=== PATIENT | female | born 2005 | race Caucasian/White ===

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

== ENCOUNTER 2023-04-11 14:48 | Emergency (ER) | payer MEDICAID, SELFPAY ==
[2023-04-11 14:49] VITALS: BP 133/94; PULSE 102; RESP 16; TEMP 36; O2SAT 97; BMI 24.4
--- NOTE | 2023-04-11 15:14 | EDS_ITS ---
<Statement entered by Jasmin Camp MD - 04/11/23 19:29> I have personally performed a face to face assessment of the patient and have reviewed the RITIKA Note. Patient presents secondary to right shoulder injury. She states last night around midnight she fell from her bed striking her right shoulder. She continues to have pain mostly over the posterior shoulder today. Patient seen upright in bed no acute distress. Head and neck examination is unremarkable with no sign of trauma. Heart is regular rate and rhythm. Lung sounds are clear. Right upper extremity examination reveals no evidence of dislocation or deformity. Strong distal pulses are noted. Strong hand grasp and good range of motion of the right shoulder. No focal tenderness over the scapula or clavicle. Right shoulder x-rays per my interpretation reveal no evidence of fracture or dislocation. Radiology interpretation reviewed. Test results discussed with the patient. She will continue Tylenol or ibuprofen. HPI History of Present Illness Chief Complaint: Upper Extremity Injury Narrative Narrative: Patient is a 17-year-old female with history of anxiety who presents to the emerged part with right shoulder injury. Patient states last night around midnight, she was trying to catch her child could have fell off the bed, she then fell striking her right shoulder. She was able go back to sleep however this morning, she had difficulty moving her shoulder and she is concerned is out of place. She denies any head or neck injury. She denies any numbness or tingling down the right arm. She does have history of injury to this right shoulder. [facility] Medical History Anxiety Asthma Bipolar disorder Depression Drug use ETOH abuse Gestational HTN Headache LGA (large for gestational age) fetus Marijuana smoker Polyhydramnios PTSD (post-traumatic stress disorder) Second degree perineal laceration during delivery Seizures (spontaneous vaginal delivery) Home Medications [id number]-[id number]-Fy-FA 1 mg tablet 1 tab PO DAILY 04/20/22 [History Last Taken 2 Days Ago ~05/06/22] ferrous sulfate 325 mg (65 mg iron) tablet 325 mg PO DAILY 05/08/22 [History Last Taken 2 Days Ago ~05/06/22] ferrous sulfate 325 mg (65 mg iron) tablet 325 mg PO DAILY #30 tabs 05/10/22 [Rx Last Taken Unknown] ibuprofen 600 mg tablet 600 mg PO Q6H PRN pain #30 tabs 05/10/22 [Rx Last Taken Unknown] fluoxetine 10 mg capsule 10 mg PO DAILY 09/18/22 [History Last Taken Unknown] ibuprofen 600 mg tablet 600 mg PO Q6H PRN PRN pain #20 TABLETS 04/11/23 [Rx Last Taken Unknown] Allergy/AdvReac Type Severity Reaction Status Date / Time No Known Allergies Allergy Verified 09/18/22 01:17 Surgical History H/O right knee surgery History of surgery History of tonsillectomy Social History Smoking Status: Current every day smoker tobacco type: e-cigarettes ROS ROS ED ROS Narrative Constitutional: Negative for fever, chills, weight loss, weakness Eyes: Negative for vision loss, vision change, double vision ENT: Negative for any sore throat, ear pain, congestion Cardiovascular: Negative for any chest pain, tightness, palpitations Respiratory: Negative for any cough, sputum production, hemoptysis, dyspnea, dyspnea on exertion, orthopnea Gastrointestinal: Negative for any abdominal pain, nausea, vomiting, diarrhea, constipation, blood in stool, blood in vomit : Negative for any urinary frequency, dysuria, retention, blood in urine Muscle skeletal: Negative for any myalgias, arthralgias, neck pain, back pain. positive right shoulder pain Neurological: Negative for any headache, syncope, numbness or tingling, dizziness Skin: Negative for any rashes, lumps, itching, abrasions, lacerations Psychiatric: Negative for any depression, anxiety, stress, suicidal ideation, homicidal ideation Hematologic: Negative for any easy bruising, excessive bruising, easy bleeding Allergies: Negative for any eczema, hives, rash EXAM Physical Exam Narrative Exam Narrative: Vital signs reviewed. Extremities: No peripheral edema, no signs of gross trauma or deformity. Patient has pain on the anterior aspect of the right shoulder. Worsening pain with abduction, abduction. Minimal swelling. +2 radial pulse Neuro: Cranial nerves II through XII intact, no focal neurological deficits. Skin: Clean dry and intact with no rash, purpura, petechiae, vesicles or pustules. Backs/flank: No CVA tenderness, no midline spinal tenderness, no deformity. Psych: Normal mood and affect. No SI, HI or acute psychosis. Const Vital Signs: 04/11/23 14:49 Temperature 96.8 F L Temperature Source Temporal Pulse Rate 102 H Respiratory Rate 16 Blood Pressure 133/94 H Blood Pressure Mean 107 Pulse Ox 97 Oxygen Delivery Method Room Air [facility] Treatment and Re-Evaluation Narrative: Patient appears generally well, patient appears nontoxic, vital signs are stable. Patient presents to the emergency department with complaints of right shoulder pain. Differential diagnosis includes right shoulder strain, humeral fracture, shoulder dislocation. 3 view to 4 view x-rays will be ordered, these will be interpreted by the ER physician. All radiologic examinations were read, reviewed by the emergency department attending. From these reads, a plan of care will be put in place. X-rays showed no acute process the right shoulder. At this time, patient be diagnosed with a right shoulder strain, right shoulder contusion. She will be given ibuprofen for home. All questions were answered, she instructed to ice and elevate. Happy with plan of care, stable for discharge Discharge Plan Triage Chief Complaint: Upper Extremity Injury ED Midlevel Provider: Anselmo Givens ED Provider: Jasmin Camp Dx/Rx/DC Orders Clinical Impression: Acute pain of right shoulder Instructions: LUKE PASTRANA Shoulder Pain, Uncertain Cause Prescriptions: New ibuprofen 600 mg tablet 600 mg PO Q6H PRN PRN (Reason: pain) Qty: 20 0RF No Action [id number]-FA 1 mg Tablet 1 tab PO DAILY
--- NOTE | 2023-04-11 15:15 | RAD_ITS ---
EXAM: XR RIGHT SHOULDER COMPLETE, 2 OR MORE VIEWS CLINICAL INDICATION: fall TECHNIQUE: Two or more views of the right shoulder. COMPARISON: No relevant prior studies available. FINDINGS: BONES/JOINTS: Unremarkable. No acute fracture. No subluxation. Normal alignment. Preservation of the joint space. No sclerotic or destructive changes observed. SOFT TISSUES: Unremarkable. No soft tissue swelling or gas. No radiopaque foreign body. RAD/Shoulder min 2 Views IMPRESSION: Negative right shoulder x-rays. Electronically Signed: Cosme Chester MD at 15:38 EST ,
== END 2023-04-11 15:41 | disposition home or self-care (01) ==
LOC: ED 15:34
PROVIDERS: Emergency Provider Emergency Medicine; Visit Provider Emergency Medicine
DX: S46.911A Strain of unspecified muscle, fascia and tendon at shoulder and upper arm level, right arm, initial encounter (principal); W06.XXXA Fall from bed, initial encounter; F32.A Depression, unspecified; Z79.899 Other long term (current) drug therapy; F17.290 Nicotine dependence, other tobacco product, uncomplicated; S40.011A Contusion of right shoulder, initial encounter
CPT/HCPCS: 73030; 99282

== ENCOUNTER 2024-08-31 19:26 | Emergency (ER) | payer MEDICAID, SELFPAY ==
[2024-08-31 19:26] VITALS: BP 107/73; PULSE 53; RESP 13; TEMP 36.6; O2SAT 100; BMI 23.4
--- NOTE | 2024-08-31 19:44 | EDS_ITS ---
HPI History of Present Illness Chief Complaint: Head Injury Narrative Narrative: 19-year-old female who denies significant past medical history presents with headache, nausea that she has had since yesterday evening. She states that her 2-year-old's head collided with hers yesterday evening around 7 PM, almost 24 hours ago. Since then, she has developed headache on the left side of her head as well as nausea but no vomiting. She may have felt very lightheaded but there was no loss of consciousness. She states that her symptoms are progressing and she feels off balance when she walks. She had ringing in her ears and tinnitus after it happened immediately but that has resolved. She does not take blood thinners. [facility] Medical History Second degree perineal laceration during delivery (spontaneous vaginal delivery) PTSD (post-traumatic stress disorder) Bipolar disorder LGA (large for gestational age) fetus Drug use Marijuana smoker ETOH abuse Polyhydramnios Asthma Depression Anxiety Headache Seizures Gestational HTN Home Medications ?Medication ?Instructions ?Recorded ?Last Taken ?Type [id number]-[id number]-[id number] 1 mg 1 tab PO DAILY pregna ncy 04/20/22 2 Days Ago History tablet ~05/06/22 ferrous sulfate 325 mg (65 mg 325 mg PO DAILY pregnanc y 05/08/22 2 Days Ago His tory iron) tablet ~05/06/22 ferrous sulfate 325 mg (65 mg 325 mg PO DAILY #30 tabs 05/10/22 Unknown Rx iron) tablet ibuprofen 600 mg tablet 600 mg PO Q6H PRN pain #30 t abs 05/10/22 Unknown Rx fluoxetine 10 mg capsule 10 mg PO DAILY 09/18/22 Unkn own History ibuprofen 600 mg tablet 600 mg PO Q6H PRN PRN pain # 20 04/11/23 Unknown Rx TABLETS ibuprofen 600 mg tablet 600 mg PO Q8H PRN PRN fever or 08/31/24 Unknown Rx pain #20 TABLETS ondansetron 4 mg disintegrating 4 mg PO Q8H PRN PRN Na usea #15 tabs 08/31/24 Unknown Rx tablet Allergy/AdvReac Type Severity Reaction Status Date / Time No Known Allergies Allergy Verified 08/31/24 19:30 Surgical History History of tonsillectomy H/O right knee surgery History of surgery Social History household members: family housing: house Smoking Status: Current every day smoker tobacco type: e-cigarettes ROS ROS ED ROS Narrative Constitutional: No fever, no chills. HEENT: No sore throat. No neck pain. No loss of vision. No loss of consciousness. Cardiovascular: No chest pain. No palpitations. Respiratory: No cough, no shortness of breath. Abdominal: No abdominal pain. Positive nausea. No vomiting. Genitourinary: No dysuria. No hematuria. Musculoskeletal: No myalgias. No arthralgias. Neurologic: Left-sided headaches. No dizziness. Positive lightheadedness. Feeling off balance. EXAM Physical Exam Narrative Exam Narrative: Afebrile. Vital signs noted. Nontoxic-appearing. GCS 15. ABCs intact. Cardiovascular examination reveals bradycardia. Lungs clear to auscultation bilaterally. Abdomen is soft, nontender, without guarding or rebound. Positive bowel sounds. Neurological examination is nonfocal, nonlateralizing. Moves all extremities. Able to raise arms above head without difficulty. Awake, alert, oriented x 3. Neck examination shows her to be soft and supple without vertebral point tenderness or bony step-off. PERRL, EOMI. Airway patent. No drooling or trismus. Const Vital Signs: 08/31/24 19:26 08/31/24 19:33 Temperature 97.9 F Temperature Source Temporal Pulse Rate 53 L Respiratory Rate 13 Respiratory Effort Normal Non-Labored Respiratory Depth Normal Respiratory Pattern Normal Blood Pressure 107/73 Blood Pressure Mean 84 Pulse Ox 100 Oxygen Delivery Method Room Air Room Air MDM MDM MDM Narrative Medical decision making narrative: Differential diagnosis includes but not limited to intracranial hemorrhage versus closed head injury versus mild concussion/postconcussive syndrome. She has most of the symptoms of a mild concussion. She does not take blood th inners. There is no crepitance of the skull so I do not feel that she needs CT imaging based on a normal neurological examination and she is 24 hours out from her initial injury without loss of consciousness. She was given her first doses of Zofran and ibuprofen 600 mg here in the emergency department which when compared to her previous medication list she has tolerated previously. She was instructed on brain rest. She will follow-up with her primary care provider in 7 to 10 days if not improving. Return instructions to the emergency department were reviewed. She is given prescriptions for ibuprofen 600 mg and 4 Zofran ODT's. Disposition is discharged home in stable condition. History & Record Review Discussion w/independent historian: Patient Discharge Plan Triage Chief Complaint: Head Injury ED Provider: Tim Leonardo Dx/Rx/DC Orders Clinical Impression: Closed head injury, Mild concussion Instructions: ED Concussion, ED Scalp Contusion, ED Head Injury (Adult) Prescriptions: New ibuprofen 600 mg tablet 600 mg PO Q8H PRN PRN (Reason: fever or pain) Qty: 20 0RF ondansetron 4 mg tablet,disintegrating 4 mg PO Q8H PRN PRN (Reason: Nausea) Qty: 15 0RF No Action [id number]-FA 1 mg Tablet 1 tab PO DAILY ferrous sulfate 325 mg (65 mg iron) Tablet 325 mg PO DAILY ibuprofen 600 mg tablet 600 mg PO Q6H PRN (Reason: pain) Qty: 30 0RF ferrous sulfate 325 mg (65 mg iron) tablet 325 mg PO DAILY Qty: 30 0RF fluoxetine 10 mg capsule 10 mg PO DAILY Patient Comments: TAKE 1 CAPSULE BY MOUTH ONCE DAILY ibuprofen 600 mg tablet 600 mg PO Q6H PRN PRN (Reason: pain) Qty: 20 0RF Primary Care Provider: Care Physician,No Primary Referrals: Anselmo French MD [Med Staff - Active Staff] - 1 Week if not improving Care Physician,No Primary [Primary Care Provider] - Activity Restrictions/Additional Instructions: Medication as directed for nausea and pain. Follow-up with a primary care provider in 1 week to 10 days if not improving. Return with new or worsening symptoms. Print Language: Angolan Disposition Disposition: Home, Self Care
[2024-08-31] MEDS: Ibuprofen 600 MG Tablet PO (19:47)
[2024-08-31] MEDS: Ondansetron ODT 4 MG Tablet PO (19:47)
[2024-08-31 19:49] VITALS: BP 107/73; PULSE 56; RESP 13; TEMP 36.6; O2SAT 100
== END 2024-08-31 19:51 | disposition home or self-care (01) ==
LOC: ED 19:46
PROVIDERS: Emergency Provider Emergency Medicine; Referring Provider Emergency Medicine; Visit Provider Emergency Medicine
DX: S06.0XAA Concussion with loss of consciousness status unknown, initial encounter (principal); R11.0 Nausea; W50.0XXA Accidental hit or strike by another person, initial encounter; F32.A Depression, unspecified; Z79.899 Other long term (current) drug therapy; F17.290 Nicotine dependence, other tobacco product, uncomplicated
CPT/HCPCS: 99283

== ENCOUNTER 2024-12-17 11:34 | Emergency (ER) | payer MEDICAID, SELFPAY ==
[2024-12-17 11:34] VITALS: BP 132/114; PULSE 101; RESP 20; TEMP 36.8; O2SAT 100; BMI 24.3
--- NOTE | 2024-12-17 11:56 | ED.RN ---
PT STATES SHE HAS BEEN SICK FOR A FEW WEEKS. IN THE LAST WEEK NEW SX IS N/V AND SHE IS FEELING VERY WEAK AND FATIGUE. PT NOTES SHE HAS BEEN UNDER A LOT OF STRESS AND HAS RELATED MOST OF HER SX TO THIS, BUT SHE IS FEELING WORSE AND STATES SHE JUST FEELS REALLY SICK
--- OUTSIDE RECORDS SUMMARY | 2024-12-17 12:04 | XMS RPT_ITS | CCD ---
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 9.8 mm Right Ovary Rt ovary: Visualized Rt ovary morphology: premenopausal with dominant follicle Rt ovary D1 41 mm Rt ovary D2 22 mm Rt ovary D3 23 mm Rt ovary Vol 10.9 cm Left Ovary Lt ovary: Visualized Lt ovary morphology: premenopausal normal follicular Lt ovary D1 24 mm Lt ovary D2 18 mm Lt ovary D3 14 mm Lt ovary Vol 3.2 cm Cul de Sac Visualized. no free fluid visualized Performed By: Zenaida Escobar RDMS Read By: Dalila Oshea M.D. MATERNAL MEDICINE [facility] 09-15-2024 Radiology Study observation (narrative) [facility] B-HCG SerPl-aCncon HCG.beta subunit Qn m[IU]/mL Normal <5.0 [facility] Comment on above: Order Comment: Speci men Type: BLOOD SPECIMEN Ordering Facility: [facility] Address: [address] [place] [address] Result Comment: Ajith crewsdipika Performed By: #### 5 195-3, 16416-4, 35615-8 #### [facility] CLIA [id number] [address] [place] [address] [place] BACTERIAL VAGINOSIS NAATon 0 09-13-2024 Lactobacillus crispatus+gasseri+starla enii + Gardnerella vaginalis + Atopobium vaginae rRNA LA+probe Ql (Vag fld) Not detected Normal Not detected [facility] Comment on above: Order Comment: Speci men Type: SWAB Ordering Facility: [facility] Address: [address] [place] [address] Performed By: #### 3 6902-5, BOSTON #### [facility] CLIA [id number] [address] [place] [address] [place] C. trachomatis+N. gonorrhoea e DNA LA+probe Ql (Unsp spec)on 09-13-2024 C. trachomatis rRNA LA+probe Ql (Unsp spec) Not detected Normal Not detected [facility] Comment on above: Order Comment: Speci men Type: BLOOD SPECIMEN Ordering Facility: [facility] Address: [address] [place] [address] Performed By: #### 5 195-3, 07243-5, 28750-9 #### [facility] CLIA [id number] [address] [place] [address] [place] N. gonorrhoeae rRNA LA+probe Ql (Unsp spec) Not detected Normal Not detected [facility] Comment on above: Order Comment: Speci men Type: BLOOD SPECIMEN Ordering Facility: [facility] Address: [address] [place] [address] Performed By: #### 5 195-3, 45217-9, 75476-4 #### [facility] CLIA [id number] [address] [place] [address] [place] MARIA T/TRICHOMONAS NAATon 0 09-13-2024 C. glabrata RNA LA+probe Ql (Vag fld) Not detected Normal Not detected [facility] Comment on above: Order Comment: Speci men Type: SWAB Ordering Facility: [facility] Address: [address] [place] [address] Performed By: #### 3 6902-5, TRVAMP #### [facility] CLIA [id number] [address] [place] [address] [place] Maria T sp DNA LA+probe Ql (Vag fld) Not detected Normal Not detected [facility] Comment on above: Order Comment: Speci men Type: SWAB Ordering Facility: [facility] Address: [address] [place] [address] Result Comment: The Maria T species group target includes C. albicans, C. tropicalis, C. parapsilosis, and C. dubliniensis. Performed By: #### 3 6902-5, TRVAMP #### [facility] CLIA [id number] [address] [place] [address] [place] T. vaginalis DNA LA+probe Ql (Unsp spec) Not detected Normal Not detected [facility] Comment on above: Order Comment: Speci men Type: SWAB Ordering Facility: [facility] Address: [address] [place] [address] Performed By: #### 3 6902-5, TRVAMP #### [facility] CLIA [id number] [address] [place] [address] [place] CBC panel Auto (Bld)on 09-13 Erythrocyte distribution width (RBC) [Ratio] 12.4 % 11.5 - 15.0 % [facility] Hematocrit (Bld) [Volume fraction] 41.1 % 36.0 - 46.0 % [facility] Hemoglobin (Bld) [Mass/Vol] 13.9 g/dL 11.5 - 15.5 g/dL [facility] Interpretation and review of laboratory results Normal [facility] MCH (RBC) [Entitic mass] 29.1 pg 26.0 - 34.0 pg [facility] MCHC (RBC) [Mass/Vol] 33.8 g/dL 30.5 - 36.0 g/dL [facility] MCV (RBC) [Entitic vol] 86 fL 80.0 - 100.0 fL [facility] Nucleated RBC (Bld) [#/Vol] NINF [facility] Platelet mean volume (Bld) [Entitic vol] 10.2 fL 9.0 - 12.7 fL [facility] Platelets (Bld) [#/Vol] 255 10*3/uL [facility] RBC (Bld) [#/Vol] 4.78 10*6/uL 3.90 - 5.2 0 m/uL [facility] WBC (Bld) [#/Vol] 7.22 10*3/uL [facility] Erythrocyte distribution width (RBC) [Ratio] 12.4 % Normal 11.5-15.0 [facility] Comment on above: Order Comment: Speci men Type: BLOOD SPECIMEN Ordering Facility: [facility] Address: [address] [place] [address] Performed By: #### 5 195-3, 88932-8, 23985-9 #### [facility] CLIA [id number] [address] [place] [address] [place] Hematocrit (Bld) [Volume fraction] 41.1 % Normal 36.0-46.0 [facility] Comment on above: Order Comment: Speci men Type: BLOOD SPECIMEN Ordering Facility: [facility] Address: [address] [place] [address] Performed By: #### 5 195-3, 55121-1, 51028-2 #### [facility] CLIA [id number] [address] [place] [address] [place] Hemoglobin (Bld) [Mass/Vol] 13.9 g/dL Normal 11.5-15.5 [facility] Comment on above: Order Comment: Speci men Type: BLOOD SPECIMEN Ordering Facility: [facility] Address: [address] [place] [address] Performed By: #### 5 195-3, 33639-3, 07336-8 #### [facility] CLIA [id number] [address] [place] [address] [place] MCH (RBC) [Entitic mass] 29.1 pg Normal 26.0-34.0 [facility] Comment on above: Order Comment: Speci men Type: BLOOD SPECIMEN Ordering Facility: [facility] Address: [address] [place] [address] Performed By: #### 5 195-3, 99189-6, 73307-4 #### [facility] CLIA [id number] [address] [place] [address] [place] MCHC (RBC) [Mass/Vol] 33.8 g/dL Normal 30.5-36.0 [facility] Comment on above: Order Comment: Speci men Type: BLOOD SPECIMEN Ordering Facility: [facility] Address: [address] [place] [address] Performed By: #### 5 195-3, 22757-6, 58652-3 #### [facility] CLIA [id number] [address] [place] [address] [place] MCV (RBC) [Entitic vol] 86.0 fL Normal 80.0-100.0 [facility] Comment on above: Order Comment: Speci men Type: BLOOD SPECIMEN Ordering Facility: [facility] Address: [address] [place] [address] Performed By: #### 5 195-3, 75327-1, 27023-8 #### [facility] CLIA [id number] [address] [place] [address] [place] Nucleated RBC (Bld) [#/Vol] 10*3/uL Normal <0.01 [facility] Comment on above: Order Comment: Speci men Type: BLOOD SPECIMEN Ordering Facility: [facility] Address: [address] [place] [address] Performed By: #### 5 195-3, 25609-5, 08877-7 #### [facility] CLIA [id number] [address] [place] [address] [place] Platelet mean volume (Bld) [Entitic vol] 10.2 fL Normal 9.0-12.7 [facility] Comment on above: Order Comment: Speci men Type: BLOOD SPECIMEN Ordering Facility: [facility] Address: [address] [place] [address] Performed By: #### 5 195-3, 21644-4, 40173-8 #### [facility] CLIA [id number] [address] [place] [address] [place] Platelets (Bld) [#/Vol] 255 10*3/uL Normal 150-400 [facility] Comment on above: Order Comment: Speci men Type: BLOOD SPECIMEN Ordering Facility: [facility] Address: [address] [place] [address] Performed By: #### 5 195-3, 62212-0, 06768-7 #### [facility] CLIA [id number] [address] [place] [address] [place] RBC (Bld) [#/Vol] 4.78 10*6/uL Normal 3.90-5.20 [facility] Comment on above: Order Comment: Speci men Type: BLOOD SPECIMEN Ordering Facility: [facility] Address: [address] [place] [address] Performed By: #### 5 195-3, 86618-8, 95508-2 #### [facility] CLIA [id number] [address] [place] [address] [place] WBC (Bld) [#/Vol] 7.22 10*3/uL Normal 3.70-11.00 [facility] Comment on above: Order Comment: Speci men Type: BLOOD SPECIMEN Ordering Facility: [facility] Address: [address] [place] [address] Performed By: #### 5 195-3, 06322-5, 55451-9 #### [facility] CLIA [id number] [address] [place] [address] [place] CNOVon 09-13-2024 CNOV Office Visit (OBGYWM ) RINA YI ([id number]) 1 F Date Time Provider Department 09/13/24 1:30 PM BLANK CHAVIRA OBGYWM During your visit today, we recorded the following information about you: Blood pressure Weight Last Period 110/62 74.8 kg 08/21/24 Blank Chavira APRN.CLOTHING EXAMINER 09/13/2024 2:18 PM Signed Horticultural Farmer offered: Patient declines. Rina Yi is a 19 year old female who presents for problem visit of abnormal bleeding and pelvic pain. HPI: Rina presents for abnormal uterine bleeding. Experiencing bleeding every 14-30 days. Sometimes regular. Reports she has bled for a month before. Bleeding is heavy. Changing a pad every hour. She is experiencing fatigue, migraines, nausea, pelvic pain, and pain with intercourse. Reports this has all been going on for a few months. Trying to become ~ states 7 months of trying. IUD fell out in May. TSH normal normal June 2024. She is not having any bleeding today. OB History Gravida2 Para1 Term1 Preterm0 AB1 Living1 SAB0 IAB0 Ectopic0 Multiple0 Live Births1 Waste Baler History LMP: 08/21/2024 (Approximate), Having periods Age at Menarche: Age at First : Age at Menopause: Waste Baler History Comments: Sexual Activity: Yes; Male Contraception: I.U.D. PAST MEDICAL HISTORY Diagnosis Date - Anxiety state - Body dysmorphic disorder - Borderline personality disorder (HCC) - Depression - Ovarian cyst - PTSD (post-traumatic stress disorder) - Seizure (HCC) PAST SURGICAL HISTORY Procedure Laterality Date - EXCISION BONE MANDIBLE has plate in right side of jaw at 1 years old - EXTENSIVE JAW SURGERY N/A 2006 - INSERTION OF IUD 04/17/2024 Mirena - KNEE SURGERY HX Right - TONSILLECTOMY AND ADENOIDECTOMY FAMILY HISTORY Problem Relation Age of Onset - other (heart problem) Mother - other (narcotic addiction) Mother - Alcohol/Drug Father - Diabetes Maternal Grandmother - Ovarian cancer Maternal Grandmother - other (heart problem) Maternal Grandfather - No Known Problems Paternal Grandmother - No Known Problems Paternal Grandfather Social History Tobacco Use - Smoking status: Former Current packs/day: 0.00 Types: Cigarettes Quit date: 2018 Years since quittin.3 Passive exposure: Past - Smokeless tobacco: Never - Tobacco comments: Vaping Vaping Use - Vaping status: current everyday user - Substances: Nicotine Substance Use Topics - Alcohol use: Not Currently - Drug use: Not Currently Types: Marijuana Comment: quit 2020 Current Outpatient Medications Medication Sig - VIT 14-IRON FUM-FOLIC ORAL Take by mouth. No current facility-administered medications for this visit. 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 As applicable, any other physician, advance practice provider, medical student, or other health professional student that will be observing or involved in the sensitive examination for educational or training purposes was discussed with the Patient or Authorized Transformation Coach. The Patient or Authorized Transformation Coach has agreed to proceed with the sensitive examination. (Sensitive examination includes inspection and/or palpation of the breasts, pelvis, prostate and anorectal regions). EXAM: BP 110/62 Wt 165 lb (74.8kg) LMP 08/21/2024 GENERAL: pleasant, female in no apparent distress HEENT: Normocephalic, atraumatic, mucus membranes moist, and no lesions CHEST: Normal inspiratory effort PELVIC: external genitalia normal, normal Bartholin's glands, urethra, [place]'s glands, no vulvar lesions, no cervical lesions, good vaginal support, physiologic discharge present, normal appearing perineal body and perianal region BIMANUAL: uterus normal size, shape and consistency, no adnexal masses, and mild tenderness with palpation NEURO: alert and oriented x3,exam grossly non-focal EXTREMITIES: normal ASSESSMENT AND PLAN: 1. Abnormal uterine bleeding - ICD9: 626.9, ICD10: N93.9 (primary diagnosis) 2. Pelvic pain in female - ICD9: 625.9, ICD10: R10.2 - Obtain labs and ultrasound - Consider follow up with chronic pelvic pain clinic or PFPT if all findings normal 3. Screening for cervical cancer - ICD9: V76.2, ICD10: Z12.4 - Pap today 4. Screen for STD (sexually transmitted disease) - ICD9: V74.5, ICD10: Z11.3 - Cultures obtained 5. Malaise and fatigue - ICD9: 780.79, ICD10: R53.81, R53.83 - CBC ordered 7. Desire for - ICD9: V26.9, ICD10: Z31.9 - Continue PNV 8. Hx of migraine headaches - ICD9: V12.49, ICD10: Z86.69 - Established with neuro, to follow up Em (more content not included)... Normal [facility] HIGH RISK HUMAN PAPILLOMA MUNIR (HPV), PCR FOR DETECTION AND GENOTYPINGon 09-13-2024 HPV 16 Ag Ql (Unsp spec) Not detected Normal Not detected [facility] Comment on above: Order Comment: Speci men Type: BLOOD SPECIMEN Ordering Facility: [facility] Address: [address] [place] [address] Performed By: #### 5 195-3, 64133-2, 56501-2 #### [facility] CLIA [id number] [address] [place] [address] [place] HPV 18 Ag Ql (Unsp spec) Not detected Normal Not detected [facility] Comment on above: Order Comment: Speci men Type: BLOOD SPECIMEN Ordering Facility: [facility] Address: [address] [place] [address] Performed By: #### 5 195-3, 07982-5, 11243-5 #### [facility] CLIA [id number] [address] [place] [address] [place] [facility] HPV 31+33+35+39+45+51+52+5 6+58+59+66+68 DNA LA+probe Ql (Cvx) Not detected Normal Not detected [facility] Comment on above: Order Comment: Lolaneftali valdez Type: BLOOD SPECIMEN Ordering Facility: [facility] Address: [address] [place] [address] Result Comment: High Risk HPV Other Type includes HPV types 31, 33, 35, 39, 45, 51, 52, 56, 58, 59, 66 and 68. Performed By: #### 5 195-3, 65166-4, 53800-5 #### [facility] CLIA [id number] [address] [place] [address] [place] HbA1c (Bld)on 09-13-2024 Average glucose Estimated from glycated hemoglobin (Bld) [Mass/Vol] 94 mg/dL Normal [facility] Comment on above: Order Comment: [facility] Type: BLOOD SPECIMEN Ordering Facility: [facility] Address: [address] [place] [address] Result Comment: eAG: (Estimated average glucose) is a calculated value from HgbA1c and is education courses sales representative of the average blood glucose level in the last 2-3 month period. Performed By: #### 5 195-3, 95646-8, 42773-0 #### [facility] CLIA [id number] [address] [place] [address] [place] HbA1c (Bld) [Mass fraction] 4.9 % Normal 4.3-5.6 [facility] Comment on above: Order Comment: [facility] Type: BLOOD SPECIMEN Ordering Facility: [facility] Address: [address] [place] [address] Result Comment: Amer [place] Diabetes Association guidelines indicate that patients with HgbA1c in the range 5.7-6.4% are at increased risk for development of diabetes, and intervention by lifestyle modification may be beneficial. HgbA1c greater or equal to 6.5% is considered diagnostic of diabetes. Performed By: #### 5 195-3, 53397-5, 50115-5 #### [facility] CLIA [id number] [address] [place] [address] [place] PAP TESTon 09-13-2024 ADEQUACY Normal [facility] Comment on above: Order Comment: Speci men Type: BLOOD SPECIMEN Ordering Facility: [facility] Address: [address] [place] [address] Result Comment: Sati sfactory for interpretation. Transformation zone present Performed By: #### 5 195-3, 04478-6, 14037-5 #### [facility] CLIA [id number] [address] [place] [address] [place] CASE REPORT Normal [facility] Comment on above: Order Comment: Speci men Type: BLOOD SPECIMEN Ordering Facility: [facility] Address: [address] [place] [address] Result Comment: Gyne cologic Cytology Report Case: [id number] Authorizing Provider: Blank Chavira APRN.CLOTHING EXAMINER Collected: 09/13/2024 02:18 PM Ordering Location: OB/Gynecology Received: 09/13/2024 04:15 PM First Screen: Nadege Baron CT, ASCP Rescreen: Harish Hassan Tech Pathologist: Sarai Payan MD Specimen: Pap Test, ThinPrep, Cervix Performed By: #### 5 195-3, 44578-0, 18464-0 #### [facility] CLIA [id number] [address] [place] [address] [place] CLINICAL HISTORY, CYTOLOGY, DIE CAST DIE MAKER Routine Exam Normal [facility] Comment on above: Order Comment: Speci men Type: BLOOD SPECIMEN Ordering Facility: [facility] Address: [address] [place] [address] Result Comment: Abno rmal Bleeding (Describe) Performed By: #### 5 195-3, 56784-9, 88499-5 #### [facility] CLIA [id number] [address] [place], [place] [address] [place] FINAL PERFORMING LAB Normal [facility] Comment on above: Order Comment: Speci men Type: BLOOD SPECIMEN Ordering Facility: [facility] Address: [address] [place] [address] Result Comment: Tech nical component, dressed poultry grader screening performed at: [facility], [address] [place] [address] [place] [address] CLIA: [id number] Diagnostic interpretation performed at: [facility], [address] [place] [address] CLIA# [id number] Java Mobile Developer: Kingston Strong MD Performed By: #### 5 195-3, 38934-2, 98549-9 #### [facility] CLIA [id number] [address] [place] [address] [place] INTERPRETATION, CYTOLOGY, DIE CAST DIE MAKER Abnormal [facility] Comment on above: Order Comment: Speci men Type: BLOOD SPECIMEN Ordering Facility: [facility] Address: [address] [place] [address] Result Comment: Atyp ical squamous cells of undetermined significance (ASC-US). at 0854 EDT Performed By: #### 5 195-3, 10345-8, 01057-9 #### [facility] CLIA [id number] [address] [place] [address] [place] LMP 08/21/2024 Normal [facility] Comment on above: Order Comment: Speci men Type: BLOOD SPECIMEN Ordering Facility: [facility] Address: [address] [place] [address] Performed By: #### 5 195-3, 43922-9, 35896-6 #### [facility] CLIA [id number] [address] [place] [address] [place] PAP DISCLAIMER COMMENT The Pap Smear is a screening test for cervical cancer. False negative results occur with all screening tests, emphasizing the need for rescreening at recommended intervals, and clinical correlation. Normal [facility] Comment on above: Order Comment: Speci men Type: BLOOD SPECIMEN Ordering Facility: [facility] Address: [address] [place] [address] Performed By: #### 5 195-3, 27786-7, 08211-1 #### [facility] CLIA [id number] [address] [place] [address] [place] PAP GENERAL CATEGORIZATION Epithelial Cell Abnormality Normal [facility] Comment on above: Order Comment: Speci men Type: BLOOD SPECIMEN Ordering Facility: [facility] Address: [address] [place] [address] Performed By: #### 5 195-3, 27998-6, 18614-2 #### [facility] CLIA [id number] [address] [place] [address] [place] PAP UTILITY PERSON COMMENT This specimen has be en analyzed by the ThinPrep Imaging System, an automated imaging and review system, which assists the laboratory in evaluating cells on ThinPrep Pap tests. Following automated imaging, selected romero from every slide are reviewed by a dressed poultry grader. Normal [facility] Comment on above: Order Comment: Speci men Type: BLOOD SPECIMEN Ordering Facility: [facility] Address: [address] [place] [address] Performed By: #### 5 195-3, 69570-0, 53176-6 #### [facility] CLIA [id number] [address] [place] [address] [place] T4 Free SerPl-mCncon 025 Free T4 [Mass/Vol] 1.1 ng/dL Normal 0.9-1.7 [facility] Comment on above: Order Comment: Speci men Type: BLOOD SPECIMEN Ordering Facility: [facility] Address: [address] [place] [address] Performed By: #### 5 195-3, 44600-8, 65339-2 #### [facility] CLIA [id number] [address] [place] [address] [place] UA DIP,URINE HCG (POC)on Beta HCG ( test) Ql (U) Negative Negative [facility] Comment on above: Location:[facility], [address], [place], [address] Assembly Machine Operator (POCT) Internal QC [facility] Location:[facility], [address], [place], [address] [facility] POINT OF CARE [facility] Emergency Department Summary on 08-31-2024 Emergency Department Summary [facility] Medical Records Department [address] [place] [address] Emergency Department Summary 08/31/24 MR#: [id number] Acct: [id number] Name: RINA IY Rep #: [id number] : 2005 19 From: Tim Leonardo MD PCP: Care Physician,No Primary Status:DEP ER Location: ED HPI History of Present Illness Chief Complaint: Head Injury Narrative Narrative: 19-year-old female who denies significant past medical history presents with headache, nausea that she has had since yesterday evening. She states that her 2-year-old's head collided with hers yesterday evening around 7 PM, almost 24 hours ago. Since then, she has developed headache on the left side of her head as well as nausea but no vomiting. She may have felt very lightheaded but there was no loss of consciousness. She states that her symptoms are progressing and she feels off balance when she walks. She had ringing in her ears and tinnitus after it happened immediately but that has resolved. She does not take blood thinners. [facility] Medical History Second degree perineal laceration during delivery (spontaneous vaginal delivery) PTSD (post-traumatic stress disorder) Bipolar disorder LGA (large for gestational age) fetus Drug use Marijuana smoker ETOH abuse Polyhydramnios Asthma Depression Anxiety Headache Seizures Gestational HTN Home Medications ???Medication ???Instructions ???Recorded ???Last Taken ???Type suknaaly-wam-Lf-FA 1 mg 1 tab PO DAILY 04/20/22 2 Days Ago History tablet 05/06/22 ferrous sulfate 325 mg (65 mg 325 mg PO DAILY 05/08/22 2 Days Ago History iron) tablet 05/06/22 ferrous sulfate 325 mg (65 mg 325 mg PO DAILY #30 tabs 05/10/22 Unknown Rx iron) tablet ibuprofen 600 mg tablet 600 mg PO Q6H PRN pain #30 tabs Unknown Rx fluoxetine 10 mg capsule 10 mg PO DAILY 09/18/22 Unknown Hi story ibuprofen 600 mg tablet 600 mg PO Q6H PRN PRN pain #20 07/30 Unknown Rx TABLETS ibuprofen 600 mg tablet 600 mg PO Q8H PRN PRN fever or Unknown Rx pain #20 TABLETS ondansetron 4 mg disintegrating 4 mg PO Q8H PRN PRN Nausea #15 tab s 08/31/24 Unknown Rx tablet Allergy/AdvReac Type Severity Reaction Status Date / Time No Known Allergies Allergy Verified 08/31/24 19:30 Surgical History History of tonsillectomy H/O right knee surgery History of surgery Social History household members: family housing: house Smoking Status: Current every day smoker tobacco type: e-cigarettes ROS ROS ED ROS Narrative Constitutional: No fever, no chills. HEENT: No sore throat. No neck pain. No loss of vision. No loss of consciousness. Cardiovascular: No chest pain. No palpitations. Respiratory: No cough, no shortness of breath. Abdominal: No abdominal pain. Positive nausea. No vomiting. Genitourinary: No dysuria. No hematuria. Musculoskeletal: No myalgias. No arthralgias. Neurologic: Left-sided headaches. No dizziness. Positive lightheadedness. Feeling off balance. EXAM Physical Exam Narrative Exam Narrative: Afebrile. Vital signs noted. Nontoxic-appearing. GCS 15. ABCs intact. Cardiovascular examination reveals bradycardia. Lungs clear to auscultation bilaterally. Abdomen is soft, nontender, without guarding or rebound. Positive bowel sounds. Neurological examination is nonfocal, nonlateralizing. Moves all extremities. Able to raise arms above head without difficulty. Awake, alert, oriented x 3. Neck examination shows her to be soft and supple without vertebral point tenderness or bony step-off. PERRL, EOMI. Airway patent. No drooling or trismus. Const Vital Signs: 08/31/24 19:26 08/31/24 19:33 Temperature 97.9 F Temperature Source Temporal Pulse Rate 53 L Respiratory Rate 13 Respiratory Effort Normal Non-Labored Respiratory Depth Normal Respiratory Pattern Normal Blood Pressure 107/73 Blood Pressure Mean 84 Pulse Ox 100 Oxygen Delivery Method Room Air Room Air MDM MDM MDM Narrative Medical decision making narrative: Differential diagnosis includes but not limited to intracranial hemorrhage versus closed head injury versus mild concussion/postconcussi ve syndrome. She has most of the symptoms of a mild concussion. She does not take blood thinners. There is no crepitance of the skull so I do not feel that she needs CT imaging based on a normal neurological examination and she is 24 hours out from her initial injury without loss of consciousness. She was given her first doses of Zofran and ibuprofen 600 mg here in the emergency department which when compared to (more content not included)... Normal [facility] BACTERIAL VAGINOSIS NAATon 0 07-27-2024 Lactobacillus crispatus+gasseri+starla enii + Gardnerella vaginalis + Atopobium vaginae rRNA LA+probe Ql (Vag fld) Not detected Normal Not detected [facility] Comment on above: Order Comment: Speci men Type: BLOOD SPECIMEN Ordering Facility: [facility] Address: [address] [place] [address] Performed By: #### 5 195-3, 24192-9, 70914-7 #### [facility] CLIA [id number] [address] [place] [address] [place] C. trachomatis+N. gonorrhoea e DNA LA+probe Ql (Unsp spec)on 07-27-2024 C. trachomatis rRNA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 [facility] CLIA [id number] [address] [place] [address] [place] Neutrophils/100 WBC (Bld) 63.2 % Normal [facility] Comment on above: Order Comment: Speci men Type: SWAB Ordering Facility: [facility] Address: [address] [place] [address] Performed By: #### 3 6902-5, TRVAMP #### [facility] CLIA [id number] [address] [place] [address] [place] Nucleated RBC (Bld) [#/Vol] 10*3/uL Normal <0.01 [facility] Comment on above: Order Comment: Speci men Type: SWAB Ordering Facility: [facility] Address: [address] [place] [address] Performed By: #### 3 6902-5, TRVAMP #### [facility] CLIA [id number] [address] [place] [address] [place] Nucleated RBC/100 WBC (Bld) [Ratio] 0.0 /100 WBC Normal [facility] Comment on above: Order Comment: Speci men Type: SWAB Ordering Facility: [facility] Address: [address] [place] [address] Performed By: #### 3 6902-5, TRVAMP #### [facility] CLIA [id number] [address] [place] [address] [place] Platelet mean volume (Bld) [Entitic vol] 10.1 fL Normal 9.0-12.7 [facility] Comment on above: Order Comment: Speci men Type: SWAB Ordering Facility: [facility] Address: [address] [place] [address] Performed By: #### 3 6902-5, TRVAMP #### [facility] CLIA [id number] [address] [place] [address] [place] Platelets (Bld) [#/Vol] 228 10*3/uL Normal 150-400 [facility] Comment on above: Order Comment: Speci men Type: SWAB Ordering Facility: [facility] Address: [address] [place] [address] Performed By: #### 3 6902-5, TRVAMP #### [facility] CLIA [id number] [address] [place] [address] [place] RBC (Bld) [#/Vol] 4.74 10*6/uL Normal 3.90-5.20 [facility] Comment on above: Order Comment: Speci men Type: SWAB Ordering Facility: [facility] Address: [address] [place] [address] Performed By: #### 3 6902-5, TRVAMP #### [facility] CLIA [id number] [address] [place] [address] [place] WBC (Bld) [#/Vol] 7.27 10*3/uL Normal 3.70-11.00 [facility] Comment on above: Order Comment: Speci men Type: SWAB Ordering Facility: [facility] Address: [address] [place] [address] Performed By: #### 3 6902-5, TRVAMP #### [facility] CLIA [id number] [address] [place] [address] [place] CNOVon 05-26-2024 CNOV Office Visit (OBGYWM ) RINA YI ([id number]) 1 F Date Time Provider Department 05/26/24 11:20 AM KAVON TOTH OBGYWM During your visit today, we recorded the following information about you: Blood pressure Weight Last Period 120/80 75.4 kg 05/22/24 Kavon Toth MD 05/26/2024 12:00 PM Signed Rina Yi is a 18 year old female who presents for problem visit. HPI: Patient presents after her IUD fell out (on Wednesday). Also she states that she is having a heavy menses. Patient had bleeding for almost 4 weeks after the IUD was inserted. She now desires . At home she had faint positive and negative tests. OB History T1 L1 SAB0 IAB0 Ectopic0 Multiple0 Live Births1 Waste Baler History LMP: 05/22/2024 (Exact Date), Having periods Age at Menarche: Age at First : Age at Menopause: Waste Baler History Comments: Sexual Activity: Yes; Male Contraception: I.U.D. PAST MEDICAL HISTORY Diagnosis Date Anxiety state Body dysmorphic disorder Depression Seizure (HCC) PAST SURGICAL HISTORY Procedure Laterality Date EXCISION BONE MANDIBLE has plate in right side of jaw at 1 years old INSERTION OF IUD 04/17/2024 Mirena KNEE SURGERY HX Right TONSILLECTOMY AND ADENOIDECTOMY FAMILY HISTORY Family history unknown: Yes Social History Tobacco Use Smoking status: Former Types: Cigarettes Smokeless tobacco: Never Tobacco comments: Vaping Vaping Use Vaping status: current everyday user Substances: Nicotine Substance Use Topics Alcohol use: Never Drug use: Not Currently Types: Marijuana Current Outpatient Medications Medication Sig VIT 14-IRON FUM-FOLIC ORAL Take by mouth. levonorgestrel (MIRENA) 21 mcg/24hr (up to 8 yrs) 52 mg IUD 1 Each by INTRAUTERINE route as directed. folic acid 0.8 mg cap Take 1 capsule by mouth once daily. (Patient not taking: Reported on 05/26/2024) No current facility-administered medications for this visit. Allergies As of Date: 05/26/2024 (No Known Allergies) Fully Assessed 05/26/2024 Allergies and current medication updated:Yes SENSITIVE EXAM: Sensitive exam not performed. EXAM: BP 120/80 Wt 166 lb 3.2 oz (75.4kg) LMP 05/22/2024 GENERAL: pleasant, female in no apparent distress ASSESSMENT AND PLAN: Assessment AND Plan Unprotected sexual intercourse Orders: UA DIP,URINE HCG (POC) Irregular bleeding Orders: COMPLETE BLOOD COUNT AND DIFFERENTIAL; Future Urine hcg negative. All questions answered/ Advised on preconception folic acid. Medical Decision Making: Problems: Moderate: New problem with uncertain prognosis Data: Unique test(s) ordered: 3+ Risk: Low: Low risk from testing/treatment Medical Decision Making Level: 4 - Moderate Kavon Toth MD Allergies As of Date: 05/26/2024 (No Known Allergies) Date Reviewed: 05/26/2024 Reviewed by: Kavon Toth MD - Fully Assessed Reason for Visit: Follow Up [171] Cmt: Iud fell out Primary Visit Diagnosis:Unprotected sexual intercourse [Z72.51] Other Visit Diagnosis:Irregular bleeding [N92.6] Order(s):UA DIP,URINE HCG (POC) [9287011] Order #: [id number]. #:[id number] COMPLETE BLOOD COUNT AND DIFFERENTIAL [SQCBCDIF] Order #: [id number] FUTURE THYROID STIMULATING HORMONE [SQTSH] Order #: [id number] FUTURE Prescriptions as of 05/26/2024 - VIT 14-IRON FUM-FOLIC ORAL Take by mouth. 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 - folic acid 0.8 mg cap (Discontinued) Reported on 05/26/2024 Encounter Status:Closed by KAVON TOTH on 05/26/24 [facility] UA DIP,URINE HCG (POC)on Beta HCG ( test) Ql (U) Negative Negative [facility] Comment on above: Location:[facility], [address], [place], [address] [employer] ([employer] Internal QC [facility] Location:[facility], [address], [place], [address] [facility] POINT OF CARE [facility] Erica 05-23-2024 CNPN Telephone (OBGYWM) RINA YI ([id number]) 1 F Date Time Provider Department 05/23/24 KAVON TOTH During your visit today, we recorded the following information about you: Lissa Perez MA 05/23/2024 9:18 AM Signed Pt scheduled to see KJ on Friday 05/26. LM for pt to call back to discuss in more detail what the appt is for. If she wants the IUD removed, will need to have orders placed. AMAYA Mcclure Trisha, RN 05/23/2024 11:05 AM Signed Patient states the IUD fell out last night. Wants test as she has been having unprotected intercourse. She may take UPT at home if she is able to get one and cancel appointment. At this time she is unsure if she wants another form of control or not. Yaquelin Stewart RN Allergies As of Date: 05/23/2024 (No Known Allergies) Date Reviewed: 04/17/2024 Reviewed by: Blank Chavira APRN.CLOTHING EXAMINER - Fully Assessed Reason for Visit: Appointment [186] Prescriptions as of 05/23/2024 - levonorgestrel (MIRENA) 21 mcg/24hr (up to 8 yrs) 52 mg IUD 1 Each by INTRAUTERINE route as directed. - folic acid 0.8 mg cap Take 1 capsule by mouth once daily. - VIT 14-IRON FUM-FOLIC ORAL Take by mouth. 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] 12/30/2021 High risk teen in second trimester [O*12/30/2021 08/10/2022 Body dysmorphic disorder [F45.22] 12/30/2021 Underweight [R63.6] 02/18/2022 Polyhydramnios in third trimester [O40.3XX0] 03/23/2022 08/10/2022 PTSD (post-traumatic stress disorder) [F43.10] 04/06/2022 Excessive weight gain in , third trime*04/16/2022 08/10/2022 Positive GBS test [B95.1] 04/21/2022 Hyponatremia [E87.1] 04/27/2022 Encounter Status:Closed by YAQUELIN STEWART on 05/23/24 Normal [facility] CBC with Auto Differentialon 05-03-2024 Basophils (Bld) [#/Vol] 0.01 10*3/uL [facility] Basophils/100 WBC (Bld) 0 % 0 - 2 % [facility] Eosinophils (Bld) [#/Vol] 0.10 10*3/uL [facility] Eosinophils/100 WBC (Bld) 2 % 0 - 5 % [employer] Erythrocyte distribution width (RBC) [Ratio] 12.7 % 12.1 - 15.2 % [facility] [employer] Hematocrit (Bld) [Volume fraction] 37.8 % 36.0 - 46.0 % [facility] [employer] Hemoglobin (Bld) [Mass/Vol] 13.3 g/dL 12.0 - 16.0 g/dL [facility] Immature granulocytes (Bld) [#/Vol] 0.00 10*3/uL [facility] Immature granulocytes/100 WBC (Bld) 0 % 0 - 5 % [facility] Interpretation and review of laboratory results Abnormal [facility] Lymphocytes/100 WBC (Bld) 30 % 15 - 40 % [facility] Lymphocytes/100 WBC (Bld) 2.00 % [facility] MCH (RBC) [Entitic mass] 29.7 pg 26.0 - 34.0 pg [facility] MCHC (RBC) [Mass/Vol] 35.2 g/dL 31.0 - 37.0 g/dL [facility] MCV (RBC) [Entitic vol] 84.4 fL 80.0 - 100.0 fL [facility] Monocytes/100 WBC (Bld) 9 % High 4 - 8 % [facility] Monocytes/100 WBC (Bld) 0.60 % [facility] Neutrophils/100 WBC (Bld) 59 % 47 - 75 % [facility] Platelet mean volume (Bld) [Entitic vol] 10.0 fL 6.0 - 12.0 fL [facility] Platelets (Bld) [#/Vol] 230 10*3/uL [facility] RBC (Bld) [#/Vol] 4.48 10*6/uL 4.00 - 5.2 0 m/uL [facility] Segmented neutrophils/100 WBC (Bld) 3.94 % [facility] WBC other (Bld) [#/Vol] 6.7 [facility] CBC with Diffon 05-03-2024 Abs. Basophil 0.01 k/uL Normal 0.00-0.20 [facility] Comment on above: Performed By: #### C JORGE, CP #### [facility] [address] [place] [address] Computer Artist: Rao Hendrix MD Abs.Imm.Granulocyte 0.00 k/uL Normal 0.00-0.30 [facility] Comment on above: Performed By: #### C JORGE, CP #### [facility] [address] [place], [place] [id number] Computer Artist: Rao Hendrix MD Abs.Neutrophil (Seg) 3.94 k/uL Normal 2.5-7.0 [facility] Comment on above: Performed By: #### C DP, CP #### [facility] [address] [place], [place] [id number] Computer Artist: Rao Hendrix MD Basophils/100 WBC (Bld) 0 % Normal 0-2 [facility] Comment on above: Performed By: #### C DP, CP #### [facility] [address] [place] [id number] Computer Artist: Rao Hendrix MD Eosinophils (Bld) [#/Vol] 0.10 10*3/uL Normal 0.00-0.40 [facility] Comment on above: Performed By: #### C DP, CP #### [facility] [address] [place] [address] Computer Artist: Rao Hendrix MD Eosinophils/100 WBC (Bld) 2 % Normal 0-5 [facility] Comment on above: Performed By: #### C DP, CP #### [facility] [address] [place] [id number] Computer Artist: Rao Hendrix MD Erythrocyte distribution width (RBC) [Ratio] 12.7 % Normal 12.1-15.2 [facility] Comment on above: Performed By: #### C DP, CP #### [facility] [address] [place] [address] Computer Artist: Rao Hendrix MD Hematocrit (Bld) [Volume fraction] 37.8 % Normal 36.0-46.0 [facility] Comment on above: Performed By: #### C DP, CP #### [facility] [address] [place] [id number] Computer Artist: Rao Hendrix MD Hemoglobin (Bld) [Mass/Vol] 13.3 g/dL Normal 12.0-16.0 [facility] Comment on above: Performed By: #### C DP, CP #### [facility] [address] [place], [place] [phone] Computer Artist: Rao Hendrix MD Immature granulocytes/100 WBC (Bld) 0 % Normal 0-5 [facility] Comment on above: Performed By: #### C DP, CP #### [facility] [address] [place], [place] [phone] Computer Artist: Rao Hendrix MD Lymphocytes (Bld) [#/Vol] 2.00 10*3/uL Normal 1.20-5.20 [facility] Comment on above: Performed By: #### C DP, CP #### [facility] [address] [place], [place] [id number] Computer Artist: Rao Hendrix MD Lymphocytes/100 WBC (Bld) 30 % Normal 15-40 [facility] Comment on above: Performed By: #### C DP, CP #### [facility] [address] [place], [place] [phone] Computer Artist: Rao Hendrix MD MCH (RBC) [Entitic mass] 29.7 pg Normal 26.0-34.0 [facility] Comment on above: Performed By: #### C DP, CP #### [facility] [address] [place], [place] [id number] Computer Artist: Rao Hendrix MD MCHC (RBC) [Mass/Vol] 35.2 g/dL Normal 31.0-37.[address] [facility] Comment on above: Performed By: #### C DP, CP #### [facility] [address] [place], [place] [id number] Computer Artist: Rao Hendrix MD MCV (RBC) [Entitic vol] 84.4 fL Normal 80.0-100.0 [facility] Comment on above: Performed By: #### C DP, CP #### [facility] [address] [place] [address] Computer Artist: Rao Hendrix MD Monocytes (Bld) [#/Vol] 0.60 10*3/uL Normal 0.00-1.00 [facility] Comment on above: Performed By: #### C DP, CP #### [facility] [address] [place] [address] Computer Artist: Rao Hendrix MD Monocytes/100 WBC (Bld) 9 % High 4-8 [facility] Comment on above: Performed By: #### C DP, CP #### [facility] [address] [place] [address] Computer Artist: Rao Hendrix MD Neutrophil (Seg) 59 % Normal 47-75 [facility] Comment on above: Performed By: #### C DP, CP #### [facility] [address] [place] [address] Computer Artist: Rao Hendrix MD Platelet mean volume (Bld) [Entitic vol] 10.0 fL Normal 6.0-12.0 [facility] Comment on above: Performed By: #### C DP, CP #### [facility] [address] [place] [address] Computer Artist: Rao Hendrix MD Platelets (Bld) [#/Vol] 230 10*3/uL Normal 140-450 [facility] Comment on above: Performed By: #### C DP, CP #### [facility] [address] [place] [address] Computer Artist: Rao Hendrix MD RBC (Bld) [#/Vol] 4.48 10*6/uL Normal 4.00-5.20 [facility] Comment on above: Performed By: #### C DP, CP #### [facility] [address] [place] [address] Computer Artist: Rao Hendrix MD WBC (Bld) [#/Vol] 6.7 10*3/uL Normal 4.5-13.5 [facility] Comment on above: Performed By: #### C DP, CP #### [facility] [address] [place], [place] [phone] Computer Artist: Rao Hendrix MD Comp Metabolic Profon 2023 Albumin [Mass/Vol] 4.4 g/dL Normal 3.5-5.2 [facility] Comment on above: Performed By: #### C DP, CP #### [facility] [address] [place], [place] [id number] Computer Artist: Rao Hendrix MD Alkaline Phos 76 U/L Normal 35-104 [facility] Comment on above: Performed By: #### C DP, CP #### [facility] [address] [place], [place] [id number] Computer Artist: Rao Hendrix MD ALT [Catalytic activity/Vol] 12 U/L Normal 5-33 [facility] Comment on above: Performed By: #### C DP, CP #### [facility] [address] [place], [place] [id number] Computer Artist: Rao Hendrix MD Anion gap [Moles/Vol] 11 mmol/L Normal 9-[address] [facility] Comment on above: Performed By: #### C DP, CP #### [facility] [address] [place], [place] [id number] Computer Artist: Rao Hendrix MD AST [Catalytic activity/Vol] 15 U/L Normal <32 [facility] Comment on above: Performed By: #### C DP, CP #### [facility] [address] [place], [place] [phone] Computer Artist: Rao Hendrix MD Bilirubin [Mass/Vol] 0.5 mg/dL Normal 0.3-1.2 [facility] Comment on above: Performed By: #### C DP, CP #### [facility] [address] [place], [place] [phone] Computer Artist: Rao Hendrix MD BUN/CRE Ratio 11 Normal 9-20 [facility] Comment on above: Performed By: #### C DP, CP #### [facility] [address] [place], [place] [id number] Computer Artist: Rao Hendrix MD Calcium [Mass/Vol] 9.2 mg/dL Normal 8.6-10.4 [facility] Comment on above: Performed By: #### C DP, CP #### [facility] [address] [place], [place] [id number] Computer Artist: Rao Hendrix MD Chloride [Moles/Vol] 102 mmol/L Normal 98-107 [facility] Comment on above: Performed By: #### C DP, CP #### [facility] [address] [place], [place] [id number] Computer Artist: Rao Hendrix MD CO2 [Moles/Vol] 27 mmol/L Normal 20-31 [facility] Comment on above: Performed By: #### C DP, CP #### [facility] [address] [place], [place] [id number] Computer Artist: Rao Hendrix MD Creatinine [Mass/Vol] 0.9 mg/dL Normal 0.5-0.[address] [facility] Comment on above: Performed By: #### C DP, CP #### [facility] [address] [place], [place] [id number] Computer Artist: Rao Hendrix MD GFR/1.73 sq M.predicted among non-blacks MDRD (S/P/Bld) [Vol rate/Area] mL/min/{1.73_m2} Normal >60 [facility] Comment on above: Result Comment: These results are not intended for use in patients <18 years of age. eGFR results are calculated without a race factor using the 2020 CKD-EPI equation. Careful clinical correlation is recommended, particularly when comparing to results calculated using previous equations. The CKD-EPI equation is less accurate in patients with extremes of muscle mass, extra-renal metabolism of creatine, excessive creatine ingestion, or following therapy that affects renal tubular secretion. Performed By: #### C DP, CP #### [facility] [address] [place] [address] Computer Artist: Rao Hendrix MD Glucose [Mass/Vol] 111 mg/dL High 70-99 [facility] Comment on above: Performed By: #### C DP, CP #### [facility] [address] [place] [address] Computer Artist: Rao Hendrix MD Potassium [Moles/Vol] 4.4 mmol/L Normal 3.7-5.[address] [facility] Comment on above: Performed By: #### C DP, CP #### [facility] [address] [place] [address] Computer Artist: Rao Hendrix MD Protein [Mass/Vol] 7.5 g/dL Normal 6.4-8.3 [facility] Comment on above: Performed By: #### C DP, CP #### [facility] [address] [place] [address] Computer Artist: Rao Hendrix MD Sodium [Moles/Vol] 140 mmol/L Normal 135-144 [facility] Comment on above: Performed By: #### C DP, CP #### [facility] [address] [place], [place] [id number] Computer Artist: Rao Hendrix MD Urea nitrogen [Mass/Vol] 10 mg/dL Normal 6-20 [facility] Comment on above: Performed By: #### C DP, CP #### [facility] [address] [place] [address] Computer Artist: Rao Hendrix MD Comprehensive Metabolic Pane [facility] 05-03-2024 Albumin [Mass/Vol] 4.4 g/dL 3.5 - 5.2 g/dL [facility] ALP [Catalytic activity/Vol] 76 U/L 35 - 104 U/L [facility] ALT [Catalytic activity/Vol] 12 U/L 5 - 33 U/L [facility] Anion gap [Moles/Vol] 11 mmol/L 9 - 17 mmol/L [facility] AST [Catalytic activity/Vol] 15 U/L NINF - 32 U/L [facility] Bilirubin [Mass/Vol] 0.5 mg/dL 0.3 - 1 .2 mg/dL [facility] Calcium [Mass/Vol] 9.2 mg/dL 8.6 - 10. 4 mg/dL [facility] Chloride [Moles/Vol] 102 mmol/L 98 - 10 7 mmol/L [facility] CO2 [Moles/Vol] 27 mmol/L 20 - 31 mmol/L [facility] Creatinine [Mass/Vol] 0.9 mg/dL 0.5 - 0.9 mg/dL [facility] Est, Glogrant Filt Rate - PINF [facility] Comment on above: These results are not intended for use in patients <18 years of age. eGFR results are calculated without a race factor using the 2020 CKD-EPI equation. Careful clinical correlation is recommended, particularly when comparing to results calculated using previous equations. The CKD-EPI equation is less accurate in patients with extremes of muscle mass, extra-renal metabolism of creatine, excessive creatine ingestion, or following therapy that affects renal tubular secretion. Glucose [Mass/Vol] 111 mg/dL High 70 - 99 mg/dL [facility] Interpretation and review of laboratory results Abnormal [facility] Potassium [Moles/Vol] 4.4 mmol/L 3.7 - 5.3 mmol/L [facility] Protein [Mass/Vol] 7.5 g/dL 6.4 - 8.3 g/dL [facility] Sodium [Moles/Vol] 140 mmol/L 135 - 144 mmol/L [facility] Urea nitrogen [Mass/Vol] 10 mg/dL 6 - 20 mg/dL [facility] Urea nitrogen/Creatinine [Mass ratio] 11 mg/mg 9 - 20 [facility] C. trachomatis+N. gonorrhoea e DNA LA+probe Ql (Unsp spec)on 04-17-2024 C. trachomatis rRNA LA+probe Ql (Unsp spec) Not detected Normal Not detected [facility] Comment on above: Order Comment: Speci men Type: SWAB Ordering Facility: [facility] Address: [address] [place] [address] Performed By: #### 3 6902-5, TRVAMP #### [facility] CLIA [id number] [address] [place] [address] [place] [facility] N. gonorrhoeae rRNA LA+probe Ql (Unsp spec) Not detected Normal Not detected [facility] Comment on above: Order Comment: Speci men Type: SWAB Ordering Facility: [facility] Address: [address] [place] [address] Performed By: #### 3 6902-5, TRVAMP #### [facility] CLIA [id number] [address] [place] [address] [place] CNOVon 04-17-2024 CNOV Office Visit (ALICE ) RINA YI ([id number]) 1 F Date Time Provider Department 04/17/24 11:00 AM BLANK CHAVIRA During your visit today, we recorded the following information about you: Blood pressure Weight 110/60 75.3 kg Blank Chavira APRN.CLOTHING EXAMINER 04/17/2024 1:00 PM Signed Horticultural Farmer offered: Patient sangeeta. Rina presents today for IUD insertion for contraception. Patient's last menstrual period was 09/23/2023 (exact date). GC/chlamydia: Collected today test: negative Side effects including irregular bleeding were discussed with the patient. The patient understands that it should be removed in 8 years or sooner if the patient desires a . IUD source: office provided IUD lot #: [id number] Exp date: 05/10/2026 UNIVERSAL PROTOCOL / SAFETY CHECKLIST Procedure to be Performed: Mirena Intrauterine Device Insertion Sign In: A Moment of CARE was completed. Personnel directly involved with the procedure wore the appropriate PPE (Personal Protective Equipment). Patient/Surrogate Stated/Verified: PATIENT VERIFIED(optional for EMERGENT procedures): Patient name, Date of , Relevant allergies, and The intended procedure Time Out Communication: Intended patient and procedure match the source documents. Consent documented and matches the intended procedure. Sign Out: SIGN OUT (optional for EMERGENT procedures): All specimen containers correctly labeled. All instruments, equipment, possible retained foreign bodies accounted for. Post-procedure follow-up management communicated and Plan of Care Visit completed when applicable. Blank Chavira APRN.LUZ MARIA The cervix was prepped with betadine. The uterus sounded to 9 cm and the uterus is Retroverted.. The first Mirena IUD was did not properly expel from the device. A second IUD was obtained. Using sterile technique, the Mirena IUD was inserted without difficulty and the string was cut to 3 cm from the external os of the cervix. Patient tolerated procedure well. PLAN: Patient was advised to observe for signs and symptoms of infection including but not limited to fever, malodorous vaginal discharge and/or pain. The patient was told to check the string monthly for accurate placement. Bleeding expectations were reviewed. Follow up in one month. SARAH Valdez Reanna, MA 04/17/2024 11:07 AM Signed POST IUD INSTRUCTIONS You may have irregular bleeding during the first 3 months of use. You may have mild-severe cramping for the next 48 hours. You may use over the counter medication (Motrin, Tylenol) as needed. Your IUD must be removed or replaced based on the following table: IUD Type Removed or replaced within: Mayra 3 years Kyleena 5 years Mirena 8 years Liletta 8 years Paragard 10 years Call the office for signs/symptoms of infection such as severe cramping, fever, or unusual bleeding. Check for string placement as instructed by your doctor. If you have any additional questions, please contact the office. Referring Provider: BLANK CHAVIRA [[id number]] Allergies As of Date: 04/17/2024 (No Known Allergies) Date Reviewed: 04/17/2024 Reviewed by: Blank Chavira APRN.CLOTHING EXAMINER - Fully Assessed Reason for Visit: STD [102] Insertion Of IUD [291] Immunizations [194] Cmt: Flu vaccination Primary Visit Diagnosis:Encounter for IUD insertion [Z30.430] Other Visit Diagnoses:Screen for STD (sexually transmitted disease) [Z11.3] Need for influenza vaccination [Z23] Order(s):INSERT INTRAUTERINE DEVICE [[id number]] Order #: [id number] [] levonorgestrel 21 mcg/24hr (up to 8 yrs) 52 mg 1 Each intrauterine device (MIRENA)Disp: Rfl: levonorgestrel (MIRENA) 21 mcg/24hr (up to 8 yrs) 52 mg IUD1 Each by INTRAUTERINE route as directed.Disp: 1 EachRfl: 0 GONORRHEA/CHLAMYDIA NAAT [SQGCCT] Order #: [id number]. #:[id number] SYPHILIS TREPONEMAL W/REFLEX [SQSYPHTX] Order #: [id number] FUTURE HIV 1/2 COMBO WITH REFLEX TO DIFFERENTIATION [SQHIV12] Order #: [id number] FUTURE HEPATITIS C ANTIBODY IA WITH CONFIRMATION [XUTDQE8V] Order #: [id number] FUTURE HEPATITIS B SURFACE ANTIGEN [SQHBSAG] Order #: [id number] FUTURE TRICHOMONAS VAGINALIS NAAT [SQTRVAMP] Order #: [id number]. #:[id number] UA DIP,URINE HCG (POC) [[id number]] Order #: [id number]. #:[id number] INFLUENZA VACCINE, AGE 6MO-64YR, TRIVALENT (AFLURIA, FLULAVAL, FLUVIRIN, FLUZONE) [[id number]] Order #: [id number] Prescriptions as of 04/17/2024 - levonorgestrel (MIRENA) 21 mcg/24hr (up to 8 yrs) 52 mg IUD 1 Each by INTRAUTERINE route as directed. - folic acid 0.8 mg cap Take 1 capsule by mouth once daily. - VIT 14-IRON FUM-FOLIC ORAL Take by mouth. Problem List As Of Date 04/17/2024 Noted Resolved with care elsewhere in secon*12/30/2021 08/10/2022 Engages in vaping [Z72.89] (more content not included)... Normal [facility] HBV surface Ag Ser Qlon 120 HBV surface Ag Ql (S) Negative Normal Negative [facility] Comment on above: Order Comment: Speci men Type: BLOOD SPECIMEN Ordering Facility: [facility] Address: [address] [place] [address] Performed By: #### 5 195-3, 65531-4, 52456-4 #### [facility] CLIA [id number] [address] [place] [address] [place] HCV Ab Ser Qlon 04-17-2024 HCV Ab Ql (S) Negative Normal Negative [facility] Comment on above: Order Comment: Speci men Type: SWAB Ordering Facility: [facility] Address: [address] [place] [address] Result Comment: The result suggests no evidence of active infection with Hepatitis C virus. Should recent infection be suspected, repeat testing may be considered 4-6 weeks after this draw. Performed By: #### 3 6902-5, TRVACRYS #### [facility] CLIA [id number] [address] [place] [address] [place] HIV 1+2 Ab IA Qlon 4 HIV 1 and 2 Ab IA.rapid Nom (S/P/Bld) Normal [facility] Comment on above: Order Comment: Speci men Type: BLOOD SPECIMEN Ordering Facility: [facility] Address: [address] [place] [address] Result Comment: Test not indicated. Performed By: #### 5 195-3, 73840-2, 44555-6 #### [facility] CLIA [id number] [address] [place] [address] [place] HIV 1+2 Ab+HIV1 p24 Ag IA Ql Non-Reactive Normal Nonreactive [facility] Comment on above: Order Comment: Speci men Type: BLOOD SPECIMEN Ordering Facility: [facility] Address: [address] [place] [address] Performed By: #### 5 195-3, 92304-4, 17027-5 #### [facility] CLIA [id number] [address] [place] [address] [place] HIV immunoassay testing algorithm interpretation (S/P/Bld) [Interp] Normal [facility] Comment on above: Order Comment: Speci men Type: BLOOD SPECIMEN Ordering Facility: [facility] Address: [address] [place] [address] Result Comment: No e vidence of HIV-1 or HIV-2 infection. Should recent infection be suspected, repeat testing may be considered 2-3 weeks after this draw. [place] Rev. Code 3701.243(E): This information has been disclosed to you from confidential records protected from disclosure by state law. ???You shall make no further disclosure of this information without the specific, written, and informed release of the individual to whom it pertains or as otherwise permitted by state law. A general authorization for the release of medical or other information is not sufficient for the purpose of the release of HIV test results or diagnoses. Performed By: #### 5 195-3, 74760-8, 67570-4 #### [facility] CLIA [id number] [address] [place] [address] [place] Reagin and Treponema pallidu m IgG and IgM [Interp]on 04-17-2024 T. pallidum IgG+IgM IA Ql (S) Non-Reactive Normal Nonreactive [facility] Comment on above: Order Comment: Speci men Type: BLOOD SPECIMEN Ordering Facility: [facility] Address: [address] [place] [address] Performed By: #### 5 195-3, 02827-0, 94863-2 #### [facility] CLIA [id number] [address] [place] [address] [place] Reagin+T pallidum IgG+IgM Se rPl-Impon 04-17-2024 Reagin and Treponema pallidum IgG and IgM [Interp] Cannot exclude recent Treponemal infection if specimen collected within 7-10 days after appearance of suspect lesions or 2-3 weeks after an exposure. Clinical correlation is required. Normal [facility] Comment on above: Order Comment: Speci men Type: BLOOD SPECIMEN Ordering Facility: [facility] Address: [address] [place] [address] Performed By: #### 5 195-3, 67571-1, 96272-3 #### [facility] CLIA [id number] [address] [place] [address] [place] TRICHOMONAS VAGINALIS NAATon 04-17-2024 T. vaginalis DNA LA+probe Ql (Unsp spec) Not detected Normal Not detected [facility] Comment on above: Order Comment: Speci men Type: SWAB Ordering Facility: [facility] Address: [address] [place] [address] Performed By: #### 3 6902-5, TRVAMP #### [facility] CLIA [id number] [address] [place] [address] [place] UA DIP,URINE HCG (POC)on Beta HCG ( test) Ql (U) Negative Negative [facility] Comment on above: Location:[facility], [address], [place], [address] Assembly Machine Operator (POCT) Internal QC [place] [facility] Location:[facility], [address], [place], [address] [facility] POINT OF CARE [facility] B-HCG SerPl-aCncon 4 HCG.beta subunit Qn m[IU]/mL Normal <5.0 [facility] Comment on above: Order Comment: Speci men Type: SWAB Ordering Facility: [facility] Address: [address] [place] [address] Result Comment: Ajith rossi Performed By: #### 3 6902-5, TRVAMP #### [facility] CLIA [id number] [address] [place] [address] [place] BACTERIAL VAGINOSIS NAATon 1 Lactobacillus crispatus+gasseri+starla enii + Gardnerella vaginalis + Atopobium vaginae rRNA LA+probe Ql (Vag fld) Negative Normal Negative for bacterial vaginosis [facility] Comment on above: Order Comment: Speci men Type: SWAB Ordering Facility: [facility] Address: [address] [place] [address] Performed By: #### 3 6902-5, TRVAMP #### [facility] CLIA [id number] [address] [place] [address] [place] C. trachomatis+N. gonorrhoea e DNA LA+probe Ql (Unsp spec)on 02-21-2024 C. trachomatis rRNA LA+probe Ql (Unsp spec) Negative Normal Negative for Chlamydia trachomatis by amplificaton [facility] Comment on above: Order Comment: Speci men Type: SWAB Ordering Facility: [facility] Address: [address] [place] [address] Performed By: #### 3 6902-5, TRVAMP #### [facility] CLIA [id number] [address] [place] [address] [place] N. gonorrhoeae rRNA LA+probe Ql (Unsp spec) Negative Normal Negative for Neisseria gonorrhoeae by amplification [facility] Comment on above: Order Comment: Speci men Type: SWAB Ordering Facility: [facility] Address: [address] [place] [address] Performed By: #### 3 6902-5, TRVAMP #### [facility] CLIA [id number] [address] [place] [address] [place] MARIA T/TRICHOMONAS NAATon 1 C. glabrata RNA LA+probe Ql (Vag fld) Negative Normal Negative for Maria T glabrata [facility] Comment on above: Order Comment: Speci men Type: BLOOD SPECIMEN Ordering Facility: [facility] Address: [address] [place] [address] Performed By: #### 5 195-3, 14839-9, 64635-2 #### [facility] CLIA [id number] [address] [place] [address] [place] Maria T sp DNA LA+probe Ql (Vag fld) Negative Normal Negative for Maria T species [facility] Comment on above: Order Comment: Speci men Type: BLOOD SPECIMEN Ordering Facility: [facility] Address: [address] [place] [address] Performed By: #### 5 195-3, 54352-9, 39734-4 #### [facility] CLIA [id number] [address] [place] [address] [place] T. vaginalis DNA LA+probe Ql (Unsp spec) Negative Normal Negative for Trichomonas vaginalis by amplification [facility] Comment on above: Order Comment: Speci men Type: BLOOD SPECIMEN Ordering Facility: [facility] Address: [address] [place] [address] Performed By: #### 5 195-3, 78333-5, 66165-3 #### [facility] CLIA [id number] [address] [place] [address] [place] CNOVon 02-21-2024 CNOV Office Visit (OBGYWM ) RINA YI ([id number]) 1 F Date Time Provider Department 02/21/24 1:30 PM BLANK CHAVIRA During your visit today, we recorded the following information about you: Blood pressure Weight 120/70 75.8 kg Blank Chavira APRN.CNP 02/21/2024 2:18 PM Signed Horticultural Farmer offered: Patient declines. Rina Yi is a 18 year old female who presents for a problem visit for STD screening and contraception. HPI: Rina presents for STD screening. The only symptom she has noticed is a slight vaginal odor. She would also like a Mirena IUD. She had one earlier this year that had to be removed due to malposition. Currently using NuvaRing. Does not like the feeling of it. Denies migraines with aura, VTE history or clotting disorder, hypertension, or liver issues. She does vape. OB History T1 L1 SAB0 IAB0 Ectopic0 Multiple0 Live Births1 Waste Baler History LMP: 09/23/2023 (Exact Date), None Age at Menarche: Age at First : Age at Menopause: Waste Baler History Comments: Sexual Activity: Yes; Male Contraception: I.U.D. PAST MEDICAL HISTORY Diagnosis Date Anxiety state Body dysmorphic disorder Depression Seizure (HCC) PAST SURGICAL HISTORY Procedure Laterality Date EXCISION BONE MANDIBLE has plate in right side of jaw at 1 years old KNEE SURGERY HX Right TONSILLECTOMY AND ADENOIDECTOMY FAMILY HISTORY Family history unknown: Yes Social History Tobacco Use Smoking status: Former Types: Cigarettes Smokeless tobacco: Never Tobacco comments: Vaping Vaping Use Vaping status: current everyday user Substances: Nicotine Substance Use Topics Alcohol use: Never Drug use: Not Currently Types: Marijuana Current Outpatient Medications Medication Sig folic acid 0.8 mg cap Take 1 capsule by mouth once daily. VIT 14-IRON FUM-FOLIC ORAL Take by mouth. Etonogestrel-Ethinyl Estradiol (NUVARING) 0.12-0.015 mg/24 hr vaginal ring Use 1 Each vaginally as directed. Insert 1 ring vaginally and keep for 3 weeks. Remove for a week and place new ring No current facility-administered medications for this visit. Allergies As of Date: 02/21/2024 (No Known Allergies) Fully Assessed 02/21/2024 REVIEW OF SYSTEMS Expanded ROS: DIE CAST DIE MAKER: Positive for vaginal odor Allergies and current medication updated:Yes SENSITIVE EXAM: The sensitive examination was discussed with the Patient or Patient's Authorized Transformation Coach. As applicable, any other physician, advance practice provider, medical student, or other health professional student that will be observing or involved in the sensitive examination for educational or training purposes was discussed with the Patient or Authorized Transformation Coach. The Patient or Authorized Transformation Coach has agreed to proceed with the sensitive examination. (Sensitive examination includes inspection and/or palpation of the breasts, pelvis, prostate and anorectal regions). EXAM: BP 120/70 Wt 167 lb (75.8kg) LMP 09/23/2023 GENERAL: pleasant, female in no apparent distress HEENT: Normocephalic, atraumatic, mucus membranes moist, and no lesions CHEST: Normal inspiratory effort PELVIC: external genitalia normal, normal Bartholin's glands, urethra, [place]'s glands, no vulvar lesions, no cervical lesions, good vaginal support, physiologic discharge present, normal appearing perineal body and perianal region BIMANUAL: uterus normal size, shape and consistency, no adnexal masses, and non-tender NEURO: alert and oriented x3,exam grossly non-focal EXTREMITIES: normal ASSESSMENT/PLAN: 1. Screen for STD (sexually transmitted disease) - ICD9: V74.5, ICD10: Z11.3 (primary diagnosis) - GONORRHEA/CHLAMYDIA NAAT - SYPHILIS TREPONEMAL W/REFLEX - HIV 1/2 COMBO WITH REFLEX TO DIFFERENTIATION - HEPATITIS C ANTIBODY IA WITH CONFIRMATION - HEPATITIS B SURFACE ANTIGEN - BACTERIAL VAGINOSIS NAAT - MARIA T/TRICHOMONAS NAAT - HERPES SIMPLEX IGM, WITH REFLEX IGG ABS 2. Unprotected sexual intercourse - ICD9: V69.2, ICD10: Z72.51 - HCG QUANTITATIVE 3. Encounter for IUD insertion - ICD9: V25.11, ICD10: Z30.430 - INSERT INTRAUTERINE DEVICE 4. Encounter for other general counseling or advice on contraception - ICD9: V25.09, ICD10: Z30.09 - Was happy with her Mirena IUD, but had to be removed due to malposition - Confirm with insurance that it will be covered again this year. If so, will plan for reinsertion. - Plans for Nuvaring until then. Recommend smoking cessation. Reviewed increased risk of blood clots, heart attack, stroke with vaping and estrogen use. - ETONOGESTREL 0.12 MG-ETHINYL ESTRADIOL 0.015 MG/24 HR VAGINAL RING RTO for IUD insertion. Blank Chavira APRN.LUZ MARIA Medical Decision Making: Problems: Low: 2+ self-limited or minor problems Data: Unique test(s) ordered: 3+ Risk: Low: Low risk fr (more content not included)... Normal [facility] HBV surface Ag Ser Qlon 02-07 HBV surface Ag Ql (S) Negative Normal Negative [facility] Comment on above: Order Comment: Speci men Type: BLOOD SPECIMEN Ordering Facility: [facility] Address: [address] [place] [address] Performed By: #### 5 195-3, 84999-4, 62517-5 #### [facility] CLIA [id number] [address] [place] [address] [place] HCV Ab Ser Qlon 02-21-2024 HCV Ab Ql (S) Negative Normal Negative [facility] Comment on above: Order Comment: Speci men Type: SWAB Ordering Facility: [facility] Address: [address] [place] [address] Result Comment: The result suggests no evidence of active infection with Hepatitis C virus. Should recent infection be suspected, repeat testing may be considered 4-6 weeks after this draw. Performed By: #### 3 6902-5, TRVAMP #### [facility] CLIA [id number] [address] [place] [address] [place] HERPES SIMPLEX IGM, WITH REF ARNALDO IGG ABSon 02-21-2024 HSV IGM QUALITATIVE Negative Normal Negative [facility] Comment on above: Order Comment: Speci men Type: BLOOD SPECIMEN Ordering Facility: [facility] Address: [address] [place] [address] Result Comment: HSV IgM antibody test is typically used as an aid in diagnosis of primary HSV infection. A negative HSV IgM result cannot exclude recent primary HSV infection if the specimen collected within 7-10 days after onset of signs and symptoms. Should suspect lesions be present, HSV PCR is strongly recommended, if possible. Otherwise, repeat serology using both HSV-1 IgG and HSV-2 IgG after 3-6 weeks is suggested. Performed By: #### 5 195-3, 38246-1, 37424-1 #### [facility] CLIA [id number] [address] [place] [address] [place] HIV 1+2 Ab IA Qlon 4 HIV 1 and 2 Ab IA.rapid Nom (S/P/Bld) Normal [facility] Comment on above: Order Comment: Speci men Type: BLOOD SPECIMEN Ordering Facility: [facility] Address: [address] [place] [address] Result Comment: Test not indicated. Performed By: #### 5 195-3, 61311-5, 50602-0 #### [facility] CLIA [id number] [address] [place] [address] [place] HIV 1+2 Ab+HIV1 p24 Ag IA Ql Non-Reactive Normal Nonreactive [facility] Comment on above: Order Comment: Speci men Type: BLOOD SPECIMEN Ordering Facility: [facility] Address: [address] [place] [address] Performed By: #### 5 195-3, 89068-6, 32219-5 #### [facility] CLIA [id number] [address] [place] [address] [place] HIV immunoassay testing algorithm interpretation (S/P/Bld) [Interp] Normal [facility] Comment on above: Order Comment: Speci men Type: BLOOD SPECIMEN Ordering Facility: [facility] Address: [address] [place] [address] Result Comment: No e vidence of HIV-1 or HIV-2 infection. Should recent infection be suspected, repeat testing may be considered 2-3 weeks after this draw. [place] Rev. Code 3701.243(E): This information has been disclosed to you from confidential records protected from disclosure by state law. ???You shall make no further disclosure of this information without the specific, written, and informed release of the individual to whom it pertains or as otherwise permitted by state law. A general authorization for the release of medical or other information is not sufficient for the purpose of the release of HIV test results or diagnoses. Performed By: #### 5 195-3, 64165-9, 74466-6 #### [facility] [place] [id number] [address] [place] [address] [place] Reagin and Treponema pallidu m IgG and IgM [Interp]on 02-21-2024 T. pallidum IgG+IgM IA Ql (S) Non-Reactive Normal Nonreactive [facility] Comment on above: Order Comment: Speci men Type: BLOOD SPECIMEN Ordering Facility: [facility] Address: [address] [place] [address] Performed By: #### 5 195-3, 42659-5, 23290-9 #### [facility] [place] [id number] [address] [place] [address] [place] Reagin+T pallidum IgG+IgM Se rPl-Impon 02-21-2024 Reagin and Treponema pallidum IgG and IgM [Interp] Cannot exclude recent Treponemal infection if specimen collected within 7-10 days after appearance of suspect lesions or 2-3 weeks after an exposure. Clinical correlation is required. Normal [facility] Comment on above: Order Comment: Speci men Type: BLOOD SPECIMEN Ordering Facility: [facility] Address: [address] [place] [address] Performed By: #### 5 195-3, 65438-7, 38777-5 #### [facility] [place] [id number] [address] [place] [address] [place] CNPNon 10-20-2023 CNPN Telephone (LEW) RINA YI ([id number]) 1 F Date Time Provider Department 10/20/23 KIMBERLI BLACKMON WIQ During your visit today, we recorded the following information about you: Kimberli Blackmon, [facility] ED 10/20/2023 7:16 AM Signed Smoking Cessation Navigation Outcome of contact: Left Message Comments: A voicemail has been left for this patient regarding Tobacco Cessation support options. If this patient has any further questions they can email us at or call us at [phone]. [email or web address] Intern/Smoking Cessation Navigator: [facility] Allergies As of Date: 10/20/2023 (No Known Allergies) Date Reviewed: 10/15/2023 Reviewed by: Lindsay Vance LPN - Fully Assessed Reason for Visit: Smoking Cessation [1387] Prescriptions as of 10/20/2023 - Etonogestrel-Ethinyl Estradiol (NUVARING) 0.12-0.015 mg/24 hr vaginal ring Use 1 Each vaginally as directed. Insert 1 ring vaginally and keep for 3 weeks. Remove for a week and place new ring - Ethinyl Estradiol-Norelgestrom (XULANE) 150-35 mcg/24 hr patch Apply 1 Patch as directed one time a week. - folic acid 0.8 mg cap Take 1 capsule by mouth once daily. - VIT 14-IRON FUM-FOLIC ORAL Take by mouth. 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] 12/30/2021 High risk teen in second trimester [O*12/30/2021 08/10/2022 Body dysmorphic disorder [F45.22] 12/30/2021 Underweight [R63.6] 02/18/2022 Polyhydramnios in third trimester [O40.3XX0] 03/23/2022 08/10/2022 PTSD (post-traumatic stress disorder) [F43.10] 04/06/2022 Excessive weight gain in , third trime*04/16/2022 08/10/2022 Positive GBS test [B95.1] 04/21/2022 Hyponatremia [E87.1] 04/27/2022 Encounter Status:Closed by KIMBERLI BLACKMON on 10/20/23 [facility] CNOVon 10-15-2023 CNOV Office Visit (OBGYWM ) RINA YI ([id number]) 1 F Date Time Provider Department 10/15/23 9:30 AM LAURIE BONNER OBGYWM During your visit today, we recorded the following information about you: Blood pressure Weight Last Period 10268 81.1 kg 09/23/23 Laurie Bonner APRN.CNM 10/15/2023 2:37 PM Signed Horticultural Farmer offered: Patient declines. Rina Yi is a 18 year old female who presents to discuss Control options. She stopped using the patch because her skin was having a reaction. Currently using condoms with spermicide. Still but weaning to only at bedtime. Desires to quit smoking and interested in [facility] tobacco cessation program. CHIEF COMPLAINT: Discussion LMP:Patient's last menstrual period was 09/23/2023 (exact date). CONTRACEPTION: patch LAST PAP: N/A REVIEW OF SYSTEMS GENERAL: No weight loss, malaise or fevers RESPIRATORY: Negative for cough, hemoptysis, wheezing, COPD, dyspnea or shortness of breath GI: No nausea, vomiting, or diarrhea : No history of dysuria, frequency or incontinence DIE CAST DIE MAKER: Negative for abnormal vaginal bleeding, abnormal vaginal discharge. LMP: Patient's last menstrual period was 09/23/2023 (exact date). . PSYCH: Negative for sleep disturbance, mood disorder and recent psychosocial stressors All other reviewed and negative other than HPI. PAST HISTORIES: PAST MEDICAL HISTORY Diagnosis Date Anxiety state Body dysmorphic disorder Depression Seizure (HCC) PAST SURGICAL HISTORY Procedure Laterality Date EXCISION BONE MANDIBLE has plate in right side of jaw at 1 years old KNEE SURGERY HX Right TONSILLECTOMY AND ADENOIDECTOMY FAMILY HISTORY Family history unknown: Yes Social History Tobacco Use Smoking status: Former Types: Cigarettes Smokeless tobacco: Never Tobacco comments: Vaping Vaping Use Vaping Use: current everyday user Substances: Nicotine Substance Use Topics Alcohol use: Never Drug use: Not Currently Types: Marijuana Specialty Problems None No data was found ALLERGIES: ALLERGIES No Known Allergies MEDICATIONS: Ethinyl Estradiol-Norelgestrom (XULANE) 150-35 mcg/24 hr patch Apply 1 Patch as directed one time a week. (Patient not taking: Reported on 06/28/2023) folic acid 0.8 mg cap Take 1 capsule by mouth once daily. VIT 14-IRON FUM-FOLIC ORAL Take by mouth. (Patient not taking: Reported on 06/28/2023) PHYSICAL EXAMINATION: BP 102/68 Wt 178 lb 12.8 oz (81.1kg) LMP 09/23/2023 General: healthy, alert, cooperative, pleasant Mood: euthymic and happy ASSESSMENT/PLAN: 1. Encounter for other general counseling or advice on contraception - ICD9: V25.09, ICD10: Z30.09 (primary diagnosis) 2. Tobacco use disorder - ICD9: 305.1, ICD10: F17.200 - Cessation encouraged. 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 History of depression - ICD9: V11.8, ICD10: Z86.59 5. Body dysmorphic disorder - ICD9: 300.7, ICD10: F45.22 - Discussed use of Nuva Ring for contraception. R/B/A reviewed and how to use appropriately - Consult to tobacco cessation program placed RTO - as needed for follow up Laurie Bonner APRN.CNM Allergies As of Date: 10/15/2023 (No Known Allergies) Date Reviewed: 10/15/2023 Reviewed by: Lindsay Vance LPN - Fully Assessed Reason for Visit: Discussion [813] Primary Visit Diagnosis:Encounter for other general counseling or advice on contraception [Z30.09] Other Visit Diagnoses:Tobacco use disorder [F17.200] Anxiety neurosis [F41.1] History of depression [Z86.59] Body dysmorphic disorder [F45.22] Order(s):CONSULT TO SMOKING CESSATION [9009928] Order #: [id number]: 1 Etonogestrel-Ethinyl Estradiol (NUVARING) 0.12-0.015 mg/24 hr vaginal ringUse 1 Each vaginally as directed. Insert 1 ring vaginally and keep for 3 weeks. Remove for a week and place new ringDisp: 1 EachRfl: 3 Prescriptions as of 10/15/2023 - Etonogestrel-Ethinyl Estradiol (NUVARING) 0.12-0.015 mg/24 hr vaginal ring Use 1 Each vaginally as directed. Insert 1 ring vaginally and keep for 3 weeks. Remove for a week and place new ring - Ethinyl Estradiol-Norelgestrom (XULANE) 150-35 mcg/24 hr patch Apply 1 Patch as directed one time a week. - folic acid 0.8 mg cap Take 1 capsule by mouth once daily. - VIT 14-IRON FUM-FOLIC ORAL Take by mouth. 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 Normal [facility] HCG QUAL UR B/Oon 06-28-2023 status Negative neg - pos [facility] Quality Check Yes [facility] UA DIP, URINE (POC)on 2023 BILIRUBIN UA (POCT) Negative Negative [facility] CLARITY UA (POCT) Clear [facility] COLOR UA (POCT) Dark yellow [facility] GLUCOSE UA (POCT) Negative Negative mg/dL [facility] Hemoglobin Ql (U) Negative [facility] KETONE UA (POCT) Negative Negative mg/dL [facility] LEUKOCYTES UA (POCT) Negative Negative [facility] NITRITE UA (POCT) Negative Negative [facility] PH UA (POCT) 6.0 4.5 - 8.0 [facility] Protein Ql (U) Negative Negative mg/dL [facility] SPECIFIC GRAVITY UA (POCT) 1.025 1.005 - 1.030 [facility] UROBILINOGEN UA (POCT) 0.2 E.U./dL Normal E.U./ dL [facility] Erica 09-21-2022 CNPN Telephone (PSSanthoshHILL) RINA YI ([id number]) 1 F Date Time Provider Department 09/21/22 OUMOU VALENTIN During your visit today, we recorded the following information about you: Oumou Valentin DO 09/21/2022 9:36 AM Signed Psych tele Pt went to the ER after she took half of the 2.5 mg zyprexa after taking 4 days of prozac , and she started feeling really weird. She thought she was going to have a seizure and she had a seizure at 10 pm . She was rocking the baby and started crying and she fell over. So her roommate called 911 and she was taken to [facility] ED. They didn't feel she had a seizure. Will rec to remain off zyprexa. Oumou Valentin Allergies As of Date: 09/21/2022 (No Known Allergies) Date Reviewed: 07/06/2022 Reviewed by: Laurie Bonner APRN.CNM - Fully Assessed Reason for Visit: Returning Patient's Call [408] Prescriptions as of 09/21/2022 - OLANZapine (ZYPREXA) 2.5 mg tablet Take 1 tablet by mouth daily at bedtime. take one tablet po qhs and if not asleep increase to 2 tablets po qhs - FLUoxetine (PROZAC) 10 mg capsule Take 1 capsule by mouth once daily. - levonorgestrel (MIRENA) 21 mcg/24 hours (8 yrs) 52 mg IUD 1 Each by INTRAUTERINE route as directed. - folic acid 0.8 mg cap Take 1 capsule by mouth once daily. - VIT 14-IRON FUM-FOLIC ORAL Take by mouth. 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 Camp on 09-18-2022 Lymphocytes Auto (Unsp spec) [#/Vol] 2.92 10*3/uL 0.83-4.51 [facility] Basophil percentageOrdered B y: Dr. Camp on 09-18-2022 Basophils/100 WBC (Bld) 0.5 % 0-1 [facility] Chloride [Moles/Vol] 107 mmol/L 98-107 [facility] Eosinophils/100 WBC (Bld) 2.3 % 0-5 [facility] Glucose [Mass/Vol] 109 mg/dL 74-106 [facility] Comment on above: Fasting Glucose resu lt from 100 to 125 mg/dL suggests IMPAIRED HOMEOSTASIS per A.D.A. criteria. Neutrophils (Bld) [#/Vol] 3.8 10*3/uL 2.0-7.7 [facility] Neutrophils/100 WBC (Bld) 49.6 % 47-70 [facility] Potassium [Moles/Vol] 3.9 mmol/L 3.5-5.1 [facility] Sodium [Moles/Vol] 141 mmol/L 136-145 [facility] WBC (Bld) [#/Vol] 7.7 10*3/uL 4.4-11.0 [facility] Blood erythrocytes count (nu mber/volume)Ordered By: Dr. Camp on 09-18-2022 RBC (Bld) [#/Vol] 5.52 10*6/uL 4.2-5.4 [facility] Blood hemoglobin measurement (mass/volume)Ordered By: Dr. Camp on 09-18-2022 Hemoglobin (Bld) [Mass/Vol] 12.0 g/dL 12.0-15.0 [facility] Blood lymphocytes/100 leukoc ytesOrdered By: Dr. Camp on 09-18-2022 Lymphocytes/100 WBC (Bld) 38.1 % 19-41 [facility] Blood monocytes/100 leukocyt esOrdered By: Dr. Camp on 09-18-2022 Monocytes/100 WBC (Bld) 9.4 % 0-10 [facility] Blood platelet mean volumeOr dered By: Dr. Camp on 09-18-2022 Platelet mean volume (Bld) [Entitic vol] 9.9 fL 6.2-12.0 [facility] Determination of erythrocyte mean corpuscular volume (MCV)Ordered By: Dr. Camp on 09-18-2022 MCV (RBC) [Entitic vol] 73.7 fL 81-99 [facility] Hematocrit Auto (Bld) [Volum e fraction]Ordered By: Dr. Camp on 09-18-2022 Hematocrit (Bld) [Volume fraction] 40.7 % 37-47 [facility] Laboratory - Chemistry and C hemistry - challengeOrdered By: Dr. Camp on 09-18-2022 CO2 [Moles/Vol] 24.0 mmol/L 21.0-32.0 [facility] Urea nitrogen/Creatinine [Mass ratio] 24.6 mg/mg 10-20 [facility] Laboratory - Hematology and Cell countsOrdered By: Dr. Camp on 09-18-2022 Erythrocyte distribution width (RBC) [Entitic vol] 46.5 fL 35.1-43.9 [facility] Erythrocyte distribution width (RBC) [Ratio] 17.9 % 11.6-14.6 [facility] Immature granulocytes/100 WBC (Bld) 0.100 % 0.0-0.9 [facility] Comment on above: IG% - Immature Granu locytes (promyelocytes, myelocytes and metamyelocytes) > 1% indicates that a LEFT SHIFT is Present. MCH (RBC) [Entitic mass] 21.7 pg 27.0-32.0 [facility] Nucleated RBC/100 WBC (Bld) [Ratio] 0 % 0-5 [facility] MCHC Auto (RBC) [Mass/Vol]Or dered By: Dr. Camp on 09-18-2022 MCHC (RBC) [Mass/Vol] 29.5 g/dL 32-36 [facility] No Panel InformationOrdered By: Dr. Camp on 09-18-2022 Estimated Creatinine Clearance Calc 146.57 ml/min [facility] Estimated GFR (MDRD) Amer 141 mL/min >60 [facility] Comment on above: GFR Calc Estimated GFR (MDRD) Non-Af Amer 116 mL/min >60 [facility] Comment on above: Non- GFR Calc Platelets bldOrdered By: Dr. Camp on 09-18-2022 Platelets (Bld) [#/Vol] 297 10*3/uL 150-450 [facility] Serum or plasma calcium deysi urement (mass/volume)Ordered By: Dr. Camp on 09-18-2022 Calcium [Mass/Vol] 9.8 mg/dL 8.5-10.1 [facility] Serum or plasma creatinine m easurement (mass/volume)Ordered By: Dr. Camp on 09-18-2022 Creatinine [Mass/Vol] 0.69 mg/dL 0.55-1.02 [facility] Comment on above: The validity of the calculated GFR & GFRAA in patients over 70 years has not been determined. Clinical correlation is essential. Serum or plasma urea nitroge n measurement (mass/volume)Ordered By: Dr. Camp on 09-18-2022 Urea nitrogen [Mass/Vol] 17 mg/dL 11-24 [facility] Thin prep Papanicolaou smear with manual screeningOrdered By: Dr. Camp on 09-18-2022 Thin prep Papanicolaou smear with manual screening 10 - [facility] CBC panel Auto (Bld)on 08-10 Erythrocyte distribution width (RBC) [Ratio] 18.2 % High 11.5 - 15.0 % [facility] Hematocrit (Bld) [Volume fraction] 39.5 % 36.0 - 46.0 % [facility] Hemoglobin (Bld) [Mass/Vol] 12.0 g/dL 11.5 - 15.5 g/dL [facility] MCH (RBC) [Entitic mass] 22.0 pg Low 26.0 - 34.0 pg [facility] MCHC (RBC) [Mass/Vol] 30.4 g/dL Low 30.5 - 36.0 g/dL [facility] MCV (RBC) [Entitic vol] 72.5 fL Low 80.0 - 100.0 fL [facility] Nucleated RBC (Bld) [#/Vol] <0.01 k/uL [facility] Platelet mean volume (Bld) [Entitic vol] 10.1 fL 9.0 - 12.7 fL [facility] Platelets (Bld) [#/Vol] 354 10*3/uL 150 - 400 k/uL [facility] RBC (Bld) [#/Vol] 5.45 10*6/uL High 3.90 - 5.2 0 m/uL [facility] WBC (Bld) [#/Vol] 7.71 10*3/uL 3.70 - 11. 00 k/uL [facility] HCG QUAL UR B/Oon 08-10-2022 status Negative neg - pos [facility] Quality Check Yes [facility] CBC W Auto Differential pane l (Bld)on 05-18-2022 Basophils (Bld) [#/Vol] 0.06 10*3/uL <0.11 k/uL [facility] Basophils/100 WBC (Bld) 0.7 % [facility] Differential cell count method Nom (Bld) Auto [facility] Eosinophils (Bld) [#/Vol] 0.27 10*3/uL <0.46 k/uL [facility] Eosinophils/100 WBC (Bld) 3.3 % [facility] Erythrocyte distribution width (RBC) [Ratio] 17.6 % High 11.5 - 15.0 % [facility] Hematocrit (Bld) [Volume fraction] 30.8 % Low 36.0 - 46.0 % [facility] Hemoglobin (Bld) [Mass/Vol] 9.4 g/dL Low 11.5 - 15.5 g/dL [facility] Immature granulocytes (Bld) [#/Vol] 0.04 10*3/uL <0.10 k/uL [facility] Immature granulocytes/100 WBC (Bld) 0.5 % [facility] Lymphocytes (Bld) [#/Vol] 2.03 10*3/uL 1.00 - 4.00 k/uL [facility] Lymphocytes/100 WBC (Bld) 24.7 % [facility] MCH (RBC) [Entitic mass] 23.3 pg Low 26.0 - 34.0 pg [facility] MCHC (RBC) [Mass/Vol] 30.5 g/dL 30.5 - 36.0 g/dL [facility] MCV (RBC) [Entitic vol] 76.4 fL Low 80.0 - 100.0 fL [facility] Monocytes (Bld) [#/Vol] 0.75 10*3/uL <0.87 k/uL [facility] Monocytes/100 WBC (Bld) 9.1 % [facility] Neutrophils (Bld) [#/Vol] 5.08 10*3/uL 1.45 - 7.50 k/uL [facility] Neutrophils/100 WBC (Bld) 61.7 % [facility] Nucleated RBC (Bld) [#/Vol] <0.01 k/uL [facility] Nucleated RBC/100 WBC (Bld) [Ratio] 0.0 /100 WBC [facility] Platelet mean volume (Bld) [Entitic vol] 9.4 fL 9.0 - 12.7 fL [facility] Platelets (Bld) [#/Vol] 401 10*3/uL High 150 - 400 k/uL [facility] RBC (Bld) [#/Vol] 4.03 10*6/uL 3.90 - 5.2 0 m/uL [facility] WBC (Bld) [#/Vol] 8.23 10*3/uL 3.70 - 11. 00 k/uL [facility] No Panel Informationon 05-18 [facility] Basophil percentageon 2022 WBC (Bld) [#/Vol] 9.4 10*3/uL 4.5-13.0 [facility]: Blood erythrocytes count (nu mber/volume)on 05-11-2022 RBC (Bld) [#/Vol] 2.97 10*6/uL 4.1-4.8 [facility]: Blood hemoglobin measurement (mass/volume)on 05-11-2022 Hemoglobin (Bld) [Mass/Vol] 7.1 g/dL 12.0-15.0 [facility] Work Phone: Blood platelet mean volumeon 05-11-2022 Platelet mean volume (Bld) [Entitic vol] 10.7 fL 6.2-12.0 [facility] Work Phone: Determination of erythrocyte mean corpuscular volume (MCV)on 05-11-2022 MCV (RBC) [Entitic vol] 77.4 fL 78-96 [facility] Work Phone: Hematocrit Auto (Bld) [Volum e fraction]on 05-11-2022 Hematocrit (Bld) [Volume fraction] 23.0 % 37-46 [facility] Work Phone: Laboratory - Hematology and Cell countson 05-11-2022 Erythrocyte distribution width (RBC) [Entitic vol] 47.7 fL 35.1-43.9 [facility] Work Phone: Erythrocyte distribution width (RBC) [Ratio] 17.0 % 11.6-14.6 [facility] Work Phone: MCH (RBC) [Entitic mass] 23.9 pg 25.0-35.0 [facility] Work Phone: MCHC Auto (RBC) [Mass/Vol]on 05-11-2022 MCHC (RBC) [Mass/Vol] 30.9 g/dL 32-36 [facility] Work Phone: Platelets bldon 05-11-2022 Platelets (Bld) [#/Vol] 247 10*3/uL 150-450 [facility] Work Phone: Absolute lymphocyte counton 05-08-2022 Lymphocytes Auto (Unsp spec) [#/Vol] 1.48 10*3/uL 0.83-4.51 [facility] Work Phone: Basophil percentageon 2021 Basophils/100 WBC (Bld) 0.2 % 0-1 [facility] Work Phone: Eosinophils/100 WBC (Bld) 0.7 % 0-3 [facility] Work Phone: Neutrophils (Bld) [#/Vol] 6.5 10*3/uL 2.0-7.7 [facility] Work Phone: Neutrophils/100 WBC (Bld) 70.7 % 34-64 [facility] Work Phone: [phone] Blood lymphocytes/100 leukoc yteson 05-08-2022 Lymphocytes/100 WBC (Bld) 16.1 % 25-45 [facility] Work Phone: Blood monocytes/100 leukocyt eson 05-08-2022 Monocytes/100 WBC (Bld) 11.9 % 3-6 [facility] Work Phone: Laboratory - Drug toxicology on 05-08-2022 Benzodiazepines Ql (U) Negative < 200 ng/mL [facility] Work Phone: Cannabinoids Screen Ql (U) Negative < 50 ng/mL [facility] Work Phone: Cocaine Ql (U) Negative < 300 ng/mL [facility] Work Phone: Opiates Ql (U) Negative < 300 ng/mL [facility] Work Phone: Laboratory - Hematology and Cell countson 05-08-2022 Immature granulocytes/100 WBC (Bld) 0.400 % 0.0-0.9 [facility] Work Phone: Comment on above: IG% - Immature Granu locytes (promyelocytes, myelocytes and metamyelocytes) > 1% indicates that a LEFT SHIFT is Present. Nucleated RBC/100 WBC (Bld) [Ratio] 0 % 0-5 [facility] Work Phone: No Panel Informationon 05-08 MDMA (Ecstasy) Screen Negative < 500 ng/mL [facility] Work Phone: Urine Barbiturates Screen Negative < 200 ng/mL [facility] Work Phone: Urine Drug Screen Comment [facility] Work Phone: Comment on above: CONFIRMATORY TESTING FOR ALL POSITIVE URINE DRUG SCREENRESULTS WILL ONLY BE SENT OUT UPON PHYSICIAN ORDER. [facility] Urine Drug Screen methods provide only preliminaryanalytical test results. A more specific alternate chemicalmethod must be used in order to obtain a confirmedanalytical result. Gas chromatography/mass spectrometery(GC/MS) is the preferred confirmatory method. Clinicalconsideration and professional judgement should be appliedto any drug of abuse test result, particularly whenpreliminary positive results are used. URINE TCA TESTING MUST BE ORDERED SEPARATELY. USE TESTMNEMONIC: [facility] Urine Methadone Screen Negative < 300 ng/mL [facility] Work Phone: [facility] URINE OB DIP B/Oon Glucose Ql (U) Negative Neg mg/dL [facility] Protein.monoclonal (U) [Mass/Vol] trace Neg mg/dL [facility] Urine amphetamine measuremen t (moles/volume)on 05-08-2022 Amphetamine (U) [Moles/Vol] Negative <1000 ng/mL [facility] Work Phone: Urine phencyclidine (PCP) de tectionon 05-08-2022 Phencyclidine Ql (U) Negative < 25 ng/mL [facility] Work Phone: Basophil percentageon 2021 WBC (Bld) [#/Vol] 10.8 10*3/uL 4.5-13.0 [facility] Work Phone: Blood erythrocytes count (nu mber/volume)on 05-06-2022 RBC (Bld) [#/Vol] 4.35 10*6/uL 4.1-4.8 [facility] Work Phone: Blood hemoglobin measurement (mass/volume)on 05-06-2022 Hemoglobin (Bld) [Mass/Vol] 10.4 g/dL 12.0-15.0 [facility] Work Phone: Blood platelet mean volumeon 05-06-2022 Platelet mean volume (Bld) [Entitic vol] 10.7 fL 6.2-12.0 [facility] Work Phone: Determination of erythrocyte mean corpuscular volume (MCV)on 05-06-2022 MCV (RBC) [Entitic vol] 76.1 fL 78-96 [facility] Work Phone: Hematocrit Auto (Bld) [Volum e fraction]on 05-06-2022 Hematocrit (Bld) [Volume fraction] 33.1 % 37-46 [facility] Work Phone: Laboratory - Chemistry and C hemistry - challengeon 05-06-2022 ALT [Catalytic activity/Vol] 13 U/L 13-56 [facility] Work Phone: Laboratory - Hematology and Cell countson 05-06-2022 Erythrocyte distribution width (RBC) [Entitic vol] 43.8 fL 35.1-43.9 [facility] Work Phone: Erythrocyte distribution width (RBC) [Ratio] 16.1 % 11.6-14.6 [facility] Work Phone: MCH (RBC) [Entitic mass] 23.9 pg 25.0-35.0 [facility] Work Phone: MCHC Auto (RBC) [Mass/Vol]on 05-06-2022 MCHC (RBC) [Mass/Vol] 31.4 g/dL 32-36 [facility] Work Phone: No Panel Informationon 05-06 Estimated Creatinine Clearance Calc 172.83 ml/min [facility] Work Phone: Estimated GFR (MDRD) Amer 170 mL/min >60 [facility] Work Phone: Comment on above: GFR Calc Estimated GFR (MDRD) Non-Af Amer 141 mL/min >60 [facility] Work Phone: Comment on above: Non- GFR Calc Platelets bldon 05-06-2022 Platelets (Bld) [#/Vol] 323 10*3/uL 150-450 [facility] Work Phone: Serum or plasma creatinine m easurement (mass/volume)on 05-06-2022 Creatinine [Mass/Vol] 0.59 mg/dL 0.55-1.02 [facility] Work Phone: Comment on above: The validity of the calculated GFR & GFRAA in patients over 70 years has not been determined. Clinical correlation is essential. Serum or plasma uric acid me asurement (mass/volume)on 05-06-2022 Urate [Mass/Vol] 5.6 mg/dL 2.6-6.0 [facility] Work Phone: Comment on above: The drugs N-Acetylcy steine and Metamizole may falsely depress this assay. Thin prep Papanicolaou smear with manual screeningon 05-06-2022 Thin prep Papanicolaou smear with manual screening 15 U/L 15-37 [facility] Work Phone: URINE OB DIP B/Oon 2 Glucose Ql (U) Negative Neg mg/dL [facility] Protein.monoclonal (U) [Mass/Vol] Negative Neg mg/dL [facility] Urine creatinine measurement (mass/volume)on 05-06-2022 Creatinine (U) [Mass/Vol] 65.80 mg/dL NO RANGE EST. [facility] Work Phone: Urine protein measurement (m ass/volume)on 05-06-2022 Protein (U) [Mass/Vol] 16.7 mg/dL 0.0-11.8 [facility] Work Phone: Urine protein/creatinine mas s ratioon 05-06-2022 Protein/Creatinine (U) [Mass ratio] 254 mg/g CRE 0-200 [facility] Work Phone: URINE OB DIP B/Oon 2 Glucose Ql (U) Negative Neg mg/dL [facility] Protein.monoclonal (U) [Mass/Vol] Negative Neg mg/dL [facility] CBC panel Auto (Bld)on 04-27 Erythrocyte distribution width (RBC) [Ratio] 16.0 % High 11.5 - 15.0 % [facility] Hematocrit (Bld) [Volume fraction] 33.0 % Low 36.0 - 46.0 % [facility] Hemoglobin (Bld) [Mass/Vol] 10.3 g/dL Low 11.5 - 15.5 g/dL [facility] MCH (RBC) [Entitic mass] 24.1 pg Low 26.0 - 34.0 pg [facility] MCHC (RBC) [Mass/Vol] 31.2 g/dL 30.5 - 36.0 g/dL [facility] MCV (RBC) [Entitic vol] 77.1 fL Low 80.0 - 100.0 fL [facility] Nucleated RBC (Bld) [#/Vol] <0.01 k/uL [facility] Platelet mean volume (Bld) [Entitic vol] 11.0 fL 9.0 - 12.7 fL [facility] Platelets (Bld) [#/Vol] 338 10*3/uL 150 - 400 k/uL [facility] RBC (Bld) [#/Vol] 4.28 10*6/uL 3.90 - 5.2 0 m/uL [facility] WBC (Bld) [#/Vol] 10.65 10*3/uL 3.70 - 11 .00 k/uL [facility] Comprehensive metabolic 2000 panelon 04-27-2022 Albumin [Mass/Vol] 3.4 g/dL Low 3.9 - 4.9 g/dL [facility] ALP [Catalytic activity/Vol] 126 U/L High 45 - 87 U/L [facility] ALT [Catalytic activity/Vol] 7 U/L 7 - 38 U/L [facility] Anion gap [Moles/Vol] 10 mmol/L 9 - 18 mmol/L [facility] AST [Catalytic activity/Vol] 13 U/L 13 - 35 U/L [facility] Bilirubin [Mass/Vol] 0.3 mg/dL 0.2 - 1 .3 mg/dL [facility] Calcium [Mass/Vol] 9.2 mg/dL 8.5 - 10. 2 mg/dL [facility] Chloride [Moles/Vol] 97 mmol/L 97 - 10 5 mmol/L [facility] CO2 [Moles/Vol] 22 mmol/L 22 - 30 mmol/L [facility] Creatinine [Mass/Vol] 0.66 mg/dL 0.58 - 0.96 mg/dL [facility] Estimated Glomerular Filtration Rate 131 mL/min/1.73m >=60 mL/min/1.73m [facility] Glucose [Mass/Vol] 98 mg/dL 74 - 99 mg/dL [facility] Potassium [Moles/Vol] 4.4 mmol/L 3.7 - 5.1 mmol/L [facility] Protein [Mass/Vol] 6.6 g/dL 6.3 - 8.0 g/dL [facility] Sodium [Moles/Vol] 129 mmol/L Low 136 - 144 mmol/L [facility] Urea nitrogen [Mass/Vol] 7 mg/dL 7 - 21 mg/dL [facility] URINE OB DIP B/Oon 2 Glucose Ql (U) Negative Neg mg/dL [facility] Protein.monoclonal (U) [Mass/Vol] 30 mg/dL Neg mg/dL [facility] Basophil percentageon 2021 WBC (Bld) [#/Vol] 10.7 10*3/uL 4.5-13.0 [facility] Work Phone: Blood erythrocytes count (nu mber/volume)on 04-22-2022 RBC (Bld) [#/Vol] 4.26 10*6/uL 4.1-4.8 [facility] Work Phone: Blood hemoglobin measurement (mass/volume)on 04-22-2022 Hemoglobin (Bld) [Mass/Vol] 10.1 g/dL 12.0-15.0 [facility] Work Phone: Blood platelet mean volumeon 04-22-2022 Platelet mean volume (Bld) [Entitic vol] 10.4 fL 6.2-12.0 [facility] Work Phone: Determination of erythrocyte mean corpuscular volume (MCV)on 04-22-2022 MCV (RBC) [Entitic vol] 78.4 fL 78-96 [facility] Work Phone: Hematocrit Auto (Bld) [Volum e fraction]on 04-22-2022 Hematocrit (Bld) [Volume fraction] 33.4 % 37-46 [facility] Work Phone: Laboratory - Chemistry and C hemistry - challengeon 04-22-2022 ALT [Catalytic activity/Vol] 14 U/L 13-56 [facility] Work Phone: Laboratory - Hematology and Cell countson 04-22-2022 Erythrocyte distribution width (RBC) [Entitic vol] 44.7 fL 35.1-43.9 [facility] Work Phone: Erythrocyte distribution width (RBC) [Ratio] 15.8 % 11.6-14.6 [facility] Work Phone: MCH (RBC) [Entitic mass] 23.7 pg 25.0-35.0 [facility] Work Phone: MCHC Auto (RBC) [Mass/Vol]on 04-22-2022 MCHC (RBC) [Mass/Vol] 30.2 g/dL 32-36 [facility] Work Phone: No Panel Informationon 04-22 Estimated Creatinine Clearance Calc 231.75 ml/min [facility] Work Phone: Estimated GFR (MDRD) Amer 238 mL/min >60 [facility] Work Phone: Comment on above: GFR Calc Estimated GFR (MDRD) Non-Af Amer 197 mL/min >60 [facility] Work Phone: Comment on above: Non- GFR Calc Platelets bldon 04-22-2022 Platelets (Bld) [#/Vol] 336 10*3/uL 150-450 [facility] Work Phone: Serum or plasma creatinine m easurement (mass/volume)on 04-22-2022 Creatinine [Mass/Vol] 0.44 mg/dL 0.55-1.02 [facility] Work Phone: Comment on above: The validity of the calculated GFR & GFRAA in patients over 70 years has not been determined. Clinical correlation is essential. Serum or plasma uric acid me asurement (mass/volume)on 04-22-2022 Urate [Mass/Vol] 4.0 mg/dL 2.6-6.0 [facility] Work Phone: Comment on above: The drugs N-Acetylcy steine and Metamizole may falsely depress this assay. Thin prep Papanicolaou smear with manual screeningon 04-22-2022 Thin prep Papanicolaou smear with manual screening 15 U/L 15-37 [facility] Work Phone: URINE OB DIP B/Oon 2 Glucose Ql (U) Negative Neg mg/dL [facility] Protein.monoclonal (U) [Mass/Vol] Negative Neg mg/dL [facility] Urine creatinine measurement (mass/volume)on 04-22-2022 Creatinine (U) [Mass/Vol] 34.90 mg/dL NO RANGE EST. [facility] Work Phone: Urine protein measurement (m ass/volume)on 04-22-2022 Protein (U) [Mass/Vol] 7.6 mg/dL 0.0-11.8 [facility] Work Phone: Urine protein/creatinine mas s ratioon 04-22-2022 Protein/Creatinine (U) [Mass ratio] 218 mg/g CRE 0-200 [facility] Work Phone: No Panel Informationon 04-20 Vaginal Amniotic Fluid Detection Negative Negative [facility] Work Phone: Comment on above: Amniotic fluid not p resent indicates No Rupture of FetalMembranes at time of specimen collection. TYPE + SCREEN PRENATALon ABO O [facility] HIstorical Ab Scr Status Negative [facility] Rh Nom (Bld) Positive [facility] Type and Screen Expiration 04/19/2022 23:59 [facility] URINE OB DIP B/Oon 2 Glucose Ql (U) Negative Neg mg/dL [facility] Protein.monoclonal (U) [Mass/Vol] Negative Neg mg/dL [facility] URINE OB DIP B/Oon 2 Glucose Ql (U) Negative Neg mg/dL [facility] Protein.monoclonal (U) [Mass/Vol] Negative Neg mg/dL [facility] OBSTETRIC ULTRASOUND WHIon 1 05-23-2021 [facility] URINE OB DIP B/Oon 2 Glucose Ql (U) Negative Neg mg/dL [facility] Protein.monoclonal (U) [Mass/Vol] Negative Neg mg/dL [facility] URINE OB DIP B/Oon 2 Glucose Ql (U) Negative Neg mg/dL [facility] Protein.monoclonal (U) [Mass/Vol] Negative Neg mg/dL [facility] URINE OB DIP B/Oon 2 Glucose Ql (U) Negative Neg mg/dL [facility] Protein.monoclonal (U) [Mass/Vol] Negative Neg mg/dL [facility] URINE OB DIP B/Oon 2 Glucose Ql (U) Negative Neg mg/dL [facility] Protein.monoclonal (U) [Mass/Vol] Negative Neg mg/dL [facility] US OB 1ST TRIMESTER TRANSBDO ALEJANDRO ONLY WITH COLOR FLOW SINGLE FETUSon 10-28-2021 US OB 1ST TRIMESTER TRANSBDOMINAL ONLY WITH COLOR FLOW SINGLE FETUS EXAMINATION: US OB 1ST TRIMESTER TRANSBDOMINAL ONLY WITH COLOR FLOW SINGLE FETUS HISTORY: ORDERING SYSTEM PROVIDED HISTORY: Bleeding and cramping, approximate 11 weeks , TECHNOLOGIST PROVIDED HISTORY: Illness/Other Reason for exam: Vaginal pain for 1 day Cancer History: unknown Surgery, RadiationHistory: unknown Encounter Type: Initial Additional signs and symptoms: no ORDERING SYSTEM PROVIDED DIAGNOSIS CODES: COMPARISON: None TECHNIQUE: Grayscale, color Doppler and duplex Doppler sonographic images of the pelvis were obtained using the transabdominal ultrasound probe. FINDINGS: There is an intrauterine gestational sac. Uterus measures 7.3 x 9.6 x 11.3 cm. The cervical os appears to be closed. The left ovary measures 2.5 x 3.1 x 4.3 cm. There is a well-circumscribed anechoic cyst in the left ovary measuring 1.6 x 1.9 x 2.1 cm. Color Doppler shows normal vascular flow in the left ovary. No internal vascular flow in the cyst. Duplex Doppler shows normal pulsatile arterial waveforms in the left ovary with resistive index of 0.60. Normal venous waveform is seen in the left ovary. The right ovary is not identified. Intrauterine gestational sac has normal appearing amniotic fluid volume. Single fetus identified. crown-rump length measurement of 5.67 cm corresponds to estimated gestational age of 12 weeks 2 days with estimated delivery date of 05/10/2022. cardiac activity is detected at a rate of 169 beats per minute. The placenta appears to be located posteriorly. No fluid collection in the endometrial cavity. IMPRESSION: 1. Intrauterine gestational sac identified with a single fetus. Amniotic fluid volume appears appropriate. crown-rump length measurement corresponds to estimated gestational age by ultrasound of 12 weeks 2 days. cardiac activity is detected at a rate of 169 beats per minute. 2. Left ovary contains a well-circumscribed anechoic cyst likely a corpus luteum cyst. Left ovary is otherwise unremarkable. The right ovary is not identified. 3. No free fluid identified in the pelvis. DM/ Workstation ID: [id number] Dictated by: JULIET ARIAS on WedOct 28, 2021 12:21:57 PM EDT Transcribed by: YENNY TELLO on WedOct 28, 2021 1:20:41 PM EDT Finalized by: JULIET ARIAS on WedOct 28, 2021 4:26:00 PM EDT [facility] Comment on above: Order Comment: Injur y/Trauma or Illness?:Illness/Other How long have you had these symptoms (acute/chronic)?:Acute Reason for exam?:Vaginal pain for 1 day History of cancer?:unknown Surgeries, chemotherapy, or radiation?:unknown Type of Exam?:Initial Additional signs and symptoms?:no CBCon 05-24-2021 ABSOLUTE BAS 0.0 10*3/uL Normal 0.0-0.2 [facility] Comment on above: Performed By: #### L IVR, ACBC, LIPA2, CHEM7F #### Testing performed at [address] [address] ABSOLUTE EOS 0.10 10*3/uL Normal 0.0-0.7 [facility] Comment on above: Performed By: #### L IVR, ACBC, LIPA2, CHEM7F #### Testing performed at [address] [address] ABSOLUTE NEUTROPHIL COUNT 3.3 10*3/uL Normal 1.4-6.5 [facility] Comment on above: Performed By: #### L IVR, ACBC, LIPA2, CHEM7F #### Testing performed at [address] [address] Basophils/100 WBC (Bld) 0.4 % Normal 0.0-2.0 [facility] Comment on above: Performed By: #### L IVR, ACBC, LIPA2, CHEM7F #### Testing performed at [address] [address] DTYPE AUTO DIFF Normal [facility] Comment on above: Performed By: #### L IVR, ACBC, LIPA2, CHEM7F #### Testing performed at [address] [address] Eosinophils/100 WBC (Bld) 1.0 % Normal 0.0-11.0 [facility] Comment on above: Performed By: #### L IVR, ACBC, LIPA2, CHEM7F #### Testing performed at [address] [address] Lymphocytes (Bld) [#/Vol] 1.70 10*3/uL Normal 1.2-3.4 [facility] Comment on above: Performed By: #### L IVR, ACBC, LIPA2, CHEM7F #### Testing performed at [address] [address] Lymphocytes/100 WBC (Bld) 29.0 % Normal 20.0-55.0 [facility] Comment on above: Performed By: #### L IVR, ACBC, LIPA2, CHEM7F #### Testing performed at [address] [address] Monocytes (Bld) [#/Vol] 0.7 10*3/uL Normal 0.0-0.7 [facility] Comment on above: Performed By: #### L IVR, ACBC, LIPA2, CHEM7F #### Testing performed at [address] [address] Monocytes/100 WBC (Bld) 12.2 % High 0.0-10.0 [facility] Comment on above: Performed By: #### L IVR, ACBC, LIPA2, CHEM7F #### Testing performed at [address] [address] Neutrophils/100 WBC (Bld) 57.4 % Normal 37.0-75.0 [facility] Comment on above: Performed By: #### L IVR, ACBC, LIPA2, CHEM7F #### Testing performed at [address] [address] Erythrocyte distribution width (RBC) [Ratio] 13.8 % Normal 11.5-14.5 [facility] Comment on above: Performed By: #### L IVR, ACBC, LIPA2, CHEM7F #### Testing performed at [address] [address] Hematocrit (Bld) [Volume fraction] 41.3 % Normal 36.0-48.0 [facility] Comment on above: Performed By: #### L IVR, ACBC, LIPA2, CHEM7F #### Testing performed at [address] [address] Hemoglobin (Bld) [Mass/Vol] 13.6 g/dL Normal 12.0-16.0 [facility] Comment on above: Performed By: #### L IVR, ACBC, LIPA2, CHEM7F #### Testing performed at [address] [address] MCH (RBC) [Entitic mass] 28.0 pg Normal 26.0-35.0 [facility] Comment on above: Performed By: #### L IVR, ACBC, LIPA2, CHEM7F #### Testing performed at [address] [address] MCHC (RBC) [Mass/Vol] 33.0 g/dL Normal 27.0-37.0 [facility] Comment on above: Performed By: #### L IVR, ACBC, LIPA2, CHEM7F #### Testing performed at [address] [address] MCV (RBC) [Entitic vol] 84.9 fL Normal 80.0-100.0 [facility] Comment on above: Performed By: #### L IVR, ACBC, LIPA2, CHEM7F #### Testing performed at [address] [address] Platelet mean volume (Bld) [Entitic vol] 8.9 fL Normal 7.4-11.0 [facility] Comment on above: Performed By: #### L IVR, ACBC, LIPA2, CHEM7F #### Testing performed at [address] [place] [address] Platelets (Bld) [#/Vol] 198 10*3/uL Normal 130.0-400.0 [facility] Comment on above: Performed By: #### L IVR, ACBC, LIPA2, CHEM7F #### Testing performed at [address] [address] RBC (Bld) [#/Vol] 4.86 10*6/uL Normal 4.0-5.4 [facility] Comment on above: Performed By: #### L IVR, ACBC, LIPA2, CHEM7F #### Testing performed at [address] [address] WBC (Bld) [#/Vol] 5.8 10*3/uL Normal 3.6-13.0 [facility] Comment on above: Performed By: #### L IVR, ACBC, LIPA2, CHEM7F #### Testing performed at [address] [address] CHEM 7 FASTINGon 05-24-2021 Creatinine [Mass/Vol] 0.59 mg/dL Normal 0.52-1.04 [facility] Comment on above: Performed By: #### L IVR, ACBC, LIPA2, CHEM7F #### Testing performed at [address] [address] GFR Information Unable to calculate GFR due to inappropriate age/gender/creatinine value. Normal [facility] Comment on above: Performed By: #### L IVR, ACBC, LIPA2, CHEM7F #### Testing performed at [address] [address] Urea nitrogen [Mass/Vol] 8 mg/dL Normal 7-20 [facility] Comment on above: Performed By: #### L IVR, ACBC, LIPA2, CHEM7F #### Testing performed at [address] [address] Chloride [Moles/Vol] 102 mmol/L Normal 98-107 [facility] Comment on above: Performed By: #### L IVR, ACBC, LIPA2, CHEM7F #### Testing performed at [address] [address] CO2 [Moles/Vol] 26 mmol/L Normal 22-30 [facility] Comment on above: Performed By: #### L IVR, ACBC, LIPA2, CHEM7F #### Testing performed at [address] [address] Glucose [Mass/Vol] 91 mg/dL Normal 70-100 [facility] Comment on above: Result Comment: NORMAL <100 mg/dL PREDIABETES 101-126 mg/dL DIABETES 126 mg/dL or higher Performed By: #### L IVR, ACBC, LIPA2, CHEM7F #### Testing performed at [address] [address] Potassium [Moles/Vol] 3.2 mmol/L Low 3.5-5.1 [facility] Comment on above: Performed By: #### L IVR, ACBC, LIPA2, CHEM7F #### Testing performed at [address] [address] Sodium [Moles/Vol] 140 mmol/L Normal 136-145 [facility] Comment on above: Performed By: #### L IVR, ACBC, LIPA2, CHEM7F #### Testing performed at [address] [address] LIPASE,SERUMon 05-24-2021 LIPASE,SERUM 26 U/L Normal 23-300 [facility] Comment on above: Performed By: #### L IVR, ACBC, LIPA2, CHEM7F #### Testing performed at [address] [address] LIVER PANELon 05-24-2021 Albumin [Mass/Vol] 4.0 g/dL Normal 3.5-5.0 [facility] Comment on above: Performed By: #### L IVR, ACBC, LIPA2, CHEM7F #### Testing performed at [address] [address] ALP [Catalytic activity/Vol] 50 U/L Normal 38-126 [facility] Comment on above: Performed By: #### L IVR, ACBC, LIPA2, CHEM7F #### Testing performed at [address] [address] ALT [Catalytic activity/Vol] 14 U/L Normal 14-54 [facility] Comment on above: Performed By: #### L IVR, ACBC, LIPA2, CHEM7F #### Testing performed at [address] [address] AST [Catalytic activity/Vol] 14 U/L Low 15-41 [facility] Comment on above: Performed By: #### L IVR, ACBC, LIPA2, CHEM7F #### Testing performed at [address] [address] Bilirubin [Mass/Vol] 1.1 mg/dL Normal 0.2-1.9 [facility] Comment on above: Performed By: #### L IVR, ACBC, LIPA2, CHEM7F #### Testing performed at [address] [address] Bilirubin.indirect [Mass/Vol] 0.2 mg/dL Normal 0.0-0.2 [facility] Comment on above: Performed By: #### L IVR, ACBC, LIPA2, CHEM7F #### Testing performed at [address] [address] Protein [Mass/Vol] 7.3 g/dL Normal 6.3-8.6 [facility] Comment on above: Performed By: #### L IVR, ACBC, LIPA2, CHEM7F #### [place] [address] NOVEL CORONAVIRUSon 05-24-19 22 NARRATIVE This test was perfor med using isothermal [place] and has been approved as Emergency Use Authorization (EUA) for the qualitative detection ceYAQU-[id number] nucleic acid. Normal [facility] Comment on above: Performed By: #### C OVID #### Testing performed at [place] [id number] SARS-CoV-2 (COVID-19) RNA LA+probe Ql (Unsp spec) Not detected Normal NOT DETECTED [facility] Comment on above: Result Comment: Nega tive results do not preclude SARS-CoV-2 infection and should not be used as the sole basis for treatment or other patient management decisions. Optimum specimen types and timing for peak viral levels during infections caused by SARS-CoV-2 has not been determined. The possibility of a false negative result should especially be considered if the patient's recent exposures or clinical presentation suggest that SARS-CoV-2 infection is probable, and diagnostic tests for other causes of illness (e.g., other respiratory illness) are negative. Collection of a new specimen and re-testing may be necessary if the patient is critically ill or clinically deteriorating. Performed By: #### C OVID #### Testing performed at [place] [id number] RAPID FLU Aon 05-24-2021 INFLUENZA A Negative Normal NEGATIVE [facility] Comment on above: Performed By: #### R FLUAB #### Testing performed at [place] [id number] INFLUENZA B Negative Normal NEGATIVE [facility] Comment on above: Result Comment: TEST ING PERFORMED BY [place] Performed By: #### R FLUAB #### Testing performed at [address] [address] TSHon 05-24-2021 TSH 1.463 uIU/ML Normal 0.36-5.80 [facility] Comment on above: Performed By: #### T SH2 #### Testing performed at [address] [address] URINE HCG QUALon 05-24-2021 Beta HCG ( test) Ql (U) Negative Normal NEGATIVE [facility] Comment on above: Performed By: #### U HCGT, UMAC #### Testing performed at [address] [address] URINE MACROSCOPICon 05-24-19 Bilirubin Ql (U) Negative Normal NEGATIVE [facility] Comment on above: Performed By: #### U HCGT, UMAC #### Testing performed at [address] [address] Clarity (U) CLEAR Normal CLEAR [facility] Comment on above: Performed By: #### U HCGT, UMAC #### Testing performed at [address] [address] Color (U) YELLOW Normal YELLOW [facility] Comment on above: Performed By: #### U HCGT, UMAC #### Testing performed at [address] [address] Glucose Ql (U) Negative Normal NEGATIVE [facility] Comment on above: Performed By: #### U HCGT, UMAC #### Testing performed at [address] [address] pH (U) 6.0 [pH] Normal 5.0-7.0 [facility] Comment on above: Performed By: #### U HCGT, UMAC #### Testing performed at [address] [address] URINE HEMOGLOBIN Negative Normal NEGATIVE [facility] Comment on above: Performed By: #### U HCGT, UMAC #### Testing performed at [address] [address] URINE KETONE TRACE Abnormal NEGATIVE [facility] Comment on above: Performed By: #### U HCGT, UMAC #### Testing performed at [address] [place] [address] URINE LEUKOTEST Negative Normal NEGATIVE [facility] Comment on above: Performed By: #### U HCGT, UMAC #### Testing performed at [address] [place] [address] URINE NITRATES Negative Normal NEGATIVE [facility] Comment on above: Performed By: #### U HCGT, UMAC #### Testing performed at [address] [place] [address] URINE SPEC GRAVITY 1.025 Normal 1.010-1.025 [facility] Comment on above: Performed By: #### U HCGT, UMAC #### Testing performed at [address] [place] [address] URINE TOTAL PROTEIN Negative Normal NEGATIVE [facility] Comment on above: Performed By: #### U HCGT, UMAC #### Testing performed at [address] [address] Urobilinogen Qn (U) 0.2 {Reed'U}/dL Normal 0.2-1.0 [facility] Comment on above: Performed By: #### U HCGT, UMAC #### Testing performed at [address] [address] CBC W Auto Differential pane l (Bld)on 11-21-2020 Basophils (Bld) [#/Vol] 0.03 10*3/uL Normal <=0.70 [facility] Comment on above: Performed By: #### 5 7021-8 #### [facility] [address] [place] [address] Retail Sales Manager - [facility] [id number] Basophils/100 WBC (Bld) 0.4 % Normal <=2.0 [facility] Comment on above: Performed By: #### 5 7021-8 #### [facility] [address] [place] [address]. [place] [address] Retail Sales Manager - [facility] CLIA [id number] Eosinophils (Bld) [#/Vol] 0.09 10*3/uL Normal <=0.70 [facility] Comment on above: Performed By: #### 5 7021-8 #### [address] [place] [address] Retail Sales Manager - Judith CALLEJASIA [id number] Eosinophils/100 WBC (Bld) 1.1 % Normal <=10.0 [facility] Comment on above: Performed By: #### 5 7021-8 #### [address] [place] [address] Retail Sales Manager - Judith CALLEJASIA [id number] Erythrocyte distribution width (RBC) [Entitic vol] 42.2 fL Normal 36.4-46.3 [facility] Comment on above: Performed By: #### 5 7021-8 #### [address] [place] [address] Retail Sales Manager - Judith CALLEJASIA [id number] Hematocrit (Bld) [Volume fraction] 37.5 % Normal 37.0-47.0 [facility] Comment on above: Performed By: #### 5 7021-8 #### [address] Director - Judith CALLEJASIA [id number] Hemoglobin (Bld) [Mass/Vol] 12.6 g/dL Normal 12.0-16.0 [facility] Comment on above: Performed By: #### 5 7021-8 #### [address] [place] [address] Retail Sales Manager - Judith CALLEJASIA [id number] Immature granulocytes (Bld) [#/Vol] 0.02 10*3/uL Normal <=0.10 [facility] Comment on above: Performed By: #### 5 7021-8 #### [address] Director - Judith CALLEJASIA [id number] Immature granulocytes/100 WBC (Bld) 0.20 % Normal <=1.50 [facility] Comment on above: Performed By: #### 5 7021-8 #### [address] [place] [address] Retail Sales Manager - Judith CALLEJASIA [id number] Lymphocytes (Bld) [#/Vol] 1.98 10*3/uL Normal 1.20-3.40 [facility] Comment on above: Performed By: #### 5 7021-8 #### [place] [address] [place] [address] Retail Sales Manager - Judith CALLEJASIA [id number] Lymphocytes/100 WBC (Bld) 23.4 % Normal 20.0-40.0 [facility] Comment on above: Performed By: #### 5 7021-8 #### [address] [place] [address] Retail Sales Manager - Judith ARCE [id number] MCH (RBC) [Entitic mass] 29.1 pg Normal 27.0-31.0 [facility] Comment on above: Performed By: #### 5 7021-8 #### [place] [address] [place] [address] Retail Sales Manager - Judith ARCE [id number] MCHC (RBC) [Mass/Vol] 33.6 g/dL Normal 32.0-36.0 [facility] Comment on above: Performed By: #### 5 7021-8 #### [address] [place] [address] Retail Sales Manager - Judith ARCE [id number] MCV (RBC) [Entitic vol] 86.6 fL Normal 80.0-100.0 [facility] Comment on above: Performed By: #### 5 7021-8 #### [place] [address] [place] [address] Retail Sales Manager - Judith CALLEJASIA [id number] Monocytes (Bld) [#/Vol] 0.88 10*3/uL High 0.10-0.60 [facility] Comment on above: Performed By: #### 5 7021-8 #### [address] [place] [address] Retail Sales Manager - Judith Humphries CLIA [id number] Monocytes/100 WBC (Bld) 10.4 % High <=8.0 [facility] Comment on above: Performed By: #### 5 7021-8 #### [address] [place] [address] Retail Sales Manager - Judith CALLEJASIA [id number] Neutrophils (Bld) [#/Vol] 5.45 10*3/uL Normal 1.40-6.50 [facility] Comment on above: Performed By: #### 5 7021-8 #### [address] [place] [address] Retail Sales Manager - Judith Humphries CLIA [id number] Neutrophils/100 WBC (Bld) 64.5 % Normal 50.0-70.0 [facility] Comment on above: Performed By: #### 5 7021-8 #### [address] [place] [address] Retail Sales Manager - Judith Humphries CLIA [id number] Nucleated RBC (Bld) [#/Vol] 0.00 10*3/uL Normal <=0.10 [facility] Comment on above: Performed By: #### 5 7021-8 #### [address] [place] [address] Retail Sales Manager - Judith CALLEJASIA [id number] Platelet mean volume (Bld) [Entitic vol] 10.7 fL Normal 9.0-13.0 [facility] Comment on above: Performed By: #### 5 7021-8 #### [address] [place] [address] Retail Sales Manager - Judith Humphries CLIA [id number] Platelets (Bld) [#/Vol] 204 10*3/uL Normal 130-400 [facility] Comment on above: Performed By: #### 5 7021-8 #### [address] [place] [address] Retail Sales Manager - Judith CALLEJASIA [id number] RBC (Bld) [#/Vol] 4.33 10*6/uL Normal 4.00-6.30 [facility] Comment on above: Performed By: #### 5 7021-8 #### [facility] [address] [place] [address] Retail Sales Manager - Judith Humphries JÚNIORJOSE [id number] WBC (Bld) [#/Vol] 8.45 10*3/uL Normal 4.80-10.80 [facility] Comment on above: Performed By: #### 5 7021-8 #### [facility] [address] [place] [address] Retail Sales Manager - Judith Yandel CALLEJASJOSE [id number] [facility] 11-21-2020 CK [Catalytic activity/Vol] 82 U/L Normal 21-215 [facility] Comment on above: Performed By: #### 2 1198-7, 2157-6, 64263-4, 42169-0, 3040-3 #### [facility] [address] [place] [address] Retail Sales Manager - Judith Humphries JÚNIORJOSE [id number] #### 61835-3 #### [place] [address] [place] [address] Retail Sales Manager - Judithlyssa Humphries JÚNIORJOSE [id number] Performed for [facility] [address] [address] [address] HEAD WITHOUT ONLYon 11-21 CT HEAD WITHOUT ONLY EXAMINATION: CT HEA D WITHOUT ONLY HISTORY: Abnormal movement COMPARISON: 06/28/2016 TECHNIQUE: CT examination of the head without IV contrast. Dose reduction techniques were achieved by using automated exposure control and/or adjustment of mA and/or kV according to patient size and/or use of iterative reconstruction technique. FINDINGS: No intracranial hemorrhage or extraaxial fluid collections are identified. Fierro-white matter differentiation is preserved without a focus of abnormal hypodensity. The ventricular system maintains its usual size, shape, and position without midline shift. The sulcal pattern is symmetrical over the convexities. Midline symmetry is preserved. The orbits and paranasal sinuses are unremarkable. IMPRESSION: No acute hemorrhage, focal edema or mass effect Normal [facility] Comprehensive metabolic 2000 panelon 11-21-2020 Albumin [Mass/Vol] 4.0 g/dL Normal 3.4-5.0 [facility] Comment on above: Performed By: #### 2 1198-7, 7-6, 34325-5, 66308-6, 0-3 #### [facility] [address] [place] [address] Retail Sales Manager - Judith ARCE [id number] #### 32994-9 #### [facility] [address] [place] [address] Retail Sales Manager - [facility] CLIA [id number] Performed for [facility] [address] [place], [place] [address] ALP [Catalytic activity/Vol] 72 U/L Normal 50-136 [facility] Comment on above: Performed By: #### 2 1198-7, 7-6, 95226-6, 55922-1, 0-3 #### [facility] [address] [place] [address] Retail Sales Manager - Judith ARCE [id number] #### 41712-8 #### [facility] [address] [place] [address] Retail Sales Manager - Judith Humphriesmaddie ARCE [id number] Performed for [facility] [address] [place], [place] [address] ALT [Catalytic activity/Vol] 24 U/L Normal 14-59 [facility] Comment on above: Performed By: #### 2 1198-7, 7-6, 66653-8, 52233-4, 0-3 #### [facility] [address] [place], [place] [address] Retail Sales Manager - Judith ARCE [id number] #### 03916-3 #### [facility] [address] [place] [address] Retail Sales Manager - Judith Humphries CLAUDE [id number] Performed for [facility] [address] [place], [place] [address] Anion gap [Moles/Vol] 5.0 mmol/L Normal <=15.0 [facility] Comment on above: Performed By: #### 2 1198-7, 7-6, 22317-3, 29587-0, 0-3 #### [facility] [address] [place] [address] Retail Sales Manager - Judith ARCE [id number] #### 45612-3 #### [facility] [address] [place] [address] Retail Sales Manager - Judith ARCE [id number] Performed for [facility] [address] [place] [address] AST [Catalytic activity/Vol] 12 U/L Low 15-37 [facility] Comment on above: Performed By: #### 2 1198-7, 2156-6, 63550-5, 87634-1, 0-3 #### [facility] [address] [place] [address] Retail Sales Manager - Judith ARCE [id number] #### 86077-1 #### [facility] [address] [place] [address] Retail Sales Manager - Judith ARCE [id number] Performed for [facility] [address] [place] [address] Bilirubin [Mass/Vol] 0.7 mg/dL Normal 0.2-1.0 [facility] Comment on above: Performed By: #### 2 1198-7, 2156-6, 88213-2, 17587-6, 0-3 #### [facility] [address] [place] [address] Retail Sales Manager - Judith ARCE [id number] #### 32863-4 #### [facility] [address] [place] [address] Retail Sales Manager - Judith ARCE [id number] Performed for [facility] [address] [place] [address] Calcium [Mass/Vol] 9.0 mg/dL Normal 8.5-10.1 [facility] Comment on above: Performed By: #### 2 1198-7, 2157-6, 38104-5, 91273-4, 0-3 #### [facility] [address] [place] [address] Retail Sales Manager - Judith ARCE [id number] #### 29452-0 #### [facility] [address] [place] [address] Retail Sales Manager - Judith ARCE [id number] Performed for [facility] [address] [place], [place] [address] Chloride [Moles/Vol] 110 mmol/L High 98-107 [facility] Comment on above: Performed By: #### 2 1198-7, 7-6, 22842-2, 55542-0, 0-3 #### [facility] [address] [place] [address] Retail Sales Manager - Judith ARCE [id number] #### 66281-8 #### [facility] [address] [place] [address] Retail Sales Manager - Judith ARCE [id number] Performed for [facility] [address] [place], [place] [address] CO2 [Moles/Vol] 27 mmol/L Normal 21-32 [facility] Comment on above: Performed By: #### 2 1198-7, 7-6, 67171-6, 12762-9, 0-3 #### [facility] [address] [place] [address] Retail Sales Manager - Judith ARCE [id number] #### 93980-8 #### [facility] [address] [place] [address] Retail Sales Manager - Judith ARCE [id number] Performed for [facility] [address] [place], [place] [address] Creatinine [Mass/Vol] 0.78 mg/dL Normal 0.51-0.95 [facility] Comment on above: Performed By: #### 2 1198-7, 7-6, 91203-7, 70856-3, 0-3 #### [facility] [address] [place] [address] Retail Sales Manager - Judith ARCE [id number] #### 52936-9 #### [facility] [address] [place] [address] Retail Sales Manager - Judith ARCE [id number] Performed for [facility] [address] [place], [place] [address] GFR/1.73 sq M.predicted MDRD (S/P/Bld) [Vol rate/Area] Normal 59-N/A [facility] Comment on above: Performed By: #### 2 1198-7, 2157-6, 81106-9, 37419-0, 3040-3 #### [place] [address] [place] [address] Retail Sales Manager - Judith ARCE [id number] #### 29700-3 #### [place] [address] [place] [address] Retail Sales Manager - Judith Humphries CLAUDE [id number] Performed for [facility] [address] [place] [address] Glucose [Mass/Vol] 83 mg/dL Normal 74-106 [facility] Comment on above: Performed By: #### 2 1198-7, 2157-6, 66537-2, 22106-3, 3040-3 #### [facility] [address] [place] [address] Retail Sales Manager - Judiht ACRE [id number] #### 43940-2 #### [place] [address] [place] [address] Retail Sales Manager - JudithFormerly [facility] CLAUDE [id number] Performed for [facility] [address] [place], [place] [address] HGFR GLOMERULAR FILTRATIO N RATE INTERPRETATION~The eGFR is calculated using the MDRD equation.~This equation has been validated in patients with chronic kidney disease;~however, it underestimates the GFR in healthy patients with GFR's over 60 mL/min.~The equation is not valid in children under the age of 18.~NOTE: Criteria for Chronic Kidney Disease:~ ~1. Kidney damage for at least three months, as defined~by structural or functional abnormalities of the kidney,~with or without decreased glomerular filtration rate, manifested by either:~* Pathological abnormalities or~* Markers of Kidney damage, including abnormalities in~the composition of the blood or urine or abnormalities in imaging tests.~ ~2. GFR <60 mL/min/1.73 m squared for at least three months, with or without kidney damage.~ Normal [facility] Comment on above: Performed By: #### 2 1198-7, 7-6, 56566-3, 63533-8, 0-3 #### [facility] [address] [place] [address] Retail Sales Manager - Judith ARCE [id number] #### 63864-4 #### [facility] [address] [place] [address] Retail Sales Manager - Jud[facility]htEn[facility]phriesmadd[facility] ARCE [id number] Performed for [facility] [address] [place] [address] Potassium [Moles/Vol] 3.5 mmol/L Normal 3.5-5.1 [facility] Comment on above: Performed By: #### 2 1198-7, 7-6, 74488-8, 84170-5, 0-3 #### [facility] [address] [place] [address] Retail Sales Manager - Judith ARCE [id number] #### 88216-7 #### [facility] [address] [place] [address] Retail Sales Manager - JudithFormerly [facility] JÚNIORIA [id number] Performed for [facility] [address] [place] [address] Protein [Mass/Vol] 7.8 g/dL Normal 6.4-8.2 [facility] Comment on above: Performed By: #### 2 1198-7, 7-6, 06273-0, 02059-1, 0-3 #### [facility] [address] [place] [address] Retail Sales Manager - Judith ARCE [id number] #### 39122-2 #### [facility] [address] [place] [address] Retail Sales Manager - Judith ARCE [id number] Performed for [facility] [address] [place] [address] Sodium [Moles/Vol] 142 mmol/L Normal 136-145 [facility] Comment on above: Performed By: #### 2 1198-7, 2157-6, 16313-8, 36839-7, 3040-3 #### [facility] [address] [place] [address] Retail Sales Manager - Judith ARCE [id number] #### 90288-6 #### [facility] [address] [place] [address] Retail Sales Manager - Judith ARCE [id number] Performed for [facility] [address] [place] [address] Urea nitrogen [Mass/Vol] 7 mg/dL Normal 7-17 [facility] Comment on above: Performed By: #### 2 1198-7, 2157-6, 06413-5, 89473-6, 3040-3 #### [facility] [address] [place] [address] Retail Sales Manager - Judith ARCE [id number] #### 65121-0 #### [place] [address] [place] [address] Retail Sales Manager - Judith ARCE [id number] Performed for [facility] [address] [place] [address] Drugs identified Screen Nom (U)on 11-21-2020 Amphetamines Ql (U) Not detected Normal CUTOFF = 500 K [facility] Comment on above: Performed By: #### 1 2286-1 #### [facility] [address] [place] [address] Retail Sales Manager - Judith ARCE [id number] Barbiturates Ql (U) Not detected Normal CUTOFF = 200 K nox [facility] Comment on above: Performed By: #### 1 2286-1 #### [facility] [address] [place] [address] Retail Sales Manager - Judith CALLEJASIA [id number] Benzodiazepines Ql (U) Not detected Normal CUTOFF = 15 0 [facility] Comment on above: Performed By: #### 1 2286-1 #### [facility] [address] [place] [address] Retail Sales Manager - Judith ARCE [id number] Cocaine Ql (U) Not detected Normal CUTOFF = 150 [facility] Comment on above: Performed By: #### 1 2286-1 #### [facility] [address] [place] [address] Retail Sales Manager - Judith ARCE [id number] HDRUG Drugs of abuse screening provides only a preliminary analytical test result. A more specific alternate chemical method must be used in order to obtain a confimed analytical result. Clinical consideration and professional judgment should be applied to any drug of abuse test result, particularly when preliminary positive results are obtained. Normal [facility] Comment on above: Performed By: #### 1 2286-1 #### [facility] [address] [place] [address] Retail Sales Manager - Judith CALLEJASIA [id number] Methadone Ql (U) Not detected Normal CUTOFF = 200 [facility] Comment on above: Performed By: #### 1 2286-1 #### [facility] [address] [place] [address] Retail Sales Manager - Judith ARCE [id number] Opiates Ql (U) Not detected Normal CUTOFF = 300 [facility] Comment on above: Performed By: #### 1 2286-1 #### [facility] [address] [place] [address] Retail Sales Manager - Judith CALLEJASIA [id number] oxyCODONE Ql (U) Not detected Normal CUTOFF = 100 [facility] Comment on above: Performed By: #### 1 2286-1 #### [facility] [address] [place] [address] Retail Sales Manager - Judith CALLEJASIA [id number] Phencyclidine Ql (U) Not detected Normal CUTOFF = 25 K [facility] Comment on above: Performed By: #### 1 2286-1 #### [facility] [address] [place] [address] Retail Sales Manager - [facility] [id number] Tetrahydrocannabinol Ql (U) Detected Abnormal CUTOFF = 50 [facility] Comment on above: Performed By: #### 1 2286-1 #### [facility] [address] [place] [address] Retail Sales Manager - [facility] [id number] HCG BLOODon 11-21-2020 HCG.beta subunit Qn m[IU]/mL Normal 1-3 [facility] Comment on above: Performed By: #### 2 1198-7, 2157-6, 24032-9, 87650-0, 0-3 #### [place] [address] [place] [address] Retail Sales Manager - [facility] [id number] #### 98800-7 #### [place] [address] [place] [address] Retail Sales Manager - [facility] [id number] Performed for [place] [address] HCG.beta subunit Qnon 2020 [facility] HCG INTERPRETATION T he expected values were calculated non-parametrically and represent the central 95% of the population. When borderline results are encountered, patient samples should be drawn 48 hours later. The concentration of HCG rises rapidly during early . Gestational Age Expected HCG Values 0.2-1 week 5-50 1-2 weeks 50-500 2-3 weeks 100-5000 3-4 weeks 500-10,000 4-5 weeks 1000-50,000 5-6 weeks 10,000-100,000 6-8 weeks 15,000-200,000 2-3 months 10,000-100,000 Normal [facility] Comment on above: Performed By: #### 2 1198-7, 2157-6, 01191-5, 48626-7, 3040-3 #### [facility] [address] Director - Judith ARCE [id number] #### 07722-3 #### [facility] [address] [place] [address] Retail Sales Manager - Judith Humphries CLAUDE [id number] Performed for [facility] [address] [place], [place] [address] LACTATEon 11-21-2020 Lactate [Moles/Vol] 1.2 mmol/L Normal 0.4-2.0 [facility] Comment on above: Performed By: #### 2 524-7 #### [facility] [address] [place] [address] Retail Sales Manager - Judith ARCE [id number] LIPASEon 11-21-2020 Lipase [Catalytic activity/Vol] 90 U/L Normal 73-393 [facility] Comment on above: Performed By: #### 2 1198-7, 2157-6, 32164-7, 40231-5, 0-3 #### [facility] [address] [place] [address] Retail Sales Manager - Judith ARCE [id number] #### 79281-1 #### [facility] [address] [place] [address] Retail Sales Manager - JudithFormerly [facility] CLAUDE [id number] Performed for [facility] [address] [place] [address] MAGNESIUMon 11-21-2020 Magnesium [Mass/Vol] 2.4 mg/dL Normal 1.6-2.6 [facility] Comment on above: Performed By: #### 1 2286-1 #### [facility] [address] [place] [address] Retail Sales Manager - Judith ARCE [id number] TSH DL <= 0.05 mIU/L Qnon TSH Qn 0.694 uIU/mL Normal 0.358-3.740 [facility] Comment on above: Performed By: #### 2 1198-7, 2157-6, 43644-2, 12629-6, 0-3 #### [facility] [address] [place] [address] Retail Sales Manager - Judith ARCE [id number] #### 65247-4 #### [facility] [address] [place] [address] Retail Sales Manager - Judith ARCE [id number] Performed for [facility] [address] [place] [address] URINALYSIS with reflex to CU LTUREon 11-21-2020 BACTERIA Normal TRACE [facility] Comment on above: Performed By: #### U AR #### [facility] [address] [place] [address] Retail Sales Manager - Judith ARCE [id number] Performed for [facility] [address] [place] [address] Bilirubin Ql (U) Negative Normal NEGATIVE [facility] Comment on above: Performed By: #### U AR #### [facility] [address] [place] [address] Retail Sales Manager - Judith ARCE [id number] Performed for [facility] [address] [place], [place] [address] Clarity (U) CLEAR Normal CLEAR [facility] Comment on above: Performed By: #### U AR #### [facility] [address] [place] [address] Retail Sales Manager - Judith ARCE [id number] Performed for [facility] [address] [place], [place] [address] Color (U) YELLOW Normal YELLOW [facility] Comment on above: Performed By: #### U AR #### [facility] [address] [place] [address] Retail Sales Manager - Judith ARCE [id number] Performed for [facility] [address] [place], [place] [address] Glucose Ql (U) Negative Normal NEGATIVE [facility] Comment on above: Performed By: #### U AR #### [facility] [address] [place] [address] Retail Sales Manager - Judith ARCE [id number] Performed for [facility] [address] [place], [place] [address] Hemoglobin Ql (U) Negative Normal NEGATIVE [facility] Comment on above: Performed By: #### U AR #### [facility] [address] [place] [address] Retail Sales Manager - Judith ARCE [id number] Performed for [facility] [address] [place], [place] [address] HMICRO AUTOMATED MICROSCOPIC Normal [facility] Comment on above: Performed By: #### U AR #### [facility] [address] [place] [address] Retail Sales Manager - Judith ARCE [id number] Performed for [facility] [address] [place] [address] Hyaline casts (Urine sed) [#/Area] Normal 0-8 [facility] Comment on above: Performed By: #### U AR #### [facility] [address] [place] [address] Retail Sales Manager - Judith CALLEJASIA [id number] Performed for [facility] [address] [place], [place] [address] KETONE 1+ Abnormal NEGATIVE [facility] Comment on above: Performed By: #### U AR #### [facility] [address] [place] [address] Retail Sales Manager - Judith CALLEJASIA [id number] Performed for [facility] [address] [place], [place] [address] Leukocyte esterase Test strip Ql (U) Negative Normal TRACE [facility] Comment on above: Performed By: #### U AR #### [facility] [address] [place] [address] Retail Sales Manager - Judith ARCE [id number] Performed for [facility] [address] [place], [place] [address] Nitrite Ql (U) Negative Normal NEGATIVE [facility] Comment on above: Performed By: #### U AR #### [facility] [address] [place] [address] Retail Sales Manager - Judith ARCE [id number] Performed for [facility] [address] [place], [place] [address] pH (U) 6.5 [pH] Normal 5.5-7.5 [facility] Comment on above: Performed By: #### U AR #### [facility] [address] [place], [place] [address] Retail Sales Manager - Judith CALLEJASIA [id number] Performed for [facility] [address] [place], [place] [address] Protein Ql (U) Negative Normal NEGATIVE [facility] Comment on above: Performed By: #### U AR #### [facility] [address] [place], [place] [address] Retail Sales Manager - Jduith CALLEJASIA [id number] Performed for [facility] [address] [place], [place] [address] RBC LM.HPF (Urine sed) [#/Area] Normal 0-4 [facility] Comment on above: Performed By: #### U AR #### [facility] [address] [place] [address] Retail Sales Manager - Judith CALLEJASIA [id number] Performed for [facility] [address] [place], [place] [address] Specific gravity (U) [Rel density] 1.009 Low 1.010-1.035 [facility] Comment on above: Performed By: #### U AR #### [facility] [address] [place], [place] [address] Retail Sales Manager - Judith CALLEJASIA [id number] Performed for [facility] [address] [place], [place] [address] SQUAMOUS EPITHELIALS Normal 0-5 [facility] Comment on above: Performed By: #### U AR #### [facility] [address] [place] [address] Retail Sales Manager - Judith ARCE [id number] Performed for [facility] [address] [place], [place] [address] Urobilinogen Qn (U) 0.2 {Reed'U}/dL Normal <=1.0 [facility] Comment on above: Performed By: #### U AR #### [facility] [address] [place], [place] [address] Retail Sales Manager - Judith ARCE [id number] Performed for [facility] [address] [place], [place] [address] WBC LM.HPF (Urine sed) [#/Area] Normal 0-5 [facility] Comment on above: Performed By: #### U AR #### [facility] [address] [place], [place] [address] Retail Sales Manager - Judith ARCE [id number] Performed for [place] [address] [place], [place] [address] Alcohol, Medicalon 0 Ethanol [Mass/Vol] mg/dL <10.00 mg/dL [facility] Comment on above: Alcohol cutoff: <10. 00 mg/dL = None Detected Interpretation and review of laboratory results Normal [facility] DRUGS OF ABUSE SCREEN, URINE on 05-24-2019 Amphetamines Ql (U) None Detected None Detected [facility] Comment on above: Urine Amphetamine Cu toff: < 1000 ng/mL = None Detected Barbiturates Screen Ql (U) None Detected None Detected [facility] Comment on above: Urine Barbiturates C utoff: < 200 ng/mL = None Detected Benzodiazepines Ql (U) None Detected None Detec eric [facility] Comment on above: Urine Benzodiazepine Cutoff: < 200 ng/mL = None Detected Cannabinoids Screen Ql (U) Positive Abnormal None Detected [facility] Comment on above: Urine Cannabinoids C utoff: < 50 ng/mL = None Detected Cocaine Ql (U) None Detected None Detected [facility] Comment on above: Urine Cocaine Cutoff : < 300 ng/mL = None Detected Interpretation and review of laboratory results Abnormal [facility] Methadone Screen Ql (U) None Detected None Detected [facility] Comment on above: Urine Methadone Cuto ff: < 300 ng/mL = None Detected Opiates Screen Ql (U) None Detected None Detect ed [facility] Comment on above: Urine Opiates Cutoff : < 300 ng/mL = None Detected Oxycodone Ql (U) None Detected None Detected [facility] Comment on above: Urine Oxycodone Cuto ff: < 100 ng/mL = None Detected Screen results shoul d be used for treatment purposes only. Specimen will be kept for 1 week, if the sample is adequate. Confirmation testing can be initiated by calling the lab within 1 week. [facility] Otheron 05-24-2019 Extra Tube Hold for add-ons. [facility] Comment on above: Auto resulted. URINALYSISon 05-24-2019 Bacteria Auto Ql (U) Rare Abnormal None Seen /hpf [facility] Bilirubin Ql (U) Negative Negative [facility] th Clarity Refractometry automated (U) Hazy Abnormal Clear [facility] Color (U) Yellow Colorless, Yellow [facility] Epithelial cells.squamous Auto (Urine sed) [#/Area] 3 [facility] Glucose Auto test strip (U) [Mass/Vol] Negative Negative mg/dL [facility] Hemoglobin Auto test strip Ql (U) Negative Negative [facility] Interpretation and review of laboratory results Abnormal [facility] Ketones (U) [Mass/Vol] Negative Negative mg/d L [facility] Leukocyte esterase Auto test strip Ql (U) Negative Negative [facility] h Mucus Auto (Urine sed) [#/Area] Few Abnormal None Seen, Rare /lpf [facility] Nitrite Auto test strip Ql (U) Negative Negative [facility] pH (U) 5.0 [pH] [facility] Protein (U) [Mass/Vol] 100 Abnormal Negative mg/d L [facility] RBC Auto (Urine sed) [#/Area] <1 [facility] Specific gravity (U) [Rel density] 1.024 [facility] Urobilinogen (U) [Mass/Vol] <2.0 <2.0 mg/dL [facility] WBC Auto (Urine sed) [#/Area] 2 [facility] Microscopic examinat ion is performed on all urinalysis samples and only positive findings are reported. The test for blood on the chemical analytic portion of urinalysis may also be positive due to hemoglobinuria and myoglobinuria and if red blood cells are present they are quantified by microscopic examination. [facility] Urine Pregnancyon 05-24-2019 HCG ( test) Ql (U) Negative Negative [facility] Interpretation and review of laboratory results Normal [facility] Alcohol, Medicalon 9 Ethanol [Mass/Vol] mg/dL <10.00 mg/dL [facility] Comment on above: Alcohol cutoff: <10. 00 mg/dL = None Detected Interpretation and review of laboratory results Normal [facility] CBC WITH AUTO DIFFERENTIALon 03-29-2019 Basophils (Bld) [#/Vol] 0.04 10*3/uL [facility] Basophils/100 WBC (Bld) 0.5 % [facility] Eosinophils (Bld) [#/Vol] 0.21 10*3/uL [facility] Eosinophils/100 WBC (Bld) 2.6 % [facility] Erythrocyte distribution width (RBC) [Entitic vol] 12.7 % 11.6 - 14.8 % [facility] Hematocrit (Bld) [Volume fraction] 45.2 % 36 - 46 % [facility] Hemoglobin (Bld) [Mass/Vol] 14.5 g/dL 12 - 16 g/dL [facility] Immature granulocytes (Bld) [#/Vol] 0.02 10*3/uL [facility] Immature granulocytes/100 WBC (Bld) 0.20 % [facility] Comment on above: The IG parameter is the percentage of metamyelocytes, myelocytes, and promyelocytes. Interpretation and review of laboratory results Abnormal [facility] Lymphocytes (Bld) [#/Vol] 2.45 10*3/uL [facility] Lymphocytes/100 WBC (Bld) 30.5 % [facility] MCH (RBC) [Entitic mass] 27.4 pg 25 - 35 pg [facility] MCHC (RBC) [Mass/Vol] 32.1 g/dL 31 - 37 g/dL [facility] MCV (RBC) [Entitic vol] 85.4 fL 78 - 102 fL [facility] Monocytes (Bld) [#/Vol] 0.72 10*3/uL [facility] Monocytes/100 WBC (Bld) 9.0 % [facility] Neutrophils (Bld) [#/Vol] 4.60 10*3/uL [facility] Neutrophils/100 WBC (Bld) 57.2 % [facility] Nucleated RBC (Bld) [#/Vol] 0.00 10*3/uL [facility] Nucleated RBC/100 WBC (Bld) [Ratio] 0.0 % [facility] Platelet mean volume (Bld) [Entitic vol] 10.3 fL 9 - 15.5 fL [facility] Platelets (Bld) [#/Vol] 272 10*3/uL [facility] RBC (Bld) [#/Vol] 5.29 10*6/uL High [facility] eah WBC (Bld) [#/Vol] 8.04 10*3/uL [facility] CPK NO MBon 03-29-2019 CK [Catalytic activity/Vol] 72 U/L 40 - 170 U/L [facility] Interpretation and review of laboratory results Normal [facility] Comprehensive Metabolic Pane dae 03-29-2019 Albumin [Mass/Vol] 4.6 g/dL High 3.2 - 4.5 g/dL [facility] ALP [Catalytic activity/Vol] 114 U/L 110 - 630 U/L [facility] ALT [Catalytic activity/Vol] 23 U/L 14 - 65 U/L [facility] Anion gap [Moles/Vol] 11 mmol/L 10 - 20 mmol/L [facility] AST [Catalytic activity/Vol] 16 U/L 0 - 45 U/L [facility] Bilirubin [Mass/Vol] 0.6 mg/dL 0 - 1.3 mg/dL [facility] Calcium [Mass/Vol] 9.7 mg/dL 8.4 - 10. 2 mg/dL [facility] Chloride [Moles/Vol] 104 mmol/L 98 - 10 8 mmol/L [facility] Creatinine [Mass/Vol] 0.69 mg/dL 0.5 - 1 mg/dL [facility] GFR/1.73 sq M predicted among non-blacks MDRD (S/P/Bld) [Vol rate/Area] The eGFR should be used for monitoring renal function only and not for medication dosing. [facility] Glucose [Mass/Vol] 89 mg/dL 65 - 99 mg/dL [facility] HCO3 [Moles/Vol] 28 mmol/L 21 - 32 mmol/L [facility] Interpretation and review of laboratory results Abnormal [facility] Potassium [Moles/Vol] 3.9 mmol/L 3.5 - 5.1 mmol/L [facility] Protein [Mass/Vol] 9.2 g/dL High 6 - 8 g/dL [facility] alth Sodium [Moles/Vol] 139 mmol/L 135 - 145 mmol/L [facility] Urea nitrogen [Mass/Vol] 14 mg/dL 8 - 25 mg/dL [facility] Urea nitrogen/Creatinine [Mass ratio] 20.3 mg/mg High [facility] DRUGS OF ABUSE SCREEN, URINE on 03-29-2019 Amphetamines Ql (U) None Detected None Detected [facility] Comment on above: Urine Amphetamine Cu toff: < 1000 ng/mL = None Detected Barbiturates Screen Ql (U) None Detected None Detected [facility] Comment on above: Urine Barbiturates C utoff: < 200 ng/mL = None Detected Benzodiazepines Ql (U) None Detected None Detec eric [facility] Comment on above: Urine Benzodiazepine Cutoff: < 200 ng/mL = None Detected Cannabinoids Screen Ql (U) None Detected None Detected [facility] Comment on above: Urine Cannabinoids C utoff: < 50 ng/mL = None Detected Cocaine Ql (U) None Detected None Detected [facility] Comment on above: Urine Cocaine Cutoff : < 300 ng/mL = None Detected Interpretation and review of laboratory results Normal [facility] Methadone Screen Ql (U) None Detected None Detected [facility] Comment on above: Urine Methadone Cuto ff: < 300 ng/mL = None Detected Opiates Screen Ql (U) None Detected None Detect ed [facility] Comment on above: Urine Opiates Cutoff : < 300 ng/mL = None Detected Oxycodone Ql (U) None Detected None Detected [facility] Comment on above: Urine Oxycodone Cuto ff: < 100 ng/mL = None Detected Screen results shoul d be used for treatment purposes only. [facility] ECG 12-LEADon 03-29-2019 Atrial Rate 57 BPM [facility] P [place] 0 degrees [facility] P-R Interval 148 ms [facility] Q-T Interval 412 ms [facility] QRS Duration 94 ms [facility] QTC Calculation (Bezet) 401 ms [facility] R [place] 57 degrees [facility] T [place] 35 degrees [facility] Ventricular Rate 57 BPM [facility] * Pediatric ECG analysis * Sinus bradycardia ECG Cart Interpretation see physician note for interpretation. Confirmed by Maira [place] ([id number]) on 03/29/2019 6:46:31 PM [facility] Otheron 03-29-2019 Extra Tube Hold for add-ons. [facility] Comment on above: Auto resulted. URINALYSISon 03-29-2019 Bacteria Auto Ql (U) None Seen None Seen /hpf [facility] Bilirubin Ql (U) Negative Negative [facility] Clarity Refractometry automated (U) Hazy Abnormal Clear [facility] Color (U) Yellow Colorless, Yellow [facility] Glucose Auto test strip (U) [Mass/Vol] Negative Negative mg/dL [facility] Hemoglobin Auto test strip Ql (U) Negative Negative [facility] Interpretation and review of laboratory results Abnormal [facility] Ketones (U) [Mass/Vol] Negative Negative mg/d L [facility] Leukocyte esterase Auto test strip Ql (U) Negative Negative [facility] h Mucus Auto (Urine sed) [#/Area] Few Abnormal None Seen, Rare /lpf [facility] Nitrite Auto test strip Ql (U) Negative Negative [facility] pH (U) 5.0 [pH] [facility] Protein (U) [Mass/Vol] 30 Abnormal Negative mg/d L [facility] Comment on above: False positive resul ts may occur in urines with large amounts of hemoglobin, pH greater than 8.0, contrast medium, or disinfectants including ammonium compounds. RBC Auto (Urine sed) [#/Area] 1 [facility] Specific gravity (U) [Rel density] 1.027 High [facility] Transitional cells Computer assisted (U) [#/Area] <1 [facility] Urobilinogen (U) [Mass/Vol] <2.0 <2.0 mg/dL [facility] WBC Auto (Urine sed) [#/Area] 2 [facility] Microscopic examinat ion is performed on all urinalysis samples and only positive findings are reported. The test for blood on the chemical analytic portion of urinalysis may also be positive due to hemoglobinuria and myoglobinuria and if red blood cells are present they are quantified by microscopic examination. [facility] Urine Pregnancyon 03-29-2019 HCG ( test) Ql (U) Negative Negative [facility] Interpretation and review of laboratory results Normal [facility] C trach/N nory Amplified Prob leslie 06-01-2018 C. trachomatis amp. Not Detected Normal NODT [facility] Comment on above: Performed By: #### C TGC ####[place] [address] N. gonorrhoeae amp. Not Detected Normal NODT [facility] Comment on above: Performed By: #### C TGC ####[place] [address] C trach/N gono/T vag Panelon 06-01-2018 C. trachomatis amp. Not Detected Normal NODT [facility] Comment on above: Performed By: #### C TGCTP ####[place] [address] COMMENT This assay is valida eric for testing on first catch urine. Testing of clean catch urine may result in reduced sensitivity. Normal [facility] Comment on above: Performed By: #### C TGCTP ####[place] [address] N. gonorrhoeae amp. Not Detected Normal NODT [facility] Comment on above: Performed By: #### C TGCTP ####[place] [address] T. vaginalis amp. Not Detected Normal NODT [facility] Comment on above: Performed By: #### C TGCTP ####[place] [address] C trach/N nory Amplified Prob leslie 05-31-2018 Specimen Description Throat Normal [facility] Comment on above: Performed By: #### C TGC ####[place] [address] C trach/N gono/T vag Panelon 05-31-2018 Specimen Description Urine Normal [facility] Comment on above: Performed By: #### C TGCTP ####[place] [address] POCT HCG, Urine Qualitativeo n 05-31-2018 Comment: First morning urine is the specimen of choice for urine test. False negative results can occur when random urine specimens are tested. A serum test is recommended if results do not correlate with the patient's clinical condition. Normal [facility] HCG.beta subunit ( test) Ql (U) Negative Normal NEG [facility] Hemoglobin A1Con 04-07-2018 Hemoglobin A1c/Hemoglobin.total mass fraction (Bld) 5.3 % Normal 4.0-5.6 [facility] Comment on above: Performed By: #### H GBA1C #### [place] [address] Hemoglobin A1c/Hemoglobin.total mass fraction (Bld) 105 mg/dL Normal [facility] Comment on above: Result Comment: The eAG is derived from the A1c result using a calculation from the Diabetes Control and Complication trial and reflects the average blood glucose over approximately the past 120 days, but weighted to the past 30 days. Performed By: #### H GBA1C #### [place] [address] Ironon 04-07-2018 Iron mass conc 62 ug/dL Low 65-175 [facility] Lipid Profileon 04-07-2018 Cholesterol in HDL mass conc 38 mg/dL Low 44-62 [facility] Comment on above: Performed By: #### L IPP #### Performed at [address] [address] Cholesterol in LDL mass conc 101 mg/dL Normal 78-118 [facility] Comment on above: Performed By: #### L IPP #### Performed at [address] [address] Cholesterol mass conc 162 mg/dL Normal 95-195 [facility] Comment on above: Performed By: #### L IPP #### Performed at [address] [address] Triglyceride mass conc 116 mg/dL Normal 60-134 Na [facility] Comment on above: Performed By: #### L IPP #### Performed at [address] [address] VLDL Cholesterol 23 mg/dL High 3-17 [facility] Comment on above: Performed By: #### L IPP #### Performed at [address] [address] TSHon 04-07-2018 Thyrotropin Qn 0.914 uIU/mL Normal 0.4-4.0 [facility] Vitamin D 25 Hydroxyon 04-07 Vitamin D 25 Hydroxy 25 ng/mL Low 30-120 [facility] Comment on above: Result Comment: (NOTE) <20 considered deficient. 21-29 considered insufficient. Reference ranges are based on Endocrine Society criteria. CBC Auto Diff Reflex Manualo n 04-06-2018 Automated Absolute Neutrophil 4.58 10*3/mm3 Normal [facility] Comment on above: Result Comment: Auto mated Absolute Neutrophil Count (ANC) is directly measured using a hematology instrument. ANC determined from manual differential cell count may differ. No [facility] reference range has been validated for this assay. Performed By: #### C D #### Performed at [facility], [address] [place] [address] Basophils/100 WBC (Bld) 0.4 % Normal 0.0-1.0 [facility] Comment on above: Result Comment: Perf ormed at [facility], [address] [place] [id number] Performed By: #### C D #### Performed at [address] [address] Differential Type Automated Normal [facility] Comment on above: Performed By: #### C D #### Performed at [address] [address] Eosinophils/100 WBC (Bld) 1.8 % Normal 1.0-4.0 [facility] Comment on above: Performed By: #### C D #### Performed at [address] [address] Erythrocyte distribution width Ratio (RBC) 12.9 % Normal 10-14.1 [facility] Comment on above: Performed By: #### C D #### Performed at [address] [address] Hematocrit Volume Fraction (Bld) 41.3 % Normal 36-48 [facility] Comment on above: Performed By: #### C D #### Performed at [address] [address] Hemoglobin mass conc (Bld) 14.0 g/dL Normal 12-16 [facility] Comment on above: Performed By: #### C D #### Performed at [address] [address] Lymphocytes/100 WBC (Bld) 29.2 % Normal 28.0-48.0 [facility] Comment on above: Performed By: #### C D #### Performed at [address] [address] MCH Entitic mass (RBC) 28.4 pg Normal 25-35 Na [facility] Comment on above: Performed By: #### C D #### Performed at [address] [address] MCHC mass conc (RBC) 33.9 % Normal 31.0-37.0 [facility] Comment on above: Performed By: #### C D #### Performed at [facility], [facility] [place] [address] MCV Entitic volume (RBC) 83.8 fL Normal 78-102 [facility] Comment on above: Performed By: #### C D #### Performed at [facility], [address] [place] [address] Monocytes/100 WBC (Bld) 9.4 % High 2.0-8.0 [facility] Comment on above: Performed By: #### C D #### Performed at [facility], [address] [place] [id number] Neutrophils/100 WBC (Bld) 59.2 % Normal 39.0-75.0 [facility] Comment on above: Performed By: #### C D #### Performed at [address] [address] Platelet mean volume Entitic volume (Bld) 10.1 fL Normal 9.3-13.0 [facility] Comment on above: Performed By: #### C D #### Performed at [address] [address] Platelets #/vol (Bld) 268 10*3/uL Normal 140-440 [facility] Comment on above: Performed By: #### C D #### Performed at [facility], [address] [place] [address] RBC #/vol (Bld) 4.93 10*6/uL Normal 4.1-5.1 [facility] Comment on above: Performed By: #### C D #### Performed at [facility], [address] [place] [address] WBC #/vol (Bld) 7.7 10*3/uL Normal 4.5-13.5 [facility] Comment on above: Performed By: #### C D #### Performed at [address] [address] Comprehensive Metabolic Pane [facility] 04-06-2018 Albumin mass conc 4.7 g/dL Normal 3.4-5.2 [facility] Comment on above: Performed By: #### C MTP #### Performed at [facility], [address] [place] [address] ALP enzyme act/vol 92 U/L Normal 66-262 [facility] Comment on above: Performed By: #### C MTP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 [facility] 01-28-2022 15:44-0400 Body weight 70.76 kg Amira Akins MD Work Phone: [facility] 01-28-2022 15:44-0400 Diastolic blood pressure 60 mm[Hg] Amira Akins MD Work Phone: [facility] 01-28-2022 15:44-0400 Systolic blood pressure 100 mm[Hg] Amira Akins MD Work Phone: [facility] 12-30-2021 08:56-0400 Body height 181.6 cm Laurie Plotisidro SPOT MACHINE OPERATOR.CNM Work Phone: [facility] 12-30-2021 08:56-0400 Body mass index (BMI) [Percentile] Per age and sex 26.76 % Laurie Plotts SPOT MACHINE OPERATOR.CNM Work Phone: [facility] 12-30-2021 08:56-0400 Body weight 64.86 kg Laurie Bonner SPOT MACHINE OPERATOR.CNM Work Phone: [facility] 12-30-2021 08:56-0400 Diastolic blood pressure 60 mm[Hg] Laurie Guevarats SPOT MACHINE OPERATOR.CNM Work Phone: [facility] 12-30-2021 08:56-0400 Systolic blood pressure 90 mm[Hg] Laurie Bonner SPOT MACHINE OPERATOR.CNM Work Phone: [facility] 05-24-2019 16:24-0500 BP Diastolic 64 mm[Hg] [facility] 05-24-2019 16:24-0500 BP Systolic 99 mm[Hg] [facility] 05-24-2019 16:24-0500 Pulse (Heart Rate) 60 /min [facility] 05-24-2019 16:24-0500 Pulse Oximetry 99 % [facility] 05-24-2019 16:24-0500 Respiratory Rate 16 /min [facility] 05-24-2019 11:15-0500 Body Temperature 97.9 [degF] [facility] 03-29-2019 17:27-0500 BP Diastolic 71 mm[Hg] Russ Quiroz [facility] 03-29-2019 17:27-0500 BP Systolic 114 mm[Hg] Russ Quiroz [facility] 03-29-2019 17:27-0500 Pulse (Heart Rate) 75 /min Russ Quiroz [facility] 03-29-2019 17:27-0500 Pulse Oximetry 98 % Russ Quiroz [facility] 03-29-2019 13:54-0500 BMI (Body Mass Index) 17.9 kg/m2 Russ Quiroz [facility] 03-29-2019 13:54-0500 Body Temperature 97.59 [degF] Russ Quiroz [facility] 03-29-2019 13:54-0500 Body weight 59.88 kg Russ Quiroz [facility] 03-29-2019 13:54-0500 Height 182.9 cm Russ Quiroz [facility] 06-30-2018 12:24-0500 BMI (Body Mass Index) 21.12 kg/m2 [facility] 06-30-2018 12:24-0500 Body Temperature 98.4 [degF] [facility] 06-30-2018 12:24-0500 Body weight 64.86 kg [facility] 06-30-2018 12:24-0500 Height 175.3 cm [facility] 06-30-2018 12:24-0500 Pulse (Heart Rate) 95 /min [facility] 06-30-2018 12:24-0500 Pulse Oximetry 99 % [facility] [employer] 06-30-2018 12:24-0500 Respiratory Rate 18 /min [facility] Encounters Encounter Date Encounter Type Care Provider Facility Start: 09-15-2024 End: 09-15-2024 Patient encounter procedure [facility] OB/Gynecology Start: 09-15-2024 End: 09-15-2024 ambulatory French Binder [facility] Work Phone: OB/Gynecology Comment on above: Arrived Start: 09-13-2024 End: 11-13-2024 Follow-up encounter Blank Chavira APRN.CLOTHING EXAMINER Work Phone: OB/Gynecology Start: 09-13-2024 End: 09-13-2024 ambulatory BLANK CHAVIRA Facility:[facility] Start: 09-13-2024 End: 09-13-2024 Patient encounter procedure Blank Chavira APRN.CLOTHING EXAMINER Work Phone: OB/Gynecology Comment on above: Abnormal uterine ble eding (Primary Dx); Pelvic pain in female; Screening for cervical cancer; Screen for STD (sexually transmitted disease); Malaise and fatigue; Desire for ; Hx of migraine headaches Start: 08-31-2024 End: 08-31-2024 Emergency department patient visit No Primary Care Physician -Emergency Department Work Phone: Start: 07-27-2024 End: 07-27-2024 ambulatory CAROLE LACEY Facility:[facility] Start: 07-27-2024 End: 07-27-2024 Patient encounter procedure Ina Toth APRN.CLOTHING EXAMINER Work Phone: [facility] Comment on above: Vaginal discomfort ( Primary Dx); Vaginal discharge Start: 06-28-2024 End: 06-28-2024 Telephone encounter Arianne Hsu MD Work Phone: Neurology Comment on above: Appointment Start: 06-27-2024 End: 08-27-2024 Follow-up encounter Kavon Toth MD Work Phone: OB/Gynecology Start: 06-27-2024 End: 06-27-2024 Patient encounter procedure Arianne Hsu MD Work Phone: Neurology Comment on above: Seizure-like activit y (HCC) (Primary Dx) Start: 06-26-2024 End: 06-26-2024 Office outpatient new 30 minutes Carole Lacey MD Work Phone: [facility] Comment on above: History of absence s eizures (Primary Dx); Mother currently breast-feeding Start: 06-26-2024 End: 06-26-2024 ambulatory CAROLE LACEY [facility] Start: 06-26-2024 End: 06-26-2024 ambulatory KAVON TOTH Facility:[facility] Start: 06-23-2024 End: 06-23-2024 Telephone encounter Jaqueline SNELL [facility] Start: 05-26-2024 End: 05-26-2024 ambulatory KAVON TOTH Facility:[facility] Start: 05-26-2024 End: 05-26-2024 Patient encounter procedure Kavon Toth MD Work Phone: OB/Gynecology Comment on above: Unprotected sexual i ntercourse (Primary Dx); Irregular bleeding Start: 05-23-2024 End: 05-23-2024 Telephone encounter Kavon Toth MD Work Phone: OB/Gynecology Comment on above: Appointment Start: 05-03-2024 End: 05-03-2024 Emergency department patient visit Connie Herrera MD Work Phone: [facility] Emergency Department Comment on above: Lower abdominal pain (Primary Dx) Start: 04-17-2024 End: 04-17-2024 ambulatory BLANK CHAVIRA Facility:[facility] Start: 04-17-2024 End: 04-17-2024 Patient encounter procedure Blank Cait PORTILLO.CLOTHING EXAMINER Work Phone: OB/Gynecology Comment on above: Encounter for IUD in sertion (Primary Dx); Screen for STD (sexually transmitted disease); Need for influenza vaccination Start: 02-21-2024 End: 02-21-2024 ambulatory BLANKJUANITA HORNEHERON Facility:[facility] Start: 02-21-2024 End: 02-21-2024 ambulatory BLANK CHAVIRA Facility:[facility] Start: 02-21-2024 End: 02-21-2024 Patient encounter procedure Blank Chavira APRN.CLOTHING EXAMINER Work Phone: OB/Gynecology Comment on above: Screen for STD (sexu ally transmitted disease) (Primary Dx); Unprotected sexual intercourse; Encounter for IUD insertion; Encounter for other general counseling or advice on contraception Start: 10-20-2023 Telephone encounter Kimberli Rhodes [facility] Comment on above: Smoking Cessation Start: 10-15-2023 End: 10-15-2023 ambulatory LAURIE BONNER Facility:[facility] Start: 10-15-2023 End: 10-15-2023 Patient encounter procedure Laurie Bonner APRN.CNM Work Phone: OB/Gynecology Comment on above: Encounter for other general counseling or advice on contraception (Primary Dx); Tobacco use disorder; Anxiety neurosis; History of depression; Body dysmorphic disorder Start: 06-28-2023 End: 06-28-2023 Patient encounter procedure Laurie Bonner APRN.CNM Work Phone: OB/Gynecology Comment on above: Dysuria (Primary Dx) ; Missed menses; Screen for STD (sexually transmitted disease) Start: 04-11-2023 End: 04-11-2023 [facility] Start: 11-11-2022 End: 11-11-2022 Emergency department patient visit [facility]-Emergency Department Work Phone: Start: 10-09-2022 ambulatory Eryn RIVAS E CLINICAL RESOURCE MANAGER Comment on above: Patient Update Start: 09-21-2022 Refill Oumou Valentin DO Work Phone: Psychiatry Start: 09-18-2022 End: 09-18-2022 Emergency department patient visit [facility] Start: 09-14-2022 End: 09-14-2022 [facility] Oumou Valentin DO Work Phone: Psychiatry Comment on above: Polysubstance depend ence (HCC) (Primary Dx); Bipolar disorder, current episode depressed, severe, without psychotic features (HCC) Start: 08-10-2022 End: 08-10-2022 Patient encounter procedure Abi Drummond MD Work Phone: OB/Gynecology Comment on above: Encounter for insert ion of mirena IUD (Primary Dx); Encounter for IUD insertion; Other iron deficiency anemia Start: 07-06-2022 End: 07-06-2022 Patient encounter procedure Laurie Bonner APRN.CARLENEM Work Phone: OB/Gynecology Comment on above: PTSD (post-traumatic stress disorder) (Primary Dx); General counseling and advice on female contraception; Anxiety neurosis; History of depression; Encounter for insertion of mirena IUD; Body dysmorphic disorder; History of bipolar disorder; Care and examination of lactating mother Start: 06-14-2022 Telephone encounter Katey borden MD Work Phone: OB/Gynecology Comment on above: Patient Question Start: 06-11-2022 Telephone encounter Naima isaac APRN.BON Work Phone: OB/Gynecology Comment on above: Patient Update Start: 06-04-2022 End: 06-04-2022 Patient encounter procedure No Primary Care Physician [facility] Start: 05-20-2022 Telephone encounter Naima isaac APRN.CNM Work Phone: OB/Gynecology Comment on above: Patient Update; Foll ow Up Start: 05-18-2022 End: 05-18-2022 Patient encounter procedure Katey Glover MD Work Phone: OB/Gynecology Comment on above: Vaginal bleeding (Pr imary Dx); Vaginal discharge; state Start: 05-18-2022 End: 05-18-2022 ambulatory Ob Ultrasound Work Phone: OB/Gynecology Start: 05-18-2022 End: 05-18-2022 Patient encounter procedure Naima Walls APRN.CNM Work Phone: OB/Gynecology Comment on above: endometri tis (Primary Dx); perineal pain; Pelvic pain in female; At risk for depression Start: 05-17-2022 ambulatory Dax Andrea RN NURSE CLINICAL RESOURCE MANAGER Comment on above: Pain Start: 05-13-2022 ambulatory Abi gutierrez MD Work Phone: OB/Gynecology Comment on above: Ob Delivery Note Start: 05-08-2022 End: 05-08-2022 Patient encounter procedure Katey Glover MD Work Phone: OB/Gynecology Comment on above: 39 weeks gestation o f (Primary Dx); Encounter for supervision of other normal in third trimester; Excessive weight gain in , third trimester Start: 05-08-2022 End: 05-11-2022 [facility] Start: 05-08-2022 End: 05-08-2022 Patient encounter procedure Shannon Waters MD Work Phone: Maternal Medicine Comment on above: macrosomia in third trimester, single or unspecified fetus (Primary Dx); 39 weeks gestation of ; Excessive weight gain in , third trimester; Polyhydramnios, third trimester, other fetus Start: 05-07-2022 Telephone encounter Katey borden MD Work Phone: OB/Gynecology Comment on above: Orders; Appointment Start: 05-06-2022 End: 05-06-2022 Patient encounter procedure [facility] Comment on above: 39 weeks gestation o f (Primary Dx) Start: 04-30-2022 End: 04-30-2022 Patient encounter procedure Laurie Bonner APRN.CNGrant Work Phone: OB/Gynecology Comment on above: 38 weeks gestation o f (Primary Dx); Excessive weight gain in , third trimester Start: 04-27-2022 Telephone encounter Laurie moralez APRN.CNGrant Work Phone: OB/Gynecology Comment on above: Results Start: 04-27-2022 End: 04-27-2022 Patient encounter procedure Laurie Bonner APRN.CNGrant Work Phone: OB/Gynecology Comment on above: 38 weeks gestation o f (Primary Dx); Encounter for supervision of other normal in third trimester; Elevated blood pressure reading without diagnosis of hypertension Start: 04-23-2022 Telephone encounter Laurie moralez APRN.CNGrant Work Phone: OB/Gynecology Comment on above: blood pressure readi ngs Start: 04-22-2022 End: 04-22-2022 ambulatory [facility] Work Phone: Start: 04-22-2022 End: 04-22-2022 Patient encounter procedure [facility] Outpatients Comment on above: care, subse quent in third trimester (Primary Dx); Elevated blood pressure reading without diagnosis of hypertension Start: 04-20-2022 End: 04-20-2022 ambulatory [facility] Work Phone: Start: 04-20-2022 End: 04-20-2022 Patient encounter procedure [facility] Start: 04-16-2022 End: 04-16-2022 Patient encounter procedure Laurie Bonner APRN.CNGrant Work Phone: OB/Gynecology Comment on above: 36 weeks gestation o f (Primary Dx); Excessive weight gain in , third trimester Start: 04-06-2022 End: 04-06-2022 Patient encounter procedure Emily Dolan MD Work Phone: Neurology Comment on above: Convulsions, unspeci fied convulsion type (HCC) (Primary Dx) Start: 04-01-2022 End: 04-01-2022 Patient encounter procedure Laurie Bonner APRN.CNM Work Phone: OB/Gynecology Comment on above: 34 weeks gestation o f (Primary Dx) Start: 03-23-2022 End: 03-23-2022 Patient encounter procedure Marisel Quinones MD Work Phone: Maternal Medicine Comment on above: Uterine size date di screpancy, third trimester (Primary Dx); 33 weeks gestation of Start: 03-18-2022 End: 03-18-2022 Patient encounter procedure Naima Walls APRN.CNM Work Phone: OB/Gynecology Comment on above: 32 weeks gestation o f (Primary Dx); Excessive weight gain in , third trimester Start: 03-09-2022 End: 03-09-2022 Patient encounter procedure Charisma River PA-C Work Phone: [facility] Comment on above: Fingernail avulsion, complete, initial encounter (Primary Dx) Start: 03-05-2022 End: 03-05-2022 Patient encounter procedure Lauire Bonner APRN.CNM Work Phone: OB/Gynecology Comment on above: 30 weeks gestation o f (Primary Dx) Start: 02-25-2022 ambulatory Amira Akins MD Work Phone: OB/Gynecology Comment on above: Question regarding S YPHILIS TOTAL W/REFLEX Start: 02-19-2022 ambulatory Arianne Hsu MD Work Phone: Neurology Start: 02-18-2022 End: 02-18-2022 Patient encounter procedure Naima Walls APRN.CNM Work Phone: OB/Gynecology Comment on above: 28 weeks gestation o f (Primary Dx); Need for vaccination; Underweight Start: 01-28-2022 End: 01-28-2022 Patient encounter procedure Amira Akins MD Work Phone: OB/Gynecology Comment on above: with prena nazario care elsewhere in second trimester (Primary Dx); Need for influenza vaccination; High risk teen in second trimester; 25 weeks gestation of Start: 01-02-2022 Telephone encounter Laurie moralez APRN.BON Work Phone: Obstetrics/Gynecology Comment on above: PRAF Start: 12-30-2021 End: 12-30-2021 Patient encounter procedure Laurie Bonner APRN.BON Work Phone: OB/Gynecology Comment on above: Encounter for prenat al care in second trimester of first (Primary Dx); 21 weeks gestation of ; History of absence seizures; with care elsewhere in second trimester; Engages in vaping; Heartburn during in second trimester; Nausea; History of bipolar disorder; High risk teen in second trimester; Body dysmorphic disorder Start: 11-20-2021 End: 11-24-2021 ambulatory [facility] Start: 10-28-2021 End: 10-28-2021 Emergency department patient visit [facility] Start: 06-16-2021 End: 06-16-2021 Emergency department patient visit BLANK BAILEY [facility] Start: 11-21-2020 End: 11-21-2020 ambulatory Krish [phone] Krystal [id number] Facility:[facility] Start: 05-24-2019 End: 05-24-2019 Emergency department patient visit Jani Guthrie Work Phone: [facility] Emergency Department Comment on above: Depression, unspecif ied depression type (Primary Dx) Start: 03-29-2019 End: 03-29-2019 Emergency department patient visit Russ Quiroz Work Phone: [facility] Emergency Department Comment on above: Emotional lability ( Primary Dx) Start: 06-30-2018 End: 06-30-2018 Letter encounter Provider Addyalejandra [facility] Start: 06-30-2018 End: 06-30-2018 Office outpatient visit 15 minutes Tayler Ricks Work Phone: [facility] Comment on above: Strain of left knee, initial encounter (Primary Dx); Acute pain of left knee Start: 05-31-2018 End: 06-01-2018 Patient encounter procedure VALENTINA OAKES [facility] Start: 04-06-2018 End: 04-07-2018 Patient encounter procedure [facility] Start: 03-25-2018 End: 03-25-2018 Emergency department patient visit [facility] Start: 03-01-2018 End: 03-03-2018 Patient encounter procedure [facility] Start: 09-01-2017 End: 09-01-2017 Emergency department patient visit [facility] Start: 07-26-2017 Patient encounter procedure PIPO YANI [facility] Start: 02-24-2017 End: 02-24-2017 Emergency department patient visit [facility] Procedures Date Procedure Procedure Detail Performing Clinician Start: 09-15-2024 Us pelvic nonobstetric real-time image complete Blank Chavira APRN.CLOTHING EXAMINER Work Phone: Start: 09-13-2024 UA DIP,URINE HCG (POC) Blank Chavira APRN. CLOTHING EXAMINER Work Phone: Start: 07-27-2024 Urnls dip stick/tablet rgnt auto w/o microscopy Ina Toth APRN.CLOTHING EXAMINER Work Phone: Start: 05-26-2024 UA DIP,URINE HCG (POC) Kavon Toth MD Work Phone: Start: 05-03-2024 Comprehensive metabolic panel Connie Jacobs MD Work Phone: Start: 04-17-2024 UA DIP,URINE HCG (POC) Blank Chavira APRN. CLOTHING EXAMINER Work Phone: Start: 06-28-2023 End: 06-28-2023 Urnls dip stick/tablet rgnt auto w/o microscopy Laurie Plotisidro SPOT MACHINE OPERATOR.CNM Work Phone: Start: 04-11-2023 Plain X-ray of shoulder Start: 09-18-2022 CT of head without contrast No Primary C are Physician Start: 08-10-2022 Urine test visual color cmprsn meths Abi Drummond MD Work Phone: Start: 05-18-2022 Us pelvic nonobstetric real-time image complete Naima Walls APRN.CNM Work Phone: Start: 05-08-2022 URINE OB DIP B/O Katey Glover MD Work Phone: Start: 05-08-2022 Us preg uterus after 1st trimest 05/10 gestation Katey Glover MD Work Phone: Start: 05-06-2022 URINE OB DIP B/O Naima Walls SPOT MACHINE OPERATOR.C NM Work Phone: Start: 04-30-2022 URINE OB DIP B/O Laurie Plotts SPOT MACHINE OPERATOR.CNM Work Phone: Start: 04-27-2022 URINE OB DIP B/O Laurie Plotts SPOT MACHINE OPERATOR.CNM Work Phone: Start: 04-22-2022 URINE OB DIP B/O Laurie Plotts SPOT MACHINE OPERATOR.CNM Work Phone: Start: 04-16-2022 Antibody screen Laurie Plotts SPOT MACHINE OPERATOR.CNM Work Phone: Start: 04-16-2022 URINE OB DIP B/O Laurie Plotts SPOT MACHINE OPERATOR.CNM Work Phone: Start: 04-01-2022 URINE OB DIP B/O Laurie Plotts SPOT MACHINE OPERATOR.CNM Work Phone: Start: 03-23-2022 Us preg uterus after 1st trimest 05/10 gestation Naima Walls SPOT MACHINE OPERATOR.CNM Work Phone: Start: 03-18-2022 URINE OB DIP B/O Naima Walls SPOT MACHINE OPERATOR.C NM Work Phone: Start: 03-05-2022 URINE OB DIP B/O Laurie Bonner SPOT MACHINE OPERATOR.CNM Work Phone: Start: 02-18-2022 URINE OB DIP B/O Naima Walls SPOT MACHINE OPERATOR.C NM Work Phone: Start: 01-28-2022 INFLUENZA VACCINE QUADRIVALENT 6 MO - 64 YRS IM Amira Akins MD Work Phone: Start: 01-28-2022 URINE OB DIP B/O Amira Akins MD Work Phone: Start: 05-24-2019 Ethanol [Mass/volume] in Serum or Plasma Luna Medina Work Phone: Start: 05-24-2019 ALONZO TOP Jani Guthrie Work Phone: Start: 05-24-2019 LAVENDER TOP Jani Guthrie Work Phone: Start: 05-24-2019 LIGHT GREEN TOP Jani Guthrie Work Phone: Start: 05-24-2019 MINT GREEN TOP Jani Guthrie Work Phone: Start: 05-24-2019 Choriogonadotropin ( test) [Presence] in Urine Luna Medina Work Phone: Start: 05-24-2019 Drugs of abuse urine screening test Luna Medina Work Phone: Start: 05-24-2019 End: 05-24-2019 RAINBOW DRAW Jani Guthrie Work Phone: Start: 05-24-2019 Urinalysis Luna Medina Work Phone: Start: 05-24-2019 URINE CONTAINER Jani Guthrie Work Phone: Start: 03-29-2019 Choriogonadotropin ( test) [Presence] in Urine Russ Quiroz Work Phone: Start: 03-29-2019 Complete blood count with white cell differential, automated Russ Quiroz Work Phone: Start: 03-29-2019 Complete blood count with white cell differential, manual Russ Quiroz Work Phone: Start: 03-29-2019 Comprehensive metabolic 2000 panel - Serum or Plasma Russ Quiroz Work Phone: Start: 03-29-2019 Creatine kinase [Enzymatic activity/volume] in Serum or Plasma Russ Quiroz Work Phone: Start: 03-29-2019 Drugs of abuse urine screening test Russ Quiroz Work Phone: Start: 03-29-2019 Ethanol [Mass/volume] in Serum or Plasma Russ Quiroz Work Phone: Start: 03-29-2019 LIGHT BLUE TOP Russ Quiroz Work Phone: Start: 03-29-2019 LIGHT GREEN TOP Russ Quiroz Work Phone: Start: 03-29-2019 RAINBOW DRAW Russ Quiroz Work Phone: Start: 03-29-2019 Urinalysis Russ Quiroz Work Phone: Start: 03-29-2019 12 lead ECG Russ Quiroz Work Phone: Start: 07-19-2018 Adult depression screening assessment Jani Guthrie Start: 06-30-2018 X-ray of left knee Tayler Ricks Work Phone: Plan of Treatment Date Care Activity Detail Author Start: 02-19-2032 DTaP/Tdap/Td vaccine (2 - Td or Tdap) DTaP/Tdap/Td vaccine (2 - Td or Tdap) [facility] Start: 02-19-2032 Urine microalbumin profile [facility] Start: 01-06-2027 Tetanus vaccination TETANUS EVERY 10 YR [facility] Start: 01-06-2027 Tetanus, diphtheria and acellular pertussis vaccination DTAP VACCINES (6 - Td) [facility] Start: 09-13-2025 GC (Gonorrhea) Scree letty (18-24) GC (Gonorrhea) Screening (18-) [facility] Start: 09-13-2025 Screening for Chlamy carlton trachomatis Chlamydia Screening () [facility] Start: 09-13-2025 Screening for malign ant neoplasm of cervix Cervical Cancer Screening [facility] Start: 07-27-2025 GC (Gonorrhea) Scree letty (18-24) GC (Gonorrhea) Screening (18-) [facility] Start: 07-27-2025 Screening for Chlamy carlton trachomatis Chlamydia Screening () [facility] Start: 04-17-2025 GC (Gonorrhea) Scree letty (18-24) GC (Gonorrhea) Screening () [facility] Start: 04-17-2025 Screening for Chlamy carlton trachomatis Chlamydia Screening () [facility] Start: 02-20-2025 GC (Gonorrhea) Scree letty (18-24) GC (Gonorrhea) Screening () [facility] Start: 02-20-2025 Screening for Chlamy carlton trachomatis Chlamydia Screening () [facility] Start: 01-08-2025 Influenza vaccination Influenza Vacc ine (#1) [facility] Start: 09-15-2024 End: 09-15-2024 ambulatory 09/15/2024 3:00 PM EDT Procedure OB/Gynecology [address] [place] [address] [facility] [address] [place], [place] [id number] Abnormal uterine bleeding [N93.9] OB/Gynecology Comment on above: Abnormal uterine ble eding [N93.9] Start: 09-13-2024 End: 12-13-2024 Choriogonadotropin.beta subunit [Units/volume] in Serum or Plasma [facility] Comment on above: Expected: 09/13/2024 , Expires: 12/13/2024 Start: 09-13-2024 End: 12-13-2024 Hemoglobin A1c in Blood [facility] Comment on above: Expected: 09/13/2024 , Expires: 12/13/2024 Start: 09-13-2024 End: 12-13-2024 Thyroxine (T4) free [Mass/volume] in Serum or Plasma [facility] Work Phone: Comment on above: Expected: 09/13/2024 , Expires: 12/13/2024 Start: 09-13-2024 End: 09-13-2025 US Pelvis PELVIC US [facility] Anc Imaging Routine Abnormal uterine bleeding Expected: 09/13/2024, Expires: 09/13/2025 [facility] Comment on above: Expected: 09/13/2024 , Expires: 09/13/2025 Start: 09-08-2024 End: 09-08-2024 Patient encounter procedure 09/08/2024 11:20 AM EDT Office Visit [facility] [address] [place], [place] [id number] Carole Lacey MD [address] [place], [place] [id number] specialist review, order labs. [facility] Comment on above: specialist review, o rder labs. Start: 08-31-2024 [facility] Start: 08-24-2024 Screening for malign ant neoplasm of cervix Cervical Cancer Screening [facility] Start: 08-16-2024 End: 08-16-2024 Patient encounter procedure 08/16/2024 3:20 PM EDT Office Visit Neurology [address] [place], [place] [id number] Juany Carmichael DO [address] [place], [place] [id number] New Consult Neurology Comment on above: New Consult Start: 07-12-2024 End: 07-12-2024 Patient encounter procedure 07/12/2024 3:20 PM EST Office Visit Neurology [address] [place] [address] Juany Carmichael DO [address] [place] [address] New Consult Neurology Comment on above: New Consult Start: 07-03-2024 End: 07-03-2024 ambulatory 07/03/2024 11:15 AM EST Results Only Дмитрий Hung [facility] [address] [place] [address] Дмитрий Woodstock [facility] Start: 06-28-2024 GC (Gonorrhea) Screpetr saenz () GC (Gonorrhea) Screening () [facility] Start: 06-28-2024 Screening for Chlamy carlton trachomatis Chlamydia Screening () [facility] Start: 05-26-2024 End: 2024 Thyrotropin [Units/volume] in Serum or Plasma THYROID STIMULATING HORMONE Lab Routine Irregular bleeding Expected: 05/26/2024, Expires: 2024 [facility] Work Phone: Comment on above: Expected: 05/26/2024 , Expires: 2024 Start: 05-26-2024 End: 05-26-2024 Patient encounter procedure 05/26/2024 11:20 AM EST Office Visit OB/Gynecology [address] [place] [address] Kavon Toth MD [address] [place] [address] IUD fell out / wants test OB/Gynecology Comment on above: IUD fell out / wants test Start: 05-12-2024 GC (Gonorrhea) Screpetr sheffieldg () GC (Gonorrhea) Screening () [facility] Start: 05-12-2024 Screening for Chlamy carlton trachomatis Chlamydia Screening () [facility] Start: 04-17-2024 End: 07-17-2024 Hepatitis B virus surface Ag [Presence] in Serum [facility] Comment on above: Expected: 04/17/2024 , Expires: 07/17/2024 Start: 04-17-2024 End: 07-17-2024 Hepatitis C virus Ab [Presence] in Serum [facility] Comment on above: Expected: 04/17/2024 , Expires: 07/17/2024 Start: 04-17-2024 End: 07-17-2024 HIV 1+2 Ab [Presence] in Serum or Plasma by Immunoassay [facility] Comment on above: Expected: 04/17/2024 , Expires: 07/17/2024 Start: 04-17-2024 End: 07-17-2024 SYPHILIS TREPONEMAL W/REFLEX [facility] Comment on above: Expected: 04/17/2024 , Expires: 07/17/2024 Start: 03-13-2024 End: 03-13-2024 Patient encounter procedure 03/13/2024 1:30 PM EST Office Visit OB/Gynecology [address] [place] [address] Blank Chavira APRN.CLOTHING EXAMINER [address] [place], [place] [phone] IUD insert OB/Gynecology Comment on above: IUD insert Start: 02-21-2024 End: 05-22-2024 Choriogonadotropin.beta subunit [Units/volume] in Serum or Plasma [facility] Comment on above: Expected: 02/21/2024 , Expires: 05/22/2024 Start: 02-21-2024 End: 05-22-2024 Hepatitis B virus surface Ag [Presence] in Serum [facility] Comment on above: Expected: 02/21/2024 , Expires: 05/22/2024 Start: 02-21-2024 End: 05-22-2024 Hepatitis C virus Ab [Presence] in Serum [facility] Comment on above: Expected: 02/21/2024 , Expires: 05/22/2024 Start: 02-21-2024 End: 05-22-2024 HERPES SIMPLEX IGM, WITH REFLEX IGG ABS [facility] Comment on above: Expected: 02/21/2024 , Expires: 05/22/2024 Start: 02-21-2024 End: 05-22-2024 HIV 1+2 Ab [Presence] in Serum or Plasma by Immunoassay [facility] Comment on above: Expected: 02/21/2024 , Expires: 05/22/2024 Start: 02-21-2024 End: 05-22-2024 SYPHILIS TREPONEMAL W/REFLEX [facility] Work Phone: Comment on above: Expected: 02/21/2024 , Expires: 05/22/2024 Start: 01-09-2024 COVID-19 Vaccine ( season) COVID-19 Vaccine () [facility] Start: 01-09-2024 Covid-19 Vaccine () Covid-19 Vaccine () [facility] Start: 01-09-2024 Influenza vaccination C [facility] Start: 08-11-2023 CHLAMYDIA SCREENING () CHLAMYDIA SCREENING () [facility] Start: 08-11-2023 GC (GONORRHEA) SCREE LETTY () GC (GONORRHEA) SCREENING () [facility] Start: 05-10-2023 Behavioral Health Screening Behavioral Health Screening [facility] Start: 05-10-2023 Depression Assessment Depression Ass essment [facility] Start: 04-11-2023 [facility] Start: 01-08-2023 Covid-19 Vaccine () Covid-19 Vaccine () [facility] Start: 01-08-2023 Influenza vaccination Influenza Vacc ine (#1) [facility] Start: 09-14-2022 End: 11-14-2022 Fasting glucose [Mass/volume] in Serum or Plasma GLUCOSE FASTING BLD Lab Routine Bipolar disorder, current episode depressed, severe, without psychotic features (HCC) Expected: 09/14/2022, Expires: 11/14/2022 [facility] Work Phone: Comment on above: Expected: 09/14/2022 , Expires: 11/14/2022 Start: 09-14-2022 End: 11-14-2022 LIPID PANEL, NONFASTING LIPID PANEL, NONFASTING Lab Routine Polysubstance dependence (HCC) Bipolar disorder, current episode depressed, severe, without psychotic features (HCC) Expected: 09/14/2022, Expires: 11/14/2022 [facility] Work Phone: Comment on above: Expected: 09/14/2022 , Expires: 11/14/2022 Start: 09-14-2022 End: 11-14-2022 Thyrotropin [Units/volume] in Serum or Plasma TSH BLD Lab Routine Bipolar disorder, current episode depressed, severe, without psychotic features (HCC) Expected: 09/14/2022, Expires: 11/14/2022 [facility] Work Phone: Comment on above: Expected: 09/14/2022 , Expires: 11/14/2022 Start: 09-14-2022 End: 11-14-2022 Thyroxine (T4) free [Mass/volume] in Serum or Plasma T4 FREE/FREE THYROX Lab Routine Polysubstance dependence (HCC) Expected: 09/14/2022, Expires: 11/14/2022 [facility] Work Phone: Comment on above: Expected: 09/14/2022 , Expires: 11/14/2022 Start: 09-14-2022 End: 11-14-2022 TOX SCREEN ROUT UR TOX SCREEN ROUT UR Lab Routine Polysubstance dependence (HCC) Expected: 09/14/2022, Expires: 11/14/2022 [facility] Work Phone: Comment on above: Expected: 09/14/2022 , Expires: 11/14/2022 Start: 09-14-2022 End: 11-14-2022 Triiodothyronine (T3) Free [Mass/volume] in Serum or Plasma T3 FREE BLD Lab Routine Bipolar disorder, current episode depressed, severe, without psychotic features (HCC) Expected: 09/14/2022, Expires: 11/14/2022 [facility] Work Phone: Comment on above: Expected: 09/14/2022 , Expires: 11/14/2022 Start: 08-10-2022 End: 10-10-2022 Iron and Iron binding capacity panel - Serum or Plasma [facility] Work Phone: Comment on above: Expected: 08/10/2022 , Expires: 10/10/2022 Start: 05-11-2022 Administration of bl ood product [facility] Work Phone: Start: 05-11-2022 [facility] Work Phone: Start: 05-11-2022 Leukocyte reduced re d blood cells [facility] Work Phone: Start: 05-11-2022 [facility] Work Phone: Start: 05-11-2022 Patient discharge [facility] Work Phone: Start: 05-11-2022 Transfusion of red b lood cells [facility] Work Phone: Start: 05-10-2022 DEPRESSION ASSESSMENT DEPRESSION [facility] Start: 05-09-2022 Administration of medication [facility] Work Phone: Start: 05-09-2022 Application of ice c ollar, cap or bag [facility] Work Phone: Start: 05-09-2022 Catheterization of vein [facility] Work Phone: Start: 05-09-2022 Introduction of urin khanh catheter [facility] Work Phone: Start: 05-09-2022 Measuring intake and output [facility] Work Phone: Start: 05-09-2022 Notification of physician [facility] Work Phone: Start: 05-09-2022 Procedure discontinued [facility] Work Phone: Start: 05-09-2022 Provision of activit y privileges [facility] Work Phone: Start: 05-09-2022 Vital signs measurements [facility] Work Phone: Start: 05-09-2022 [facility] Work Phone: Start: 05-09-2022 Consultation [facility] Work Phone: Start: 05-08-2022 Admission procedure [facility] Work Phone: Start: 05-08-2022 Verification routine Wo [facility] Work Phone: Start: 05-06-2022 [facility] Start: 05-06-2022 Obstetric monitoring Wo [facility] Work Phone: Start: 05-06-2022 Vital signs measurements [facility] Work Phone: Start: 05-06-2022 [facility] Start: [facility]-06-[facility] Start: 04-27-2022 End: 06-27-2022 Protein/Creatinine [Mass Ratio] in Urine [facility] Work Phone: Comment on above: Expected: 04/27/2022 , Expires: 06/27/2022 Start: 04-22-2022 Nonstress test [facility] Work Phone: Start: 04-22-2022 Obstetric monitoring [facility] Work Phone: Start: 04-22-2022 Vital signs measurements [facility] Work Phone: Start: 04-22-2022 [facility] Work [facility]: Start: 04-22-2022 [facility] Start: 04-20-2022 Nonstress test [facility] Work Phone: Start: 04-20-2022 Obstetric monitoring Wo [facility] Work Phone: Start: 04-20-2022 Vital signs measurements [facility] Work Phone: Start: 04-20-2022 [facility] Work [facility]: Start: 04-20-[facility]22 [facility] Start: 03-18-2022 End: 05-18-2022 CBC W Auto Differential panel - Blood CBC + DIFF Lab Routine 32 weeks gestation of Excessive weight gain in , third trimester Expected: 03/18/2022, Expires: 05/18/2022 [facility] Work Phone: Comment on above: Expected: 03/18/2022 , Expires: 05/18/2022 Start: 03-18-2022 End: 05-18-2022 Comprehensive metabolic 2000 panel - Serum or Plasma COMP METABOLIC PANEL Lab Routine 32 weeks gestation of Excessive weight gain in , third trimester Expected: 03/18/2022, Expires: 05/18/2022 [facility] Work Phone: Comment on above: Expected: 03/18/2022 , Expires: 05/18/2022 Start: 03-18-2022 End: 05-18-2022 Protein/Creatinine [Mass Ratio] in Urine PROTEIN CREATININE RATIO Lab Routine 32 weeks gestation of Excessive weight gain in , third trimester Expected: 03/18/2022, Expires: 05/18/2022 [facility] Work Phone: Comment on above: Expected: 03/18/2022 , Expires: 05/18/2022 Start: 03-18-2022 End: 05-18-2022 Urate [Mass/volume] in Serum or Plasma URIC ACID BLOOD Lab Routine 32 weeks gestation of Excessive weight gain in , third trimester Expected: 03/18/2022, Expires: 05/18/2022 [facility] Work Phone: Comment on above: Expected: 03/18/2022 , Expires: 05/18/2022 Start: 03-18-2022 Urine microalbumin profile DTA P,TDAP,TD (2 - Td or Tdap) [facility] Start: 02-18-2022 End: 02-18-2023 OBSTETRIC ULTRASOUND [facility]I OBSTETRIC ULTRASOUND [facility] Anc Imaging Routine 28 weeks gestation of Expected: 02/18/2022, Expires: 02/18/2023 [facility] Work Phone: Comment on above: Expected: 02/18/2022 , Expires: 02/18/2023 Start: 01-28-2022 End: 03-30-2022 CBC W Auto Differential panel - Blood CBC + DIFF Lab Routine 25 weeks gestation of Expected: 01/28/2022, Expires: 03/30/2022 [facility] Work Phone: Comment on above: Expected: 01/28/2022 , Expires: 03/30/2022 Start: 01-28-2022 End: 03-30-2022 GEST GLUC SCREEN, 1-HR, 50 GM, NON-FASTING GEST GLUC SCREEN, 1-HR, 50 GM, NON-FASTING Lab Routine 25 weeks gestation of Expected: 01/28/2022, Expires: 03/30/2022 [facility] Work Phone: Comment on above: Expected: 01/28/2022 , Expires: 03/30/2022 Start: 01-28-2022 End: 03-30-2022 SYPHILIS TOTAL W/REFLEX SYPHILIS TOTAL W/REFLEX Lab Routine 25 weeks gestation of Expected: 01/28/2022, Expires: 03/30/2022 [facility] Work Phone: Comment on above: Expected: 01/28/2022 , Expires: 03/30/2022 Start: 01-08-2022 Influenza vaccination INFLUENZA (#1) [facility] Start: 08-24-2021 CHLAMYDIA SCREENING (18-24) CHLAMYDIA SCREENING (18-24) [facility] Start: 08-24-2021 Depression Screening Depression Scre ening [facility] Start: 08-24-2021 GC (GONORRHEA) SCREE LETTY (18-24) GC (GONORRHEA) SCREENING (18-24) [facility] Start: 08-24-2021 HEPATITIS C SCREENING HEPATITIS C SC REENING [facility] Start: 08-24-2021 HIV SCREENING HIV SCREENING [facility] Start: 08-24-2021 HIV screening HIV Screening [facility] Start: 05-10-2021 DEPRESSION ASSESSMENT DEPRESSION ASS ESSMENT [facility] Start: 2019 Meningococcal B Vacc ine (1 of 2 - Standard) Meningococcal B Vaccine (1 of 2 - Standard) [facility] Start: 2019 Meningococcal B Vacc ine: Consider Based On Risk (1 of 2 - Patient Seeks Protection) Meningococcal B Vaccine: Consider Based On Risk (1 of 2 - Patient Seeks Protection) [facility] Start: 2019 MENINGOCOCCAL CONJUG ATE (1 - 2-dose series) MENINGOCOCCAL CONJUGATE (1 - 2-dose series) [facility] Start: 2019 Meningococcal conjug ate vaccination [facility] Start: 07-20-2019 Depression screening using PHQ-9 (Patient Health Questionnaire 9) score DEPRESSION SCREENING (PHQ9) [facility] Start: 01-08-2019 Influenza vaccinatio n given SEQUENTIAL INFLUENZA VACCINE (#1) [facility] Start: 01-08-2018 Influenza vaccination INFLUENZA VACC INE (#1) [facility] Start: 08-24-2017 PEDS TO ADULT TRANSI TION ANNUAL ASSESSMENT PEDS TO ADULT TRANSITION ANNUAL ASSESSMENT [facility] Start: 07-07-2017 HPV Vaccine (2 - 2-d ose series) HPV Vaccine (2 - 2-dose series) [facility] Start: 07-07-2017 Vaccination for tee n papillomavirus HPV VACCINES (2 - Female 2-dose series) [facility] Start: 08-24-2016 HIV screening HIV SCREENING DISCUSSION [facility] Start: 08-24-2016 Varicella vaccination VARICELL A VACCINE (1 of 2 - 13+ 2-dose series) [facility] Start: 2015 Adult depression scr eening assessment DEPRESSION SCREENING [facility] Start: 2015 PEDS TO ADULT TRANSI TION INITIAL DISCUSSION PEDS TO ADULT TRANSITION INITIAL DISCUSSION [facility] Start: 08-24-2014 HPV VACCINE (1 - 2-d ose series) HPV VACCINE (1 - 2-dose series) [facility] Start: 08-24-2014 Meningococcal conjug ate vaccination MCV4 VACCINE (1 - 2-dose series) [facility] Start: 08-24-2014 Vaccination for tee n papillomavirus HPV VACCINE ADOL (1 - Female 2-dose series) [facility] Start: 08-24-2013 MENINGOCOCCAL B: 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 Start: 08-24-2004 Hepatitis A immunization HEP A VACCINE (1 of 2 - 2-dose series) [facility] Start: 08-24-2004 Qsluicn-owkyr-ptictd a vaccination MMR VACCINE (1 of 2 - Standard series) [facility] Start: 02-24-2004 COVID-19 VACCINE (#1) COVID-19 VACCI NE (#1) [facility] Start: 2003 Inactivated poliovir us vaccine (product) IPV VACCINE (1 of 3 - All-IPV series) [facility] Start: 2003 Depression screening using PHQ-9 (Patient Health Questionnaire 9) score DEPRESSION SCREENING (PHQ9) [facility] Start: 2003 HEPATITIS B (1 of 3 - 3-dose series) HEPATITIS B (1 of 3 - 3-dose series) [facility] Start: 2003 Hepatitis B vaccination HEP B VACCINE (1 of 3 - 3-dose primary series) [facility] Bacteria identified in Urine by Culture URINE CULTURE Microbiology Routine Encounter for care in second trimester of first 12/30/2021 10:54 AM EDT [facility] Work Phone: Bacteria identified in Urine by Culture URINE CULTURE Microbiology Routine perineal pain 05/18/2022 10:55 AM EST [facility] Work Phone: BACTERIAL VAGINOSIS AMPLIFICATION BACTERIAL VAGINOSIS AMPLIFICATION Lab Routine perineal pain 05/18/2022 10:55 AM EST [facility] Work Phone: BACTERIAL VAGINOSIS NAAT BACTERI AL VAGINOSIS NAAT Lab Routine Screen for STD (sexually transmitted disease) 06/28/2023 3:08 PM EST [facility] Work Phone: BACTERIAL VAGINOSIS NAAT BACTERI AL VAGINOSIS NAAT Lab Routine Screen for STD (sexually transmitted disease) 02/21/2024 2:22 PM EDT [facility] BACTERIAL VAGINOSIS NAAT BACTERI AL VAGINOSIS NAAT Lab Routine Vaginal discharge Ordered: 07/27/2024 [facility] Work Phone: Comment on above: Ordered: 07/27/2024 BACTERIAL VAGINOSIS NAAT BACTERI AL VAGINOSIS NAAT Lab Routine Abnormal uterine bleeding 09/13/2024 2:18 PM EDT [facility] MARIA T / TRICHOMONA S AMPLIFICATION MARIA T / TRICHOMONAS AMPLIFICATION Microbiology Routine perineal pain 05/18/2022 10:55 AM [facility] Work Phone: MARIA T/TRICHOMONAS NAAT MARIA T /TRICHOMONAS NAAT Lab Routine Screen for STD (sexually transmitted disease) 06/28/2023 3:08 PM [facility] Work Phone: MARIA T/TRICHOMONAS NAAT MARIA T /TRICHOMONAS NAAT Lab Routine Screen for STD (sexually transmitted disease) 02/21/2024 2:22 PM T [facility] MARIA T/TRICHOMONAS NAAT MARIA T /TRICHOMONAS NAAT Lab Routine Vaginal discharge Ordered: 07/27/2024 [facility] Comment on above: Ordered: 07/27/2024 MARIA T/TRICHOMONAS NAAT MARIA T /TRICHOMONAS NAAT Lab Routine Screen for STD (sexually transmitted disease) Abnormal uterine bleeding 09/13/2024 2:18 PM T [facility] Chlamydia trachomatis+Neisseria gonorrhoeae DNA [Presence] in Unspecified specimen by LA with probe detection GC/CHLAMYDIA DNA DET Lab Routine Encounter for insertion of mirena IUD Encounter for IUD insertion 08/10/2022 10:53 AM EDT [facility] Work Phone: Chlamydia trachomatis+Neisseria gonorrhoeae DNA [Presence] in Unspecified specimen by LA with probe detection GONORRHEA/CHLAMYDIA NAAT Lab Routine Screen for STD (sexually transmitted disease) 06/28/2023 3:08 PM [employer] [facility] Work Phone: Chlamydia trachomatis+Neisseria gonorrhoeae DNA [Presence] in Unspecified specimen by LA with probe detection GONORRHEA/CHLAMYDIA NAAT Lab Routine Screen for STD (sexually transmitted disease) 02/21/2024 2:22 PM EDT [facility] Chlamydia trachomatis+Neisseria gonorrhoeae DNA [Presence] in Unspecified specimen by LA with probe detection GONORRHEA/CHLAMYDIA NAAT Lab Routine Encounter for IUD insertion 04/17/2024 11:55 AM EST [facility] Chlamydia trachomatis+Neisseria gonorrhoeae DNA [Presence] in Unspecified specimen by LA with probe detection GONORRHEA/CHLAMYDIA NAAT Lab Routine Vaginal discharge Ordered: 07/27/2024 [facility] Comment on above: Ordered: 07/27/2024 Chlamydia trachomatis+Neisseria gonorrhoeae DNA [Presence] in Unspecified specimen by LA with probe detection GONORRHEA/CHLAMYDIA NAAT Lab Routine Screen for STD (sexually transmitted disease) Abnormal uterine bleeding 09/13/2024 2:18 PM EDT [facility] End: 02-19-2023 EPIL EEG LONG EPIL EEG LONG NEUROLOGY Routine Episodes of staring 1 Occurrences starting 02/19/2022 until 02/19/2023 [facility] Work Phone: Comment on above: 1 Occurrences starti ng 02/19/2022 until 02/19/2023 Insertion intrauteri ne device iud INSERT INTRAUTERINE DEVICE Procedures Routine Encounter for insertion of mirena IUD Ordered: 07/06/2022 [facility] Work Phone: Comment on above: Ordered: 07/06/2022 Insertion intrauteri ne device iud INSERT INTRAUTERINE DEVICE Procedures Routine Encounter for IUD insertion Ordered: 02/21/2024 [facility] Comment on above: Ordered: 02/21/2024 Insertion intrauteri ne device iud INSERT INTRAUTERINE DEVICE Procedures Routine Encounter for IUD insertion Ordered: 04/17/2024 [facility] Work Phone: Comment on above: Ordered: 04/17/2024 OBSTETRIC ULTRASOUND WHI OBSTETR IC ULTRASOUND WHI Anc Imaging Routine Encounter for care in second trimester of first Ordered: 12/30/2021 [facility] Work Phone: Comment on above: Ordered: 12/30/2021 PAP TEST PAP TEST Lab Tamiko barajas Screening for cervical cancer Abnormal uterine bleeding 09/13/2024 2:18 PM EDT [facility] Patient Education [facility] Work Phone: Patient referral [facility] Work Phone: End: 05-03-2024 , Urine , Urine Lab STAT One Time for 1 Occurrences starting 05/03/2024 until 05/03/2024 [facility] [facility] Comment on above: One Time for 1 Occur rences starting 05/03/2024 until 05/03/2024 ROUTINE, GR OUP B STREP PCR ROUTINE, GROUP B STREP PCR Microbiology Routine 36 weeks gestation of 04/16/2022 12:45 PM [facility] Work Phone: TRICHOMONAS VAGINALIS NAAT TRICH OMONAS VAGINALIS NAAT Lab Routine Screen for STD (sexually transmitted disease) 04/17/2024 11:55 AM [facility] End: 05-03-2024 Urinalysis Urinalysis Lab Routine One Time for 1 Occurrences starting 05/03/2024 until 05/03/2024 [facility] Comment on above: One Time for 1 Occur rences starting 05/03/2024 until 05/03/2024 X-ray of left knee XR KNEE LEFT 2 VIEWS Imaging STAT Acute pain of left knee 06/30/2018 1:10 PM [facility] Immunizations Immunization Date Immunization Notes Care Provider [facility] 04-17-2024 influenza, seasonal, injectable Blank Chavira APRN.CNP Work Phone: [facility] 04-17-2024 influenza virus vaccine, unspecified formulation Blank Chavira APRN.CNP Work Phone: [facility] 02-18-2022 Diphtheria, tetanus toxoids and acellular pertussis vaccine, and poliovirus vaccine, inactivated [facility] 02-18-2022 tetanus toxoid, redu mitchel diphtheria toxoid, and acellular pertussis vaccine, adsorbed Imad Shadi GANN Work Phone: [facility] 01-28-2022 influenza, injectabl e, quadrivalent, contains preservative Amira Isaac Akins MD Work Phone: [facility] 01-28-2022 influenza, injectabl e, quadrivalent, preservative free [facility] 01-28-2022 influenza, seasonal, injectable [facility] 01-28-2022 influenza virus vaccine, unspecified formulation Laurie Plotisidro TONG Work Phone: [facility] 01-06-2017 HPV, unspecified formulation Russ Quiroz [facility] 01-06-2017 meningococcal vaccin e of unknown formulation and unknown serogroups Russ Quiroz [facility] Payers Date Payer Category Payer Self-pay 2022 Unknown [id number] 2019 Medicaid [id number] 2012 Unknown xxxxxxxxxxx [id number] 2003 Unknown [id number] 2.16. [id number] 2003 Unknown [id number] 2.16. [id number] 2003 Unknown [id number] 2.16.8 [id number] 1974 Unknown [id number] 2.16. [id number] 1972 Unknown [id number] 2.16.8 [id number] 1964 Unknown [id number] 2.16. [id number] 1964 Unknown [id number] 2.16. [id number] 1964 Unknown [id number] 2.16. [id number] 1964 Unknown [id number] 2.16. [id number] 1964 Unknown [id number] 2.16. [id number] 1964 Unknown [id number] 2.16. [id number] 1959 Medicaid [id number] Unknown [facility] [id number] Unknown [id number] 2.16.8 [id number] Social History Date Type Detail Facility Tobacco smoking stat [facility] Unknown if ever smoked [facility] Start: 2005 Sex Assigned At Not on file [facility] Start: 07-19-2018 End: 06-26-2024 Tobacco smoking status AZIS Former smoker [facility] Work Phone: End: 05-10-2018 History of tobacco use Cigarette Smoker [facility] Start: 06-30-2018 History SDOH Alcohol Frequency 1 [facility] End: 05-10-2018 History of tobacco use Current smoker [facility] Work Phone: Start: 12-30-2021 End: 06-26-2024 Tobacco use and exposure Smokeless tobacco non-user [facility] Work Phone: Start: 12-30-2021 End: 05-26-2024 Alcohol intake Lifetime non-drinker (finding) [facility] Start: 08-17-2021 [facility] Start: 12-20-2021 End: 04-06-2022 Exposure to SARS-CoV-2 (event) Not sure [facility] Start: 2005 Sex Assigned At Female C [facility] Start: 04-06-2022 Tobacco use and exposure User of smokeless tobacco [facility] Start: 04-06-2022 Tobacco Comment Vaping [facility] Start: 05-08-2022 End: 04-11-2023 Tobacco smoking status [facility] Unknown if ever smoked [facility] Start: 06-28-2023 End: 06-23-2024 History of Social function [facility] Start: 06-28-2023 End: 06-23-2024 Tobacco use panel [facility] Adult Depression Screening Assessment 3 [facility] The thought of deyanira min myself has occurred to me Never [facility] Start: 02-17-2022 Gender identity Identifies as female gender (finding) [facility] Start: 02-17-2022 Sexual orientation Bisexual (finding ) [facility] How often to you hav e a drink containing alcohol? Monthly or less [facility] How many standard dr inks containing alcohol do you have on a typical day? 1 or 2 [facility] Has the Oxynade, or water [employer] threatened to shut off services in your home in past 12Mo No [facility] Do you belong to any clubs or organizations such as confucianist groups, unions, fraternal or athletic groups, or school groups? Yes [facility] How hard is it for y ou to pay for the very basics like food, housing, medical care, and heating Somewhat hard [facility] Do you feel stress - tense, restless, nervous, or anxious, or unable to sleep at night because your mind is troubled all the time - these days [OSQ] To some extent [facility] (I/We) worried wheth er (my/our) food would run out before (I/we) got money to buy more. Sometimes true [facility] The food that (I/we) bought just didn't last, and (I/we) didn't have money to get more. Never true [facility] History of tobacco use Passive smoker [facility] Start: 06-26-2024 End: 09-13-2024 Alcoholic beverage intake Ex-drinker (finding) [facility] Start: 08-31-2024 Tobacco smoking stat us [facility] Smokes tobacco daily (finding) [facility] Start: 08-31-2024 Sex Female (finding) [facility] NEGATED: Highlighted row [facility] Goals Date Patient Goal Desired Activity /State Mental Status Date Assessment Result Facility 09-18-2022 Cognitive function Voice/Name [facility] Work Phone: Clinical Notes 12-30-2021 to 09-18-2024 Dalila Oshea MD - 09/18/2024 1:00 PM Blank Blackwood APRN.CNP - 09/13/2024 1:42 PM EDT Note Date & Type Note Facility 09-18-2024 Note HNO ID: [id number] Author: DALILA OSHEA MD Service: ? 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 Encounter Diagnosis ICD-10-CM 1. Abnormal uterine bleeding N93.9 Please see report under imaging tab. 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 Encounter Diagnosis ICD-10-CM 1. Abnormal uterine bleeding N93.9 Please see report under imaging tab. Dalila Oshea MD September 18, 2024 1:00 PM documented in this encounter [facility] 09-13-2024 Note HNO ID: [id number] Author: BLANK CHAVIRA APRN.LUZ MARIA Service: ? 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 Rina Yi is a 19 year old female who presents for problem visit of abnormal bleeding and pelvic pain. HPI: Rina presents for abnormal uterine bleeding. Experiencing bleeding every 14-30 days. Sometimes regular. Reports she has bled for a month before. Bleeding is heavy. Changing a pad every hour. She is experiencing fatigue, migraines, nausea, pelvic pain, and pain with intercourse. Reports this has all been going on for a few months. Trying to become ~ states 7 months of trying. IUD fell out in May. TSH normal normal June 2024. She is not having any bleeding today. OB History Gravida2 Para1 Term1 Preterm0 AB1 Living1 SAB0 IAB0 Ectopic0 Multiple0 Live Births1 Waste Baler History LMP: 08/21/2024 (Approximate), Having periods Age at Menarche: Age at First : Age at Menopause: Waste Baler History Comments: Sexual Activity: Yes; Male Contraception: I.U.D. PAST MEDICAL HISTORY Diagnosis Date - Anxiety state - Body dysmorphic disorder - Borderline personality disorder (HCC) - Depression - Ovarian cyst - PTSD (post-traumatic stress disorder) - Seizure (HCC) PAST SURGICAL HISTORY Procedure Laterality Date - EXCISION BONE MANDIBLE has plate in right side of jaw at 1 years old - EXTENSIVE JAW SURGERY N/A 2006 - INSERTION OF IUD 04/17/2024 Mirena - KNEE SURGERY HX Right - TONSILLECTOMY AND ADENOIDECTOMY FAMILY HISTORY Problem Relation Age of Onset - other (heart problem) Mother - other (narcotic addiction) Mother - Alcohol/Drug Father - Diabetes Maternal Grandmother - Ovarian cancer Maternal Grandmother - other (heart problem) Maternal Grandfather - No Known Problems Paternal Grandmother - No Known Problems Paternal Grandfather Social History Tobacco Use - Smoking status: Former Current packs/day: 0.00 Types: Cigarettes Quit date: 2019 Years since quittin.3 Passive exposure: Past - Smokeless tobacco: Never - Tobacco comments: Vaping Vaping Use - Vaping status: current everyday user - Substances: Nicotine Substance Use Topics - Alcohol use: Not Currently - Drug use: Not Currently Types: Marijuana Comment: quit 2020 Current Outpatient Medications Medication Sig - VIT 14-IRON FUM-FOLIC ORAL Take by mouth. No current facility-administered medications for this visit. 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 As applicable, any other physician, advance practice provider, medical student, or other health professional student that will be observing or involved in the sensitive examination for educational or training purposes was discussed with the Patient or Authorized Transformation Coach. The Patient or Authorized Transformation Coach has agreed to proceed with the sensitive examination. (Sensitive examination includes inspection and/or palpation of the breasts, pelvis, prostate and anorectal regions). EXAM: BP 110/62 Wt 165 lb (74.8kg) LMP 08/21/2024 GENERAL: pleasant, female in no apparent distress HEENT: Normocephalic, atraumatic, mucus membranes moist, and no lesions CHEST: Normal inspiratory effort PELVIC: external genitalia normal, normal Bartholin's glands, urethra, [place]'s glands, no vulvar lesions, no cervical lesions, good vaginal support, physiologic discharge present, normal appearing perineal body and perianal region BIMANUAL: uterus normal size, shape and consistency, no adnexal masses, and mild tenderness with palpation NEURO: alert and oriented x3,exam grossly non-focal EXTREMITIES: normal ASSESSMENT AND PLAN: 1. Abnormal uterine bleeding - ICD9: 626.9, ICD10: N93.9 (primary diagnosis) 2. Pelvic pain in female - ICD9: 625.9, ICD10: R10.2 - Obtain labs and ultrasound - Consider follow up with chronic pelvic pain clinic or PFPT if all findings normal 3. Screening for cervical cancer - ICD9: V76.2, ICD10: Z12.4 - Pap today 4. Screen for STD (sexually transmitted disease) - ICD9: V74.5, ICD10: Z11.3 - Cultures obtained 5. Malaise and fatigue - ICD9: 780.79, ICD10: R53.81, R53.83 - CBC ordered 7. Desire for - ICD9: V26.9, ICD10: Z31.9 - Continue PNV 8. Hx of migraine headaches - ICD9: V12.49, ICD10: Z86.69 - Established with neuro, to follow up Blank Chavira APRN.CNP Medical Decision Making: Problems: Moderate: New problem with uncertain prognosis Data: Unique test result(s) reviewed: 1 Unique test(s) ordered: 3+ Risk: Low: Low risk from testing/treatment Medical (more content not included)... 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 Rina Yi is a 19 year old female who presents for problem visit of abnormal bleeding and pelvic pain. HPI: Rina presents for abnormal uterine bleeding. Experiencing bleeding every 14-30 days. Sometimes regular. Reports she has bled for a month before. Bleeding is heavy. Changing a pad every hour. She is experiencing fatigue, migraines, nausea, pelvic pain, and pain with intercourse. Reports this has all been going on for a few months. Trying to become ~ states 7 months of trying. IUD fell out in May. TSH normal normal June 2024. She is not having any bleeding today. OB History Gravida2 Para1 Term1 Preterm0 AB1 Living1 SAB0 IAB0 Ectopic0 Multiple0 Live Births1 Waste Baler History LMP: 08/21/2024 (Approximate), Having periods Age at Menarche: Age at First : Age at Menopause: Waste Baler History Comments: Sexual Activity: Yes; Male Contraception: I.U.D. PAST MEDICAL HISTORY Diagnosis Date Anxiety state Body dysmorphic disorder Borderline personality disorder (HCC) Depression Ovarian cyst PTSD (post-traumatic stress disorder) Seizure (HCC) PAST SURGICAL HISTORY Procedure Laterality Date EXCISION BONE MANDIBLE has plate in right side of jaw at 1 years old EXTENSIVE JAW SURGERY N/A 2006 INSERTION OF IUD 04/17/2024 Mirena KNEE SURGERY HX Right TONSILLECTOMY & ADENOIDECTOMY <AGE 10 FAMILY HISTORY Problem Relation Age of Onset other (heart problem) Mother other (narcotic addiction) Mother Alcohol/Drug Father Diabetes Maternal Grandmother Ovarian cancer Maternal Grandmother other (heart problem) Maternal Grandfather No Known Problems Paternal Grandmother No Known Problems Paternal Grandfather Social History Tobacco Use Smoking status: Former Current packs/day: 0.00 Types: Cigarettes Quit date: 2019 Years since quittin.3 Passive exposure: Past Smokeless tobacco: Never Tobacco comments: Vaping Vaping Use Vaping status: current everyday user Substances: Nicotine Substance Use Topics Alcohol use: Not Currently Drug use: Not Currently Types: Marijuana Comment: quit 2020 Current Outpatient Medications Medication Sig VIT 14-IRON FUM-FOLIC ORAL Take by mouth. No current facility-administered medications for this visit. 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 As applicable, any other physician, advance practice provider, medical student, or other health professional student that will be observing or involved in the sensitive examination for educational or training purposes was discussed with the Patient or Authorized Transformation Coach. The Patient or Authorized Transformation Coach has agreed to proceed with the sensitive examination. (Sensitive examination includes inspection and/or palpation of the breasts, pelvis, prostate and anorectal regions). EXAM: BP 110/62 Wt 165 lb (74.8kg) LMP 08/21/2024 GENERAL: pleasant, female in no apparent distress HEENT: Normocephalic, atraumatic, mucus membranes moist, and no lesions CHEST: Normal inspiratory effort PELVIC: external genitalia normal, normal Bartholin's glands, urethra, [place]'s glands, no vulvar lesions, no cervical lesions, good vaginal support, physiologic discharge present, normal appearing perineal body and perianal region BIMANUAL: uterus normal size, shape and consistency, no adnexal masses, and mild tenderness with palpation NEURO: alert and oriented x3,exam grossly non-focal EXTREMITIES: normal ASSESSMENT AND PLAN: 1. Abnormal uterine bleeding - ICD9: 626.9, ICD10: N93.9 (primary diagnosis) 2. Pelvic pain in female - ICD9: 625.9, ICD10: R10.2 - Obtain labs and ultrasound - Consider follow up with chronic pelvic pain clinic or PFPT if all findings normal 3. Screening for cervical cancer - ICD9: V76.2, ICD10: Z12.4 - Pap today 4. Screen for STD (sexually transmitted disease) - ICD9: V74.5, ICD10: Z11.3 - Cultures obtained 5. Malaise and fatigue - ICD9: 780.79, ICD10: R53.81, R53.83 - CBC ordered 7. Desire for - ICD9: V26.9, ICD10: Z31.9 - Continue PNV 8. Hx of migraine headaches - ICD9: V12.49, ICD10: Z86.69 - Established with neuro, to follow up Blank Chavira APRN.CNP Medical Decision Making: Problems: Moderate: New problem with uncertain prognosis Data: Unique test result(s) reviewed: 1 Unique test(s) ordered: 3+ Risk: Low: Low risk from testing/treatment Medical Decision Making Level: 4 - Moderate documented in this encounter [facility] 08-31-2024 Discharge summary [facility] 08-31-2024 Discharge summary Note Date/Time August 31, 2024 7:51pm [facility] Medical Records Department [address] [place] [address] Emergency Department Summary 08/31/24 MR#: [id number] Acct: [id number] Name: RINA YI Rep #: [id number] : 2005 19 From: Tim Leonardo MD PCP: Care Physician,No Primary Status :DEP ER Location: ED HPI History of Present Illness Chief Complaint: Head Injury Narrative Narrative: 19-year-old female who denies significant past medical history presents with headache, nausea that she has had since yesterday evening. She states that her 2-year-old's head collided with hers yesterday evening around 7 PM, almost 24 hours ago. Since then, she has developed headache on the left side of her head as well as nausea but no vomiting. She may have felt very lightheaded but therewas no loss of consciousness. She states that her symptoms are progressing and she feels off balance when she walks. She had ringing in her ears and tinnitus after it happened immediately but that has resolved. She does not take blood thinners. [facility] Medical History Second degree perineal laceration during delivery (spontaneous vaginal delivery) PTSD (post-traumatic stress disorder) Bipolar disorder LGA (large for gestational age) fetus Drug use Marijuana smoker ETOH abuse Polyhydramnios Asthma Depression Anxiety Headache Seizures Gestational HTN Home Medications ?Medication ?Instructions ?Recorded ?Last Taken ?Type [id number] 1 mg 1 tab PO DAILY pregna ncy 04/20/22 2 Days Ago History tablet ~05/06/22 ferrous sulfate 325 mg (65 mg 325 mg PO DAILY pregnanc y 05/08/22 2 Days Ago History iron) tablet ~05/06/22 ferrous sulfate 325 mg (65 mg 325 mg PO DAILY #30 tabs 05/10/22 Unknown Rx iron) tablet ibuprofen 600 mg tablet 600 mg PO Q6H PRN pain #30 t abs 05/10/22 Unknown Rx fluoxetine 10 mg capsule 10 mg PO DAILY 09/18/22 Unkn own History ibuprofen 600 mg tablet 600 mg PO Q6H PRN PRN pain # 20 04/11/23 Unknown Rx TABLETS ibuprofen 600 mg tablet 600 mg PO Q8H PRN PRN fever or 08/31/24 Unknown Rx pain #20 TABLETS ondansetron 4 mg disintegrating 4 mg PO Q8H PRN PRN Na usea #15 tabs 08/31/24 Unknown Rx tablet Allergy/AdvReac Type Severity Reaction Status Date / Time No Known Allergies Allergy Verified 08/31/24 19:30 Surgical History History of tonsillectomy H/O right knee surgery History of surgery Social History household members: family housing: house Smoking Status: Current every day smoker tobacco type: e-cigarettes ROS ROS ED ROS Narrative Constitutional: No fever, no chills. HEENT: No sore throat. No neck pain. No loss of vision. No loss of consciousness. Cardiovascular: No chest pain. No palpitations. Respiratory: No cough, no shortness of breath. Abdominal: No abdominal pain. Positive nausea. No vomiting. Genitourinary: No dysuria. No hematuria. Musculoskeletal: No myalgias. No arthralgias. Neurologic: Left-sided headaches. No dizziness. Positive lightheadedness. Feeling off balance. EXAM Physical Exam Narrative Exam Narrative: Afebrile. Vital signs noted. Nontoxic-appearing. GCS 15. ABCs intact. Cardiovascular examination reveals bradycardia. Lungs clear to auscultation bilaterally. Abdomen is soft, nontender, without guarding or rebound. Positivebowel sounds. Neurological examination is nonfocal, nonlateralizing. Moves allextremities. Able to raise arms above head without difficulty. Awake, alert, oriented x 3. Neck examination shows her to be soft and supple without vertebral point tenderness or bony step-off. PERRL, EOMI. Airway patent. No drooling or trismus. Const Vital Signs: 08/31/24 19:26 08/31/24 19:33 Temperature 97.9 F Temperature Source Temporal Pulse Rate 53 L Respiratory Rate 13 Respiratory Effort Normal Non-Labored Respiratory Depth Normal Respiratory Pattern Normal Blood Pressure 107/73 Blood Pressure Mean 84 Pulse Ox 100 Oxygen Delivery Method Room Air Room Air MDM MDM MDM Narrative Medical decision making narrative: Differential diagnosis includes but not limited to intracranial hemorrhage versus closed head injury versus mild concussion/postconcussive syndrome. She has most of the symptoms of a mild concussion. She does not take blood thinners. There is no crepitance of the skull so I do not feel that she needs CT imaging based on a normal neurological examination and she is 24 hours out from her initial injury without loss of consciousness. She was given her first doses of Zofran and ibuprofen 600 mg here in the emergency department which whencompared to her previous medication list she has tolerated previously. She was instructed on brain rest. She will follow-up with her primary care provider in 7 to 10 days if not improving. Return instructions to the emergency department were reviewed. She is given prescriptions for ibuprofen 600 mg and 4 Zofran ODT's. Disposition is discharged home in stable condition. History & Record Review Discussion w/independent historian: Patient Discharge Plan Triage Chief Complaint: Head Injury ED Provider: Tim Leonardo Dx/Rx/DC Orders Clinical Impression: Closed head injury, Mild concussion Instructions: ED Concussion, ED Scalp Contusion, ED Head Injury (Adult) Prescriptions: New ibuprofen 600 mg tablet 600 mg PO Q8H PRN PRN (Reason: fever or pain) Qty: 20 0RF ondansetron 4 mg tablet,disintegrating 4 mg PO Q8H PRN PRN (Reason: Nausea) Qty: 15 0RF No Action [id number] 1 mg Tablet 1 tab PO DAILY ferrous sulfate 325 mg (65 mg iron) Tablet 325 mg PO DAILY ibuprofen 600 mg tablet 600 mg PO Q6H PRN (Reason: pain) Qty: 30 0RF ferrous sulfate 325 mg (65 mg iron) tablet 325 mg PO DAILY Qty: 30 0RF fluoxetine 10 mg capsule 10 mg PO DAILY Patient Comments: TAKE 1 CAPSULE BY MOUTH ONCE DAILY ibuprofen 600 mg tablet 600 mg PO Q6H PRN PRN (Reason: pain) Qty: 20 0RF Primary Care Provider: Care Physician,No Primary Referrals: Anselmo French MD [Med Staff - Active Staff] - 1 Week if not improving Care Physician,No Primary [Primary Care Provider] - Activity Restrictions/Additional Instructions: Medication as directed for nausea and pain. Follow-up with a primary care provider in 1 week to 10 days if not improving. Return with new or worsening symptoms. Print Language: Djiboutian Disposition Disposition: Home, Self Care What to do if you have Problems For any increased pain, shortness of breath, bleeding, nausea or vomiting, chestpain, or any unexpected problems, contact your Primary Care Provider. Call [facility] ([phone]) or report to the closest Emergency Room. Call 911 if necessary. 08/31/241950 <Electronically signed by Tim Leonardo MD> Cosigner Signature (if applicable): CC: No Primary Care Physician ~ Signed [facility] Work Phone: 1(216) 726-567604-24-2025 Hospital Discharge instructions Additional Instructions Medication as directed for nausea and pain. Follow-up with a primary care provider in 1 week to 10 days if not improving. Return with new or worsening symptoms.[facility] Work Phone: 1(405) 343-424203-20-2025 Note* Addendum Note - Ina Toth APRN.CNP - 07/27/2024 6:49 PM EDTAddended by: INA TOTH on: 07/27/2024 06:49 PM Modules accepted: Orders [facility]03-20-2025 Miscellaneous Notes* Addendum Note - Ina Toth APRN.CNP - 07/27/2024 6:49 PM EDTAddended by: INA TOTH on: 07/27/2024 06:49 PM Modules accepted: Orders documented in this encounterTwin [facility]03-[facility]-2025 NoteHNO ID: [id number] Author: INA TOTH APRN.CNP Service: ? Author Type: Nurse Practitioner Type: Progress Notes Filed: 07/27/2024 18:48 Note Text: [facility] MANDIE Yi is a 18 year old female. Patient presents with: Vaginal Problem: Burning, severe discomfort, fatigue, migraines, discolored urine, urgency, lower back pain, discharge x 1 week Patient came in with complaints of burning and discharge. Symptoms been going on for about a week. Patient says it is extremely uncomfortable and she is tried to air it out with no success. Patient denies any other symptoms. The history is provided by the patient. No sign language interpreter was used. Vaginal Problem Review of Systems Constitutional: Negative. Genitourinary: Positive for vaginal discharge and vaginal pain. Objective LMP 06/22/2024 (Approximate) Physical Exam Exam conducted with a vegetable harvest worker present. Constitutional: Appearance: Normal appearance. Pulmonary: Effort: Pulmonary effort is normal. Genitourinary: Comments: No open sores noted. Thick yellow-white vaginal discharge was noted no other abnormalities. Neurological: Mental Status: She is alert. PAST MEDICAL HISTORY Diagnosis Date Anxiety state Body dysmorphic disorder Borderline personality disorder (HCC) Depression Ovarian cyst PTSD (post-traumatic stress disorder) Seizure (HCC) PAST SURGICAL HISTORY Procedure Laterality Date EXCISION BONE MANDIBLE has plate in right side of jaw at 1 years old EXTENSIVE JAW SURGERY N/A 2006 INSERTION OF IUD 04/17/2024 Mirena KNEE SURGERY HX Right TONSILLECTOMY AND ADENOIDECTOMY ALLERGIES Patient has no known allergies. MEDICATIONS VIT 14-IRON FUM-FOLIC ORAL Take by mouth. fluconazole (DIFLUCAN) 150 mg tablet Take 1 tablet by mouth once daily for 1 day. nystatin (MYCOSTATIN) cream Apply to affected area two times a day for 14 days. FAMILY HISTORY Problem Relation Age of Onset other (heart problem) Mother other (narcotic addiction) Mother Alcohol/Drug Father Diabetes Maternal Grandmother Ovarian cancer Maternal Grandmother other (heart problem) Maternal Grandfather No Known Problems Paternal Grandmother No Known Problems Paternal Grandfather Social History Tobacco Use Smoking status: Former Current packs/day: 0.00 Types: Cigarettes Quit date: 2019 Years since quittin.2 Passive exposure: Past Smokeless tobacco: Never Tobacco comments: Vaping Vaping Use Vaping status: current everyday user Substances: Nicotine Substance Use Topics Alcohol use: Not Currently Drug use: Not Currently Types: Marijuana Comment: quit 2020 {ASSESSMENT/PLAN: 1. Vaginal discomfort - ICD9: 625.9, ICD10: N94.9 (primary diagnosis) 2. Vaginal discharge - ICD9: 623.5, ICD10: N89.8 - BACTERIAL VAGINOSIS NAAT - MARIA T/TRICHOMONAS NAAT - GONORRHEA/CHLAMYDIA NAAT - FLUCONAZOLE 150 MG TABLET - NYSTATIN 100,000 UNIT/GRAM TOPICAL CREAM If patient is positive for anything that requires antibiotics please give her another Diflucan if she is also positive for yeast to take at the end of the antibiotics since they will make it worse again Patient educated about proper use of medication supportive therapies. Patient was agreeable to care plan. Ina Toth APRN.CLOTHING EXAMINER MDM ProceduresAdena [facility]03-20-2025 History of Present illness Narrative* Ina Toth APRN.LUZ MARIA - 07/27/2024 6:19 PM EDT [facility] Subjective Rina Yi is a 18 year old female. Patient presents with: Vaginal Problem: Burning, severe discomfort, fatigue, migraines, discolored urine, urgency, lower back pain, discharge x 1 week Patient came in with complaints of burning and discharge. Symptoms been going on for about a week. Patient says it is extremely uncomfortable and she is tried to air it out with no success. Patient denies any other symptoms. The history is provided by the patient. No sign language interpreter was used. Vaginal Problem Review of Systems Constitutional: Negative. Genitourinary: Positive for vaginal discharge and vaginal pain. Objective LMP 06/22/2024 (Approximate) Physical Exam Exam conducted with a vegetable harvest worker present. Constitutional: Appearance: Normal appearance. Pulmonary: Effort: Pulmonary effort is normal. Genitourinary: Comments: No open sores noted. Thick yellow-white vaginal discharge was noted no other abnormalities. Neurological: Mental Status: She is alert. PAST MEDICAL HISTORY Diagnosis Date Anxiety state Body dysmorphic disorder Borderline personality disorder (HCC) Depression Ovarian cyst PTSD (post-traumatic stress disorder) Seizure ([facility]) PAST SURGICAL HISTORY Procedure Laterality Date EXCISION BONE MANDIBLE has plate in right side of jaw at 1 years old EXTENSIVE JAW SURGERY N/A 2006 INSERTION OF IUD 04/17/2024 Mirena KNEE SURGERY HX Right TONSILLECTOMY & ADENOIDECTOMY <AGE 10 ALLERGIES Patient has no known allergies. MEDICATIONS VIT 14-IRON FUM-FOLIC ORAL Take by mouth. fluconazole (DIFLUCAN) 150 mg tablet Take 1 tablet by mouth once daily for 1 day. nystatin (MYCOSTATIN) cream Apply to affected area two times a day for 14 days. FAMILY HISTORY Problem Relation Age of Onset other (heart problem) Mother other (narcotic addiction) Mother Alcohol/Drug Father Diabetes Maternal Grandmother Ovarian cancer Maternal Grandmother other (heart problem) Maternal Grandfather No Known Problems Paternal Grandmother No Known Problems Paternal Grandfather Social History Tobacco Use Smoking status: Former Current packs/day: 0.00 Types: Cigarettes Quit date: 2018 Years since quittin.2 Passive exposure: Past Smokeless tobacco: Never Tobacco comments: Vaping Vaping Use Vaping status: current everyday user Substances: Nicotine Substance Use Topics Alcohol use: Not Currently Drug use: Not Currently Types: Marijuana Comment: quit 2020 {ASSESSMENT/PLAN: 1. Vaginal discomfort - ICD9: 625.9, ICD10: N94.9 (primary diagnosis) 2. Vaginal discharge - ICD9: 623.5, ICD10: N89.8 - BACTERIAL VAGINOSIS NAAT - MARIA T/TRICHOMONAS NAAT - GONORRHEA/CHLAMYDIA NAAT - FLUCONAZOLE 150 MG TABLET - NYSTATIN 100,000 UNIT/GRAM TOPICAL CREAM If patient is positive for anything that requires antibiotics please give her another Diflucan if she is also positive for yeast to take at the end of the antibiotics since they will make it worse again Patient educated about proper use of medication supportive therapies. Patient was agreeable to care plan. Ina Toth APRN.CNP MDM Procedures documented in this encounterTwin City Hospital02-18-2025 NoteHNO ID: [id number] Author: SAMUEL HOSKINS APRN.CNP Service: ? Author Type: Nurse Practitioner Type: Progress Notes Filed: 06/27/2024 13:12 Note Text: Patient was seen by Dr. Dolan < 3 years ago (04/06/2022). Please schedule follow up with her either in person or via virtual visit. If she wants to be seen by a different provider, please schedule as a change provider visit. Samuel Hoskins APRN.CNPAdena Health System02-18-2025 History of Present illness Narrative* Samuel Hoskins APRN.CNP - 06/27/2024 1:02 PM EST Patient was seen by Dr. Dolan < 3 years ago (04/06/2022). Please schedule follow up with her either in person or via virtual visit. If she wants to be seen by a different provider, please schedule as a change provider visit. Samuel Hoskins APRN.CLOTHING EXAMINER documented in this encounterTwin City Hospital02-17-2025 Instructions* Patient Instructions* Carole Lacey MD - 06/26/2024 5:20 PM EST Follow up in 2 months. documented in this encounterTwin City Hospital02-17-2025 NoteHNO ID: [id number] Author: CAROLE LACEY MD Service: ? Author Type: Physician Type: Progress Notes Filed: 07/02/2024 13:18 Note Text: [facility] Care [address] [address] Date of Evaluation: 07/02/2024 Patient Name: Rina Yi : 2005 Chief Complaint: Patient presents with: Establish Care Subjective HPI Ms. Yi is a 18 year old female who presents for: Current Concerns: Feels very weird Still at night only, down to 2-3 times a day Having thyroid testing done at [facility] Epilepsy: Diagnosed at 15 years old Was on seizure meds from age 15 until and then stopped Last seizure was 2 months ago, was absence seizure Patient does not drive She has a south african young that she states her and her significant other have trained to be a service dog. Patient presents with paperwork from her housing apartment to be completed Past Medical History: Reviewed Past Surgical History: Reviewed Medications: Iron - takes every other day Pre- Allergies: None Family History: Colon Cancer: None Breast/Ovarian Cancer: Ovarian cancer - maternal grandmother Social History: Smoking: vape - trying to quit Alcohol: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 apparent distress HEENT: Normocephalic and atraumatic NECK: Supple and full range of motion DERMATOLOGY: Normal and without lesions CHEST: Clear to auscultation, Normal inspiratory effort, Regular rate and rhythm, and No murmurs, clicks, rubs or gallops ABDOMEN: soft, and no masses. Tender to palpation PELVIC: external genitalia normal, normal Bartholin's glands, urethra, [place]'s glands, no vulvar lesions, no cervical lesions, good vaginal support, physiologic discharge present, normal appearing perineal body and perianal region. Mild odor. Lochia rubra, small amount, no clots. Uterus normal invol ution. Very tender to palpation. Laceration healing BIMANUAL: uterus normal size, shape and consistency, no adnexal masses, and non-tender NEURO: alert and oriented x3,exam grossly non-focal EXTREMITIES: normal US completed, awaiting formal results but reviewed by in office. No signs of retained products ASSESSMENT AND PLAN: 1. endometritis - ICD9: 670.10, ICD10: O86.12 (primary diagnosis) - AMOXICILLIN 875 MG-POTASSIUM CLAVULANATE 125 MG TABLET - Reviewed with patient ultrasound and infection. Will treat with Augmentin. Discussed rest, hydration and . 2. perineal pain - ICD9: 646.84, 625.9, ICD10: O90.89, R10.2 - PELVIC US WHI - CBC + DIFF - URINE CULTURE - MARIA T / TRICHOMONAS AMPLIFICATION - BACTERIAL VAGINOSIS AMPLIFICATION - AMOXICILLIN 875 MG-POTASSIUM CLAVULANATE 125 MG TABLET 3. Pelvic pain in female - ICD9: 625.9, ICD10: R10.2 4. At risk for depression - ICD9: V15.89, ICD10: Z91.89 - Reviewed self care, rest and having others in home help as she heals. Emotional support provided.Follow up in one week. Naima Walls APRN.CNM documented in this encounterT[facility]01-08-2023 Miscellaneous Notes* Telephone Encounter - Dax Andrea RN - 05/17/2022 5:50 PM EST Patient calling regarding low back and abdominal pain. Conferenced to VP PATIENT Answering Service [ ] to speak with provider database administration manager for Laurie Bonner CNM. documented in this encounterT[facility]01-04-2023 History of Present illness Narrative* Yaquelin Stewart RN - 05/13/2022 11:57 AM EST Patient delivered via by Dr. Drummond on 05/09/22 at [facility]. See OB history. Yaquelin Stewart RN documented in this encounterTwin [facility] Hospital12-30-2022 Miscellaneous Notes* Quick Notes - Katey Glover MD - 05/08/2022 5:35 PM EST Pt was not seen in office today. She was sent to L&D for delivery per [facility] after US. documented in this encounterTwin City Hospital12-30-2022 Instructions* Patient Instructions* Lissa Perez MA - 05/08/2022 1:32 PM EST SEQUENTIAL SCREENINGS [facility] offers sequential screenings for women who are interested in screenings for chromosomal abnormalities and certain defects during a . The sequential screen combinesultrasound and blood tests to determine the risk of chromosomal abnormalities, including Down's Syndrome (Trisomy 21) and Trisomy 18, as well as open neural tube defects including spina bifida. Ultrasound examination is performed between 11 weeks and 13 weeks gestational age. Blood tests are drawn after the ultrasound and again later in the between 15 and 21 weeks gestational age. Please let your physician know if you are interested in this testing. It will require an appointment withour inventory technician. This is not an ultrasound performed by a physician in our office during a routine visit. SIGNS AND SYMPTOMS OF LABOR 1. Contractions every 10 minutes or more often 2. Clear, pink, or brownish fluid (water) leaking from vagina 3. Feeling that baby is pushing down, pressure 4. Low, dull backache 5. Cramps that feel like a period 6. Cramps with or without diarrhea If you notice any of the above symptoms, contact our office at [phone] and ask to speak with anurse. After hours, you can call doctors registry at [phone] OR call [facility] at [phone] ask to have the doctor database administration manager paged. If you consider this an emergency, dial 9--0 or go to your nearest emergency department. NEED HELP? Are you dealing with a violent or abusive relationship? Are you a victim of rape or sexual assult? Call [facility] ([place]) 24 hour Crisis Hotline: 441.302.1117 or 919-467-9350. MANUAL Your Guide to a Healthy manual is now on-line. Visit [email or web address] to download your free copy documented in this encounterTwin City Hospital12-29-2022 Miscellaneous Notes* Telephone Encounter - Katey Glover MD - 05/07/2022 10:38 AM EST That is ok will try to see her sooner if I can thanks * Telephone Encounter - Yaquelin Stewart RN - 05/07/2022 10:31 AM EST Per RR patient to have growth u/s tomorrow and see SW for visit. Please file order. Patient scheduled at 1:30 for u/s, but SW only opening was 2:50 in the afternoon. Is that okay? Yaquelin Stewart RN * Telephone Encounter - Katey Glover MD - 05/07/2022 9:11 AM EST Induction cancelled. Please schedule patient with me tomorrow morning 05/08 at 8.30 am for an appointment - BP check and NST. Will then determine delivery plan after appointment documented in this encounterTwin City Hospital12-28-2022 History of Present illness Narrative* Naima Walls APRN.CNM - 05/06/2022 5:27 PM EST NST SUMMARY PROVIDER ASSESSMENT AND INTERPRETATION Rina Yi is a 16 year old female, , who is at 39w3d with an JOSÉ ANTONIO of 05/10/2022, Alternate JOSÉ ANTONIO Entry dating method. Indications for NST: Other: tachycardia Baseline: 170 Variability: Minimal Accelerations: Absent Decelerations: None Contractions: TOCO: Irregular Interpretation: Equivocal SIGNATURE: Naima Walls APRN.CNM documented in this encounterTwin City Hospital12-28-2022 Miscellaneous Notes* Quick Notes - Naima Walls APRN.CNM - 05/06/2022 5:23 PM EST ARTURO-S: Rina Yi is a 16 year old female who presents at 39w3d with JOSÉ ANTONIO:05/10/2022,for a routine visit. Good FM. Denies headache, visual changes, chest pain, shortness of breath, vaginal bleeding, leakage of fluid, or dysuria. Increased pelvic pressure and contractions that are irregular. Was supposed to have Elective IOL today but moved due to staffing. O: See flow sheet Gen: No apparent distress Abd: Gravid, nontender +2/4 bilateral patellar, no clonus, no edema NST equivocal, tachycardia. ASSESSMENT/PLAN: 1. 39 weeks gestation of P: 1) Labor instructions reviewed and when to call 2) Discussed with patient to go to L&D due to tachycardia. 3) Reviewed IOL tonight at 7pm but will likely be pushed to tomorrow. In depth discussion of elective IOL and can't guarantee due to staffing. 4) Reviewed preeclampsia and no signs at this time. BP stable and asymptomatic. Naima Walls APRN.CNM documented in this encounterTwin City Hospital12-28-2022 Instructions* Patient Instructions* Yanick Schwartz Cma - 05/06/2022 1:06 PM EST SEQUENTIAL SCREENINGS [facility] offers sequential screenings for women who are interested in screenings for chromosomal abnormalities and certain defects during a . The sequential screen combinesultrasound and blood tests to determine the risk of chromosomal abnormalities, including Down's Syndrome (Trisomy 21) and Trisomy 18, as well as open neural tube defects including spina bifida. Ultrasound examination is performed between 11 weeks and 13 weeks gestational age. Blood tests are drawn after the ultrasound and again later in the between 15 and 21 weeks gestational age. Please let your physician know if you are interested in this testing. It will require an appointment withour inventory technician. This is not an ultrasound performed by a physician in our office during a routine visit. SIGNS AND SYMPTOMS OF LABOR 1. Contractions every 10 minutes or more often 2. Clear, pink, or brownish fluid (water) leaking from vagina 3. Feeling that baby is pushing down, pressure 4. Low, dull backache 5. Cramps that feel like a period 6. Cramps with or without diarrhea If you notice any of the above symptoms, contact our office at [phone] and ask to speak with anurse. After hours, you can call doctors registry at [phone] OR call [facility] at [phone] ask to have the doctor database administration manager paged. If you consider this an emergency, dial [phone] or go to your nearest emergency department. NEED HELP? Are you dealing with a violent or abusive relationship? Are you a victim of rape or sexual assult? Call [facility] ([place]) 24 hour Crisis Hotline: 918.362.9277 or 193-223-3669. MANUAL Your Guide to a Healthy manual is now on-line. Visit [email or web address] to download your free copy documented in this encounterTwin City Hospital12-22-2022 Miscellaneous Notes* Quick Notes - Laurie Bonner APRN.CNM - 04/30/2022 10:28 AM EST S: Rina Yi is a 16 year old female who presents at 38.4 weeks gestation for a routine visit. Patient is interested in elective induction at 39 weeks gestation. Positive movement. Continues to have irregular contractions. Denies headache, visual changes, chest pain, shortness of breath, vaginal bleeding, leakage of fluid, or dysuria. Continues to take BP at home and results are 120-130/ 70's. O: See flow sheet Gen: No apparent distress Abd: Gravid, non tender BLE- no edema, +2 reflexes, no clonus CE- 0/50/-3 ASSESSMENT/PLAN: 1. 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 Excessive weight gain - Patient has gained 87 lbs total during - BMI 28 Labor and preeclampsia precautions reviewed RTO- 2 weeks for post visit Laurie Bonner APRN.CNM documented in this encounterTwin City Hospital12-22-2022 Instructions* Patient Instructions* Yanick Schwartz Vault Installer - 04/30/2022 9:56 AM EST SEQUENTIAL SCREENINGS [facility] offers sequential screenings for women who are interested in screenings for chromosomal abnormalities and certain defects during a . The sequential screen combinesultrasound and blood tests to determine the risk of chromosomal abnormalities, including Down's Syndrome (Trisomy 21) and Trisomy 18, as well as open neural tube defects including spina bifida. Ultrasound examination is performed between 11 weeks and 13 weeks gestational age. Blood tests are drawn after the ultrasound and again later in the between 15 and 21 weeks gestational age. Please let your physician know if you are interested in this testing. It will require an appointment withour inventory technician. This is not an ultrasound performed by a physician in our office during a routine visit. SIGNS AND SYMPTOMS OF LABOR 1. Contractions every 10 minutes or more often 2. Clear, pink, or brownish fluid (water) leaking from vagina 3. Feeling that baby is pushing down, pressure 4. Low, dull backache 5. Cramps that feel like a period 6. Cramps with or without diarrhea If you notice any of the above symptoms, contact our office at [phone] and ask to speak with anurse. After hours, you can call doctors registry at [phone] OR call [facility] at [phone] ask to have the doctor database administration manager paged. If you consider this an emergency, dial -9 or go to your nearest emergency department. NEED HELP? Are you dealing with a violent or abusive relationship? Are you a victim of rape or sexual assult? Call [facility] ([place]) 24 hour Crisis Hotline: 583.232.7227 or 416-353-4556. MANUAL Your Guide to a Healthy manual is now on-line. Visit [email or web address] to download your free copy documented in [facility] encounterT[facility]12-[facility]22 Miscellaneous Notes* Telephone Encounter - Laurie Bonner APRN.CNM - 04/27/2022 6:43 PM EST Called and spoke with patient regarding lab results. Questions answered. Laurie Bonner APRN.CNM documented in this encounterTwin City Hospital12-19-2022 Miscellaneous Notes* Quick Notes - Laurie Bonner APRN.CNM - 04/27/2022 1:12 PM EST S: Rina Yi is a 16 year old female who presents at 38.1 weeks for a routine visit. Seen in L&D last week for PIH labs and BP monitoring. C/O contractions every couple of hours. Nothing thatshe is able to time. Positive movement. Continues to have mild headaches off and on. Denies headache today. Denies chest pain, shortness of breath, vaginal bleeding, leakage of fluid, or dysuria. O: See flow sheet Gen: No apparent distress Abd: Gravid, nontender BLE- no edema, +2 reflexes, no clonus ASSESSMENT/PLAN: 1. 38 weeks gestation of - ICD9: V22.2, ICD10: Z3A.38 (primary diagnosis) - Reviewed timing of contractions - URINE OB DIP B/O - CE next visit 2. Encounter for supervision of other normal in third trimester - ICD9: V22.1, ICD10: Z34.83 3. Elevated blood pressures without diagnosis of hypertension - Repeat PIH labs today - P/C ratio P: 1) Labor and preeclampsia precautions reviewed and when to call 2) RTO 1 week or sooner if needed Laurie Bonner APRN.CNM documented in this encounterTwin City Hospital12-19-2022 Instructions* Patient Instructions* Yenny Fung Ma - 04/27/2022 12:53 PM EST SEQUENTIAL SCREENINGS [facility] offers sequential screenings for women who are interested in screenings for chromosomal abnormalities and certain defects during a . The sequential screen combinesultrasound and blood tests to determine the risk of chromosomal abnormalities, including Down's Syndrome (Trisomy 21) and Trisomy 18, as well as open neural tube defects including spina bifida. Ultrasound examination is performed between 11 weeks and 13 weeks gestational age. Blood tests are drawn after the ultrasound and again later in the between 15 and 21 weeks gestational age. Please let your physician know if you are interested in this testing. It will require an appointment withour inventory technician. This is not an ultrasound performed by a physician in our office during a routine visit. SIGNS AND SYMPTOMS OF LABOR 1. Contractions every 10 minutes or more often 2. Clear, pink, or brownish fluid (water) leaking from vagina 3. Feeling that baby is pushing down, pressure 4. Low, dull backache 5. Cramps that feel like a period 6. Cramps with or without diarrhea If you notice any of the above symptoms, contact our office at [phone] and ask to speak with anurse. After hours, you can call doctors registry at [phone] OR call [facility] at [phone] ask to have the doctor database administration manager paged. If you consider this an emergency, dial 9-1-3 or go to your nearest emergency department. NEED HELP? Are you dealing with a violent or abusive relationship? Are you a victim of rape or sexual assult? Call [facility] ([place]) 24 hour Crisis Hotline: 969.329.1901 or 873-108-5135. MANUAL Your Guide to a Healthy manual is now on-line. Visit [email or web address] to download your free copy documented in this encounterTwin City Hospital12-15-2022 Miscellaneous Notes* Telephone Encounter - Yaquelin Stewart RN - 04/23/2022 1:45 PM EST Patient notified. Yaquelin Stewart RN * Telephone Encounter - Laurie oBnner APRN.CNM - 04/23/2022 1:07 PM EST Yes these readings are elevated but not severe range blood pressure and PIH labs and urine were negative yesterday. She needs to notify us if any blood pressure readings are anything 160/110. She only needs to take her blood pressure once a day! I will see her at her next visit! Laurie Bonner APRN.CNM * Telephone Encounter - Promise Estevez RN - 04/23/2022 12:24 PM EST Patient 37w4d calling with concerns with her recent BP readings. 7:15 am: 136/91, pulse 98 11:06 am: 134/81, pulse 83 12:12 pm: 134/84, pulse 93 When patient took her BP at 1106 she did have a headache. She took two Tylenol and went back to bed. When she woke up and took repeat BP at 1212 headache was resolved. Patient denies any dizziness, blurred vision, RUQ pain. Reassurance given. Patient was seen in the office yesterday. Promise Estevez RN documented in this encounterTwin City Hospital12-14-2022 Miscellaneous Notes* Quick Notes - Laurie Bonner APRN.CNM - 04/22/2022 10:21 AM EST S: Rina Yi is a 16 year old female who presents at 37.3 weeks gestation for a routine visit. Was seen in L&D on Wednesday for rule out rupture of membranes which was negative. Stated she was not dilated but having occasional contractions. Having difficulty sleeping. Current headache. Rates pain 1-2/10 denies any vision changes or RUQ pain. Denies chest pain, shortness of breath, vaginal bleeding, leakage of fluid, or dysuria. O: See flow sheet Gen: No apparent distress Abd: Gravid, non tender BLE , no edema, +2 reflexes without clonus ASSESSMENT/PLAN: 1. care, subsequent in third trimester - ICD9: V22.1, ICD10: Z34.83 - URINE OB DIP B/O 2. Elevated blood pressure without diagnosis of hypertension - No proteinuria - BP's today in office elevated- 142/70 - Sent to L&D for PIH labs, BP monitoring - Discussed gestational hypertension vs. Preeclampsia and induction of labor - Dr. Akins notified Labor precautions reviewed RTO- 1 week or 2 weeks PP if delivered Laurie Bonner APRN.CNM documented in this encounterTwin City Hospital12-14-2022 Instructions* Patient Instructions* Krista Mireles RN - 04/22/2022 9:58 AM EST SEQUENTIAL SCREENINGS [facility] offers sequential screenings for women who are interested in screenings for chromosomal abnormalities and certain defects during a . The sequential screen combinesultrasound and blood tests to determine the risk of chromosomal abnormalities, including Down's Syndrome (Trisomy 21) and Trisomy 18, as well as open neural tube defects including spina bifida. Ultrasound examination is performed between 11 weeks and 13 weeks gestational age. Blood tests are drawn after the ultrasound and again later in the between 15 and 21 weeks gestational age. Please let your physician know if you are interested in this testing. It will require an appointment withour inventory technician. This is not an ultrasound performed by a physician in our office during a routine visit. SIGNS AND SYMPTOMS OF LABOR 1. Contractions every 10 minutes or more often 2. Clear, pink, or brownish fluid (water) leaking from vagina 3. Feeling that baby is pushing down, pressure 4. Low, dull backache 5. Cramps that feel like a period 6. Cramps with or without diarrhea If you notice any of the above symptoms, contact our office at [phone] and ask to speak with anurse. After hours, you can call doctors registry at [phone] OR call [facility] at [phone] ask to have the doctor database administration manager paged. If you consider this an emergency, dial 9-1-0 or go to your nearest emergency department. NEED HELP? Are you dealing with a violent or abusive relationship? Are you a victim of rape or sexual assult? Call [facility] ([place]) 24 hour Crisis Hotline: 875.318.4469 or 723-663-2699. MANUAL Your Guide to a Healthy manual is now on-line. Visit [email or web address] to download your free copy documented in this encounterTwin City Hospital12-08-2022 History of Past illness Narrative* Problem Noted Date Resolved Date Excessive weight gain in , third trimes ter 04/16/2022 08/10/2022 Polyhydramnios in third trimester 03/23/2022 08/10/2022 Overview: 04/16/22- IVANNA Laurie Bonner APRN.CNM 03/23/22- IVANNA 25. Repeat in 4 weeks. Laurie Bonner APRN.CNM with care elsewhere in second trimester 12/30/2021 08/10/2022 Overview: 12/30/21- Transfer of care from [place] at 21 weeks gestation. Awaiting records. Laurie Bonner APRN.CNM Heartburn during in second trimester 0 12/30/2021 08/10/2022 Nausea 12/30/2021 08/10/2022 High risk teen in second trimester 08/10/2022 documented as of this encounter (statuses as of 08/10/2022) [facility] of Past illness Narrative* Problem Noted Date Resolved Date Excessive weight gain in , third trimes ter 04/16/2022 08/10/2022 Polyhydramnios in third trimester 03/23/2022 08/10/2022 Overview: 04/16/22- IVANNA Laurie Bonner APRN.CNM 03/23/22- IVANNA 25. Repeat in 4 weeks. Laurie Bonner APRN.CNM with care elsewhere in second trimester 12/30/2021 08/10/2022 Overview: 12/30/21- Transfer of care from [facility] at 21 weeks gestation. Awaiting records. Laurie Bonner APRN.CNM Heartburn during in second trimester 0 12/30/2021 08/10/2022 Nausea 12/30/2021 08/10/2022 High risk teen in second trimester 08/10/2022 documented as of this encounter (statuses as of 09/15/2022) [facility] of Past illness Narrative* Problem Noted Date Resolved Date Excessive weight gain in , third trimes ter 04/16/2022 08/10/2022 Polyhydramnios in third trimester 03/23/2022 08/10/2022 Overview: 04/16/22- Laurie Bonner APRN.CNM 03/23/22- IVANNA 25. Repeat in 4 weeks. Laurie Bonner APRN.CNM with care elsewhere in second trimester 12/30/2021 08/10/2022 Overview: 12/30/21- Transfer of care from [facility] at 21 weeks gestation. Awaiting records. Laurie Bonner APRN.CNM Heartburn during in second trimester 0 12/30/2021 08/10/2022 Nausea 12/30/2021 08/10/2022 High risk teen in second trimester 08/10/2022 documented as of this encounter (statuses as of 09/21/2022) [facility] of Past illness Narrative* Problem Noted Date Resolved Date Excessive weight gain in , third trimes ter 04/16/2022 08/10/2022 Polyhydramnios in third trimester 03/23/2022 08/10/2022 Overview: 04/16/22- IVANNA 22 Laurie Bonner APRN.CNM 03/23/22- IVANNA 25. Repeat in 4 weeks. Laurie Bonner APRN.CNM with care elsewhere in second trimester 12/30/2021 08/10/2022 Overview: 12/30/21- Transfer of care from [facility] at 21 weeks gestation. Awaiting records. Laurie Bonner APRN.CNM Heartburn during in second trimester 0 12/30/2021 08/10/2022 Nausea 12/30/2021 08/10/2022 High risk teen in second trimester 08/10/2022 documented as of this encounter (statuses as of 10/10/2022) [facility] of Past illness Narrative* Problem Noted Date Diagnosed Date Resolved Date Excessive weight gain in pre gnancy, third trimester 04/16/2022 08/10/2022 Polyhydramnios in third trimester 03/23/2022 08/10/2022 Overview: 04/16/22- IVANNA 22 Laurie Bonner APRN.CNM 03/23/22- IVANNA 25. Repeat in 4 weeks. Laurie Bonner APRN.CNM with care elsewhere in second trimester 12/30/2021 08/10/2022 Overview: 12/30/21- Transfer of care from [place] at 21 weeks gestation. Awaiting records. Laurie Bonner APRN.CNM Heartburn during i n second trimester 12/30/2021 08/10/2022 Nausea 12/30/2021 08/10/2022 High risk teen in second trimester 08/10/2022 documented as of this encounter (statuses as of 06/28/2023) [facility] Miscellaneous Notes* Quick Notes - Laurie Bonner APRN.CNM - 04/16/2022 10:56 AM EST S: Rina Yi is a 16 year old female who presents at 36.4 weeks gestation for a routine visit. Just completed growth US and preliminary results- EFW 91%, IVANNA 22. Positive movement . Occasional pelvic pressure but denies any cramps or contractions. Seen by Neurology yesterday and plan is to follow up after delivery. No seizure activity. Positive headaches at least once a day. Denies any visual changes, RUQ, or increased swelling. O: See flow sheet Gen: No apparent distress Abd: Gravid, non tender EXT- no edema, +2 reflexes with no clonus S=D- measuring 1 week behind 76 lbs. TWG ASSESSMENT/PLAN: 1. 36 weeks gestation of - ICD9: V22.2, ICD10: Z3A.36 (primary diagnosis) - URINE OB DIP B/O - TYPE + SCREEN - ROUTINE, GROUP B STREP PCR 2. Excessive weight gain in , third trimester - ICD9: 646.13, 783.1, ICD10: O26.03 - Current BMI 26 - Reviewed diet with patient- high carbohydrate intake- discussed decreasing sugar, carbohydrates and trying to eat more fresh vegetables and lean meats - Reviewed weight gain with Dr. Glover- no further orders at this time. 3. Headaches - PIH labs- never got baseline labs - Tylenol PO as needed labor and preeclampsia precautions reviewed RTO- 1 week or sooner if needed Laurie Bonner APRN.CNM documented in this encounterTwin City Hospital12-08-2022 Instructions* Patient Instructions* Yanick Schwartz [facility] - 04/16/2022 10:41 AM EST SEQUENTIAL SCREENINGS [facility] offers sequential screenings for women who are interested in screenings for chromosomal abnormalities and certain defects during a . The sequential screen combinesultrasound and blood tests to determine the risk of chromosomal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 depression and PP depression. Information provided. - Opioid screen negative. Previous use of marijuana prior to but nothing since finding out she was . Advised continued cessation. - plan form discussed and given to patient. Patient desires unmedicated . Does not plan to take CBE but is educating herself with online learning. - Has not seen neurology, reviewed importance of this during the . MFM consult if indicated after neurology visit. No seizures since June 2021 - Continues vaping, recommend cessation. - PTL precautions and kick counts reviewed - RTO- 2 weeks or sooner if needed -Growth US at 32 weeks, size less than dates, 53 lb weight gain, and underweight at beginning of . Naima Walls APRN.CNM I spent a total of 30 minutes on the date of the service which included preparing to see the patient, [id number] patient care, completing clinical documentation, obtaining and/or reviewing separately obtained history, performing a medically appropriate examination, counseling and educating the pat ient/family/caregiver, and ordering medications, tests, or procedures. documented in this encounterTwin City Hospital10-12-2022 History of Present illness Narrative* Yanick Schwartz [facility] - 02/18/2022 8:16 AM EDT Patient identified by name and date of . Rina Yi presents today for a vaccination of Tdap. Patient denies an allergy to latex: yes Patient denies a severe (life-threatening) allergy to a previous dose of Tdap, DTP, DTaP, DT or Td vaccine. Yes Patient denies history of epilepsy or neurological problems: Yes Patient is afebrile and denies being moderately or severely ill: Yes Patient denies history of Guillain-Milmay Syndrome (a severe paralytic illness): Yes Tdap Adacel injection was given without incident. See immunizations for details of immunizations administered today. VIS sheet provided: Yes Provider Naima Walls CNM was present in office at time of injection. Yanick Schwartz Cma documented in this encounterTwin City Hospital10-12-2022 Instructions* Patient Instructions* Naima Walls APRN.CNM - 02/18/2022 8:00 AM EDT 1) Chiropractor for back pain. 2) Ice to back, on for 20 minutes, off for 20 minutes, for 2 hours 3) Pelvic tilts 4) Biofreeze or icy hot 5) Warm bath with 2 cups of epsom salt 6) Abdominal support belt (ByeBye Baby, [employer], or check with insurance for coverage) -OneNatural Way go to web site and request [facility] [address] [place] [address] [facility] [address] [place], [place] [address] [facility] [address] [place] [address] [facility] [address] [place] [address] [email or web address].Social Project [facility] [address] [place] [address] [facility] [address] [place] [address] [email or web address] [email or web address] [facility] [address], [place] [address] [email or web address] [facility] [phone] [address] [place] [address] [facility] [address] [address] Have Mcdaniel office also [phone] [email or web address]/ [facility] [phone] [place] [address] [address]hu. [address] [place] [address] [facility] [place] [facility], [facility] [address] [place] [address] [email or web address] [facility] [address] [place] [address] [email or web address] Here are some links for wonderful Providers here in the community and surrounding areas. Do not hesitate to contact their offices, many are offering virtual visits during this time. 9-163-1-YZFF9AEEW - [facility] Mental Health Hotline If you are in suicidal crisis, please call or text 4-384-767-MJGY ( ) or visit the National Suicide Prevention Lifeline website. [facility], roswella.gov [facility] Psychology, Psychiatry, Counseling Connect with therapist/ can do virtual visits [phone] Referral to the [facility] To schedule an appointment, please call the Center for [facility] Health Appointment Line: [phone] option 1 [facility] - [place], [place] [address] [place] [address] [facility] [address] [place] [address] [facility] [address] [place] [address], [place] [address] [facility] [address] [place] [address] Tiki Chicas MD [address] [place] [address] [facility] [address] [facility], [address] [place] [address] [facility] [address] [place] [address] [facility] [place] / [place] [phone]/ [phone] David Warnerdylanpetr [address] [facility] [phone] [facility] [place] / [place] [phone] [facility] [address] [place] [address]/ [place] [phone] Nathan Lopez, LENNIE, CLC [facility] Workshops, telehealth and at home visits. [phone] [facility] counseling [place] 20 locations [place], [place], [place], [place], [place], [place], [place], [facility], [place], [place], [place], [place], [place], [place], [facility], [place], [facility], [place], [place],[facility], [facility], [place], [facility], [facility], [place] www.st. francis hospitalYYzhaochemason general hospitalEmotify [phone] Psychotherapy resources outside of [facility] are listed below [facility] Web: https://www.Acopio/ Support International Online Provider Directory https://AppBrick/ [facility] https://insightcoSyntervention.AdorStyle/ [facility] Web: https://Steelbox, Inc./ Center for Effective Living Web: https://www.Pacer Electronicsliving.AdorStyle/ LifeStance Web: https://Slated/location/state/[place]/ [facility] Web: https://www.sign[facility]renorthern [facility].org/ [facility] Web: https://Arran Aromatics.org/ Recovery Resources Mental health and substance abuse help Web: https://www.CodeSealer & RESOURCES Support International Direct peer support and connection to professional resources Non-Emergency Helpline Phone: / Text: 378.134.9106 Web: https://www..net/ Online Provider Directory: https://AppBrick/ Online Support Meetings: https://www..net/get-help/yta-wcymhm-myxmtsk-meetings/ NAMITA Baby and Analytical Engineer Services Web: https://Nutech Medical/ MotherToBaby Expert information on medication use during and Text: 850.474.9948 Web: https://Zawatt/ NATIONAL REGISTRY FOR PSYCHIATRIC MEDICATIONS Currently studying the safety of antidepressants, ADHD medications and atypical antipsychotics taken during TO PARTICIPATE CALL TOLL-FREE: Web: https://womensmentalhealth.org/research/pregnancyregistry/ Support Groups: [facility]- Follow on facebook Baby Bistro support group led by [facility] department Resilient Mamas - Support Group [facility].org The POEM support group [phone] Www.poemonline.org Follow on facebook - TIAGO santana Online support meetings PSI https://www..net/get-help/iwa-yientx-zsdbpzm-meetings/ [facility] mommy and me virtual support group 11:30-1pm Support for mothers and new babies and toddlers [place] childbirth education: Childbirth @cc.org or call [phone] CRISIS: CRISIS HOTLINE [phone], 911 or go to the nearest ER. [facility] [phone] / [facility] [phone] https://www.[facility].org Crisis text line text the word HOME to 9[address]173 SIGNS AND SYMPTOMS OF LABOR 1. Contractions every 10 minutes or more often 2. Clear, pink, or brownish fluid (water) leaking from vagina 3. Feeling that baby is pushing down, pressure 4. Low, dull backache 5. Cramps that feel like a period 6. Cramps with or without diarrhea If you notice any of the above symptoms, contact our office at [phone] and ask to speak with anurse. After hours, you can call doctors registry at [phone] OR call [facility] at [phone] ask to have the doctor database administration manager paged. If you consider this an emergency, dial 2-9-8 or go to your nearest emergency department. NEED HELP? Are you dealing with a violent or abusive relationship? Are you a victim of rape or sexual assult? Call [facility] 24 hour Crisis Hotline: 514.421.5430 or 841-753-9000. MANUAL Your Guide to a Healthy manual is now on-line. Visit [facility]org/HealthyPregnancyGuide to download your free copy documented in this encounterTwin City Hospital09-21-2022 Miscellaneous Notes* Quick Notes - Amira Akins MD - 01/28/2022 4:43 PM EDT DM-Pt doing well. Denies vaginal Bleeding, Leaking fluid, or regular Contractions. Pt reports good movement Physical Exam: Gen: female in no apparent distress Abd: soft, Gravid. Non tender to palpation. See flow sheet A/P: @ 25.3 weeks 1) labs and previous us reviewed in care everywhere and printed to be faxed to L&D 2) growth us reviewed 3) 28 week labs ordered 4) Flu vaccine today 5) NEEDS TO SCHEDULE with NEURO ?? SEIZURES 6) RTO 3 weeks Amira Gonzalez MD Medical Decision Making: Problems: Low: Acute, uncomplicated illness or injury Data: Unique test(s) ordered: 3+ Risk: Low: Low risk from testing/treatment Medical Decision Making Level: 3 - Low documented in this encounterTwin City Hospital09-21-2022 Instructions* Patient Instructions* Marleen Hopkins Ma - 01/28/2022 3:41 PM EDT SEQUENTIAL SCREENINGS The [facility] offers sequential screenings for women who are interested in screenings for chromosomal abnormalities and certain defects during a . The sequential screen combinesultrasound and blood tests to determine the risk of chromosomal abnormalities, including Down's Syndrome (Trisomy 21) and Trisomy 18, as well as open neural tube defects including spina bifida. Ultrasound examination is performed between 11 weeks and 13 weeks gestational age. Blood tests are drawn after the ultrasound and again later in the between 15 and 21 weeks gestational age. Please let your physician know if you are interested in this testing. It will require an appointment withour inventory technician. This is not an ultrasound performed by a physician in our office during a routine visit. SIGNS AND SYMPTOMS OF LABOR 1. Contractions every 10 minutes or more often 2. Clear, pink, or brownish fluid (water) leaking from vagina 3. Feeling that baby is pushing down, pressure 4. Low, dull backache 5. Cramps that feel like a period 6. Cramps with or without diarrhea If you notice any of the above symptoms, contact our office at [phone] and ask to speak with anurse. After hours, you can call doctors registry at [phone] OR call [facility] at [phone] ask to have the doctor database administration manager paged. If you consider this an emergency, dial 4--6 or go to your nearest emergency department. NEED HELP? Are you dealing with a violent or abusive relationship? Are you a victim of rape or sexual assult? Call [facility] 24 hour Crisis Hotline: 413.278.4737 or 606-888-4001. MANUAL Your Guide to a Healthy manual is now on-line. Visit [facility].org/HealthyPregnancyGuide to download your free copy documented [facility] Miscellaneous Notes* Telephone Encounter - Joan Griffiths RN - 01/02/2022 9:25 AM EDT PRAF completed Joan Griffiths RN documented in this encounterT[facility]22 Miscellaneous Notes* Quick Notes - Laurie Bonner APRN.CNM - 12/30/2021 12:24 PM EDT Patient transfer of care at 21.2 weeks gestation. NOB completed today. Laurie Bonner APRN.CNM documented in this encounterT[facility]08-[facility]22 History of Present illness Narrative* Laurie Bonner APRN.CNM - 12/30/2021 8:49 AM EDT INITIAL OB ASSESSMENT OB Provider: Georgina Rivero LPN HPI: Rina Yi is a 16 year old female here to establish Obstetrical Care. Patient's last menstrual period was 08/04/2021. from OB Dating Form. Patient is a transfer of care from [place]. Currently 21.2 weeks gestation History of seizures- starting last year- was supposed to see neurology- Having absent and grand mal seizures- brought on by stress- Last seizure was June 2021- no medications Complaints: nausea and vomiting was unplanned but accepted. OB History T0 L0 SAB0 IAB0 Ectopic0 Multiple0 Live Births0 Prior : never History of 4th degree laceration: No Patient's Risk Screening for delivery: No History of abnormal pap: No Prior treatment for cervical dysplasia: N/A. History of STDs: None Tobacco use: Yes- currently vaping- trying to stop Caffeine use: No Drug use: Yes Marijuana 7 months ago- hx of pills (2 years ago) Alcohol use NO Multivitamin with Folic acid: Yes Occupation: not working Scientology or heritage: No Would refuse blood transfusion if medically necessary: No BMI 19.67 kg/(m^2) Patient BMI over 30? No Marital Status:Co-habitating Partner: Name: Orly Solo Age: 17 Occupation: [employer] Gender: male History of STDs: None PAST MEDICAL HISTORY Diagnosis Date Anxiety state Body dysmorphic disorder Depression Seizure (HCC) PAST SURGICAL HISTORY Procedure Laterality Date EXCISION BONE MANDIBLE KNEE SURGERY HX Right TONSILLECTOMY & ADENOIDECTOMY <AGE 10 No current outpatient medications on file prior to visit. No current facility-administered medications on file prior to visit. Review of Systems: GENERAL: Negative for: Fever or Chills and Positive for: Fatigue HEENT: Negative for: Headache, Impaired Vision, Ringing in Ears, Nosebleeds NECK: Negative for: Swelling, Pain, Stiffness RESPIRATORY: Negative for: Cough, Shortness of breath, Wheezing GASTROINTESTINAL: Positive for: Nausea and Vomiting and Positive for: Heartburn MUSCULOSKELETAL: Negative for: Muscle or joint pain, stiffness, Joint swelling NEUROLOGIC/PSYCHIATRIC: Negative for: Weakness, Paralysis, Numbness, Tingling, Memory loss. Historyof bipolar, PTSD, Anxiety, body dysmorphia, depression History of suicide attempts- 3 last 2018 Denies SI/HI Starting therapy at [facility] History of medications- last year SKIN: Negative for: Rash, Itching GENITOURINARY: Negative for: vaginal itching, vaginal discharge, hematuria or dysuria PHYSICAL EXAM: BP 90/60 Ht 5' 11.5 (1.82m) Wt 143 lb (64.9kg) LMP 08/04/2021 BMI 19.67 kg/(m^2). GENERAL: pleasant female in no apparent distress DERMATOLOGY: Normal, without lesions, non-icteric, and non-hirsute NECK: Supple and full range of motion CHEST: Normal inspiratory effort BREAST: soft, non-tender, symmetric, no dominant mass, normal nipple-areolar complex, no lymphadenopathy, and no nipple discharge ABDOMEN: soft, non-tender, and no masses NEURO: alert and oriented x3,exam grossly non-focal Limited OB ultrasound exam: not performed Anatomy US at previous OB practice- awaiting records ASSESSMENT: 16 year old No obstetric history on file. at 21.2 wks gestational age PLAN: 1) Patient oriented to practice. Discussed nutrition, folic acid supplementation, dietary guidelines, exercise, smoking, alcohol, caffeine, and drug use. 2) OB US- anatomy US 3) Consult Neurology - hx of seizures 4) MH/Counseling handout provided 5) Pepcid 20 mg PO BID 6) Release signed for OB records Follow up in 4 weeks or sooner prn. Laurie Bonner APRN.CNM documented in this encounterTwin City Hospital08-23-2022 Instructions* Patient Instructions* Laurie Bonner APRN.CNM - 12/30/2021 8:49 AM EDT Here are some links for wonderful Providers here in the community and surrounding areas. Do not hesitate to contact their offices, many are offering virtual visits during this time. 2-045-3-DRTB7IUFQ - [place] Maternal Mental Health Hotline If you are in suicidal crisis, please call or text 7-784-430-TALK ( ) or visit the National Suicide Prevention Lifeline website. mchb.hrsa.gov [facility] Psychology, Psychiatry, Counseling Connect with therapist/ can do virtual visits [phone] Referral to the [facility] To schedule an appointment, please call the Center for [facility] Health Appointment Line: [phone] option 1 [facility] [place] [address] [place] [address] [place] [address] [place] [address] [facility] [address] [place] [address] [facility] [address] [place], [place] [id number] Tiki Chicas MD [address] [place], [place] [id number] [facility] [address], [address] [place] [address] [facility] [address] [place] [address] [facility] [place] / [place] [phone]/ [phone] David Grimaldo [address] [facility] [phone] [facility] [place] / [place] [phone] [facility] [address] [place] [address]/ [place] [phone] Nathan Lopez, LENNIE, CLC [facility] Workshops, telehealth and at home visits. [phone] [facility] counseling [place] 20 locations [place], [place], [place], [place], [place], [place], [place], [facility], [place], [place], [place], [place], [place], [place], [facility], [place], [place] [facility], [place], [place],[facility], [facility], [place], [facility], [facility], [place] www.WiNetworks [phone] Psychotherapy resources outside of [facility] are listed below [facility] Web: https://www.Acopio/ Support International Online Provider Directory https://AppBrick/ [facility] https://Falcor Equine Enterprises/ Moodswing for Behavioral Health and Wellness Web: https://Steelbox, Inc./ Center for Effective Living Web: https://www.Pacer Electronicsliving.AdorStyle/ LifeStance Web: https://SiftyNet.com/location/[facility]/[place]/ [facility] Web: https://www.signaturehealthinc.org/ [facility] Web: https://Arran Aromatics.org/ Recovery Resources Mental health and substance abuse help Web: https://www.Crescentrating.Flip Flop Shops & RESOURCES Support International Direct peer support and connection to professional resources Non-Emergency Helpline Phone: / Text: [phone] Web: https://www..net/ Online Provider Directory: https://QuickoLabs.AdorStyle/ Online Support Meetings: https://www..net/get-help/jdy-zxlkou-mkynbdh-meetings/ NAMITA Baby [facility] Analytical Engineer Services Web: https://Nutech Medical/ Lotame Expert information on medication use during and Text: [phone] Web: https://Zawatt/ NATIONAL REGISTRY FOR PSYCHIATRIC MEDICATIONS Currently studying the safety of antidepressants, ADHD medications and atypical antipsychotics taken during TO PARTICIPATE CALL TOLL-FREE: Web: https://womensmentalhealth.org/research/pregnancyregistry/ Support Groups: [facility]- Follow on facebook Baby Bistro support group led by [facility] department [facility] - Support Group [facility].org The POEM support group [phone] Www.poemonline.org Follow on facebook - TI[facility] Online support meetings PSI https://www..net/get-help/bcn-bjlmpc-gyaxbbv-meetings/ [facility] mommy and me virtual support group 11:30-1pm Support for mothers and new babies and toddlers [place] childbirth education: Childbirth @cc.org or call [phone] CRISIS: CRISIS HOTLINE [phone], 911 or go to the nearest ER. [facility] [phone] / [facility] [phone] https://www.medisys health networkrb.org Crisis text line text the word HOME to 646556 Please select the following link to access the [facility] Your Guide to a Healthy . www.[facility].org/healthypregnancyguide documented in this encounterT[facility] HospitalEval[facility] note* Diagnosis Encounter for care in second trimester of first - Primary 21 weeks gestation of state, incidental History of absence seizures Personal history of other disorders of nervous system and sense organs with care elsewhere in second trimester Engages in vaping Heartburn during in second trimester Nausea Nausea alone History of bipolar disorder Personal history of affective disorder High risk teen in second trimester Body dysmorphic disorder Hypochondriasis documented in this encounter [facility]* Diagnosis with care elsewhere in second trimester- Primary Need for influenza vaccination Need for prophylactic vaccination and inoculation against influenza High risk teen in second trimester 25 weeks gestation of state, incidental documented in this encounter [facility]* Diagnosis Episodes of staring- Primary documented in this encounter [facility]* Diagnosis 28 weeks gestation of - Primary state, incidental Need for vaccination Need for prophylactic vaccination and inoculation against unspecified single disease Underweight documented in this encounter [facility]* Diagnosis 30 weeks gestation of - Primary state, incidental documented in this encounter [facility]* Diagnosis Fingernail avulsion, complete, initial encounter- Primary documented in this encounter [facility]* Diagnosis 32 weeks gestation of - Primary state, incidental Excessive weight gain in , third trimester documented in this encounter [facility]* Diagnosis Uterine size date discrepancy, third trimester- Primary 33 weeks gestation of state, incidental [facility]* Diagnosis 34 weeks gestation of - Primary state, incidental documented in this encounter [facility]* Diagnosis Convulsions, unspecified convulsion type (HCC)- Primary documented in this encounter [facility]* Diagnosis 36 weeks gestation of - Primary state, incidental Excessive weight gain in , third trimester documented in this encounter [facility] noteNo assessment information availableWOhioHealth [facility] Work Phone: Evaluation note* Diagnosis Onset Date Resolution Status Vaginal discharge [facility] Work Phone: Evaluation note* Diagnosis care, subsequent in third trimester- Primary Elevated blood pressure reading without diagnosis of hypertension documented in this encounter [facility]* Diagnosis 38 weeks gestation of - Primary state, incidental Encounter for supervision of other normal in third trimester Elevated blood pressure reading without diagnosis of hypertension documented [facility]* Diagnosis 38 weeks gestation of - Primary state, incidental Excessive weight gain in , third trimester documented in this encounter [facility]* Diagnosis Onset Date Resolution Status Vaginal discharge resolved 37 weeks gestation of resolved Elevated blood pressure affe cting , antepartum resolved 39 weeks gestation of acute Second degree perineal laceration during delivery acute Single live acute (spontaneous vaginal delivery) acute High risk multigravida in third trimester resolved Polyhydramnios affecting in third trimester resolved Variable heart rate decelerations, antepartum resolved [facility] Work Phone: Evaluation note* Diagnosis 39 weeks gestation of - Primary state, incidental documented in this encounter [facility]* Diagnosis 39 weeks gestation of - Primary state, incidental Excessive weight gain in , third trimester documented in this encounter [facility]* Diagnosis macrosomia in third trimester, single or unspecified fetus- Primary 39 weeks gestation of state, incidental Excessive weight gain in , third trimester Polyhydramnios, third trimester, other fetus documented in this encounter [facility]* Diagnosis 39 weeks gestation of - Primary state, incidental Encounter for supervision of other normal in third trimester Excessive weight gain in , third trimester [facility]* Diagnosis endometritis- Primary Puerperal endometritis, condition or complication perineal pain Other specified complications, condition or complication Pelvic pain in female Unspecified symptom associated with female genital organs At risk for depression [facility]* Diagnosis Vaginal bleeding- Primary Other specified noninflammatory disorder of vagina Vaginal discharge Leukorrhea, not specified as infective state Routine follow-up documented [facility] this [facility]* Diagnosis perineal pain Other specified complications, condition or complication [facility]* Diagnosis PTSD (post-traumatic stress disorder)- Primary Posttraumatic stress disorder General counseling and advice on female contraception Other general counseling and advice for contraceptive management Anxiety neurosis Anxiety state, unspecified History of depression Personal history of other mental disorder Encounter for insertion of mirena IUD Encounter for insertion of intrauterine contraceptive device Body dysmorphic disorder Hypochondriasis History of bipolar disorder Personal history of affective disorder Care and examination of lactating mother documented in this encounter [facility]* Diagnosis Encounter for insertion of mirena IUD- Primary Encounter for insertion of intrauterine contraceptive device Encounter for IUD insertion Encounter for insertion of intrauterine contraceptive device Other iron deficiency anemia documented in this encounter [facility] note* Diagnosis Polysubstance dependence (HCC)- Primary Combinations of drug dependence excluding opioid type drug, unspecified Bipolar disorder, current episode depressed, severe, without psychotic features (HCC) Bipolar I disorder, most recent episode (or current) depressed, severe, without mention of psychotic behavior documented in this encounter [facility] note* Diagnosis Onset Date Resolution Status depression noneac tive Care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 by the Federal Confidentiality of Alcohol and Drug Abuse Patient Records regulations: The Federal rules restrict any use of the information to criminally investigate or prosecute any alcohol or drug abuse patient.[facility] HospitalIn the event this information is protected by the Federal Confidentiality of Alcohol and Drug Abuse Patient Records regulations: The Federal rules restrict any use of the information to criminally investigate or prosecute any alcohol or drug abuse patient.[facility] Goals (unrecognized section and content) Goals may be documented in a n alternate sectionGoals may be documented in an alternate sectionGoals may be documented in an alternate sectionGoals may be documented in an alternate sectionGoals may be documented in an alternate sectionGoals may be documented in an alternate section Care Teams (unrecognized sec tion and content) Team Status: Active Member Role Status Dates No Primary Care Physician Primary Care Provider Active Team Status: Inactive Member Role Status Dates No Primary Care Physician Primary Care Provider, Refer ring Provider Active Zoie Aly FINISH PAINTER, FINISH PAINTER-C Attending Provider Active Team Status: Inactive Member Role Status Dates No Primary Care Physician Primary Care Provider Active Dr. Jasmin Camp MD Emergency Provider Active Team Status: Inactive Member Role Status Dates No Primary Care Physician Primary Care Provider Active Dr. Jasmin Camp MD Attending Provider, Emergency Provider Active Team Status: Inactive Member Role Status Dates No Primary Care Physician Primary Care Provider Active Ed Physician Provider Emergency Provider Active Firer [employer]que Kiln Relationship Specialty Start Date End Date Carole Lacey MD [address] [facility] [place] [address] PCP - General Family Medicine 06/26/24 Michelle Workman APRN.LUZ MARIA [address] [place] [address] Change Management Facilitator Family Medicine 06/26/24 Firer Bisque Kiln Relationship Specialty Start Date End Date Carole Lacey MD [address] [place] [address]. [address] [place] [address] PCP - General Family Medicine 06/26/24 Michelle Workman, SPOT MACHINE OPERATOR.CLOTHING EXAMINER [address] [place] [address] Change Management Facilitator Family Medicine 06/26/24 Firer Bisque Kiln Relationship Specialty Start Date End Date Carole Lacey MD [address] [facility] [place], [place] [id number] PCP - General Family Medicine 06/26/24 Michelle Workman, SPOT MACHINE OPERATOR.CLOTHING EXAMINER [address] [place] [address] [facility] 06/26/24 Firer Bisque Kiln Relationship Specialty Start Date End Date Carole Lacey MD [address] [facility] [place] [address] PCP - General Family Medicine 06/26/24 Michelle Workman, SPOT MACHINE OPERATOR.CLOTHING EXAMINER [address] [place] [address] Change Management Facilitator Family Medicine 06/26/24 Team Status: Inactive Member Role Status Dates No Primary Care Physician Primary Care Provider Active Start: August 31, 2024 End: August 31, 2024 Tim Leonardo MD Referring Provider Active Star t: August 31, 2024 End: August 31, 2024 Tim Leonardo MD Emergency Provider Active Star t: August 31, 2024 End: August 31, 2024 Firer Bisque Kiln Relationship Specialty Start Date End Date Carole Lacey MD [address] [place] [address]. [address] [place], [place] [id number] PCP - General Family Medicine 06/26/24 Michelle Workman, LINDSEY.CLOTHING EXAMINER [address] [place] [id number] [facility] 06/26/24 Firer Bisque Kiln Relationship Specialty Start Date End Date Carole Lacey MD [address] [place] [address]. [address] [place], [place] [id number] PCP - General Family Medicine 06/26/24 Michelle Workman, LINDSEY.CLOTHING EXAMINER [address] [place] [address] [id number] [facility] 06/26/24 FOR RECORDS PERTAINING TO PATIENTS WHO ARE OR HAVE BEEN ENROLLED IN A CHEMICAL DEPENDENCY/SUBSTANCEABUSE PROGRAM, SOME INFORMATION MAY BE OMITTED. This clinical summary was aggregated from multiple sources. Caution should be exercised in using it in the provision of clinical care. This summary normalizes information from multiple sources, and as a consequence, information in this document may materially change the coding, format and clinical context of patient data. In addition, data may be omitted in some cases. CLINICAL DECISIONS SHOULD BE BASED ON THE PRIMARY CLINICAL RECORDS. [facility]. provides no warranty or guarantee of the accuracy or completeness of information in this document.
--- NOTE | 2024-12-17 12:13 | EDS_ITS ---
HPI History of Present Illness Chief Complaint: General Illness Informant: patient Onset/Context/Timing Onset: Weeks Context: Gradual Onset Timing: Intermittent Current Severity: Mild Maximum Severity: Mild Narrative Narrative: 19-year-old female history of PTSD prior substance abuse but states she is not using drugs currently on no IV drugs. Also history of seizures but currently on no seizure medication. Since her last almost 2 weeks she has had intermittent nausea vomiting. No diarrhea. Intermittent low-grade fever around 100. She thought was from stress. She denies any dysuria. No chest pain or shortness of breath or cough. No abdominal pain. Denies any dysuria. Says her last normal menstrual period was around November 20. But was concerned she might be now. She denies any abdominal pain currently. She is having mild spotting. Prior similar symptoms: No Recent Illness/Hospitalization: No PFSH PFSH Medical History Second degree perineal laceration during delivery (spontaneous vaginal delivery) PTSD (post-traumatic stress disorder) Bipolar disorder LGA (large for gestational age) fetus Drug use Marijuana smoker ETOH abuse Polyhydramnios Asthma Depression Anxiety Headache Seizures Gestational HTN Home Medications ?Medication ?Instructions ?Recorded ?Last Taken ?Type [id number] 1 mg 1 tab PO DAILY pregna ncy 04/20/22 2 Days Ago History tablet ~05/06/22 ferrous sulfate 325 mg (65 mg 325 mg PO DAILY pregnanc y 05/08/22 2 Days Ago History iron) tablet ~05/06/22 ferrous sulfate 325 mg (65 mg 325 mg PO DAILY #30 tabs 05/10/22 Unknown Rx iron) tablet ibuprofen 600 mg tablet 600 mg PO Q6H PRN pain #30 t abs 05/10/22 Unknown Rx fluoxetine 10 mg capsule 10 mg PO DAILY 09/18/22 Unkn own History ibuprofen 600 mg tablet 600 mg PO Q6H PRN PRN pain # 20 04/11/23 Unknown Rx TABLETS ibuprofen 600 mg tablet 600 mg PO Q8H PRN PRN fever or 08/31/24 Unknown Rx pain #20 TABLETS ondansetron 4 mg disintegrating 4 mg PO Q8H PRN PRN Na usea #15 tabs 08/31/24 Unknown Rx tablet ondansetron 4 mg disintegrating 4 mg PO Q6H PRN nausea and 12/17/24 Unknown Rx tablet vomiting #10 tabs Allergy/AdvReac Type Severity Reaction Status Date / Time No Known Allergies Allergy Verified 12/17/24 11:57 Surgical History History of tonsillectomy H/O right knee surgery History of surgery Social History household members: family housing: house Smoking Status: Current every day smoker tobacco type: e-cigarettes ROS ROS ED ROS Narrative Nausea and vomiting. Fever. Constitutional Constitutional ED: Reports fever(s) Eyes Eyes: Denies blurry vision ENT ENT ED: Denies ear pain Cardiovascular Cardiovascular: Denies chest pain Respiratory/Chest Respiratory/Chest: Denies cough or dyspnea Gastrointestinal Gastrointestinal: Reports nausea and vomiting; Denies abdominal pain, constipation, diarrhea or melena Genitourinary Genitourinary ED: Denies dysuria or hematuria Musculoskeletal Musculoskeletal: Denies arthralgias or back pain Integumentary Denies abscess Neurologic Neurologic: Denies headache(s) Psychiatric Psychiatric: Denies anxiety Endocrine Endocrinology: Denies cold intolerance Hematologic/Lymphatic Hematologic/Lymphatic: Reports none Allergic/Immunologic Allergic/Immunologic ED: Denies mouth swelling, tongue swelling or urticaria EXAM Physical Exam Narrative Exam Narrative: Well-appearing 19-year-old female. Vital signs stable afebrile. Does not look septic toxic no acute distress. Sitting upright in bed. Significant other at bedside. Pulse ox 100% on room air no signs of hypoxia. H EENT exam pupils round react light. Mytrex membranes. Posterior pharynx normal. TMs normal. Neck nontender. No lymphadenopathy. No meningismus. Back nontender. Lungs clear to auscultation bilaterally. Heart regular rhythm rate about 100 no murmur. Chest wall ribs nontender. Abdomen soft nontender. No peritoneal signs. No localizing tenderness. Moving all 4 extremities. Nontender no edema. Normal range of motion. No rashes. No hot or swollen joints. Normal range of motion and strength. Neurologically the patient is awake and alert. Answer questions following commands. NIH is 0. Const Vital Signs: 12/17/24 11:34 12/17/24 11:55 12/17/24 13:34 Temperature 98.3 F Temperature Source Oral Pulse Rate 101 H 77 Respiratory Rate 20 H 15 Respiratory Effort Normal Respiratory Pattern Normal Blood Pressure 132/114 H 109/75 Blood Pressure Mean 120 86 Pulse Ox 100 97 Oxygen Delivery Method Room Air Room Air 12/17/24 13:51 Temperature 98.3 F Temperature Source Pulse Rate 77 Respiratory Rate 15 Respiratory Effort Respiratory Pattern Blood Pressure 109/75 Blood Pressure Mean 86 Pulse Ox 97 Oxygen Delivery Method Positive well nourished and well developed; Negative for cachectic, contractures or unkempt General Appearance ED: well developed and NAD; Negative for unkempt, cachectic, contractures, cyanotic, diaphoretic or pallor Nutritional Appearance: Negative for cachectic HEENT Reports moist mucous membranes Eyes PERRL and EOMs intact bilaterally General Eye ED: Negative for pale conjunctiva or scleral icterus Neck no lymphadenopathy, supple and no JVD General: Negative for tenderness Lymph Lymphatic: Negative for other Chest Wall inspection of chest normal and palpation of chest normal Resp normal respiratory effort and clear to auscultation bilaterally Auscultation: Negative for rales, rhonchi, wheezes or diminished lung sounds Cardio regular rate, regular rhythm, S1 normal heart sound, S2 normal heart sound and no murmurs GI normal to inspection, nondistended, normoactive bowel sounds, non-tender, non- distended and no masses Auscultation: normoactive bowel sounds Palpation: soft; Negative for tender, guarding or rebound tenderness present Back/Spine no CVA tenderness General Back: Negative for CVA tenderness Cervical Spine: Negative for cervical spine tenderness Thoracic Spine / Upper Back: Negative for thoracic spinal tenderness or paraspinal muscle tenderness Lumbar Spine / Lower Back: Negative for lumbar spinal tenderness Extremity normal to inspection General Extremety ED: Negative for edema or tenderness General Extremity: Negative for edema Neuro oriented x3 and CN's II-XII intact bilaterally Sensorium / Orientation: alert Motor Exam: strength 5/5 throughout Psych mental status grossly normal Appearance: Negative for unkempt Attitude: No agitated Mood & Affect: Negative for depressed, anxious or tearful Skin no rashes or lesions noted, no wounds and skin turgor normal General Skin Exam: elasticity normal; Negative for jaundice or pallor Lesions: No lesion noted Rashes: No rashes noted Trauma: Negative for abrasion Wounds: Negative for wounds noted MDM MDM MDM Narrative Medical decision making narrative: 19-year-old female with intermittent nausea vomiting for 2 weeks intermittent fever. Exam benign. Screening labs. UA. Also concerned she may or may not be . Serum test will be done. She will be given IV Zofran for nausea and a liter of fluid. Repeat exam patient is doing well at 1:40 PM. Abdomen is benign. She is feeling improved with Zofran and fluids. We went over her test results. Her labs are basically unremarkable other than being . This will be her second she has 1 child already. She will follow-up with her [facility] at the [facility]. She does not need any further testing or imaging. At most if her dates are right she would be more than 2 weeks . History & Record Review Discussion w/independent historian: Patient and Family Additional record(s) reviewed:: Prior inpatient record, Prior outpatient record, Prior ED visit and Prior labs Lab Data Attestation: I reviewed the patient's lab results. Lab results narrative: CBC shows a white count of 5. H&H 13 and 40. Platelets 198. Electrolytes show gap 11. Normal BUN and creatinine. Glucose 80. Serum test positive. UA negative. Labs: Laboratory Results - last 24 hr 12/17/24 12:29 WBC 5.8 RBC 4.69 Hgb 13.6 Hct 40.5 MCV 86.4 MCH 29.0 MCHC 33.6 RDW Std Deviation 39.7 RDW Coeff of Shira 12.7 Plt Count 198 MPV 10.5 Immature Gran % (Auto) 0.300 Neut % (Auto) 61.7 Lymph % (Auto) 27.3 Nash % (Auto) 9.5 Eos % (Auto) 0.7 Baso % (Auto) 0.5 Absolute Neuts (auto) 3.6 Absolute Lymphs (auto) 1.57 Nucleated RBC % 0 Sodium 138 Potassium 3.4 Chloride 104 Carbon Dioxide 23.1 Anion Gap 11 BUN 9 Creatinine 0.65 L Estim Creat Clear Calc 153.02 Est GFR (MDRD) Non-Af 128 BUN/Creatinine Ratio 13.4 Glucose 80 Calcium 9.1 Serum , Qual POSITIVE Urine Color Yellow Urine Clarity Clear Urine pH 6.5 Ur Specific [place] 1.010 Urine Protein 15 H Urine Glucose (UA) Normal Urine Ketones Negative Urine Occult Blood Negative Urine Nitrite Negative Urine Bilirubin Negative Urine Urobilinogen Normal Ur Leukocyte Esterase 25 H Urine RBC 0 SEEN Urine WBC 0-5 SEEN Ur Squamous Epith Cells 0-5 SEEN Urine Bacteria 1+ Urine Mucus 0 SEEN Discharge Plan Triage Chief Complaint: General Illness ED Provider: Naun Garcia Dx/Rx/DC Orders Clinical Impression: Vomiting, First trimester Instructions: 1st Trimester, ED Vomiting (Adult) Prescriptions: New ondansetron 4 mg tablet,disintegrating 4 mg PO Q6H PRN (Reason: nausea and vomiting) Qty: 10 0RF No Action [id number] 1 mg Tablet 1 tab PO DAILY ferrous sulfate 325 mg (65 mg iron) Tablet 325 mg PO DAILY ibuprofen 600 mg tablet 600 mg PO Q6H PRN (Reason: pain) Qty: 30 0RF ferrous sulfate 325 mg (65 mg iron) tablet 325 mg PO DAILY Qty: 30 0RF fluoxetine 10 mg capsule 10 mg PO DAILY Patient Comments: TAKE 1 CAPSULE BY MOUTH ONCE DAILY ibuprofen 600 mg tablet 600 mg PO Q6H PRN PRN (Reason: pain) Qty: 20 0RF ibuprofen 600 mg tablet 600 mg PO Q8H PRN PRN (Reason: fever or pain) Qty: 20 0RF ondansetron 4 mg tablet,disintegrating 4 mg PO Q8H PRN PRN (Reason: Nausea) Qty: 15 0RF Primary Care Provider: Care Physician,No Primary Referrals: Katey Glover DO [Med Staff - Active Staff] - As soon as possible Care Physician,No Primary [Primary Care Provider] - Activity Restrictions/Additional Instructions: Plenty of fluids and rest. Follow-up with your MANAGER QUANTITATIVE to be scheduled for first trimester appointment. Your test was positive today. Your other labs look good. Your urine was not infected. Zofran as needed for nausea. Print Language: Hebrew Disposition Disposition: Home, Self Care
[2024-12-17] MEDS: 0.9% Normal Saline (1000mL) 1,000 ML 1000 ML IV (12:18)
[2024-12-17 12:36] LABS: Mucous, Urine 0 SEEN /hpf (<or=2+); Red Blood Cells-Urine 0 SEEN /hpf (0-5)
[2024-12-17 12:46] LABS: Hematocrit 40.5 % (37-47); Hemoglobin 13.6 g/dL (12.0-15.0); Immature Granulocytes Count 0.020 X10^3/uL (0.0-0.0); Mean Corp Hgb Conc 33.6 g/dL (32-36); Mean Corpuscular Volume 86.4 fL (81-99); Mean Platelet Vol. 10.5 fl (6.2-12.0); NRBC Flagged by Analyzer 0 % (0-5); Platelet Count 198 K/mm3 (150-450); RBC Distribution Width CV 12.7 % (11.6-14.6); RBC Distribution Width SD 39.7 fl (35.1-43.9); Red Blood Count 4.69 M/mm3 (4.2-5.4); White Blood Count 5.8 K/mm3 (4.4-11.0)
[2024-12-17 12:52] LABS: Color, Urine Yellow (Yellow); Glucose, Dipstick Normal (Normal); Ketone-Dipstick Negative (Negative); Leukocyte Esterase-Dipstick 25 /ul (Negative); Nitrite-Dipstick Negative (Negative); Occult Blood-Urine Negative /ul (Negative); Protein-Dipstick 15 mg/dl (Negative); Specific Gravity, Urine 1.010 (1.002-1.030); Urine Bilirubin Dipstick Negative (Negative)
[2024-12-17 12:56] LABS: Internal QC Validated? YES +Cl - CLEAR BKGD; Record Kit Lot#, Serum Preg. 0000962302
[2024-12-17 12:57] LABS: Pregnancy, Serum, hCG Quali. POSITIVE Negative
[2024-12-17 13:01] LABS: Anion Gap 11 (5-15); BUN 9 mg/dL (4-19); BUN/Creat Ratio 13.4 RATIO (10-20); Calcium,Total 9.1 mg/dL (7.6-11.0); Carbon Dioxide 23.1 mmol/L (21.0-32.0); Chloride 104 mmol/L (98-108); Estimated Creatinine Clearance 153.02 ml/min (50-250); Glucose 80 mg/dL (70-99); Potassium 3.4 mmol/L (3.3-5.1)
[2024-12-17 13:03] LABS: Squamous Epithelial Cells - UA 0-5 SEEN /hpf (5-10)
[2024-12-17 13:34] VITALS: BP 109/75; PULSE 77; RESP 15; O2SAT 97
[2024-12-17 13:51] VITALS: BP 109/75; PULSE 77; RESP 15; TEMP 36.8; O2SAT 97
== END 2024-12-17 14:02 | disposition home or self-care (01) ==
PROVIDERS: Emergency Provider Emergency Medicine; Visit Provider Emergency Medicine
DX: O21.9 Vomiting of pregnancy, unspecified (principal); O99.331 Smoking (tobacco) complicating pregnancy, first trimester; F17.290 Nicotine dependence, other tobacco product, uncomplicated; Z3A.00 Weeks of gestation of pregnancy not specified
CPT/HCPCS: 80048; 81001; 84703; 85025; 96361; 96374; 99283; J2405

== ENCOUNTER 2024-12-31 11:30 | Emergency (ER) | payer MEDICAID, SELFPAY ==
[2024-12-31 11:32] VITALS: BP 105/75; PULSE 79; RESP 16; TEMP 36.9; O2SAT 98; BMI 24.2
--- NOTE | 2024-12-31 11:51 | EDS_ITS ---
HPI HPI - GI History of Present Illness Chief Complaint: Abd Pain Informant: patient Narrative Narrative: 19-year-old female that says she is by home test has not yet had an ultrasound, she has been having morning sickness for couple weeks, but she is developed diffuse abdominal cramping radiating into her low mid back for the past 3 days, she has had bodyaches for longer than that, and since last night she has been having watery diarrhea and vomiting that feels different the morning sickness. Denies any vaginal bleeding but last night she started having an abnormal for her green-white homogenous discharge. She states her last normal cycle was 10/19, but then she spotted for 2 days on 11/20 so she is not sure how far along she is. G2, P1. PFSH PFSH Medical History Second degree perineal laceration during delivery (spontaneous vaginal delivery) PTSD (post-traumatic stress disorder) Bipolar disorder LGA (large for gestational age) fetus Drug use Marijuana smoker ETOH abuse Polyhydramnios Asthma Depression Anxiety Headache Seizures Gestational HTN Home Medications ?Medication ?Instructions ?Recorded ?Last Taken ?Type xsyhizso-rlq-Es-FA 1 mg 1 tab PO DAILY pregna ncy 04/20/22 2 Days Ago History tablet ~05/06/22 ondansetron 8 mg disintegrating 8 mg PO Q8H PRN nausea and 12/31/24 Unknown Rx tablet vomiting #20 tabs vitamin no.102-iron 90 1 cap PO DAILY 5 Unknown History mg-folate 1 mg-dha 200 mg capsule Allergy/AdvReac Type Severity Reaction Status Date / Time No Known Allergies Allergy Verified 12/31/24 11:37 Surgical History History of tonsillectomy H/O right knee surgery History of surgery Social History household members: family housing: house Smoking Status: Current every day smoker tobacco type: e-cigarettes ROS ROS ED Constitutional Constitutional ED: Reports body ache(s); Denies chills or fever(s) Eyes Eyes: Denies change in vision or diplopia ENT ENT ED: Denies rhinorrhea or sore throat Cardiovascular Cardiovascular: Denies chest pain or palpitations Respiratory/Chest Respiratory/Chest: Denies cough or dyspnea Gastrointestinal Gastrointestinal: Reports abdominal pain, diarrhea, nausea and vomiting Genitourinary Genitourinary ED: Reports urinary frequency; Denies dysuria or hematuria Musculoskeletal Musculoskeletal: Reports back pain; Denies neck pain Integumentary Denies abscess or rash Neurologic Neurologic: Denies headache(s), paresthesias or weakness Psychiatric Psychiatric: Denies suicidal thoughts EXAM Physical Exam Const Vital Signs: 12/31/24 11:32 12/31/24 13:32 Temperature 98.5 F Temperature Source Oral Pulse Rate 79 63 Respiratory Rate 16 15 Blood Pressure 105/75 100/61 Blood Pressure Mean 85 74 Pulse Ox 98 100 Oxygen Delivery Method Room Air Positive well nourished and well developed General Appearance ED: well developed and NAD HEENT Reports moist mucous membranes normocephalic and atraumatic Eyes PERRL and EOMs intact bilaterally Neck full ROM and supple Resp normal respiratory effort and clear to auscultation bilaterally Cardio regular rate, regular rhythm and no murmurs Rate: Negative for tachycardic GI non-distended GI Narrative: Mild suprapubic tenderness without guarding or rebound no other significant abdominal tenderness Auscultation: normoactive bowel sounds Palpation: soft Back/Spine no CVA tenderness General Back: other FROM Extremity normal to inspection General Extremety ED: Negative for edema, pulses abnormal or tenderness General Extremity: Negative for edema or pulses abnormal Neuro oriented x3, CN's II-XII intact bilaterally and no sensory deficits noted Sensorium / Orientation: awake and alert Motor Exam: strength 5/5 throughout Psych Mood & Affect: anxious Skin no rashes or lesions noted and no wounds MDM MDM MDM Narrative Medical decision making narrative: Labs, urinalysis normal. Her quantitative hCG came back over 36,000. I did a bedside ultrasound, I believe that she had double decidual sign, however it is unclear and there is some shadowing from bowel gas. I attempted to find pole and heart tones but was unable. It is unclear what is going on. I made a low suspicion for ectopic given her history and her fairly benign exam, however I am not able to rule that out without an ultrasound. She was amenable to staying for an ultrasound. This was ordered. However staff had to be called in, and before they came in she became impatient and decided she wanted to leave. We discussed the fact that the status of her is unknown, and ectopic would be life-threatening for mom, she understands that, we discussed that she should return if she has any lateralizing pain or vaginal bleeding or syncope or other new concerning symptoms, right now her symptoms may be related to viral etiology and not related, but it is unclear since we are not able to get an ultrasound prior to her leaving. She understands and signed out AGAINST MEDICAL ADVICE, she was well-informed. She was given a prescription for Zofran regardless and advised to follow-up with her OB soon as possible. Lab Data Attestation: I reviewed the patient's lab results. Labs: Laboratory Results - last 24 hr 12/31/24 12/31/24 11:52 12:04 WBC 7.2 RBC 4.76 Hgb 13.8 Hct 40.9 MCV 85.9 MCH 29.0 MCHC 33.7 RDW Std Deviation 39.4 RDW Coeff of Shira 12.6 Plt Count 214 MPV 10.3 Immature Gran % (Auto) 0.300 Neut % (Auto) 66.8 Lymph % (Auto) 23.1 [place] % (Auto) 8.6 Eos % (Auto) 0.8 Baso % (Auto) 0.4 Absolute Neuts (auto) 4.8 Absolute Lymphs (auto) 1.67 Nucleated RBC % 0 Sodium 138 Potassium 3.8 Chloride 103 Carbon Dioxide 23.3 Anion Gap 11 BUN 5 Creatinine 0.58 L Estim Creat Clear Calc 171.49 Est GFR (MDRD) Non-Af 132 BUN/Creatinine Ratio 9.4 L Glucose 98 Calcium 9.7 Total Bilirubin 0.52 AST 17 ALT 16 Alkaline Phosphatase 64 Total Protein 7.7 Albumin 4.5 Globulin 3.3 Albumin/Globulin Ratio 1.4 HCG, Quant 85655 H Urine Color Yellow Urine Clarity Clear Urine pH 8.0 Ur Specific [place] 1.010 Urine Protein Negative Urine Glucose (UA) Normal Urine Ketones Negative Urine Occult Blood Negative Urine Nitrite Negative Urine Bilirubin Negative Urine Urobilinogen Normal Ur Leukocyte Esterase Negative Urine RBC 0 SEEN Urine WBC 0 SEEN Ur Squamous Epith Cells 0 SEEN Urine Bacteria 0 SEEN Urine Mucus 0 SEEN Discharge Plan Triage Chief Complaint: Abd Pain Other Complaint: Back Diarrhea ED Provider: Andrei Mi Dx/Rx/DC Orders Clinical Impression: First trimester , Pelvic pain during in first trimester, antepartum, Nausea vomiting and diarrhea, Vaginal discharge during in first trimester Prescriptions: New ondansetron 8 mg tablet,disintegrating 8 mg PO Q8H PRN (Reason: nausea and vomiting) Qty: 20 0RF Discontinued ibuprofen 600 mg tablet 600 mg PO Q6H PRN (Reason: pain) Qty: 30 0RF ibuprofen 600 mg tablet 600 mg PO Q6H PRN PRN (Reason: pain) Qty: 20 0RF ibuprofen 600 mg tablet 600 mg PO Q8H PRN PRN (Reason: fever or pain) Qty: 20 0RF ondansetron 4 mg tablet,disintegrating 4 mg PO Q8H PRN PRN (Reason: Nausea) Qty: 15 0RF ondansetron 4 mg tablet,disintegrating 4 mg PO Q6H PRN (Reason: nausea and vomiting) Qty: 10 0RF No Action [id number]-[id number]-FA 1 mg Tablet 1 tab PO DAILY PNV [id number]-ndmo-ekcvoy-dha 90 mg iron- 1 mg-200 mg capsule 1 cap PO DAILY Primary Care Provider: Care Physician,No Primary Referrals: Laurie Bonner CNM [Med Staff - Adv Practice Prof] - As soon as possible Print Language: Italian Disposition Disposition: Against Medical Advice
[2024-12-31 11:58] LABS: Hematocrit 40.9 % (37-47); Hemoglobin 13.8 g/dL (12.0-15.0); Immature Granulocytes Count 0.020 X10^3/uL (0.0-0.0); Mean Corp Hgb Conc 33.7 g/dL (32-36); Mean Corpuscular Volume 85.9 fL (81-99); Mean Platelet Vol. 10.3 fl (6.2-12.0); NRBC Flagged by Analyzer 0 % (0-5); Platelet Count 214 K/mm3 (150-450); RBC Distribution Width CV 12.6 % (11.6-14.6); RBC Distribution Width SD 39.4 fl (35.1-43.9); Red Blood Count 4.76 M/mm3 (4.2-5.4); White Blood Count 7.2 K/mm3 (4.4-11.0)
[2024-12-31] MEDS: 0.9% Normal Saline (1000mL) 1,000 ML 999 ML IV (12:02)
[2024-12-31 12:08] LABS: Mucous, Urine 0 SEEN /hpf (<or=2+); Red Blood Cells-Urine 0 SEEN /hpf (0-5); Squamous Epithelial Cells - UA 0 SEEN /hpf (5-10)
[2024-12-31 12:09] LABS: Color, Urine Yellow (Yellow); Glucose, Dipstick Normal (Normal); Ketone-Dipstick Negative (Negative); Leukocyte Esterase-Dipstick Negative /ul (Negative); Nitrite-Dipstick Negative (Negative); Occult Blood-Urine Negative /ul (Negative); Protein-Dipstick Negative (Negative); Specific Gravity, Urine 1.010 (1.002-1.030); Urine Bilirubin Dipstick Negative (Negative)
--- OUTSIDE RECORDS SUMMARY | 2024-12-31 12:20 | XMS RPT_ITS | CCD ---
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 analysis of urin e for red blood cells (RBC)Ordered By: Naun Garcia on 12-17-2024 Microscopic analysis of urine for red blood cells (RBC) 0 SEEN /hpf 0-5 [facility] Monocyte percentageOrdered B y: Naun Garcia on 12-17-2024 Monocytes/100 WBC (Bld) 9.5 % 0-10 [facility] Mucus LM Ql (Urine sed)Order ed By: Naun Garcia on 12-17-2024 Mucus Ql (Urine sed) 0 SEEN /hpf [facility] Neutrophil percentageOrdered By: Naun Garcia on 12-17-2024 Neutrophils/100 WBC (Bld) 61.7 % 47-70 [facility] Nitrite Test strip Ql (U)Ord ered By: Naun Garcia on 12-17-2024 Nitrite Ql (U) Negative Negative [facility] Nucleated red blood cell per centageOrdered By: Naun Garcia on 12-17-2024 Nucleated RBC/100 WBC (Bld) [Ratio] 0 % 0-5 [facility] Platelet countOrdered By: Ramesh Garcia on 12-17-2024 Platelets (Bld) [#/Vol] 198 10*3/uL 150-450 [facility] Potassium measurement (mass/ volume)Ordered By: Naun Garcia on 12-17-2024 Potassium (Unsp spec) [Mass/Vol] 3.4 mmol/L 3.3-5.1 [facility] ,Serum,hCG Quali.on 12-17-2024 HCG, SERUM QUAL Positive Normal [facility] Comment on above: Result Comment: AMENDED REPORT 12/17/24 1257 HCGSQUAL previously reported as: NEGATIVE Negative Performed By: #### L 100.0100, L500.2500, L700.6800 #### [facility] [address] [place], [address] Protein Test strip Ql (U)Ord ered By: Naun Garcia on 12-17-2024 Protein Ql (U) 15 mg/dl High Negative [facility] RBC Auto (Bld) [#/Vol]Ordere d By: Naun Garcia on 12-17-2024 RBC (Bld) [#/Vol] 4.69 10*6/uL 4.2-5.4 [facility] Serum beta-hCG test, qualita tiveOrdered By: Naun Garcia on 12-17-2024 Beta HCG ( test) Ql Negative [facility] Comment on above: Previous reported re sult: NEGATIVE NegativeEdited by: CHRISTOPHER on 12/17/24:1257 AMENDED REPORT 12/17/24 1257 HCGSQUAL previously reported as: NEGATIVE Negative Serum creatinine measurement (mass/volume)Ordered By: Naun Garcia on 12-17-2024 Creatinine [Mass/Vol] 0.65 mg/dL Low 0.70-1.20 [facility] Serum glucose measurement (m ass/volume)Ordered By: Naun Garcia on 12-17-2024 Glucose [Mass/Vol] 80 mg/dL 70-99 [facility] Serum or plasma calcium deysi urement (mass/volume)Ordered By: Naun Garcia on 12-17-2024 Calcium [Mass/Vol] 9.1 mg/dL 7.6-11.0 [facility] Serum or plasma urea nitroge n measurement (mass/volume)Ordered By: Naun Garcia on 12-17-2024 Urea nitrogen [Mass/Vol] 9 mg/dL 4-19 [facility] Sodium levelOrdered By: Naun Garcia on 12-17-2024 Sodium [Moles/Vol] 138 mmol/L 133-145 [facility] Squamous epithelial cells de tection in urine sediment by light microscopyOrdered By: Naun Garcia on 12-17-2024 Epithelial cells.squamous LM Ql (Urine sed) 0-5 SEEN /hpf 09-16 [facility] Urinalysis, Completeon 12-17 BACTERIA 1+ /hpf Normal None Seen [facility] Comment on above: Order Comment: CLEAN CATCH Performed By: #### L 400.0001 #### [facility] [address] [place], [address] EPI,SQUAMOUS 0-5 SEEN Normal 09-16 [facility] Comment on above: Order Comment: CLEAN CATCH Performed By: #### L 400.0001 #### [facility] [address] [place], [place], [id number] WBC 0-5 SEEN Normal 0-5 [facility] Comment on above: Order Comment: CLEAN CATCH Performed By: #### L 400.0001 #### [facility] [address] [place], [address] Mucus Ql (Urine sed) 0 SEEN Normal [facility] Comment on above: Order Comment: CLEAN CATCH Performed By: #### L 400.0001 #### [facility] [address] [place], [address] RBC 0 SEEN Normal 0-5 [facility] Comment on above: Order Comment: CLEAN CATCH Performed By: #### L 400.0001 #### [facility] [address] [place], [place], [id number] Urine clarityOrdered By: Loki Garcia on 12-17-2024 Clarity (U) Clear Clear [facility] Urine color determinationOrd ered By: Naun Garcia on 12-17-2024 Color (U) Yellow Yellow [facility] Urine glucose detectionOrder ed By: Naun Garcia on 12-17-2024 Glucose Ql (U) Normal mg/dl Normal [facility] Urine leukocyte esterase det ection by dipstickOrdered By: Naun Garcia on 12-17-2024 Leukocyte esterase Test strip Ql (U) 25 /ul High Negative [facility] Urine pHOrdered By: Naun kaufman on 12-17-2024 pH (U) 6.5 [pH] 5.0 - 8.0 [facility] Urine sediment bacteria coun t by microscopy (number/high power field)Ordered By: Naun Garcia on 12-17-2024 Bacteria LM.HPF (Urine sed) [#/Area] 1 /[HPF] None Seen [facility] Urine specific gravity measu rementOrdered By: Naun Garcia on 12-17-2024 Specific gravity (U) [Rel density] 1.010 1.002-1.030 [facility] Urine urobilinogen measureme ntOrdered By: Naun Garcia on 12-17-2024 Urobilinogen Ql (U) Normal mg/dl Normal [facility] White blood cell (WBC) count Ordered By: Naun Garcia on 12-17-2024 WBC (Bld) [#/Vol] 5.8 10*3/uL 4.4-11.0 [facility] White blood cell countOrdere d By: Naun Garcia on 12-17-2024 White blood cell count 0-5 SEEN /hpf 0-5 [facility] CNCOon 09-25-2024 CNCO Letter Text Normal [facility] [place] 09-18-2024 Indication Abnormal uterine bleeding, pelvic [...] Read By: Dalila Oshea M.D. MATERNAL MEDICINE [facility] [place] 09-15-2024 Radiology Study observation (narrative) [facility] B-HCG SerPl-aCncon HCG.beta subunit Qn m[IU]/mL Normal <5.0 [facility] Comment on above: Order Comment: Speci men Type: BLOOD SPECIMEN Ordering Facility: [facility] Address: [address] [place] [address] Result Comment: Ajith rossi Performed By: #### 5 195-3, 08796-5, 94107-3 #### [facility] CLIA [id number] [address] [place] [address] [place] BACTERIAL VAGINOSIS NAATon 0 09-13-2024 Lactobacillus crispatus+gasseri+starla enii + Gardnerella vaginalis + Atopobium vaginae rRNA AL+probe Ql (Vag fld) Not detected Normal Not detected [facility] Comment on above: Order Comment: Speci men Type: SWAB Ordering Facility: [facility] Address: [address] [place] [address] Performed By: #### 3 6902-5, TRVACRYS #### [facility] CLIA [id number] [address] [place] [address] [place] C. trachomatis+N. gonorrhoea e DNA LA+probe Ql (Unsp spec)on 09-13-2024 C. trachomatis rRNA LA+probe Ql (Unsp spec) Not detected Normal Not detected [facility] Comment on above: Order Comment: Speci men Type: BLOOD SPECIMEN Ordering Facility: [facility] Address: [address] [place] [address] Performed By: #### 5 195-3, 33347-0, 90910-9 #### [facility] CLIA [id number] [address] [place] [address] [place] N. gonorrhoeae rRNA LA+probe Ql (Unsp spec) Not detected Normal Not detected [facility] Comment on above: Order Comment: Speci men Type: BLOOD SPECIMEN Ordering Facility: [facility] Address: [address] [place] [address] Performed By: #### 5 195-3, 49565-6, 67512-4 #### [facility] CLIA [id number] [address] [place] [address] [place] MARIA T/TRICHOMONAS NAATon 0 09-13-2024 C. glabrata RNA LA+probe Ql (Vag fld) Not detected Normal Not detected [facility] Comment on above: Order Comment: Speci men Type: SWAB Ordering Facility: [facility] Address: [address] [place] [address] Performed By: #### 3 6902-5, TRVAMP #### [facility] CLIA [id number] [address] [place] [address] [place] Maria T sp DNA LA+probe Ql (Vag fld) Not detected Normal Not detected [facility] Comment on above: Order Comment: Speci men Type: SWAB Ordering Facility: [facility] Address: [address] [place] [address] Result Comment: The Maria T species group target includes C. albicans, C. tropicalis, C. parapsilosis, and C. dubliniensis. Performed By: #### 3 6902-5, TRVAMP #### [facility] CLIA [id number] [address] [place] [address] [place] T. vaginalis DNA LA+probe Ql (Unsp spec) Not detected Normal Not detected [facility] Comment on above: Order Comment: Speci men Type: SWAB Ordering Facility: [facility] Address: [address] [place] [address] Performed By: #### 3 6902-5, TRVAMP #### [facility] CLIA [id number] [address] [place] [address] [place] CBC panel Auto (Bld)on 09-13 Erythrocyte distribution width (RBC) [Ratio] 12.4 % 11.5 - 15.0 % [facility] Hematocrit (Bld) [Volume fraction] 41.1 % 36.0 - 46.0 % [facility] Hemoglobin (Bld) [Mass/Vol] 13.9 g/dL 11.5 - 15.5 g/dL [facility] Interpretation and review of laboratory results Normal [facility] MCH (RBC) [Entitic mass] 29.1 pg 26.0 - 34.0 pg [facility] MCHC (RBC) [Mass/Vol] 33.8 g/dL 30.5 - 36.0 g/dL [facility] MCV (RBC) [Entitic vol] 86 fL 80.0 - 100.0 fL [facility] Nucleated RBC (Bld) [#/Vol] NINF [facility] Platelet mean volume (Bld) [Entitic vol] 10.2 fL 9.0 - 12.7 fL [facility] Platelets (Bld) [#/Vol] 255 10*3/uL [facility] RBC (Bld) [#/Vol] 4.78 10*6/uL 3.90 - 5.2 0 m/uL [facility] WBC (Bld) [#/Vol] 7.22 10*3/uL [facility] Erythrocyte distribution width (RBC) [Ratio] 12.4 % Normal 11.5-15.0 [facility] Comment on above: Order Comment: Speci men Type: BLOOD SPECIMEN Ordering Facility: [facility] Address: [address] [place] [address] Performed By: #### 5 195-3, 97105-6, 93283-0 #### [facility] CLIA [id number] [address] [place] [address] [place] Hematocrit (Bld) [Volume fraction] 41.1 % Normal 36.0-46.0 [facility] Comment on above: Order Comment: Lolai josé miguel Type: BLOOD SPECIMEN Ordering Facility: [facility] Address: [address] [place] [address] Performed By: #### 5 195-3, 60560-7, 47351-5 #### [facility] CLIA [id number] [address] [place] [address] [place] Hemoglobin (Bld) [Mass/Vol] 13.9 g/dL Normal 11.5-15.5 [facility] Comment on above: Order Comment: Speci men Type: BLOOD SPECIMEN Ordering Facility: [facility] Address: [address] [place] [address] Performed By: #### 5 195-3, 37449-5, 62558-6 #### [facility] CLIA [id number] [address] [place] [address] [place] MCH (RBC) [Entitic mass] 29.1 pg Normal 26.0-34.0 [facility] Comment on above: Order Comment: Speci men Type: BLOOD SPECIMEN Ordering Facility: [facility] Address: [address] [place] [address] Performed By: #### 5 195-3, 50738-0, 45968-6 #### [facility] CLIA [id number] [address] [place] [address] [place] MCHC (RBC) [Mass/Vol] 33.8 g/dL Normal 30.5-36.0 [facility] Comment on above: Order Comment: Speci men Type: BLOOD SPECIMEN Ordering Facility: [facility] Address: [address] [place] [address] Performed By: #### 5 195-3, 22743-9, 34310-0 #### [facility] CLIA [id number] [address] [place] [address] [place] MCV (RBC) [Entitic vol] 86.0 fL Normal 80.0-100.0 [facility] Comment on above: Order Comment: Speci men Type: BLOOD SPECIMEN Ordering Facility: [facility] Address: [address] [place] [address] Performed By: #### 5 195-3, 67008-4, 82143-0 #### [facility] CLIA [id number] [address] [place] [address] [place] Nucleated RBC (Bld) [#/Vol] 10*3/uL Normal <0.01 [facility] Comment on above: Order Comment: Speci men Type: BLOOD SPECIMEN Ordering Facility: [facility] Address: [address] [place] [address] Performed By: #### 5 195-3, 74251-0, 91119-2 #### [facility] CLIA [id number] [address] [place] [address] [place] Platelet mean volume (Bld) [Entitic vol] 10.2 fL Normal 9.0-12.7 [facility] Comment on above: Order Comment: Speci men Type: BLOOD SPECIMEN Ordering Facility: [facility] Address: [address] [place] [address] Performed By: #### 5 195-3, 84528-3, 30348-8 #### [facility] CLIA [id number] [address] [place] [address] [place] Platelets (Bld) [#/Vol] 255 10*3/uL Normal 150-400 [facility] Comment on above: Order Comment: Speci men Type: BLOOD SPECIMEN Ordering Facility: [facility] Address: [address] [place] [address] Performed By: #### 5 195-3, 58346-8, 63960-4 #### [facility] CLIA [id number] [address] [place] [address] [place] RBC (Bld) [#/Vol] 4.78 10*6/uL Normal 3.90-5.20 [facility] Comment on above: Order Comment: Speci men Type: BLOOD SPECIMEN Ordering Facility: [facility] Address: [address] [place] [address] Performed By: #### 5 195-3, 10740-5, 84964-5 #### [facility] CLIA [id number] [address] [place], [place] [address] [place] WBC (Bld) [#/Vol] 7.22 10*3/uL Normal 3.70-11.00 [facility] Comment on above: Order Comment: Speci men Type: BLOOD SPECIMEN Ordering Facility: [facility] Address: [address] [place] [address] Performed By: #### 5 195-3, 96672-6, 10217-5 #### [facility] CLIA [id number] [address] [place] [address] [place] CNOVon 09-13-2024 CNOV Office Visit (OBGYWM ) RINA YI ([id number]) 1 F Date Time Provider Department 09/13/24 1:30 PM BLANK CHAVIRA During your visit today, we recorded the following information about you: Blood pressure Weight Last Period 110/62 74.8 kg 08/21/24 Blank Chavira APRN.WORK AND FAMILY LIFE CONSULTANT 09/13/2024 2:18 PM Signed Tobacco Grader offered: Patient declines. Rina Yi is a [...] Living1 SAB0 IAB0 Ectopic0 Multiple0 Live Births1 Designer Writer History LMP: 08/21/2024 (Approximate), Having periods Age at Menarche: Age at First : Age at Menopause: Designer Writer History Comments: Sexual Activity: Yes; Male Contraception: [...] Assessed 07/02/2024 REVIEW OF SYSTEMS Expanded ROS: SANITATION SUPERINTENDENT: + abnormal uterine bleeding, pelvic pain Allergies and current medication updated:Yes SENSITIVE EXAM: The sensitive examination was discussed with the Patient or Patient's Authorized Pattern Layout Worker. As applicable, any other physician, advance practice provider, medical student, or other health professional student that will be observing or involved in the sensitive examination for educational or training purposes was discussed with the Patient or Authorized Pattern Layout Worker. The Patient or Authorized Pattern Layout Worker has agreed to proceed with the sensitive examination. (Sensitive examination includes inspection and/or palpation of the breasts, pelvis, prostate and anorectal regions). EXAM: BP 110/62 Wt 165 lb (74.8kg) LMP 08/21/2024 GENERAL: pleasant, female in no apparent distress HEENT: Normocephalic, atraumatic, mucus membranes moist, and no lesions CHEST: Normal inspiratory effort PELVIC: external genitalia normal, normal Bartholin's glands, urethra, [place]'s glands, no vulvar lesions, no cervical lesions, [...] up Em (more content not included)... Normal [facility] HIGH RISK HUMAN PAPILLOMA MUNIR (HPV), PCR FOR DETECTION AND GENOTYPINGon 09-13-2024 HPV 16 Ag Ql (Unsp spec) Not detected Normal Not detected [facility] Comment on above: Order Comment: Speci men Type: BLOOD SPECIMEN Ordering Facility: [facility] Address: [address] [place] [address] Performed By: #### 5 195-3, 14730-7, 52337-7 #### [facility] CLIA [id number] [address] [place] [address] [place] HPV 18 Ag Ql (Unsp spec) Not detected Normal Not detected [facility] Comment on above: Order Comment: Speci men Type: BLOOD SPECIMEN Ordering Facility: [facility] Address: [address] [place] [address] Performed By: #### 5 195-3, 75497-1, 69932-4 #### [facility] CLIA [id number] [address] [place] [address] [place] HPV 31+33+35+39+45+51+52+5 6+58+59+66+68 DNA LA+probe Ql (Cvx) Not detected Normal Not detected [facility] Comment on above: Order Comment: Speci men Type: BLOOD SPECIMEN Ordering Facility: [facility] Address: [address] [place] [address] Result Comment: High Risk HPV Other Type includes HPV types 31, 33, 35, 39, 45, 51, 52, 56, 58, 59, 66 and 68. Performed By: #### 5 195-3, 15837-6, 55511-0 #### [facility] CLIA [id number] [address] [place] [address] [place] HbA1c (Bld)on 09-13-2024 Average glucose Estimated from glycated hemoglobin (Bld) [Mass/Vol] 94 mg/dL Normal [facility] Comment on above: Order Comment: Sharon men Type: BLOOD SPECIMEN Ordering Facility: [facility] Address: [address] [place] [address] Result Comment: eAG: (Estimated average glucose) is a calculated value from HgbA1c and is applications sales representative of the average blood glucose level in the last 2-3 month period. Performed By: #### 5 195-3, 84543-3, 91103-0 #### [facility] CLIA [id number] [address] [place] [address] [place] HbA1c (Bld) [Mass fraction] 4.9 % Normal 4.3-5.6 [facility] Comment on above: Order Comment: Lolai josé miguel Type: BLOOD SPECIMEN Ordering Facility: [facility] Address: [address] [place] [address] Result Comment: [place] Diabetes Association guidelines indicate that patients with HgbA1c in the range 5.7-6.4% are at increased risk for development of diabetes, and intervention by lifestyle modification may be beneficial. HgbA1c greater or equal to 6.5% is considered diagnostic of diabetes. Performed By: #### 5 195-3, 52021-6, 74868-6 #### [facility] CLIA [id number] [address] [place] [address] [place] PAP TESTon 09-13-2024 ADEQUACY Normal [facility] Comment on above: Order Comment: Speci men Type: BLOOD SPECIMEN Ordering Facility: [facility] Address: [address] [place] [address] Result Comment: Sati sfactory for interpretation. Transformation zone present Performed By: #### 5 195-3, 47843-2, 28079-9 #### [facility] CLIA [id number] [address] [place] [address] [place] CASE REPORT Normal [facility] Comment on above: Order Comment: Speci men Type: BLOOD SPECIMEN Ordering Facility: [facility] Address: [address] [place] [address] Result Comment: Gyne cologic Cytology Report Case: [id number] Authorizing Provider: Blank Chavira APRN.WORK AND FAMILY LIFE CONSULTANT Collected: 09/13/2024 02:18 PM Ordering Location: OB/Gynecology Received: 09/13/2024 04:15 PM First Screen: Nadege Baron, CT, ASCP Rescreen: Harish Hassan Tech Pathologist: Sarai Payan MD Specimen: Pap Test, ThinPrep, Cervix Performed By: #### 5 195-3, 35555-0, 25883-7 #### [facility] CLIA [id number] [address] [place] [address] [place] CLINICAL HISTORY, CYTOLOGY, SANITATION SUPERINTENDENT Routine Exam Normal [facility] Comment on above: Order Comment: Speci men Type: BLOOD SPECIMEN Ordering Facility: [facility] Address: [address] [place] [address] Result Comment: Abno rmal Bleeding (Describe) Performed By: #### 5 195-3, 66015-8, 01871-9 #### [facility] CLIA [id number] [address] [place], [place] [address] [place] FINAL PERFORMING LAB Normal [facility] Comment on above: Order Comment: Speci men Type: BLOOD SPECIMEN Ordering Facility: [facility] Address: [address] [place] [address] Result Comment: Tech nical component, jack setter screening performed at: [facility], [address] [place] [address] CLIA: [id number] Diagnostic interpretation performed at: [facility], [address] [place] [address] CLIA# [id number] Dictating Machine Typist: [place] Strong MD Performed By: #### 5 195-3, 08953-8, 57938-6 #### [facility] CLIA [id number] [address] [place] [address] [place] INTERPRETATION, CYTOLOGY, SANITATION SUPERINTENDENT Abnormal [facility] Comment on above: Order Comment: Speci men Type: BLOOD SPECIMEN Ordering Facility: [facility] Address: [address] [place] [address] Result Comment: Atyp ical squamous cells of undetermined significance (ASC-US). at 0854 EDT Performed By: #### 5 195-3, 51634-5, 31230-4 #### [facility] CLIA [id number] [address] [place] [address] [place] LMP 08/21/2024 Normal [facility] Comment on above: Order Comment: Speci men Type: BLOOD SPECIMEN Ordering Facility: [facility] Address: [address] [place] [address] Performed By: #### 5 195-3, 41927-7, 66532-4 #### [facility] CLIA [id number] [address] [place] [address] [place] PAP DISCLAIMER COMMENT The Pap Smear is a screening test for cervical cancer. False negative results occur with all screening tests, emphasizing the need for rescreening at recommended intervals, and clinical correlation. Normal [facility] Comment on above: Order Comment: Speci men Type: BLOOD SPECIMEN Ordering Facility: [facility] Address: [address] [place] [address] Performed By: #### 5 195-3, 30789-2, 77941-6 #### [facility] CLIA [id number] [address] [place] [address] [place] PAP GENERAL CATEGORIZATION Epithelial Cell Abnormality Normal [facility] Comment on above: Order Comment: Speci men Type: BLOOD SPECIMEN Ordering Facility: [facility] Address: [address] [place] [address] Performed By: #### 5 195-3, 67022-2, 17295-2 #### [facility] CLIA [id number] [address] [place] [address] [place] PAP LEAD TELLER COMMENT This specimen has be en analyzed by the ThinPrep Imaging System, an automated imaging and review system, which assists the laboratory in evaluating cells on ThinPrep Pap tests. Following automated imaging, selected romero from every slide are reviewed by a jack setter. Normal [facility] Comment on above: Order Comment: Speci men Type: BLOOD SPECIMEN Ordering Facility: [facility] Address: [address] [place] [address] Performed By: #### 5 195-3, 98415-3, 47640-0 #### [facility] CLIA [id number] [address] [place] [address] [place] T4 Free SerPl-mCncon 025 Free T4 [Mass/Vol] 1.1 ng/dL Normal 0.9-1.7 [facility] Comment on above: Order Comment: Speci men Type: BLOOD SPECIMEN Ordering Facility: [facility] Address: [address] [place] [address] Performed By: #### 5 195-3, 15201-1, 07546-3 #### [facility] CLIA [id number] [address] [place] [address] [place] UA DIP,URINE HCG (POC)on Beta HCG ( test) Ql (U) Negative Negative [facility] Comment on above: Location:[facility], [address], [place], [address] Eye Dropper Assembler (POCT) Internal QC OK [facility] Location:[facility], [address], [place], [address] [facility] POINT OF CARE [facility] Emergency Department Summary on 08-31-2024 Emergency Department Summary [facility] Medical Records Department [address] [place] [address] Emergency Department Summary 08/31/24 MR#: [id number] Acct: [id number] Name: RINA YI Rep #: [id number] : 2005 19 From: Tim Leonardo MD [...] resolved. She does not take blood thinners. [facility] Medical History Second degree perineal laceration during delivery (spontaneous vaginal delivery) PTSD (post-traumatic stress disorder) Bipolar disorder LGA (large for gestational age) fetus Drug use Marijuana smoker ETOH abuse Polyhydramnios Asthma Depression Anxiety Headache Seizures Gestational HTN Home Medications ???Medication ???Instructions ???Recorded ???Last Taken ???Type ighzrboz-cpd-Rq-FA 1 mg 1 tab PO DAILY 04/20/22 [...] compared to (more content not included)... Normal [facility] BACTERIAL VAGINOSIS NAATon 0 07-27-2024 Lactobacillus crispatus+gasseri+starla enii + Gardnerella vaginalis + Atopobium vaginae rRNA LA+probe Ql (Vag fld) Not detected Normal Not detected [facility] Comment on above: Order Comment: Speci men Type: BLOOD SPECIMEN Ordering Facility: [facility] Address: [address] [place] [address] Performed By: #### 5 195-3, 02439-3, 62823-5 #### [facility] CLIA [id number] [address] [place] [address] [place] C. trachomatis+N. gonorrhoea e DNA LA+probe Ql (Unsp spec)on 07-27-2024 C. trachomatis rRNA LA+probe Ql (Unsp spec) Not detected Normal Not detected [facility] Comment on above: Order Comment: Speci men Type: BLOOD SPECIMEN Ordering Facility: [facility] Address: [address] [place] [address] Performed By: #### 5 195-3, 33349-4, 87123-0 #### [facility] CLIA [id number] [address] [place] [address] [place] N. gonorrhoeae rRNA LA+probe Ql (Unsp spec) Not detected Normal Not detected [facility] Comment on above: Order Comment: Speci men Type: BLOOD SPECIMEN Ordering Facility: [facility] Address: [address] [place] [address] Performed By: #### 5 195-3, 66984-9, 32086-9 #### [facility] CLIA [id number] [address] [place] [address] [place] MARIA T/TRICHOMONAS NAATon 0 07-27-2024 C. glabrata RNA LA+probe Ql (Vag fld) Not detected Normal Not detected [facility] Comment on above: Order Comment: Speci men Type: SWAB Ordering Facility: [facility] Address: [address] [place] [address] Performed By: #### 3 6902-5, TRVAMP #### [facility] CLIA [id number] [address] [place] [address] [place] Maria T sp DNA LA+probe Ql (Vag fld) Detected Abnormal Not detected [facility] Comment on above: Order Comment: Speci men Type: SWAB Ordering Facility: [facility] Address: [address] [place] [address] Result Comment: The Maria T species group target includes C. albicans, C. tropicalis, C. parapsilosis, and C. dubliniensis. Performed By: #### 3 6902-5, TRVAMP #### [facility] CLIA [id number] [address] [place] [address] [place] T. vaginalis DNA LA+probe Ql (Unsp spec) Not detected Normal Not detected [facility] Comment on above: Order Comment: Speci men Type: SWAB Ordering Facility: [facility] Address: [address] [place] [address] Performed By: #### 3 6902-5, TRVAMP #### [facility] CLIA [id number] [address] [place] [address] [place] CNOVon 07-27-2024 CNOV Office Visit (UCWSTR ) RINA YI ([id number]) 1 F Date Time Provider Department 07/27/24 6:15 PM INA TOTH [facility] During your visit today, we recorded the following information about you: Temperature Pulse Respiration Blood pressure 98.6 degrees 93/minute 20/minute 109/72 Weight Last Period 76 kg 07/21/24 Ina Toth APRN.WORK AND FAMILY LIFE CONSULTANT 07/27/2024 6:48 PM Signed [facility] [...] history is provided by the patient. No nuclear reactor engineer was used. Vaginal Problem Review of Systems Constitutional: Negative. Genitourinary: Positive for vaginal discharge and vaginal pain. Objective LMP 06/22/2024 (Approximate) Physical Exam Exam conducted with a equities trader present. Constitutional: Appearance: Normal appearance. Pulmonary: Effort: [...] was agreeable to care plan. Ina Toth APRN.[facility] Procedures Ina Toth APRN.CNP 07/27/2024 6:49 PM [...] [N89.8] Order(s):BACTERIAL VAGINOSIS NAAT [SQBVAMP] Order #: [id number]. #:[id number] MARIA T/TRICHOMONAS NAAT [SQCVTV] Order #: [id number]. #:[id number] GONORRHEA/CHLAMYDIA NAAT [SQGCCT] Order #: [id number]. #:[id number] [] fluconazole (DIFLUCAN) 150 mg tabletTake 1 tablet by mouth once daily for 1 day.Disp: 1 tabletRfl: 0 nystatin (MYCOSTATIN) creamApply to affected area two times a day for 14 days.Disp: 30 gRfl: 0 UA DIP, URINE (POC) [[id number]] Order #: [id number]. #:[id number] Prescriptions as of 08/01/2024 - nystatin (MYCOSTATIN) cream Apply to affected area two times a day for 14 days. - VIT 14-IRON FUM-FOLIC ORAL Take by mouth. Problem List As Of Date 07/27/2024 (more content not included)... Normal [facility] UA DIP, URINE (POC)on 2024 BILIRUBIN UA (POCT) Negative Negative [facility] CLARITY UA (POCT) Clear [facility] COLOR UA (POCT) Yellow [facility] GLUCOSE UA (POCT) Negative Negative mg/dL [facility] Hemoglobin Ql (U) Negative Negative [facility] KETONE UA (POCT) Negative Negative mg/dL [facility] LEUKOCYTES UA (POCT) Negative Negative [facility] NITRITE UA (POCT) Negative Negative [facility] PH UA (POCT) 6.5 4.5 - 8.0 [facility] Protein Ql (U) Negative Negative mg/dL [facility] SPECIFIC GRAVITY UA (POCT) 1.015 1.005 - 1.030 [facility] UROBILINOGEN UA (POCT) 0.2 Normal E.U./d L [facility] Location:[address], [place], [place], [address] [place] [address] POINT OF CARE [facility] Erica 06-28-2024 CNPN Telephone (NIQ) RINA YI ([id number]) 1 F Date Time Provider Department 06/28/24 ARIANNE HSU During your visit today, we recorded the following information about you: Allergies As of Date: 06/28/2024 (No Known Allergies) Date Reviewed: 06/26/2024 Reviewed by: Doreen Frost MA - Fully Assessed Reason for Visit: Appointment [186] Prescriptions as of 06/28/2024 - VIT 14-IRON FUM-FOLIC ORAL Take by mouth. Problem List As Of Date 06/28/2024 Noted Resolved with care elsewhere in [facility]*12/30/2021 08/10/2022 Engages in vaping [Z72.89] 12/30/2021 Heartburn [...] Status:Closed by PAULINE RAMIREZ on 06/28/24 Normal [facility] CNCONon 06-27-2024 CNCON Consults (NE50MN) RINA YI ([id number]) 1 F Date Time Provider Department 06/27/24 ARIANNE HSU NE50MN During your visit today, we recorded the following information about you: Samuel Hoskins APRN.LUZ MARIA 06/27/2024 1:12 PM Signed Patient was seen by Dr. Dolan < 3 years ago (04/06/2022). Please schedule follow up with her either in person or via virtual visit. If she wants to be seen by a different provider, please schedule as a change provider visit. Samuel Hoskins APRN.WORK AND FAMILY LIFE CONSULTANT Allergies As of Date: 06/27/2024 (No Known Allergies) Date Reviewed: 06/26/2024 Reviewed by: Doreen Frost MA - Fully Assessed Primary Visit Diagnosis:Seizure-like activity (HCC) [R56.9] Prescriptions as of 06/27/2024 - VIT 14-IRON FUM-FOLIC ORAL Take by mouth. Problem List As Of Date 06/27/2024 Noted Resolved with care elsewhere in [facility]*12/30/2021 08/10/2022 Engages in vaping [Z72.89] 12/30/2021 Heartburn [...] Status:Closed by SAMUEL HOSKINS on 06/27/24 Normal [facility] CNOVon 06-26-2024 CNOV Office Visit (AGGPCF ) RINA YI ([id number]) 1 F Date Time Provider Department 06/26/24 4:20 PM [facility] During your visit today, we recorded the following information about you: Temperature Pulse Blood pressure Weight 99.4 degrees 85/minute 102/60 75.1 kg Height Last Period 1.813 m 06/22/24 Doreen Frost MA 07/02/2024 1:18 PM Signed Rina Yi is a 18 year old female who presents to Establish Care, discuss vaccine, and service dog paperwork. JAYSON Reynolds Alicia, MD 07/02/2024 1:18 PM Signed [facility] [address] [place] [address] Date of Evaluation: 07/02/2024 Patient Name: Rina Yi : 2005 Chief Complaint: Patient presents with: Establish Care Subjective HPI Ms. 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 Normal [facility] TSH SerPl-aCncon 06-26-2024 TSH Qn 1.190 m[IU]/L Normal 0.510-4.300 [facility] Comment on above: Order Comment: Speci men Type: BLOOD SPECIMEN Ordering Facility: [facility] Address: [address] [place] [address] Result Comment: If t he patient is , TSH reference range varies by gestational period: First Trimester (weeks 9-12): 0.180-2.990 mIU/L Second Trimester: 0.110-3.980 mIU/L Third Trimester: 0.480-4.710 mIU/L Etienne Rubio, et al. A Practical Approach for the Verifications and Determination of Site- and Trimester-Specific Reference Intervals for Thyroid Function tests in . Thyroid, 2019:29:3:412-420. Aftab Angeles et al. 2017 Guidelines of the [place] Thyroid Association for the Diagnosis and Management of Thyroid Disease during and the . Thyroid, 2017:27:3:315-389. Performed By: #### 5 195-3, 77197-4, 55725-6 #### [facility] CLIA [id number] [address] [place] [address] [place] Erica 06-23-2024 CNPN Telephone ([facility]) JANJELANI AngelesRINA ([id number]) 1 F Date Time Provider Department 06/23/24 [...] Violence Summary: Pt completed SDOH questionnaire on [facility] and indicated greatest need: intimate partner [...] Status:Closed by JAQUELINE GIRALDO on 06/23/24 Normal [facility] CBC W Auto Differential pane l (Bld)on 05-26-2024 Basophils (Bld) [#/Vol] 0.03 10*3/uL [facility] Basophils/100 WBC (Bld) 0.4 % [facility] Differential cell count method Nom (Bld) Auto [facility] Eosinophils (Bld) [#/Vol] 0.11 10*3/uL [facility] Eosinophils/100 WBC (Bld) 1.5 % [facility] Erythrocyte distribution width (RBC) [Ratio] 13.0 % 11.5 - 15.0 % [facility] Hematocrit (Bld) [Volume fraction] 41.1 % 36.0 - 46.0 % [facility] Hemoglobin (Bld) [Mass/Vol] 13.8 g/dL 11.5 - 15.5 g/dL [facility] Immature granulocytes (Bld) [#/Vol] 0.03 10*3/uL [facility] Immature granulocytes/100 WBC (Bld) 0.4 % [facility] Lymphocytes (Bld) [#/Vol] 1.87 10*3/uL [facility] Lymphocytes/100 WBC (Bld) 25.7 % [facility] MCH (RBC) [Entitic mass] 29.1 pg 26.0 - 34.0 pg [facility] MCHC (RBC) [Mass/Vol] 33.6 g/dL 30.5 - 36.0 g/dL [facility] MCV (RBC) [Entitic vol] 86.7 fL 80.0 - 100.0 fL [facility] Monocytes (Bld) [#/Vol] 0.64 10*3/uL [facility] Monocytes/100 WBC (Bld) 8.8 % [facility] Neutrophils (Bld) [#/Vol] 4.59 10*3/uL [facility] Neutrophils/100 WBC (Bld) 63.2 % [facility] Nucleated RBC (Bld) [#/Vol] [facility] Nucleated RBC/100 WBC (Bld) [Ratio] 0.0 % /100 WBC [facility] Platelet mean volume (Bld) [Entitic vol] 10.1 fL 9.0 - 12.7 fL [facility] Platelets (Bld) [#/Vol] 228 10*3/uL [facility] RBC (Bld) [#/Vol] 4.74 10*6/uL 3.90 - 5.2 0 m/uL [facility] WBC (Bld) [#/Vol] 7.27 10*3/uL [facility] Basophils (Bld) [#/Vol] 0.03 10*3/uL Normal <0.11 [facility] Comment on above: Order Comment: Speci men Type: SWAB Ordering Facility: [facility] Address: [address] [place] [address] Performed By: #### 3 6902-5, [place] #### [facility] CLIA [id number] [address] [place], [place] [address] [address] [place] Basophils/100 WBC (Bld) 0.4 % Normal [facility] Comment on above: Order Comment: Speci men Type: SWAB Ordering Facility: [facility] Address: [address] [place] [address] Performed By: #### 3 6902-5, TRVAMP #### [facility] CLIA [id number] [address] [place] [address] [place] Differential cell count method Nom (Bld) Auto Normal [facility] Comment on above: Order Comment: Speci men Type: SWAB Ordering Facility: [facility] Address: [address] [place] [address] Performed By: #### 3 6902-5, TRVAMP #### [facility] CLIA [id number] [address] [place] [address] [place] Eosinophils (Bld) [#/Vol] 0.11 10*3/uL Normal <0.46 [facility] Comment on above: Order Comment: Speci men Type: SWAB Ordering Facility: [facility] Address: [address] [place] [address] Performed By: #### 3 6902-5, TRVAMP #### [facility] CLIA [id number] [address] [place] [address] [place] Eosinophils/100 WBC (Bld) 1.5 % Normal [facility] Comment on above: Order Comment: Speci men Type: SWAB Ordering Facility: [facility] Address: [address] [place] [address] Performed By: #### 3 6902-5, TRVAMP #### [facility] CLIA [id number] [address] [place] [address] [place] Erythrocyte distribution width (RBC) [Ratio] 13.0 % Normal 11.5-15.0 [facility] Comment on above: Order Comment: Speci men Type: SWAB Ordering Facility: [facility] Address: [address] [place] [address] Performed By: #### 3 6902-5, TRVAMP #### [facility] CLIA [id number] [address] [place] [address] [place] Hematocrit (Bld) [Volume fraction] 41.1 % Normal 36.0-46.0 [facility] Comment on above: Order Comment: Speci men Type: SWAB Ordering Facility: [facility] Address: [address] [place] [address] Performed By: #### 3 6902-5, TRVAMP #### [facility] CLIA [id number] [address] [place] [address] [place] Hemoglobin (Bld) [Mass/Vol] 13.8 g/dL Normal 11.5-15.5 [facility] Comment on above: Order Comment: Speci men Type: SWAB Ordering Facility: [facility] Address: [address] [place] [address] Performed By: #### 3 6902-5, TRVAMP #### [facility] CLIA [id number] [address] [place] [address] [place] Immature granulocytes (Bld) [#/Vol] 0.03 10*3/uL Normal <0.10 [facility] Comment on above: Order Comment: Speci men Type: SWAB Ordering Facility: [facility] Address: [address] [place] [address] Performed By: #### 3 6902-5, TRVAMP #### [facility] CLIA [id number] [address] [place] [address] [place] Immature granulocytes/100 WBC (Bld) 0.4 % Normal [facility] Comment on above: Order Comment: Speci men Type: SWAB Ordering Facility: [facility] Address: [address] [place] [address] Performed By: #### 3 6902-5, TRVAMP #### [facility] CLIA [id number] [address] [place] [address] [place] Lymphocytes (Bld) [#/Vol] 1.87 10*3/uL Normal 1.00-4.00 [facility] Comment on above: Order Comment: Speci men Type: SWAB Ordering Facility: [facility] Address: [address] [place] [address] Performed By: #### 3 6902-5, TRVAMP #### [facility] CLIA [id number] [address] [place] [address] [place] Lymphocytes/100 WBC (Bld) 25.7 % Normal [facility] Comment on above: Order Comment: Speci men Type: SWAB Ordering Facility: [facility] Address: [address] [place] [address] Performed By: #### 3 6902-5, TRVAMP #### [facility] CLIA [id number] [address] [place] [address] [place] MCH (RBC) [Entitic mass] 29.1 pg Normal 26.0-34.0 [facility] Comment on above: Order Comment: Speci men Type: SWAB Ordering Facility: [facility] Address: [address] [place] [address] Performed By: #### 3 6902-5, TRVAMP #### [facility] CLIA [id number] [address] [place] [address] [place] MCHC (RBC) [Mass/Vol] 33.6 g/dL Normal 30.5-36.0 [facility] Comment on above: Order Comment: Speci men Type: SWAB Ordering Facility: [facility] Address: [address] [place] [address] Performed By: #### 3 6902-5, TRVAMP #### [facility] CLIA [id number] [address] [place] [address] [place] MCV (RBC) [Entitic vol] 86.7 fL Normal 80.0-100.0 [facility] Comment on above: Order Comment: Speci men Type: SWAB Ordering Facility: [facility] Address: [address] [place] [address] Performed By: #### 3 6902-5, TRVAMP #### [facility] CLIA [id number] [address] [place] [address] [place] Monocytes (Bld) [#/Vol] 0.64 10*3/uL Normal <0.87 [facility] Comment on above: Order Comment: Speci men Type: SWAB Ordering Facility: [facility] Address: [address] [place] [address] Performed By: #### 3 6902-5, TRVAMP #### [facility] CLIA [id number] [address] [place] [address] [place] Monocytes/100 WBC (Bld) 8.8 % Normal [facility] Comment on above: Order Comment: Speci men Type: SWAB Ordering Facility: [facility] Address: [address] [place] [address] Performed By: #### 3 6902-5, TRVAMP #### [facility] CLIA [id number] [address] [place] [address] [place] Neutrophils (Bld) [#/Vol] 4.59 10*3/uL Normal 1.45-7.50 [facility] Comment on above: Order Comment: Speci men Type: SWAB Ordering Facility: [facility] Address: [address] [place] [address] Performed By: #### 3 6902-5, TRVAMP #### [facility] CLIA [id number] [address] [place] [address] [place] Neutrophils/100 WBC (Bld) 63.2 % Normal [facility] Comment on above: Order Comment: Speci men Type: SWAB Ordering Facility: [facility] Address: [address] [place] [address] Performed By: #### 3 6902-5, TRVAMP #### [facility] CLIA [id number] [address] [place] [address] [place] Nucleated RBC (Bld) [#/Vol] 10*3/uL Normal <0.01 [facility] Comment on above: Order Comment: Speci men Type: SWAB Ordering Facility: [facility] Address: [address] [place] [address] Performed By: #### 3 6902-5, TRVAMP #### [facility] CLIA [id number] [address] [place] [address] [place] Nucleated RBC/100 WBC (Bld) [Ratio] 0.0 /100 WBC Normal [facility] Comment on above: Order Comment: Speci men Type: SWAB Ordering Facility: [facility] Address: [address] [place] [address] Performed By: #### 3 6902-5, TRVAMP #### [facility] CLIA [id number] [address] [place] [address] [place] Platelet mean volume (Bld) [Entitic vol] 10.1 fL Normal 9.0-12.7 [facility] Comment on above: Order Comment: Speci men Type: SWAB Ordering Facility: [facility] Address: [address] [place] [address] Performed By: #### 3 6902-5, TRVAMP #### [facility] CLIA [id number] [address] [place] [address] [place] Platelets (Bld) [#/Vol] 228 10*3/uL Normal 150-400 [facility] Comment on above: Order Comment: Speci men Type: SWAB Ordering Facility: [facility] Address: [address] [place] [address] Performed By: #### 3 6902-5, TRVAMP #### [facility] CLIA [id number] [address] [place] [address] [place] RBC (Bld) [#/Vol] 4.74 10*6/uL Normal 3.90-5.20 [facility] Comment on above: Order Comment: Speci men Type: SWAB Ordering Facility: [facility] Address: [address] [place] [address] Performed By: #### 3 6902-5, TRVAMP #### [facility] CLIA [id number] [address] [place] [address] [place] WBC (Bld) [#/Vol] 7.27 10*3/uL Normal 3.70-11.00 [facility] Comment on above: Order Comment: Speci men Type: SWAB Ordering Facility: [facility] Address: [address] [place] [address] Performed By: #### 3 6902-5, TRVAMP #### [facility] CLIA [id number] [address] [place] [address] [place] CNOVon 05-26-2024 CNOV Office Visit (OBGYWM ) RINA YI ([id number]) 1 F Date Time Provider Department 05/26/24 [...] L1 SAB0 IAB0 Ectopic0 Multiple0 Live 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 #:[id number] COMPLETE BLOOD COUNT AND DIFFERENTIAL [SQCBCDIF] Order #: [id number] FUTURE THYROID STIMULATING HORMONE [SQTSH] Order #: [id number] FUTURE Prescriptions as of 05/26/2024 - VIT 14-IRON FUM-FOLIC ORAL Take by mouth. Problem List As Of Date 05/26/2024 Noted Resolved with care elsewhere in [place]*12/30/2021 [...] Encounter Status:Closed by KAVON TOTH on 05/26/24 Normal [facility] UA DIP,URINE HCG (POC)on Beta HCG ( test) Ql (U) Negative Negative [facility] Comment on above: Location:[facility], [address], [place], [address] [employer] (POCT) Internal [facility] Location:[facility], [address], [place], [address] [facility] POINT OF CARE [facility] Erica 05-23-2024 CNPN Telephone (OBGYWM) RINA YI ([id number]) 1 F Date Time Provider Department 05/23/24 KAVON TOTH OBLEIF During your visit today, we recorded the [...] Date Reviewed: 04/17/2024 Reviewed by: Blank Chavira APRN.WORK AND FAMILY LIFE CONSULTANT - Fully Assessed Reason for Visit: Appointment [...] Status:Closed by YAQUELIN STEWART on 05/23/24 Normal [facility] CBC with Auto Differentialon 05-03-2024 Basophils (Bld) [#/Vol] 0.01 10*3/uL [facility] Basophils/100 WBC (Bld) 0 % 0 - 2 % [facility] [employer] [facility] Eosinophils (Bld) [#/Vol] 0.10 10*3/uL [facility] Eosinophils/100 WBC (Bld) 2 % 0 - 5 % [facility] [employer] [facility] Erythrocyte distribution width (RBC) [Ratio] 12.7 % 12.1 - 15.2 % [facility] Hematocrit (Bld) [Volume fraction] 37.8 % 36.0 - 46.0 % [facility] Hemoglobin (Bld) [Mass/Vol] 13.3 g/dL 12.0 - 16.0 g/dL [facility] Immature granulocytes (Bld) [#/Vol] 0.00 10*3/uL [facility] Immature granulocytes/100 WBC (Bld) 0 % 0 - 5 % [facility] Interpretation and review of laboratory results Abnormal [facility] Lymphocytes/100 WBC (Bld) 30 % 15 - 40 % [facility] Lymphocytes/100 WBC (Bld) 2.00 % [facility] MCH (RBC) [Entitic mass] 29.7 pg 26.0 - 34.0 pg [facility] MCHC (RBC) [Mass/Vol] 35.2 g/dL 31.0 - 37.0 g/dL [facility] MCV (RBC) [Entitic vol] 84.4 fL 80.0 - 100.0 fL [facility] Monocytes/100 WBC (Bld) 9 % High 4 - 8 % [facility] Monocytes/100 WBC (Bld) 0.60 % [facility] Neutrophils/100 WBC (Bld) 59 % 47 - 75 % [facility] Platelet mean volume (Bld) [Entitic vol] 10.0 fL 6.0 - 12.0 fL [facility] Platelets (Bld) [#/Vol] 230 10*3/uL [facility] RBC (Bld) [#/Vol] 4.48 10*6/uL 4.00 - 5.2 0 m/uL [facility] Segmented neutrophils/100 WBC (Bld) 3.94 % [facility] WBC other (Bld) [#/Vol] 6.7 [facility] CBC with Diffon 05-03-2024 Abs. Basophil 0.01 k/uL Normal 0.00-0.20 [facility] Comment on above: Performed By: #### C DP, CP #### [facility] [address] [place] [address] Plane Captain: Rao Hendrix MD Abs.Imm.Granulocyte 0.00 k/uL Normal 0.00-0.30 [facility] Comment on above: Performed By: #### C DP, CP #### [facility] [address] [place], [place] [id number] Plane Captain: Rao Hendrix MD Abs.Neutrophil (Seg) 3.94 k/uL Normal 2.5-7.0 [facility] Comment on above: Performed By: #### C DP, CP #### [facility] [address] [place], [place] [phone] Plane Captain: Rao Hendrix MD Basophils/100 WBC (Bld) 0 % Normal 0-2 [facility] Comment on above: Performed By: #### C DP, CP #### [facility] [address] [place] [id number] Plane Captain: Rao Hendrix MD Eosinophils (Bld) [#/Vol] 0.10 10*3/uL Normal 0.00-0.40 [facility] Comment on above: Performed By: #### C DP, CP #### [facility] [address] [place] [id number] Plane Captain: Rao Hendrix MD Eosinophils/100 WBC (Bld) 2 % Normal 0-5 [facility] Comment on above: Performed By: #### C DP, CP #### [facility] [address] [place] [address] Plane Captain: Rao Hendrix MD Erythrocyte distribution width (RBC) [Ratio] 12.7 % Normal 12.1-15.2 [facility] Comment on above: Performed By: #### C DP, CP #### [facility] [address] [place], [place] [phone] Plane Captain: Rao Hendrix MD Hematocrit (Bld) [Volume fraction] 37.8 % Normal 36.0-46.0 [facility] Comment on above: Performed By: #### C DP, CP #### [facility] [address] [place] [address] Plane Captain: Rao Hendrix MD Hemoglobin (Bld) [Mass/Vol] 13.3 g/dL Normal 12.0-16.0 [facility] Comment on above: Performed By: #### C DP, CP #### [facility] [address] [place] [address] Plane Captain: Rao Hendrix MD Immature granulocytes/100 WBC (Bld) 0 % Normal 0-5 [facility] Comment on above: Performed By: #### C DP, CP #### [facility] [address] [place] [phone] Plane Captain: Rao Hendrix MD Lymphocytes (Bld) [#/Vol] 2.00 10*3/uL Normal 1.20-5.20 [facility] Comment on above: Performed By: #### C DP, CP #### [facility] [address] [place] [address] Plane Captain: Rao Hendrix MD Lymphocytes/100 WBC (Bld) 30 % Normal 15-40 [facility] Comment on above: Performed By: #### C DP, CP #### [facility] [address] [place] [address] Plane Captain: Rao Hendrix MD MCH (RBC) [Entitic mass] 29.7 pg Normal 26.0-34.0 [facility] Comment on above: Performed By: #### C DP, CP #### [facility] [address] [place] [address] Plane Captain: Rao Hendrix MD MCHC (RBC) [Mass/Vol] 35.2 g/dL Normal 31.0-37.0 [facility] Comment on above: Performed By: #### C DP, CP #### [facility] [address] [place] [address] Plane Captain: Rao Hendrix MD MCV (RBC) [Entitic vol] 84.4 fL Normal 80.0-100.0 [facility] Comment on above: Performed By: #### C DP, CP #### [facility] [address] [place] [address] Plane Captain: Rao Hendrix MD Monocytes (Bld) [#/Vol] 0.60 10*3/uL Normal 0.00-1.00 [facility] Comment on above: Performed By: #### C DP, CP #### [facility] [address] [place] [address] Plane Captain: Rao Hendrix MD Monocytes/100 WBC (Bld) 9 % High 4-8 [facility] Comment on above: Performed By: #### C DP, CP #### [facility] [address] [place] [address] Plane Captain: Rao Hendrix MD Neutrophil (Seg) 59 % Normal 47-75 [facility] Comment on above: Performed By: #### C DP, CP #### [facility] [address] [place] [address] Plane Captain: Rao Hendrix MD Platelet mean volume (Bld) [Entitic vol] 10.0 fL Normal 6.0-12.0 [facility] Comment on above: Performed By: #### C DP, CP #### [facility] [address] [place] [address] Plane Captain: Rao Hendrix MD Platelets (Bld) [#/Vol] 230 10*3/uL Normal 140-450 [facility] Comment on above: Performed By: #### C DP, CP #### [facility] [address] [place] [address] Plane Captain: Rao Hendrix MD RBC (Bld) [#/Vol] 4.48 10*6/uL Normal 4.00-5.20 [facility] Comment on above: Performed By: #### C DP, CP #### [facility] [address] [place], [place] [phone] Plane Captain: Rao Hendrix MD WBC (Bld) [#/Vol] 6.7 10*3/uL Normal 4.5-13.5 [facility] Comment on above: Performed By: #### C DP, CP #### [facility] [address] [place], [place] [phone] Plane Captain: aRo Hendrix MD Comp Metabolic Profon 2023 Albumin [Mass/Vol] 4.4 g/dL Normal 3.5-5.2 [facility] Comment on above: Performed By: #### C DP, CP #### [facility] [address] [place], [place] [phone] Plane Captain: Rao Hendrix MD Alkaline Phos 76 U/L Normal 35-104 [facility] Comment on above: Performed By: #### C DP, CP #### [facility] [address] [place], [place] [phone] Plane Captain: Rao Hendrix MD ALT [Catalytic activity/Vol] 12 U/L Normal 5-33 [facility] Comment on above: Performed By: #### C DP, CP #### [facility] [address] [place], [place] [id number] Plane Captain: Rao Hendrix MD Anion gap [Moles/Vol] 11 mmol/L Normal 9-17 [facility] Comment on above: Performed By: #### C DP, CP #### [facility] [address] [place], [place] [id number] Plane Captain: Rao Hendrix MD AST [Catalytic activity/Vol] 15 U/L Normal <32 [facility] Comment on above: Performed By: #### C DP, CP #### [facility] [address] [place], [place] [id number] Plane Captain: Rao Hendrix MD Bilirubin [Mass/Vol] 0.5 mg/dL Normal 0.3-1.2 [facility] Comment on above: Performed By: #### C DP, CP #### [facility] [address] [place] [address] Plane Captain: Rao Hendrix MD BUN/CRE Ratio 11 Normal 9-20 [facility] Comment on above: Performed By: #### C DP, CP #### [facility] [address] [place] [address] Plane Captain: Rao Hendrix MD Calcium [Mass/Vol] 9.2 mg/dL Normal 8.6-10.4 [facility] Comment on above: Performed By: #### C DP, CP #### [facility] [address] [place] [address] Plane Captain: Rao Hendrix MD Chloride [Moles/Vol] 102 mmol/L Normal 98-107 [facility] Comment on above: Performed By: #### C DP, CP #### [facility] [address] [place] [address] Plane Captain: Rao Hendrix MD CO2 [Moles/Vol] 27 mmol/L Normal 20-31 [facility] Comment on above: Performed By: #### C DP, CP #### [facility] [address] [place] [address] Plane Captain: Rao Hendrix MD Creatinine [Mass/Vol] 0.9 mg/dL Normal 0.5-0.9 [facility] Comment on above: Performed By: #### C DP, CP #### [facility] [address] [place] [address] Plane Captain: Rao Hendrix MD GFR/1.73 sq M.predicted among non-blacks MDRD (S/P/Bld) [Vol rate/Area] mL/min/{1.73_m2} Normal >60 [facility] Comment on above: Result Comment: These [...] Performed By: #### C DP, CP #### [facility] [address] [place] [address] Plane Captain: Rao Hendrix MD Glucose [Mass/Vol] 111 mg/dL High 70-99 [facility] Comment on above: Performed By: #### C DP, CP #### [facility] [address] [place] [address] Plane Captain: Rao Hendrix MD Potassium [Moles/Vol] 4.4 mmol/L Normal 3.7-5.3 [facility] Comment on above: Performed By: #### C DP, CP #### [facility] [address] [place] [address] Plane Captain: Rao Hendrix MD Protein [Mass/Vol] 7.5 g/dL Normal 6.4-8.3 [facility] Comment on above: Performed By: #### C DP, CP #### [facility] [address] [place] [address] Plane Captain: Rao Hendrix MD Sodium [Moles/Vol] 140 mmol/L Normal 135-144 [facility] Comment on above: Performed By: #### C DP, CP #### [facility] [address] [place] [address] Plane Captain: Rao Hendrix MD Urea nitrogen [Mass/Vol] 10 mg/dL Normal 6-20 [facility] Comment on above: Performed By: #### C DP, CP #### [facility] [address] [place] [address] Plane Captain: Rao Hendrix MD [facility] Metabolic [facility] 05-03-2024 Albumin [Mass/Vol] 4.4 g/dL 3.5 - 5.2 g/dL [facility] ALP [Catalytic activity/Vol] 76 U/L 35 - 104 U/L [facility] ALT [Catalytic activity/Vol] 12 U/L 5 - 33 U/L [facility] Anion gap [Moles/Vol] 11 mmol/L 9 - 17 mmol/L [facility] AST [Catalytic activity/Vol] 15 U/L NINF - 32 U/L [facility] Bilirubin [Mass/Vol] 0.5 mg/dL 0.3 - 1 .2 mg/dL [facility] Calcium [Mass/Vol] 9.2 mg/dL 8.6 - 10. 4 mg/dL [facility] Chloride [Moles/Vol] 102 mmol/L 98 - 10 7 mmol/L [facility] CO2 [Moles/Vol] 27 mmol/L 20 - 31 mmol/L [facility] Creatinine [Mass/Vol] 0.9 mg/dL 0.5 - 0.9 mg/dL [facility] Anymoba Est, Glogrant Garibayt Rate - PINF [facility] Comment on above: These results are not [...] 111 mg/dL High 70 - 99 mg/dL [facility] Interpretation and review of laboratory results Abnormal [facility] Potassium [Moles/Vol] 4.4 mmol/L 3.7 - 5.3 mmol/L [facility] Protein [Mass/Vol] 7.5 g/dL 6.4 - 8.3 g/dL [facility] Sodium [Moles/Vol] 140 mmol/L 135 - 144 mmol/L [facility] Urea nitrogen [Mass/Vol] 10 mg/dL 6 - 20 mg/dL [facility] Urea nitrogen/Creatinine [Mass ratio] 11 mg/mg 9 - 20 [facility] C. trachomatis+N. gonorrhoea e DNA LA+probe Ql (Unsp spec)on 04-17-2024 C. trachomatis rRNA LA+probe Ql (Unsp spec) Not detected Normal Not detected [facility] Comment on above: Order Comment: Speci men Type: SWAB Ordering Facility: [facility] Address: [address] [place] [address] Performed By: #### 3 6902-5, TRVAMP #### [facility] CLIA [id number] [address] [place] [address] OF [facility] N. gonorrhoeae rRNA LA+probe Ql (Unsp spec) Not detected Normal Not detected [facility] Comment on above: Order Comment: Speci men Type: SWAB Ordering Facility: [facility] Address: [address] [place] [address] Performed By: #### 3 6902-5, TRVAMP #### [facility] CLIA [id number] [address] [place] [address] OF [place] CNOVon 04-17-2024 CNOV Office Visit (OBGYWM ) JANRADHA AngelesH ([id number]) 1 F Date Time Provider Department 04/17/24 11:00 AM BLANK CHAVIRA During your visit today, we recorded the following information about you: Blood pressure Weight 110/60 75.3 kg Blank Chavira APRN.CNP 04/17/2024 1:00 PM Signed Tobacco Grader offered: Patient declines. Flynn presents today for IUD insertion for contraception. Patient's last menstrual period was 09/23/2023 (exact date). GC/chlamydia: Collected today test: negative Side effects including irregular bleeding were discussed with the patient. The patient understands that it should be removed in 8 years or sooner if the patient desires a . IUD source: office provided IUD lot #: [id number] Exp date: 05/10/2026 UNIVERSAL PROTOCOL / SAFETY [...] Care Visit completed when applicable. Blank Chavira APRN.WORK AND FAMILY LIFE CONSULTANT The cervix was prepped with betadine. The [...] Follow up in one month. Blank Chavira APRN.Valeria Sagastume MA 04/17/2024 11:07 AM Signed POST IUD [...] contact the office. Referring Provider: BLANK CHAVIRA [[id number]] Allergies As of Date: 04/17/2024 (No Known Allergies) Date Reviewed: 04/17/2024 Reviewed by: Blank Chavira APRN.WORK AND FAMILY LIFE CONSULTANT - Fully Assessed Reason for Visit: STD [102] Insertion Of IUD [291] Immunizations [194] Cmt: Flu vaccination Primary Visit Diagnosis:Encounter for IUD insertion [Z30.430] Other Visit Diagnoses:Screen for STD (sexually transmitted disease) [Z11.3] Need for influenza vaccination [Z23] Order(s):INSERT INTRAUTERINE DEVICE [5210016] Order #: [id number] [] levonorgestrel 21 mcg/24hr (up to 8 yrs) 52 mg 1 Each intrauterine device (MIRENA)Disp: Rfl: levonorgestrel (MIRENA) 21 mcg/24hr (up to 8 yrs) 52 mg IUD1 Each by INTRAUTERINE route as directed.Disp: 1 EachRfl: 0 GONORRHEA/CHLAMYDIA NAAT [SQGCCT] Order #: [id number]. #:[id number] SYPHILIS TREPONEMAL W/REFLEX [SQSYPHTX] Order #: [id number] FUTURE HIV 1/2 COMBO WITH REFLEX TO DIFFERENTIATION [SQHIV12] Order #: [id number] FUTURE HEPATITIS C ANTIBODY IA WITH CONFIRMATION [IAHQXU6T] Order #: [id number] FUTURE HEPATITIS B SURFACE ANTIGEN [SQHBSAG] Order #: [id number] FUTURE TRICHOMONAS VAGINALIS NAAT [SQTRVAMP] Order #: [id number]. #:[id number] UA DIP,URINE HCG (POC) [8815967] Order #: [id number]. #:[id number] INFLUENZA VACCINE, AGE 6MO-64YR, TRIVALENT (AFLURIA, FLULAVAL, FLUVIRIN, FLUZONE) [70723MSC] Order #: [id number] Prescriptions as of 04/17/2024 - levonorgestrel (MIRENA) 21 mcg/24hr (up to 8 yrs) 52 mg IUD 1 Each by INTRAUTERINE route as directed. - folic acid 0.8 mg cap Take 1 capsule by mouth once daily. - VIT 14-IRON FUM-FOLIC ORAL Take by mouth. Problem List As Of Date 04/17/2024 Noted [place]12/30/2021 08/10/2022 Engages in vaping [Z72.89] (more content not included)... Normal [facility] HBV surface Ag Ser Qlon 12- HBV surface Ag Ql (S) Negative Normal Negative [facility] Comment on above: Order Comment: Speci men Type: BLOOD SPECIMEN Ordering Facility: [facility] Address: [address] [place] [address] Performed By: #### 5 195-3, 88298-5, 70118-6 #### [facility] CLIA [id number] [address] [place] [address] [place] HCV Ab Ser Qlon 04-17-2024 HCV Ab Ql (S) Negative Normal Negative [facility] Comment on above: Order Comment: Speci men Type: SWAB Ordering Facility: [facility] Address: [address] [place] [address] Result Comment: The result suggests no evidence of active infection with Hepatitis C virus. Should recent infection be suspected, repeat testing may be considered 4-6 weeks after this draw. Performed By: #### 3 6902-5, TRHOLLY #### [facility] CLIA [id number] [address] [place] [address] [place] HIV 1+2 Ab IA Qlon 4 HIV 1 and 2 Ab IA.rapid Nom (S/P/Bld) Normal [facility] Comment on above: Order Comment: Speci men Type: BLOOD SPECIMEN Ordering Facility: [facility] Address: [address] [place] [address] Result Comment: Test not indicated. Performed By: #### 5 195-3, 06787-4, 96520-3 #### [facility] CLIA [id number] [address] [place] [address] [place] HIV 1+2 Ab+HIV1 p24 Ag IA Ql Non-Reactive Normal Nonreactive [facility] Comment on above: Order Comment: Speci men Type: BLOOD SPECIMEN Ordering Facility: [facility] Address: [address] [place] [address] Performed By: #### 5 195-3, 75677-0, 45170-8 #### [facility] CLIA [id number] [address] [place] [address] [place] HIV immunoassay testing algorithm interpretation (S/P/Bld) [Interp] Normal [facility] Comment on above: Order Comment: Speci men Type: BLOOD SPECIMEN Ordering Facility: [facility] Address: [address] [place] [address] Result Comment: No e vidence of HIV-1 or HIV-2 infection. Should recent infection be suspected, repeat testing may be considered 2-3 weeks after this draw. Isabela Rev. Code 3701.243(E): This information has been [...] or diagnoses. Performed By: #### 5 195-3, 25620-5, 28065-6 #### [facility] CLIA [id number] [address] [place] [address] [place] Reagin and Treponema pallidu m IgG and IgM [Interp]on 04-17-2024 T. pallidum IgG+IgM IA Ql (S) Non-Reactive Normal Nonreactive [facility] Comment on above: Order Comment: Speci men Type: BLOOD SPECIMEN Ordering Facility: [facility] Address: [address] [place] [address] Performed By: #### 5 195-3, 03370-8, 84543-6 #### [facility] [facility] CLIA [id number] [address] [place] [address] [place] Reagin+T pallidum IgG+IgM Se rPl-Impon 04-17-2024 Reagin and Treponema pallidum IgG and IgM [Interp] Cannot exclude recent Treponemal infection if specimen collected within 7-10 days after appearance of suspect lesions or 2-3 weeks after an exposure. Clinical correlation is required. Normal [facility] Comment on above: Order Comment: Speci men Type: BLOOD SPECIMEN Ordering Facility: [facility] Address: [address] [place] [address] Performed By: #### 5 195-3, 69029-2, 32031-5 #### [facility] CLIA [id number] [address] [place] [address] [place] TRICHOMONAS VAGINALIS NAATon 04-17-2024 T. vaginalis DNA LA+probe Ql (Unsp spec) Not detected Normal Not detected [facility] Comment on above: Order Comment: Speci men Type: SWAB Ordering Facility: [facility] Address: [address] [place] [address] Performed By: #### 3 6902-5, TRVAMP #### [facility] CLIA [id number] [address] [place] [address] [place] UA DIP,URINE HCG (POC)on Beta HCG ( test) Ql (U) Negative Negative [facility] Comment on above: Location:[facility], [address], [place], [address] [employer] (POCT) Internal QC OK [facility] Location:[facility], [address], [place], [address] [facility] POINT OF CARE [facility] B-HCG SerPl-aCncon 4 HCG.beta subunit Qn m[IU]/mL Normal <5.0 [facility] Comment on above: Order Comment: Speci men Type: SWAB Ordering Facility: [facility] Address: [address] [place] [address] Result Comment: Ajith rossi Performed By: #### 3 6902-5, TRHOLLY #### [facility] CLIA [id number] [address] [place] [address] [place] BACTERIAL VAGINOSIS NAATon 1 Lactobacillus crispatus+gasseri+starla enii + Gardnerella vaginalis + Atopobium vaginae rRNA LA+probe Ql (Vag fld) Negative Normal Negative for bacterial vaginosis [facility] Comment on above: Order Comment: Speci men Type: SWAB Ordering Facility: [facility] Address: [address] [place] [address] Performed By: #### 3 6902-5, TRHOLLY #### [facility] CLIA [id number] [address] [place] [address] [place] C. trachomatis+N. gonorrhoea e DNA LA+probe Ql (Unsp spec)on 02-21-2024 C. trachomatis rRNA LA+probe Ql (Unsp spec) Negative Normal Negative for Chlamydia trachomatis by amplificaton [facility] Comment on above: Order Comment: Speci men Type: SWAB Ordering Facility: [facility] Address: [address] [place] [address] Performed By: #### 3 6902-5, TRVACRYS #### [facility] CLIA [id number] [address] [place] [address] [place] N. gonorrhoeae rRNA LA+probe Ql (Unsp spec) Negative Normal Negative for Neisseria gonorrhoeae by amplification [facility] Comment on above: Order Comment: Speci men Type: SWAB Ordering Facility: [facility] Address: [address] [place] [address] Performed By: #### 3 6902-5, TRVACRYS #### [facility] CLIA [id number] [address] [place] [address] [place] MARIA T/TRICHOMONAS NAATon 1 C. glabrata RNA LA+probe Ql (Vag fld) Negative Normal Negative for Maria T glabrata [facility] Comment on above: Order Comment: Speci men Type: BLOOD SPECIMEN Ordering Facility: [facility] Address: [address] [place] [address] Performed By: #### 5 195-3, 38320-2, 90807-2 #### [facility] CLIA [id number] [address] [place] [address] OF [place] Maria T sp DNA LA+probe Ql (Vag fld) Negative Normal Negative for Maria T species [facility] Comment on above: Order Comment: Speci men Type: BLOOD SPECIMEN Ordering Facility: [facility] Address: [address] [place] [address] Performed By: #### 5 195-3, 57660-9, 58695-4 #### [facility] CLIA [id number] [address] [place] [address] OF [place] T. vaginalis DNA LA+probe Ql (Unsp spec) Negative Normal Negative for Trichomonas vaginalis by amplification [facility] Comment on above: Order Comment: Speci men Type: BLOOD SPECIMEN Ordering Facility: [facility] Address: [address] [place] [address] Performed By: #### 5 195-3, 36031-7, 54207-1 #### [facility] CLIA [id number] [address] [place] [address] [place] CNOVon 02-21-2024 CNOV Office Visit (OBGYWM ) RINA YI ([id number]) 1 F Date Time Provider Department 02/21/24 1:30 PM BLANK CHAVIRA During your visit today, we recorded the following information about you: Blood pressure Weight 120/70 75.8 kg Blank Chavira APRN.CNP 02/21/2024 2:18 PM Signed Tobacco Grader offered: Patient declines. Rina Yi is a [...] L1 SAB0 IAB0 Ectopic0 Multiple0 Live Births1 Designer Writer History LMP: 09/23/2023 (Exact Date), None Age at Menarche: Age at First : Age at Menopause: Designer Writer History Comments: Sexual Activity: Yes; Male Contraception: [...] Assessed 02/21/2024 REVIEW OF SYSTEMS Expanded ROS: SANITATION SUPERINTENDENT: Positive for vaginal odor Allergies and current medication updated:Yes SENSITIVE EXAM: The sensitive examination was discussed with the Patient or Patient's Authorized Pattern Layout Worker. As applicable, any other physician, advance practice provider, medical student, or other health professional student that will be observing or involved in the sensitive examination for educational or training purposes was discussed with the Patient or Authorized Pattern Layout Worker. The Patient or Authorized Pattern Layout Worker has agreed to proceed with the sensitive examination. (Sensitive examination includes inspection and/or palpation of the breasts, pelvis, prostate and anorectal regions). EXAM: BP 120/70 Wt 167 lb (75.8kg) LMP 09/23/2023 GENERAL: pleasant, female in no apparent distress HEENT: Normocephalic, atraumatic, mucus membranes moist, and no lesions CHEST: Normal inspiratory effort PELVIC: external genitalia normal, normal Bartholin's glands, urethra, [place]'s glands, no vulvar lesions, no cervical lesions, [...] RING RTO for IUD insertion. Blank Chavira APRN.WORK AND FAMILY LIFE CONSULTANT Medical Decision Making: Problems: Low: 2+ self-limited or minor problems Data: Unique test(s) ordered: 3+ Risk: Low: Low risk fr (more content not included)... Normal [facility] HBV surface Ag Ser Qlon 02-07 HBV surface Ag Ql (S) Negative Normal Negative [facility] Comment on above: Order Comment: Speci men Type: BLOOD SPECIMEN Ordering Facility: [facility] Address: [address] [place] [address] Performed By: #### 5 195-3, 38240-6, 66507-8 #### [facility] CLIA [id number] [address] [place] [address] [place] HCV Ab Ser Qlon 02-21-2024 HCV Ab Ql (S) Negative Normal Negative [facility] Comment on above: Order Comment: Speci men Type: SWAB Ordering Facility: [facility] Address: [address] [place] [address] Result Comment: The result suggests no evidence of active infection with Hepatitis C virus. Should recent infection be suspected, repeat testing may be considered 4-6 weeks after this draw. Performed By: #### 3 6902-5, TRVAMP #### [facility] CLIA [id number] [address] [place] [address] [place] HERPES SIMPLEX IGM, WITH REF ARNALDO IGG ABSon 02-21-2024 HSV IGM QUALITATIVE Negative Normal Negative [facility] Comment on above: Order Comment: Speci men Type: BLOOD SPECIMEN Ordering Facility: [facility] Address: [address] [place] [address] Result Comment: HSV IgM antibody test is [...] is suggested. Performed By: #### 5 195-3, 56689-0, 91363-5 #### [facility] CLIA [id number] [address] [place] [address] [place] HIV 1+2 Ab IA Qlon 4 HIV 1 and 2 Ab IA.rapid Nom (S/P/Bld) Normal [facility] Comment on above: Order Comment: Speci men Type: BLOOD SPECIMEN Ordering Facility: [facility] Address: [address] [place] [address] Result Comment: Test not indicated. Performed By: #### 5 195-3, 11892-7, 78251-0 #### [facility] CLIA [id number] [address] [place] [address] OF [place] HIV 1+2 Ab+HIV1 p24 Ag IA Ql Non-Reactive Normal Nonreactive [facility] Comment on above: Order Comment: Speci men Type: BLOOD SPECIMEN Ordering Facility: [facility] Address: [address] [place] [address] Performed By: #### 5 195-3, 97214-3, 97431-1 #### [facility] CLIA [id number] [address] [place] [address] OF [place] HIV immunoassay testing algorithm interpretation (S/P/Bld) [Interp] Normal [facility] Comment on above: Order Comment: Speci men Type: BLOOD SPECIMEN Ordering Facility: [facility] Address: [address] [place] [address] Result Comment: No e vidence of HIV-1 or HIV-2 infection. Should recent infection be suspected, repeat testing may be considered 2-3 weeks after this draw. Isabela Rev. Code 3701.243(E): This information has been [...] or diagnoses. Performed By: #### 5 195-3, 35091-0, 22455-7 #### [facility] CLIA [id number] [address] [place] [address] [place] Reagin and Treponema pallidu m IgG and IgM [Interp]on 02-21-2024 T. pallidum IgG+IgM IA Ql (S) Non-Reactive Normal Nonreactive [facility] Comment on above: Order Comment: Speci men Type: BLOOD SPECIMEN Ordering Facility: [facility] Address: [address] [place] [address] Performed By: #### 5 195-3, 33219-5, 83718-3 #### [facility] CLIA [id number] [address] [place] [address] [place] Reagin+T pallidum IgG+IgM Se rPl-Impon 02-21-2024 Reagin and Treponema pallidum IgG and IgM [Interp] Cannot exclude recent Treponemal infection if specimen collected within 7-10 days after appearance of suspect lesions or 2-3 weeks after an exposure. Clinical correlation is required. Normal [facility] Comment on above: Order Comment: Speci men Type: BLOOD SPECIMEN Ordering Facility: [facility] Address: [address] [place] [address] Performed By: #### 5 195-3, 42681-6, 14046-5 #### [facility] IA [id number] [address] [place] [address] [place] CNPNon 10-20-2023 CNPN Telephone (WIQ) RINA YI ([id number]) 1 F Date Time Provider Department 10/20/23 KIMBERLI BLACKMON WIQ During your visit today, we recorded the following information about you: Kimberli Blackmon, [facility] 10/20/2023 7:16 AM Signed Smoking Cessation Navigation Outcome of contact: Left Message Comments: A voicemail has been left for this patient regarding Tobacco Cessation support options. If this patient has any further questions they can email us at or call us at [phone]. [employer] Desktop Support Consultant/Smoking Cessation Navigator: [facility] Allergies As of Date: 10/20/2023 (No [...] 10/20/2023 Noted Resolved with care elsewhere in [facility]*12/30/2021 08/10/2022 Engages in vaping [Z72.89] 12/30/2021 Heartburn [...] Encounter Status:Closed by KIMBERLI BLACKMON on 10/20/23 [facility] CNOVon 10-15-2023 CNOV Office Visit (OBGYWM ) RINA YI ([id number]) 1 F Date Time Provider Department 10/15/23 9:30 AM LAURIE BONNER OBGYWM During your visit today, we recorded the following information about you: Blood pressure Weight Last Period 102 81.1 kg 09/23/23 Laurie Bonner APRN.CNM 10/15/2023 2:37 PM Signed Tobacco Grader offered: Patient declines. Rina Yi is a 18 year old female who presents to discuss Control options. She stopped using the patch because her skin was having a reaction. Currently using condoms with spermicide. Still but weaning to only at bedtime. Desires to quit smoking and interested in [facility] tobacco cessation program. CHIEF COMPLAINT: Discussion LMP:Patient's last menstrual period was 09/23/2023 (exact date). CONTRACEPTION: patch LAST PAP: N/A REVIEW OF SYSTEMS GENERAL: No weight loss, malaise or fevers RESPIRATORY: Negative for cough, hemoptysis, wheezing, COPD, dyspnea or shortness of breath GI: No nausea, vomiting, or diarrhea : No history of dysuria, frequency or incontinence SANITATION SUPERINTENDENT: Negative for abnormal vaginal bleeding, abnormal vaginal [...] as needed for follow up Laurie Bonner APRN.BON Allergies As of Date: 10/15/2023 (No Known Allergies) Date Reviewed: 10/15/2023 Reviewed by: Lindsay Vance LPN - Fully Assessed Reason for Visit: Discussion [813] Primary Visit Diagnosis:Encounter for other general counseling or advice on contraception [Z30.09] Other Visit Diagnoses:Tobacco use disorder [F17.200] Anxiety neurosis [F41.1] History of depression [Z86.59] 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 Normal [facility] HCG QUAL UR B/Oon 06-28-2023 status Negative neg - pos [facility] Quality Check Yes [facility] UA DIP, URINE (POC)on 2023 BILIRUBIN UA (POCT) Negative Negative [facility] CLARITY UA (POCT) Clear [facility] COLOR UA (POCT) Dark yellow [facility] GLUCOSE UA (POCT) Negative Negative mg/dL [facility] Hemoglobin Ql (U) Negative Negative [facility] KETONE UA (POCT) Negative Negative mg/dL [facility] LEUKOCYTES UA (POCT) Negative Negative [facility] NITRITE UA (POCT) Negative Negative [facility] PH UA (POCT) 6.0 4.5 - 8.0 [facility] Protein Ql (U) Negative Negative mg/[facility] SPECIFIC GRAVITY UA (POCT) 1.025 1.005 - 1.030 [facility] UROBILINOGEN UA (POCT) 0.2 E.U./dL Normal E.U./ dL [facility] CNPNeva 09-21-2022 RANDI Telephone (ANATOLIY) RINA YI ([id number]) 1 F Date Time Provider Department 09/21/22 OUMOU VLAENTIN During your visit today, we recorded the [...] called 911 and she was taken to [facility] ED. They didn't feel she had a [...] 09/21/2022 Noted Resolved with care elsewhere in [facility]*12/30/2021 08/10/2022 Engages in vaping [Z72.89] 12/30/2021 Heartburn [...] Encounter Status:Closed by OUMOU VALENTIN on 09/21/22 [facility] Absolute lymphocyte countOrd ered By: Dr. Camp on 09-18-2022 Lymphocytes Auto (Unsp spec) [#/Vol] 2.92 10*3/uL 0.83-4.51 [facility] Basophil percentageOrdered B y: Dr. Camp on 09-18-2022 Basophils/100 WBC (Bld) 0.5 % 0-1 [facility] Chloride [Moles/Vol] 107 mmol/L 98-107 [facility] Eosinophils/100 WBC (Bld) 2.3 % 0-5 [facility] Glucose [Mass/Vol] 109 mg/dL 74-106 [facility] Comment on above: Fasting Glucose resu lt from 100 to 125 mg/dL suggests IMPAIRED HOMEOSTASIS per A.D.A. criteria. Neutrophils (Bld) [#/Vol] 3.8 10*3/uL 2.0-7.7 [facility] Neutrophils/100 WBC (Bld) 49.6 % 47-70 [facility] Potassium [Moles/Vol] 3.9 mmol/L 3.5-5.1 [facility] Sodium [Moles/Vol] 141 mmol/L 136-145 [facility] WBC (Bld) [#/Vol] 7.7 10*3/uL 4.4-11.0 [facility] Blood erythrocytes count (nu mber/volume)Ordered By: Dr. Camp on 09-18-2022 RBC (Bld) [#/Vol] 5.52 10*6/uL 4.2-5.4 [facility] Blood hemoglobin measurement (mass/volume)Ordered By: Dr. Camp on 09-18-2022 Hemoglobin (Bld) [Mass/Vol] 12.0 g/dL 12.0-15.0 [facility] Blood lymphocytes/100 leukoc ytesOrdered By: Dr. Camp on 09-18-2022 Lymphocytes/100 WBC (Bld) 38.1 % 19-41 [facility] Blood monocytes/100 leukocyt esOrdered By: Dr. Camp on 09-18-2022 Monocytes/100 WBC (Bld) 9.4 % 0-10 [facility] Blood platelet mean volumeOr dered By: Dr. Camp on 09-18-2022 Platelet mean volume (Bld) [Entitic vol] 9.9 fL 6.2-12.0 [facility] Determination of erythrocyte mean corpuscular volume (MCV)Ordered By: Dr. Camp on 05-12-2023 MCV (RBC) [Entitic vol] 73.7 fL 81-99 [facility] Hematocrit Auto (Bld) [Volum e fraction]Ordered By: Dr. Camp on 09-18-2022 Hematocrit (Bld) [Volume fraction] 40.7 % 37-47 [facility] - Chemistry and C hemistry - challengeOrdered By: Dr. Camp on 09-18-2022 CO2 [Moles/Vol] 24.0 mmol/L 21.0-32.0 [facility] Urea nitrogen/Creatinine [Mass ratio] 24.6 mg/mg 10-20 [facility] - Hematology and Cell countsOrdered By: Dr. Camp on 09-18-2022 Erythrocyte distribution width (RBC) [Entitic vol] 46.5 fL 35.1-43.9 [facility] Erythrocyte distribution width (RBC) [Ratio] 17.9 % 11.6-14.6 [facility] Immature granulocytes/100 WBC (Bld) 0.100 % 0.0-0.9 [facility] Comment on above: IG% - Immature Granu locytes (promyelocytes, myelocytes and metamyelocytes) > 1% indicates that a LEFT SHIFT is Present. MCH (RBC) [Entitic mass] 21.7 pg 27.0-32.0 [facility] Nucleated RBC/100 WBC (Bld) [Ratio] 0 % 0-5 [facility] MCHC Auto (RBC) [Mass/Vol]Or dered By: Dr. Camp on 09-18-2022 MCHC (RBC) [Mass/Vol] 29.5 g/dL 32-36 [facility] No Panel InformationOrdered By: Dr. Camp on 09-18-2022 Estimated Creatinine Clearance Calc 146.57 ml/min [facility] Estimated GFR (MDRD) Amer 141 mL/min >60 [facility] Comment on above: GFR Calc Estimated GFR (MDRD) Non-Af Amer 116 mL/min >60 [facility] Comment on above: Non- GFR Calc Platelets bldOrdered By: Dr. Camp on 09-18-2022 Platelets (Bld) [#/Vol] 297 10*3/uL 150-450 [facility] Serum or plasma calcium deysi urement (mass/volume)Ordered By: Dr. Camp on 09-18-2022 Calcium [Mass/Vol] 9.8 mg/dL 8.5-10.1 [facility] Serum or plasma creatinine m easurement (mass/volume)Ordered By: Dr. Camp on 09-18-2022 Creatinine [Mass/Vol] 0.69 mg/dL 0.55-1.02 [facility] Comment on above: The validity of the calculated GFR & GFRAA in patients over 70 years has not been determined. Clinical correlation is essential. Serum or plasma urea nitroge n measurement (mass/volume)Ordered By: Dr. Camp on 09-18-2022 Urea nitrogen [Mass/Vol] 17 mg/dL 11-24 [facility] Thin prep Papanicolaou smear with manual screeningOrdered By: Dr. Camp on 09-18-2022 Thin prep Papanicolaou smear with manual screening 10 - [facility] CBC panel Auto (Bld)on 08-10 Erythrocyte distribution width (RBC) [Ratio] 18.2 % High 11.5 - 15.0 % [facility] Hematocrit (Bld) [Volume fraction] 39.5 % 36.0 - 46.0 % [facility] Hemoglobin (Bld) [Mass/Vol] 12.0 g/dL 11.5 - 15.5 g/dL [facility] MCH (RBC) [Entitic mass] 22.0 pg Low 26.0 - 34.0 pg [facility] MCHC (RBC) [Mass/Vol] 30.4 g/dL Low 30.5 - 36.0 g/dL [facility] MCV (RBC) [Entitic vol] 72.5 fL Low 80.0 - 100.0 fL [facility] Nucleated RBC (Bld) [#/Vol] <0.01 k/uL [facility] Platelet mean volume (Bld) [Entitic vol] 10.1 fL 9.0 - 12.7 fL [facility] Platelets (Bld) [#/Vol] 354 10*3/uL 150 - 400 k/uL [facility] RBC (Bld) [#/Vol] 5.45 10*6/uL High 3.90 - 5.2 0 m/uL [facility] WBC (Bld) [#/Vol] 7.71 10*3/uL 3.70 - 11. 00 k/uL [facility] HCG QUAL UR B/Oon 08-10-2022 status Negative neg - pos [facility] Quality Check Yes [facility] CBC W Auto Differential pane l (Bld)on 05-18-2022 Basophils (Bld) [#/Vol] 0.06 10*3/uL <0.11 k/uL [facility] Basophils/100 WBC (Bld) 0.7 % [facility] Differential cell count method Nom (Bld) Auto [facility] Eosinophils (Bld) [#/Vol] 0.27 10*3/uL <0.46 k/uL [facility] Eosinophils/100 WBC (Bld) 3.3 % [facility] Erythrocyte distribution width (RBC) [Ratio] 17.6 % High 11.5 - 15.0 % [facility] Hematocrit (Bld) [Volume fraction] 30.8 % Low 36.0 - 46.0 % [facility] Hemoglobin (Bld) [Mass/Vol] 9.4 g/dL Low 11.5 - 15.5 g/dL [facility] Immature granulocytes (Bld) [#/Vol] 0.04 10*3/uL <0.10 k/uL [facility] Immature granulocytes/100 WBC (Bld) 0.5 % [facility] Lymphocytes (Bld) [#/Vol] 2.03 10*3/uL 1.00 - 4.00 k/uL [facility] Lymphocytes/100 WBC (Bld) 24.7 % [facility] MCH (RBC) [Entitic mass] 23.3 pg Low 26.0 - 34.0 pg [facility] MCHC (RBC) [Mass/Vol] 30.5 g/dL 30.5 - 36.0 g/dL [facility] MCV (RBC) [Entitic vol] 76.4 fL Low 80.0 - 100.0 fL [facility] Monocytes (Bld) [#/Vol] 0.75 10*3/uL <0.87 k/uL [facility] Monocytes/100 WBC (Bld) 9.1 % [facility] Neutrophils (Bld) [#/Vol] 5.08 10*3/uL 1.45 - 7.50 k/uL [facility] Neutrophils/100 WBC (Bld) 61.7 % [facility] Nucleated RBC (Bld) [#/Vol] <0.01 k/uL [facility] Nucleated RBC/100 WBC (Bld) [Ratio] 0.0 /100 WBC [facility] Platelet mean volume (Bld) [Entitic vol] 9.4 fL 9.0 - 12.7 fL [facility] Platelets (Bld) [#/Vol] 401 10*3/uL High 150 - 400 k/uL [facility] RBC (Bld) [#/Vol] 4.03 10*6/uL 3.90 - 5.2 0 m/uL [facility] WBC (Bld) [#/Vol] 8.23 10*3/uL 3.70 - 11. 00 k/uL [facility] No Panel Informationon 05-18 [facility] Basophil percentageon 2022 WBC (Bld) [#/Vol] 9.4 10*3/uL 4.5-13.0 [facility] Phone: Blood erythrocytes count (nu mber/volume)on 05-11-2022 RBC (Bld) [#/Vol] 2.97 10*6/uL 4.1-4.8 [facility] Work [facility]: Blood hemoglobin measurement (mass/volume)on 05-11-2022 Hemoglobin (Bld) [Mass/Vol] 7.1 g/dL 12.0-15.0 [facility] Work Phone: Blood platelet mean volumeon 05-11-2022 Platelet mean volume (Bld) [Entitic vol] 10.7 fL 6.2-12.0 [facility] Work Phone: Determination of erythrocyte mean corpuscular volume (MCV)on 05-11-2022 MCV (RBC) [Entitic vol] 77.4 fL 78-96 [facility] Work Phone: Hematocrit Auto (Bld) [Volum e fraction]on 05-11-2022 Hematocrit (Bld) [Volume fraction] 23.0 % 37-46 [facility] Work Phone: Laboratory - Hematology and Cell countson 05-11-2022 Erythrocyte distribution width (RBC) [Entitic vol] 47.7 fL 35.1-43.9 [facility] Work Phone: Erythrocyte distribution width (RBC) [Ratio] 17.0 % 11.6-14.6 [facility] Work Phone: MCH (RBC) [Entitic mass] 23.9 pg 25.0-35.0 [facility] Work Phone: MCHC Auto (RBC) [Mass/Vol]on 05-11-2022 MCHC (RBC) [Mass/Vol] 30.9 g/dL 32-36 [facility] Work Phone: Platelets bldon 05-11-2022 Platelets (Bld) [#/Vol] 247 10*3/uL 150-450 [facility] Work Phone: Absolute lymphocyte counton 05-08-2022 Lymphocytes Auto (Unsp spec) [#/Vol] 1.48 10*3/uL 0.83-4.51 [facility] Work Phone: Basophil percentageon 2021 Basophils/100 WBC (Bld) 0.2 % 0-1 [facility] Work Phone: Eosinophils/100 WBC (Bld) 0.7 % 0-3 [facility] Work Phone: Neutrophils (Bld) [#/Vol] 6.5 10*3/uL 2.0-7.7 [facility] Work Phone: Neutrophils/100 WBC (Bld) 70.7 % 34-64 [facility] Work Phone: Blood lymphocytes/100 leukoc yteson 05-08-2022 Lymphocytes/100 WBC (Bld) 16.1 % 25-45 [facility] Work Phone: Blood monocytes/100 leukocyt eson 05-08-2022 Monocytes/100 WBC (Bld) 11.9 % 3-6 [facility] Work Phone: Laboratory - Drug toxicology on 05-08-2022 Benzodiazepines Ql (U) Negative < 200 ng/mL [facility] Work Phone: Cannabinoids Screen Ql (U) Negative < 50 ng/mL [facility] Work Phone: Cocaine Ql (U) Negative < 300 ng/mL [facility] Work Phone: Opiates Ql (U) Negative < 300 ng/mL [facility] Work Phone: Laboratory - Hematology and Cell countson 05-08-2022 Immature granulocytes/100 WBC (Bld) 0.400 % 0.0-0.9 [facility] Work Phone: Comment on above: IG% - Immature Granu locytes (promyelocytes, myelocytes and metamyelocytes) > 1% indicates that a LEFT SHIFT is Present. Nucleated RBC/100 WBC (Bld) [Ratio] 0 % 0-5 [facility] Work Phone: No Panel Informationon 05-08 MDMA (Ecstasy) Screen Negative < 500 ng/mL [facility] Work Phone: Urine Barbiturates Screen Negative < 200 ng/mL [facility] Work Phone: Urine Drug Screen Comment [facility] Work Phone: Comment on above: CONFIRMATORY [...] Methadone Screen Negative < 300 ng/mL [facility] Work Phone: [facility] URINE OB DIP B/Oon 2 Glucose Ql (U) Negative Neg mg/dL [facility] Protein.monoclonal (U) [Mass/Vol] trace Neg mg/dL [facility] Urine amphetamine measuremen t (moles/volume)on 05-08-2022 Amphetamine (U) [Moles/Vol] Negative <1000 ng/mL [facility] Work Phone: Urine phencyclidine (PCP) de tectionon 05-08-2022 Phencyclidine Ql (U) Negative < 25 ng/mL [facility] Work Phone: Basophil percentageon 2021 WBC (Bld) [#/Vol] 10.8 10*3/uL 4.5-13.0 [facility] Work Phone: Blood erythrocytes count (nu mber/volume)on 05-06-2022 RBC (Bld) [#/Vol] 4.35 10*6/uL 4.1-4.8 [facility] Work Phone: Blood hemoglobin measurement (mass/volume)on 05-06-2022 Hemoglobin (Bld) [Mass/Vol] 10.4 g/dL 12.0-15.0 [facility] Work Phone: Blood platelet mean volumeon 05-06-2022 Platelet mean volume (Bld) [Entitic vol] 10.7 fL 6.2-12.0 [facility] Work Phone: Determination of erythrocyte mean corpuscular volume (MCV)on 05-06-2022 MCV (RBC) [Entitic vol] 76.1 fL 78-96 [facility] Work Phone: Hematocrit Auto (Bld) [Volum e fraction]on 05-06-2022 Hematocrit (Bld) [Volume fraction] 33.1 % 37-46 [facility] Work Phone: Laboratory - Chemistry and C hemistry - challengeon 05-06-2022 ALT [Catalytic activity/Vol] 13 U/L 13-56 [facility] Work Phone: Laboratory - Hematology and Cell countson 05-06-2022 Erythrocyte distribution width (RBC) [Entitic vol] 43.8 fL 35.1-43.9 [facility] Work Phone: Erythrocyte distribution width (RBC) [Ratio] 16.1 % 11.6-14.6 [facility] Work Phone: MCH (RBC) [Entitic mass] 23.9 pg 25.0-35.0 [facility] Work Phone: MCHC Auto (RBC) [Mass/Vol]on 05-06-2022 MCHC (RBC) [Mass/Vol] 31.4 g/dL 32-36 [facility] Work Phone: No Panel Informationon 05-06 Estimated Creatinine Clearance Calc 172.83 ml/min [facility] Work Phone: Estimated GFR (MDRD) Amer 170 mL/min >60 [facility] Work Phone: Comment on above: GFR Calc Estimated GFR (MDRD) Non-Af Amer 141 mL/min >60 [facility] Work Phone: Comment on above: Non- GFR Calc Platelets bldon 05-06-2022 Platelets (Bld) [#/Vol] 323 10*3/uL 150-450 [facility] Work Phone: Serum or plasma creatinine m easurement (mass/volume)on 05-06-2022 Creatinine [Mass/Vol] 0.59 mg/dL 0.55-1.02 [facility] Work Phone: Comment on above: The validity of the calculated GFR & GFRAA in patients over 70 years has not been determined. Clinical correlation is essential. Serum or plasma uric acid me asurement (mass/volume)on 05-06-2022 Urate [Mass/Vol] 5.6 mg/dL 2.6-6.0 [facility] Work Phone: Comment on above: The drugs N-Acetylcy steine and Metamizole may falsely depress this assay. Thin prep Papanicolaou smear with manual screeningon 05-06-2022 Thin prep Papanicolaou smear with manual screening 15 U/L 15-37 [facility] Work Phone: URINE OB DIP B/Oon 2 Glucose Ql (U) Negative Neg mg/dL [facility] Protein.monoclonal (U) [Mass/Vol] Negative Neg mg/dL [facility] Urine creatinine measurement (mass/volume)on 05-06-2022 Creatinine (U) [Mass/Vol] 65.80 mg/dL NO RANGE EST. [facility] Work Phone: Urine protein measurement (m ass/volume)on 05-06-2022 Protein (U) [Mass/Vol] 16.7 mg/dL 0.0-11.8 [facility] Work Phone: Urine protein/creatinine mas s ratioon 05-06-2022 Protein/Creatinine (U) [Mass ratio] 254 mg/g CRE 0-200 [facility] Work Phone: URINE OB DIP B/Oon 2 Glucose Ql (U) Negative Neg mg/dL [facility] Protein.monoclonal (U) [Mass/Vol] Negative Neg mg/dL [facility] CBC panel Auto (Bld)on 04-27 Erythrocyte distribution width (RBC) [Ratio] 16.0 % High 11.5 - 15.0 % [facility] Hematocrit (Bld) [Volume fraction] 33.0 % Low 36.0 - 46.0 % [facility] Hemoglobin (Bld) [Mass/Vol] 10.3 g/dL Low 11.5 - 15.5 g/dL [facility] MCH (RBC) [Entitic mass] 24.1 pg Low 26.0 - 34.0 pg [facility] MCHC (RBC) [Mass/Vol] 31.2 g/dL 30.5 - 36.0 g/dL [facility] MCV (RBC) [Entitic vol] 77.1 fL Low 80.0 - 100.0 fL [facility] Nucleated RBC (Bld) [#/Vol] <0.01 k/uL [facility] Platelet mean volume (Bld) [Entitic vol] 11.0 fL 9.0 - 12.7 fL [facility] Platelets (Bld) [#/Vol] 338 10*3/uL 150 - 400 k/uL [facility] RBC (Bld) [#/Vol] 4.28 10*6/uL 3.90 - 5.2 0 m/uL [facility] WBC (Bld) [#/Vol] 10.65 10*3/uL 3.70 - 11 .00 k/uL [facility] Comprehensive metabolic 2000 panelon 04-27-2022 Albumin [Mass/Vol] 3.4 g/dL Low 3.9 - 4.9 g/dL [facility] ALP [Catalytic activity/Vol] 126 U/L High 45 - 87 U/L [facility] ALT [Catalytic activity/Vol] 7 U/L 7 - 38 U/L [facility] Anion gap [Moles/Vol] 10 mmol/L 9 - 18 mmol/L [facility] AST [Catalytic activity/Vol] 13 U/L 13 - 35 U/L [facility] Bilirubin [Mass/Vol] 0.3 mg/dL 0.2 - 1 .3 mg/dL [facility] Calcium [Mass/Vol] 9.2 mg/dL 8.5 - 10. 2 mg/dL [facility] Chloride [Moles/Vol] 97 mmol/L 97 - 10 5 mmol/L [facility] CO2 [Moles/Vol] 22 mmol/L 22 - 30 mmol/L [facility] Creatinine [Mass/Vol] 0.66 mg/dL 0.58 - 0.96 mg/dL [facility] Estimated Glomerular Filtration Rate 131 mL/min/1.73m >=60 mL/min/1.73m [facility] Glucose [Mass/Vol] 98 mg/dL 74 - 99 mg/dL [facility] Potassium [Moles/Vol] 4.4 mmol/L 3.7 - 5.1 mmol/L [facility] Protein [Mass/Vol] 6.6 g/dL 6.3 - 8.0 g/dL [facility] Sodium [Moles/Vol] 129 mmol/L Low 136 - 144 mmol/L [facility] Urea nitrogen [Mass/Vol] 7 mg/dL 7 - 21 mg/dL [facility] URINE OB DIP B/Oon 2 Glucose Ql (U) Negative Neg mg/dL [facility] Protein.monoclonal (U) [Mass/Vol] 30 mg/dL Neg mg/dL [facility] Basophil percentageon 2021 WBC (Bld) [#/Vol] 10.7 10*3/uL 4.5-13.0 [facility] Blood erythrocytes count (nu mber/volume)on 04-22-2022 RBC (Bld) [#/Vol] 4.26 10*6/uL 4.1-4.8 [facility] Work Phone: Blood hemoglobin measurement (mass/volume)on 04-22-2022 Hemoglobin (Bld) [Mass/Vol] 10.1 g/dL 12.0-15.0 [facility] Work Phone: Blood platelet mean volumeon 04-22-2022 Platelet mean volume (Bld) [Entitic vol] 10.4 fL 6.2-12.0 [facility] Work Phone: Determination of erythrocyte mean corpuscular volume (MCV)on 04-22-2022 MCV (RBC) [Entitic vol] 78.4 fL 78-96 [facility] Work Phone: Hematocrit Auto (Bld) [Volum e fraction]on 04-22-2022 Hematocrit (Bld) [Volume fraction] 33.4 % 37-46 [facility] Work Phone: Laboratory - Chemistry and C hemistry - challengeon 04-22-2022 ALT [Catalytic activity/Vol] 14 U/L 13-56 [facility] Work Phone: Laboratory - Hematology and Cell countson 04-22-2022 Erythrocyte distribution width (RBC) [Entitic vol] 44.7 fL 35.1-43.9 [facility] Work Phone: Erythrocyte distribution width (RBC) [Ratio] 15.8 % 11.6-14.6 [facility] Work Phone: MCH (RBC) [Entitic mass] 23.7 pg 25.0-35.0 [facility] Work Phone: MCHC Auto (RBC) [Mass/Vol]on 04-22-2022 MCHC (RBC) [Mass/Vol] 30.2 g/dL 32-36 [facility] Work Phone: No Panel Informationon 04-22 Estimated Creatinine Clearance Calc 231.75 ml/min [facility] Work Phone: Estimated GFR (MDRD) Amer 238 mL/min >60 [facility] Work Phone: Comment on above: GFR Calc Estimated GFR (MDRD) Non-Af Amer 197 mL/min >60 [facility] Work Phone: Comment on above: Non- GFR Calc Platelets bldon 04-22-2022 Platelets (Bld) [#/Vol] 336 10*3/uL 150-450 [facility] Work Phone: Serum or plasma creatinine m easurement (mass/volume)on 04-22-2022 Creatinine [Mass/Vol] 0.44 mg/dL 0.55-1.02 [facility] Work Phone: Comment on above: The validity of the calculated GFR & GFRAA in patients over 70 years has not been determined. Clinical correlation is essential. Serum or plasma uric acid me asurement (mass/volume)on 04-22-2022 Urate [Mass/Vol] 4.0 mg/dL 2.6-6.0 [facility] Work Phone: Comment on above: The drugs N-Acetylcy steine and Metamizole may falsely depress this assay. Thin prep Papanicolaou smear with manual screeningon 04-22-2022 Thin prep Papanicolaou smear with manual screening 15 U/L 15-37 [facility] Work Phone: URINE OB DIP B/Oon 2 Glucose Ql (U) Negative Neg mg/dL [facility] Protein.monoclonal (U) [Mass/Vol] Negative Neg mg/dL [facility] Urine creatinine measurement (mass/volume)on 04-22-2022 Creatinine (U) [Mass/Vol] 34.90 mg/dL NO RANGE EST. [facility] Work Phone: Urine protein measurement (m ass/volume)on 04-22-2022 Protein (U) [Mass/Vol] 7.6 mg/dL 0.0-11.8 [facility] Work Phone: Urine protein/creatinine mas s ratioon 04-22-2022 Protein/Creatinine (U) [Mass ratio] 218 mg/g CRE 0-200 [facility] Work Phone: No Panel Informationon 04-20 Vaginal Amniotic Fluid Detection Negative Negative [facility] Work Phone: Comment on above: Amniotic fluid not p resent indicates No Rupture of FetalMembranes at time of specimen collection. TYPE + SCREEN PRENATALon ABO O [facility] HIstorical Ab Scr Status Negative [facility] Rh Nom (Bld) Positive [facility] Type and Screen Expiration 04/19/2022 23:59 [facility] URINE OB DIP B/Oon 2 Glucose Ql (U) Negative Neg mg/dL [facility] Protein.monoclonal (U) [Mass/Vol] Negative Neg mg/dL [facility] URINE OB DIP B/Oon 2 Glucose Ql (U) Negative Neg mg/dL [facility] Protein.monoclonal (U) [Mass/Vol] Negative Neg mg/dL [facility] OBSTETRIC ULTRASOUND WHIon 1 05-23-2021 [facility] URINE OB DIP B/Oon 2 Glucose Ql (U) Negative Neg mg/dL [facility] Protein.monoclonal (U) [Mass/Vol] Negative Neg mg/dL [facility] URINE OB DIP B/Oon 2 Glucose Ql (U) Negative Neg mg/dL [facility] Protein.monoclonal (U) [Mass/Vol] Negative Neg mg/dL [facility] URINE OB DIP B/Oon 2 Glucose Ql (U) Negative Neg mg/dL [facility] Protein.monoclonal (U) [Mass/Vol] Negative Neg mg/dL [facility] URINE OB DIP B/Oon 2 Glucose Ql (U) Negative Neg mg/dL [facility] Protein.monoclonal (U) [Mass/Vol] Negative Neg mg/dL [facility] US OB 1ST TRIMESTER TRANSBDO ALEJANDRO ONLY [...] No free fluid identified in the pelvis. [facility] Workstation ID: [id number] Dictated by: JULIET ARIAS on WedOct 28, 2021 12:21:57 PM EDT Transcribed by: YENNY TELLO on WedOct 28, 2021 1:20:41 PM EDT Finalized by: JULIET ARIAS on WedOct 28, 2021 4:26:00 PM EDT [facility] Comment on above: Order Comment: Injur y/Trauma or Illness?:Illness/Other How long have you had these symptoms (acute/chronic)?:Acute Reason for exam?:Vaginal pain for 1 day History of cancer?:unknown Surgeries, chemotherapy, or radiation?:unknown Type of Exam?:Initial Additional signs and symptoms?:no CBCon 05-24-2021 ABSOLUTE BAS 0.0 10*3/uL Normal 0.0-0.2 [facility] Comment on above: Performed By: #### L IVR, ACBC, LIPA2, CHEM7F #### Testing performed at [address] [address] ABSOLUTE EOS 0.10 10*3/uL Normal 0.0-0.7 [facility] Comment on above: Performed By: #### L IVR, ACBC, LIPA2, CHEM7F #### Testing performed at [address] [address] ABSOLUTE NEUTROPHIL COUNT 3.3 10*3/uL Normal 1.4-6.5 [facility] Comment on above: Performed By: #### L IVR, ACBC, LIPA2, CHEM7F #### Testing performed at [address] [address] Basophils/100 WBC (Bld) 0.4 % Normal 0.0-2.0 [facility] Comment on above: Performed By: #### L IVR, ACBC, LIPA2, CHEM7F #### Testing performed at [address] [address] DTYPE AUTO DIFF Normal [facility] Comment on above: Performed By: #### L IVR, ACBC, LIPA2, CHEM7F #### Testing performed at [address] [address] Eosinophils/100 WBC (Bld) 1.0 % Normal 0.0-11.0 [facility] Comment on above: Performed By: #### L IVR, ACBC, LIPA2, CHEM7F #### Testing performed at [address] [address] Lymphocytes (Bld) [#/Vol] 1.70 10*3/uL Normal 1.2-3.4 [facility] Comment on above: Performed By: #### L IVR, ACBC, LIPA2, CHEM7F #### Testing performed at [address] [address] Lymphocytes/100 WBC (Bld) 29.0 % Normal 20.0-55.0 [facility] Comment on above: Performed By: #### L IVR, ACBC, LIPA2, CHEM7F #### Testing performed at [address] [address] Monocytes (Bld) [#/Vol] 0.7 10*3/uL Normal 0.0-0.7 [facility] Comment on above: Performed By: #### L IVR, ACBC, LIPA2, CHEM7F #### Testing performed at [address] [address] Monocytes/100 WBC (Bld) 12.2 % High 0.0-10.0 [facility] Comment on above: Performed By: #### L IVR, ACBC, LIPA2, CHEM7F #### Testing performed at [address] [address] Neutrophils/100 WBC (Bld) 57.4 % Normal 37.0-75.0 [facility] Comment on above: Performed By: #### L IVR, ACBC, LIPA2, CHEM7F #### Testing performed at [address] [address] Erythrocyte distribution width (RBC) [Ratio] 13.8 % Normal 11.5-14.5 [facility] Comment on above: Performed By: #### L IVR, ACBC, LIPA2, CHEM7F #### Testing performed at [address] [address] Hematocrit (Bld) [Volume fraction] 41.3 % Normal 36.0-48.0 [facility] Comment on above: Performed By: #### L IVR, ACBC, LIPA2, CHEM7F #### Testing performed at [address] [address] Hemoglobin (Bld) [Mass/Vol] 13.6 g/dL Normal 12.0-16.0 [facility] Comment on above: Performed By: #### L IVR, ACBC, LIPA2, CHEM7F #### Testing performed at [address] [address] MCH (RBC) [Entitic mass] 28.0 pg Normal 26.0-35.0 [facility] Comment on above: Performed By: #### L IVR, ACBC, LIPA2, CHEM7F #### Testing performed at [address] [address] MCHC (RBC) [Mass/Vol] 33.0 g/dL Normal 27.0-37.0 [facility] Comment on above: Performed By: #### L IVR, ACBC, LIPA2, CHEM7F #### Testing performed at [address] [address] MCV (RBC) [Entitic vol] 84.9 fL Normal 80.0-100.0 [facility] Comment on above: Performed By: #### L IVR, ACBC, LIPA2, CHEM7F #### Testing performed at [address] [address] Platelet mean volume (Bld) [Entitic vol] 8.9 fL Normal 7.4-11.0 [facility] Comment on above: Performed By: #### L IVR, ACBC, LIPA2, CHEM7F #### Testing performed at [address] [address] Platelets (Bld) [#/Vol] 198 10*3/uL Normal 130.0-400.0 [facility] Comment on above: Performed By: #### L IVR, ACBC, LIPA2, CHEM7F #### Testing performed at [address] [address] RBC (Bld) [#/Vol] 4.86 10*6/uL Normal 4.0-5.4 [facility] Comment on above: Performed By: #### L IVR, ACBC, LIPA2, CHEM7F #### Testing performed at [address] [address] WBC (Bld) [#/Vol] 5.8 10*3/uL Normal 3.6-13.0 [facility] Comment on above: Performed By: #### L IVR, ACBC, LIPA2, CHEM7F #### Testing performed at [address] [address] CHEM 7 FASTINGon 05-24-2021 Creatinine [Mass/Vol] 0.59 mg/dL Normal 0.52-1.04 [facility] Comment on above: Performed By: #### L IVR, ACBC, LIPA2, CHEM7F #### Testing performed at [address] [address] GFR Information Unable to calculate GFR due to inappropriate age/gender/creatinine value. Normal [facility] Comment on above: Performed By: #### L IVR, ACBC, LIPA2, CHEM7F #### Testing performed at [address] [address] Urea nitrogen [Mass/Vol] 8 mg/dL Normal 7-20 [facility] Comment on above: Performed By: #### L IVR, ACBC, LIPA2, CHEM7F #### Testing performed at [address] [address] Chloride [Moles/Vol] 102 mmol/L Normal 98-107 [facility] Comment on above: Performed By: #### L IVR, ACBC, LIPA2, CHEM7F #### Testing performed at [address] [address] CO2 [Moles/Vol] 26 mmol/L Normal 22-30 [facility] Comment on above: Performed By: #### L IVR, ACBC, LIPA2, CHEM7F #### Testing performed at [address] [address] Glucose [Mass/Vol] 91 mg/dL Normal 70-100 [facility] Comment on above: Result Comment: NORMAL <100 mg/dL PREDIABETES 101-126 mg/dL DIABETES 126 mg/dL or higher Performed By: #### L IVR, ACBC, LIPA2, CHEM7F #### Testing performed at [address] [address] Potassium [Moles/Vol] 3.2 mmol/L Low 3.5-5.1 [facility] Comment on above: Performed By: #### L IVR, ACBC, LIPA2, CHEM7F #### Testing performed at [address] [address] Sodium [Moles/Vol] 140 mmol/L Normal 136-145 [facility] Comment on above: Performed By: #### L IVR, ACBC, LIPA2, CHEM7F #### Testing performed at [address] [address] LIPASE,SERUMon 05-24-2021 LIPASE,SERUM 26 U/L Normal 23-300 [facility] Comment on above: Performed By: #### L IVR, ACBC, LIPA2, CHEM7F #### Testing performed at [address] [address] LIVER PANELon 05-24-2021 Albumin [Mass/Vol] 4.0 g/dL Normal 3.5-5.0 [facility] Comment on above: Performed By: #### L IVR, ACBC, LIPA2, CHEM7F #### Testing performed at [address] [address] ALP [Catalytic activity/Vol] 50 U/L Normal 38-126 [facility] Comment on above: Performed By: #### L IVR, ACBC, LIPA2, CHEM7F #### Testing performed at [address] [address] ALT [Catalytic activity/Vol] 14 U/L Normal 14-54 [facility] Comment on above: Performed By: #### L IVR, ACBC, LIPA2, CHEM7F #### Testing performed at [address] [address] AST [Catalytic activity/Vol] 14 U/L Low 15-41 [facility] Comment on above: Performed By: #### L IVR, ACBC, LIPA2, CHEM7F #### Testing performed at [address] [address] Bilirubin [Mass/Vol] 1.1 mg/dL Normal 0.2-1.9 [facility] Comment on above: Performed By: #### L IVR, ACBC, LIPA2, CHEM7F #### Testing performed at [address] [address] Bilirubin.indirect [Mass/Vol] 0.2 mg/dL Normal 0.0-0.2 [facility] Comment on above: Performed By: #### L IVR, ACBC, LIPA2, CHEM7F #### Testing performed at [place] [id number] Protein [Mass/Vol] 7.3 g/dL Normal 6.3-8.6 [facility] Comment on above: Performed By: #### L IVR, ACBC, LIPA2, CHEM7F #### [place] [address] NOVEL CORONAVIRUSon 05-24-19 22 NARRATIVE This test was perfor med using isothermal LA and has been approved as Emergency Use Authorization (EUA) for the qualitative detection [id number] nucleic acid. Normal [facility] Comment on above: Performed By: #### C OVID #### [place] [address] SARS-CoV-2 (COVID-19) RNA LA+probe Ql (Unsp spec) Not detected Normal NOT DETECTED [facility] Comment on above: Result Comment: Nega tive [...] #### C OVID #### [place] [address] RAPID FLU Aon 05-24-2021 INFLUENZA A Negative Normal NEGATIVE [facility] Comment on above: Performed By: #### R FLUAB #### [place] [address] INFLUENZA B Negative Normal NEGATIVE [facility] Comment on above: Result Comment: TEST ING PERFORMED BY LA Performed By: #### R FLUAB #### Testing performed at [address] [address] TSHon 05-24-2021 TSH 1.463 uIU/ML Normal 0.36-5.80 [facility] Comment on above: Performed By: #### T SH2 #### Testing performed at [address] [address] URINE HCG QUALon 05-24-2021 Beta HCG ( test) Ql (U) Negative Normal NEGATIVE [facility] Comment on above: Performed By: #### U HCGT, UMAC #### Testing performed at [address] [address] URINE MACROSCOPICon 05-24-19 Bilirubin Ql (U) Negative Normal NEGATIVE [facility] Comment on above: Performed By: #### U HCGT, UMAC #### Testing performed at [address] [address] Clarity (U) CLEAR Normal CLEAR [facility] Comment on above: Performed By: #### U HCGT, UMAC #### Testing performed at [address] [address] Color (U) YELLOW Normal YELLOW [facility] Comment on above: Performed By: #### U HCGT, UMAC #### Testing performed at [address] [address] Glucose Ql (U) Negative Normal NEGATIVE [facility] Comment on above: Performed By: #### U HCGT, UMAC #### Testing performed at [address] [address] pH (U) 6.0 [pH] Normal 5.0-7.0 [facility] Comment on above: Performed By: #### U HCGT, UMAC #### Testing performed at [address] [address] URINE HEMOGLOBIN Negative Normal NEGATIVE [facility] Comment on above: Performed By: #### U HCGT, UMAC #### Testing performed at [address] [address] URINE KETONE TRACE Abnormal NEGATIVE [facility] Comment on above: Performed By: #### U HCGT, UMAC #### Testing performed at [address] [address] URINE LEUKOTEST Negative Normal NEGATIVE [facility] Comment on above: Performed By: #### U HCGT, UMAC #### Testing performed at [address] [address] URINE NITRATES Negative Normal NEGATIVE [facility] Comment on above: Performed By: #### U HCGT, UMAC #### Testing performed at [address] [address] URINE SPEC GRAVITY 1.025 Normal 1.010-1.025 [facility] Comment on above: Performed By: #### U HCGT, UMAC #### Testing performed at [address] [address] URINE TOTAL PROTEIN Negative Normal NEGATIVE [facility] Comment on above: Performed By: #### U HCGT, UMAC #### Testing performed at [address] [address] Urobilinogen Qn (U) 0.2 {Reed'U}/dL Normal 0.2-1.0 [facility] Comment on above: Performed By: #### U HCGT, UMAC #### Testing performed at [address] [address] CBC W Auto Differential pane l (Bld)on 11-21-2020 Basophils (Bld) [#/Vol] 0.03 10*3/uL Normal <=0.70 [facility] Comment on above: Performed By: #### 5 7021-8 #### [place] [address] Field Laboratory Operator - [facility] CLIA [id number] Basophils/100 WBC (Bld) 0.4 % Normal <=2.0 [facility] Comment on above: Performed By: #### 5 7021-8 #### [place] [address] [employer] Laboratory Operator - [facility] CLIA [id number] Eosinophils (Bld) [#/Vol] 0.09 10*3/uL Normal <=0.70 [facility] Comment on above: Performed By: #### 5 7021-8 #### [facility] [address] [place] [address] Field Laboratory Operator - Judith CALLEJASIA [id number] Eosinophils/100 WBC (Bld) 1.1 % Normal <=10.0 [facility] Comment on above: Performed By: #### 5 7021-8 #### [facility] [address] [place] [address] Field Laboratory Operator - Judith CALLEJASIA [id number] Erythrocyte distribution width (RBC) [Entitic vol] 42.2 fL Normal 36.4-46.3 [facility] Comment on above: Performed By: #### 5 7021-8 #### [place] [address] [place] [address] [employer] Laboratory Operator - Judith CALLEJASIA [id number] Hematocrit (Bld) [Volume fraction] 37.5 % Normal 37.0-47.0 [facility] Comment on above: Performed By: #### 5 7021-8 #### [place] [address] [place] [address] [employer] Laboratory Operator - Judith CALLEJASIA [id number] Hemoglobin (Bld) [Mass/Vol] 12.6 g/dL Normal 12.0-16.0 [facility] Comment on above: Performed By: #### 5 7021-8 #### [place] [address] [place] [address] [employer] Laboratory Operator - Judith CALLEJASIA [id number] Immature granulocytes (Bld) [#/Vol] 0.02 10*3/uL Normal <=0.10 [facility] Comment on above: Performed By: #### 5 7021-8 #### [facility] [address] Director - Judith CALLEJASIA [id number] Immature granulocytes/100 WBC (Bld) 0.20 % Normal <=1.50 [facility] Comment on above: Performed By: #### 5 7021-8 #### [place] [address] [place] [address] [employer] Laboratory Operator - Judith CALLEJASIA [id number] Lymphocytes (Bld) [#/Vol] 1.98 10*3/uL Normal 1.20-3.40 [facility] Comment on above: Performed By: #### 5 7021-8 #### [place] [address] [place] [address] Field Laboratory Operator - Judith CALLEJASIA [id number] Lymphocytes/100 WBC (Bld) 23.4 % Normal 20.0-40.0 [facility] Comment on above: Performed By: #### 5 7021-8 #### [address] [place] [address] Field Laboratory Operator - Judith CALLEJASIA [id number] MCH (RBC) [Entitic mass] 29.1 pg Normal 27.0-31.0 [facility] Comment on above: Performed By: #### 5 7021-8 #### [address] [place] [address] Field Laboratory Operator - Judith CALLEJASIA [id number] MCHC (RBC) [Mass/Vol] 33.6 g/dL Normal 32.0-36.0 [facility] Comment on above: Performed By: #### 5 7021-8 #### [address] [place] [address] Field Laboratory Operator - Judith CALLEJASIA [id number] MCV (RBC) [Entitic vol] 86.6 fL Normal 80.0-100.0 [facility] Comment on above: Performed By: #### 5 7021-8 #### [place] [address] [place] [address] [employer] Laboratory Operator - Judith CALLEJASIA [id number] Monocytes (Bld) [#/Vol] 0.88 10*3/uL High 0.10-0.60 [facility] Comment on above: Performed By: #### 5 7021-8 #### [place] [address] [place] [address] [employer] Laboratory Operator - Judith Humphries CLIA [id number] Monocytes/100 WBC (Bld) 10.4 % High <=8.0 [facility] Comment on above: Performed By: #### 5 7021-8 #### [place] [address] [facility]. [place] [address] Field Laboratory Operator - Judith CALLEJASIA [id number] Neutrophils (Bld) [#/Vol] 5.45 10*3/uL Normal 1.40-6.50 [facility] Comment on above: Performed By: #### 5 7021-8 #### [address] [place] [address] Field Laboratory Operator - Judith Humphries CLIA [id number] Neutrophils/100 WBC (Bld) 64.5 % Normal 50.0-70.0 [facility] Comment on above: Performed By: #### 5 7021-8 #### [address] [place] [address] Field Laboratory Operator - Judith Humphries CLIA [id number] Nucleated RBC (Bld) [#/Vol] 0.00 10*3/uL Normal <=0.10 [facility] Comment on above: Performed By: #### 5 7021-8 #### [address] [place] [address] Field Laboratory Operator - Judith CALLEJASIA [id number] Platelet mean volume (Bld) [Entitic vol] 10.7 fL Normal 9.0-13.0 [facility] Comment on above: Performed By: #### 5 7021-8 #### [address] [place] [address] Field Laboratory Operator - Judith Humphries CLIA [id number] Platelets (Bld) [#/Vol] 204 10*3/uL Normal 130-400 [facility] Comment on above: Performed By: #### 5 7021-8 #### [address] [place] [address] Field Laboratory Operator - Judith CALLEJASIA [id number] RBC (Bld) [#/Vol] 4.33 10*6/uL Normal 4.00-6.30 [facility] Comment on above: Performed By: #### 5 7021-8 #### [facility] [address] [place] [address] Field Laboratory Operator - Judith CALLEJASJOSE [id number] WBC (Bld) [#/Vol] 8.45 10*3/uL Normal 4.80-10.80 [facility] Comment on above: Performed By: #### 5 7021-8 #### [facility] [address] [place] [address] Field Laboratory Operator - Judith CALLEJASJOSE [id number] [facility] [Catalytic activity/Vol] 82 U/L Normal 21-215 [facility] Comment on above: Performed By: #### 2 1198-7, 2157-6, 51540-9, 17790-9, 3040-3 #### [facility] [address] [place] [address] Field Laboratory Operator - Judith CALLEJASJOSE [id number] #### 21461-3 #### [place] [address] [place] [address] Field Laboratory Operator - Judith CALLEJASJOSE [id number] Performed for [facility] [address] [address] [address] HEAD WITHOUT ONLYon 11-21 CT HEAD [...] hemorrhage, focal edema or mass effect Normal [facility] Comprehensive metabolic 2000 panelon 11-21-2020 Albumin [Mass/Vol] 4.0 g/dL Normal 3.4-5.0 [facility] Comment on above: Performed By: #### 2 1198-7, 7-6, 73692-9, 29886-5, 0-3 #### [facility] [address] [place] [address] Field Laboratory Operator - Judith ARCE [id number] #### 08054-0 #### [facility] [address] [place] [address] Field Laboratory Operator - Judith ARCE [id number] Performed for [facility] [address] [place], [place] [address] ALP [Catalytic activity/Vol] 72 U/L Normal 50-136 [facility] Comment on above: Performed By: #### 2 1198-7, 2156-6, 61915-0, 59751-3, 3039-3 #### [facility] [address] [place] [address] Field Laboratory Operator - Judith ARCE [id number] #### 83861-8 #### [facility] [address] [place] [address] Field Laboratory Operator - Judith ARCE [id number] Performed for [facility] [address] [place], [place] [address] ALT [Catalytic activity/Vol] 24 U/L Normal 14-59 [facility] Comment on above: Performed By: #### 2 1198-7, 2156-6, 24455-5, 31843-7, 3039-3 #### [facility] [address] [place] [address] Field Laboratory Operator - Judith ARCE [id number] #### 73389-6 #### [facility] [address] [place] [address] Field Laboratory Operator - Judith ARCE [id number] Performed for [facility] [address] [place], [place] [address] Anion gap [Moles/Vol] 5.0 mmol/L Normal <=15.0 [facility] Comment on above: Performed By: #### 2 1198-7, 2157-6, 70276-8, 06194-8, 0-3 #### [facility] [address] [place] [address] Field Laboratory Operator - Judith ARCE [id number] #### 13928-3 #### [facility] [address] [place] [address] Field Laboratory Operator - Judith ARCE [id number] Performed for [facility] [address] [place] [address] AST [Catalytic activity/Vol] 12 U/L Low 15-37 [facility] Comment on above: Performed By: #### 2 1198-7, 2156-6, 91397-1, 37264-0, 0-3 #### [facility] [address] [place] [address] Field Laboratory Operator - Judith ARCE [id number] #### 60705-3 #### [facility] [address] [place] [address] Field Laboratory Operator - Judith ARCE [id number] Performed for [facility] [address] [place], [place] [address] Bilirubin [Mass/Vol] 0.7 mg/dL Normal 0.2-1.0 [facility] Comment on above: Performed By: #### 2 1198-7, 2156-6, 41785-0, 17232-7, 0-3 #### [facility] [address] [place] [address] Field Laboratory Operator - Judith ARCE [id number] #### 82680-1 #### [facility] [address] [place] [address] Field Laboratory Operator - Judith ARCE [id number] Performed for [facility] [address] [place] [address] Calcium [Mass/Vol] 9.0 mg/dL Normal 8.5-10.1 [facility] Comment on above: Performed By: #### 2 1198-7, 2156-6, 41245-4, 19012-0, 0-3 #### [facility] [address] [place] [address] Field Laboratory Operator - Judith ARCE [id number] #### 12128-0 #### [facility] [address] [place], [place] [address] Field Laboratory Operator - Judith ARCE [id number] Performed for [facility] [address] [place], [place] [address] Chloride [Moles/Vol] 110 mmol/L High 98-107 [facility] Comment on above: Performed By: #### 2 1198-7, 2157-6, 31415-0, 24315-3, 0-3 #### [facility] [address] [place] [address] Field Laboratory Operator - Judith ARCE [id number] #### 17120-1 #### [facility] [address] [place] [address] Field Laboratory Operator - Judith ARCE [id number] Performed for [facility] [address] [place], [place] [address] CO2 [Moles/Vol] 27 mmol/L Normal 21-32 [facility] Comment on above: Performed By: #### 2 1198-7, 7-6, 28265-9, 11174-5, 0-3 #### [facility] [address] [place] [address] Field Laboratory Operator - Judith ARCE [id number] #### 74305-5 #### [facility] [address] [place] [address] Field Laboratory Operator - Judith ARCE [id number] Performed for [facility] [address] [place], [place] [address] Creatinine [Mass/Vol] 0.78 mg/dL Normal 0.51-0.95 [facility] Comment on above: Performed By: #### 2 1198-7, 2157-6, 24180-6, 49101-6, 0-3 #### [facility] [address] [place] [address] Field Laboratory Operator - Judith CALLEJASIA [id number] #### 62872-4 #### [facility] [address] [place], [place] [address] Field Laboratory Operator - Judith[facility]ly [facility] CLAUDE [id number] Performed for [facility] [address] [place], [place] [address] GFR/1.73 sq M.predicted MDRD (S/P/Bld) [Vol rate/Area] Normal 59-N/A [facility] Comment on above: Performed By: #### 2 1198-7, 2157-6, 12358-1, 37321-2, 3040-3 #### [facility] [address] [place], [place] [address] Field Laboratory Operator - [facility] CLAUDE [id number] #### 46156-2 #### [place] [address] [place] [address] Field Laboratory Operator - JudithFormerly [facility] CLAUDE [id number] Performed for [facility] [address] [place], [place] [address] Glucose [Mass/Vol] 83 mg/dL Normal 74-106 [facility] Comment on above: Performed By: #### 2 1198-7, 2157-6, 68660-1, 30866-0, 3040-3 #### [facility] [address] [place], [place] [address] Field Laboratory Operator - Judith Rossirell CLAUDE [id number] #### 33676-5 #### [address] [place] [address] Field Laboratory Operator - Judith Humphries CLAUDE [id number] Performed for [facility] [address] [place], [place] [address] HGFR GLOMERULAR FILTRATIO N RATE INTERPRETATION~The eGFR [...] months, with or without kidney damage.~ Normal [facility] Comment on above: Performed By: #### 2 1198-7, 2157-6, 36200-9, 47811-7, 0-3 #### [facility] [address] [place] [address] Field Laboratory Operator - Judith ARCE [id number] #### 72890-2 #### [facility] [address] [place] [address] Field Laboratory Operator - [facility]Gre[facility] HospitalHumphriesmaddie ARCE [id number] Performed for [facility] [address] [place] [address] Potassium [Moles/Vol] 3.5 mmol/L Normal 3.5-5.1 [facility] Comment on above: Performed By: #### 2 1198-7, 7-6, 72846-9, 46600-2, 0-3 #### [facility] [address] [place] [address] Field Laboratory Operator - Judith ARCE [id number] #### 21768-6 #### [place] [address] [place] [address] Field Laboratory Operator - JudithFormerly [facility] CLAUDE [id number] Performed for [facility] [address] [place] [address] Protein [Mass/Vol] 7.8 g/dL Normal 6.4-8.2 [facility] Comment on above: Performed By: #### 2 1198-7, 2157-6, 40552-1, 74962-0, 0-3 #### [facility] [address] [place] [address] Field Laboratory Operator - Judith ARCE [id number] #### 08263-6 #### [facility] [address] [place] [address] Field Laboratory Operator - Judith ARCE [id number] Performed for [facility] [address] [place], [place] [address] Sodium [Moles/Vol] 142 mmol/L Normal 136-145 [facility] Comment on above: Performed By: #### 2 1198-7, 2157-6, 14555-5, 82004-2, 3040-3 #### [facility] [address] [place] [address] Field Laboratory Operator - Judith ARCE [id number] #### 88613-6 #### [facility] [address] [place] [address] Field Laboratory Operator - Judith ARCE [id number] Performed for [facility] [address] [place] [address] Urea nitrogen [Mass/Vol] 7 mg/dL Normal 7-17 [facility] Comment on above: Performed By: #### 2 1198-7, 2157-6, 77614-5, 04325-3, 3040-3 #### [facility] [address] [place] [address] Field Laboratory Operator - Judith ARCE [id number] #### 53681-9 #### [facility] [address] [place] [address] Field Laboratory Operator - Judith ARCE [id number] Performed for [facility] [address] [place], [place] [address] Drugs identified Screen Nom (U)on 11-21-2020 Amphetamines Ql (U) Not detected Normal CUTOFF = 500 K [facility] Comment on above: Performed By: #### 1 2286-1 #### [facility] [address] [place] [address] Field Laboratory Operator - Judith ARCE [id number] Barbiturates Ql (U) Not detected Normal CUTOFF = 200 K [facility] Comment on above: Performed By: #### 1 2286-1 #### [facility] [address] [place] [address] Field Laboratory Operator - Judith CALLEJASIA [id number] Benzodiazepines Ql (U) Not detected Normal CUTOFF = 15 0 [facility] Comment on above: Performed By: #### 1 2286-1 #### [facility] [address] [place] [address] Field Laboratory Operator - Judith CALLEJASIA [id number] Cocaine Ql (U) Not detected Normal CUTOFF = 150 [facility] Comment on above: Performed By: #### 1 2286-1 #### [facility] [address] [place] [address] Field Laboratory Operator - Judith CALLEJASIA [id number] HDRUG Drugs of abuse screening provides only a preliminary analytical test result. A more specific alternate chemical method must be used in order to obtain a confimed analytical result. Clinical consideration and professional judgment should be applied to any drug of abuse test result, particularly when preliminary positive results are obtained. Normal [facility] Comment on above: Performed By: #### 1 2286-1 #### [facility] [address] [place] [address] Field Laboratory Operator - Judith CALLEJASIA [id number] Methadone Ql (U) Not detected Normal CUTOFF = 200 [facility] Comment on above: Performed By: #### 1 2286-1 #### [facility] [address] [facility]. [place] [address] Field Laboratory Operator - Judith CALLEJASIA [id number] Opiates Ql (U) Not detected Normal CUTOFF = 300 [facility] Comment on above: Performed By: #### 1 2286-1 #### [facility] [address] [place] [address] Field Laboratory Operator - Judith CALLEJASIA [id number] oxyCODONE Ql (U) Not detected Normal CUTOFF = 100 [facility] Comment on above: Performed By: #### 1 2286-1 #### [facility] [address] [facility]. [place] [address] Field Laboratory Operator - Judith Humphries CLIA [id number] Phencyclidine Ql (U) Not detected Normal CUTOFF = 25 [facility] Comment on above: Performed By: #### 1 2286-1 #### [facility] [address] [place] [address] Field Laboratory Operator - Judith ARCE [id number] Tetrahydrocannabinol Ql (U) Detected Abnormal CUTOFF = 50 [facility] Comment on above: Performed By: #### 1 2286-1 #### [facility] [address] [place] [address] Field Laboratory Operator - Judith ARCE [id number] HCG BLOODon 11-21-2020 HCG.beta subunit Qn m[IU]/mL Normal 1-3 [facility] Comment on above: Performed By: #### 2 1198-7, 2157-6, 09466-6, 65455-9, 0-3 #### [facility] [address] [place] [address] Field Laboratory Operator - Judith ARCE [id number] #### 64470-2 #### [place] [address] [place] [address] Field Laboratory Operator - Judith ARCE [id number] Performed for [place] [address] [address] [address] HCG.beta subunit Qnon 2020 [facility] HCG INTERPRETATION T he expected values were [...] 6-8 weeks 15,000-200,000 2-3 months 10,000-100,000 Normal [facility] Comment on above: Performed By: #### 2 1198-7, 2157-6, 87564-7, 06533-0, 3040-3 #### [facility] [address] [place] [address] Field Laboratory Operator - Judith ARCE [id number] #### 04296-5 #### [facility] [address] [place] [address] Field Laboratory Operator - Judith ARCE [id number] Performed for [facility] [address] [place], [place] [address] LACTATEon 11-21-2020 Lactate [Moles/Vol] 1.2 mmol/L Normal 0.4-2.0 [facility] Comment on above: Performed By: #### 2 524-7 #### [facility] [address] [place] [address] Field Laboratory Operator - Judith ARCE [id number] LIPASEon 11-21-2020 Lipase [Catalytic activity/Vol] 90 U/L Normal 73-393 [facility] Comment on above: Performed By: #### 2 1198-7, 2157-6, 77714-1, 87727-7, 3040-3 #### [facility] [address] [place] [address] Field Laboratory Operator - Judith CALLEJASJOSE [id number] #### 02030-9 #### [place] [address] [place] [address] Field Laboratory Operator - Judith [facility]JOSE [id number] Performed for [facility] [address] [place], [place] [address] MAGNESIUMon 11-21-2020 Magnesium [Mass/Vol] 2.4 mg/dL Normal 1.6-2.6 [facility] Comment on above: Performed By: #### 1 2286-1 #### [facility] [address] [place] [address] [facility] [id number] TSH DL <= 0.05 mIU/L [facility] TSH Qn 0.694 uIU/mL Normal 0.358-3.740 [facility] Comment on above: Performed By: #### 2 1198-7, 2157-6, 04938-7, 42508-2, 3040-3 #### [facility] [address] [place] [address] Field Laboratory Operator - Judith ARCE [id number] #### 49939-6 #### [facility] [address] [place] [address] Field Laboratory Operator - Judith ARCE [id number] Performed for [facility] [address] [place] [address] URINALYSIS with reflex to CU LTUREon 11-21-2020 BACTERIA Normal TRACE [facility] Comment on above: Performed By: #### U AR #### [facility] [address] [place] [address] Field Laboratory Operator - Judith ARCE [id number] Performed for [facility] [address] [place] [address] Bilirubin Ql (U) Negative Normal NEGATIVE [facility] Comment on above: Performed By: #### U AR #### [facility] [address] [place] [address] Field Laboratory Operator - Judith ARCE [id number] Performed for [facility] [address] [place] [address] Clarity (U) CLEAR Normal CLEAR [facility] Comment on above: Performed By: #### U AR #### [facility] [address] [place] [address] Field Laboratory Operator - Judith ARCE [id number] Performed for [facility] [address] [place], [place] [address] Color (U) YELLOW Normal YELLOW [facility] Comment on above: Performed By: #### U AR #### [facility] [address] [place] [address] Field Laboratory Operator - Judith ARCE [id number] Performed for [facility] [address] [place] [address] Glucose Ql (U) Negative Normal NEGATIVE [facility] Comment on above: Performed By: #### U AR #### [facility] [address] [place] [address] Field Laboratory Operator - Judith ARCE [id number] Performed for [facility] [address] [place] [address] Hemoglobin Ql (U) Negative Normal NEGATIVE [facility] Comment on above: Performed By: #### U AR #### [facility] [address] [place] [address] Field Laboratory Operator - Judith ARCE [id number] Performed for [facility] [address] [place], [place] [address] HMICRO AUTOMATED MICROSCOPIC Normal [facility] Comment on above: Performed By: #### U AR #### [facility] [address] [place] [address] Field Laboratory Operator - Judith ARCE [id number] Performed for [facility] [address] [place] [address] Hyaline casts (Urine sed) [#/Area] Normal 0-8 [facility] Comment on above: Performed By: #### U AR #### [facility] [address] [place] [address] Field Laboratory Operator - Judith ARCE [id number] Performed for [facility] [address] [place], [place] [address] KETONE 1+ Abnormal NEGATIVE [facility] Comment on above: Performed By: #### U AR #### [facility] [address] [place] [address] Field Laboratory Operator - Judith CALLEJASIA [id number] Performed for [facility] [address] [place], [place] [address] Leukocyte esterase Test strip Ql (U) Negative Normal TRACE [facility] Comment on above: Performed By: #### U AR #### [facility] [address] [place] [address] Field Laboratory Operator - Judith CALLEJASIA [id number] Performed for [facility] [address] [place], [place] [address] Nitrite Ql (U) Negative Normal NEGATIVE [facility] Comment on above: Performed By: #### U AR #### [facility] [address] [place] [address] Field Laboratory Operator - Judith ARCE [id number] Performed for [facility] [address] [place] [address] pH (U) 6.5 [pH] Normal 5.5-7.5 [facility] Comment on above: Performed By: #### U AR #### [facility] [address] [place] [address] Field Laboratory Operator - Judith ARCE [id number] Performed for [facility] [address] [place], [place] [address] Protein Ql (U) Negative Normal NEGATIVE [facility] Comment on above: Performed By: #### U AR #### [facility] [address] [place] [address] Field Laboratory Operator - Judith ARCE [id number] Performed for [facility] [address] [place] [address] RBC LM.HPF (Urine sed) [#/Area] Normal 0-4 [facility] Comment on above: Performed By: #### U AR #### [facility] [address] [place] [address] Field Laboratory Operator - Judith ARCE [id number] Performed for [facility] [address] [place], [place] [address] Specific gravity (U) [Rel density] 1.009 Low 1.010-1.035 [facility] Comment on above: Performed By: #### U AR #### [facility] [address] [place] [address] Field Laboratory Operator - Judith ARCE [id number] Performed for [facility] [address] [place], [place] [address] SQUAMOUS EPITHELIALS Normal 0-5 [facility] Comment on above: Performed By: #### U AR #### [facility] [address] [place] [address] Field Laboratory Operator - [facility] Hospital[facility]ph[facility]addie ARCE [id number] Performed for [facility] [address] [place] [address] Urobilinogen Qn (U) 0.2 {Reed'U}/dL Normal <=1.0 [facility] Comment on above: Performed By: #### U AR #### [facility] [address] [place], [place] [address] Field Laboratory Operator - Judith ARCE [id number] Performed for [facility] [address] [place], [place] [address] WBC LM.HPF (Urine sed) [#/Area] Normal 0-5 [facility] Comment on above: Performed By: #### U AR #### [place] [address] [place], [place] [address] Field Laboratory Operator - Judith ARCE [id number] Performed for [facility] [address] [place], [place] [address] Alcohol, Medicalon 0 Ethanol [Mass/Vol] mg/dL <10.00 mg/dL [facility] Comment on above: Alcohol cutoff: <10. 00 mg/dL = None Detected Interpretation and review of laboratory results Normal [facility] DRUGS OF ABUSE SCREEN, URINE on 05-24-2019 Amphetamines Ql (U) None Detected None Detected [facility] Comment on above: Urine Amphetamine Cu toff: < 1000 ng/mL = None Detected Barbiturates Screen Ql (U) None Detected None Detected [facility] Comment on above: Urine Barbiturates C utoff: < 200 ng/mL = None Detected Benzodiazepines Ql (U) None Detected None Detec eric [facility] Comment on above: Urine Benzodiazepine Cutoff: < 200 ng/mL = None Detected Cannabinoids Screen Ql (U) Positive Abnormal None Detected [facility] Comment on above: Urine Cannabinoids C utoff: < 50 ng/mL = None Detected Cocaine Ql (U) None Detected None Detected [facility] Comment on above: Urine Cocaine Cutoff : < 300 ng/mL = None Detected Interpretation and review of laboratory results Abnormal [facility] Methadone Screen Ql (U) None Detected None Detected [facility] Comment on above: Urine Methadone Cuto ff: < 300 ng/mL = None Detected Opiates Screen Ql (U) None Detected None Detect ed [facility] Comment on above: Urine Opiates Cutoff : < 300 ng/mL = None Detected Oxycodone Ql (U) None Detected None Detected [facility] Comment on above: Urine Oxycodone Cuto ff: < 100 ng/mL = None Detected Screen results shoul d be used for treatment purposes only. Specimen will be kept for 1 week, if the sample is adequate. Confirmation testing can be initiated by calling the lab within 1 week. [facility] 05-24-2019 Extra Tube Hold for add-ons. [facility] Comment on above: Auto resulted. URINALYSISon 05-24-2019 Bacteria Auto Ql (U) Rare Abnormal None Seen /hpf [facility] Bilirubin Ql (U) Negative Negative [facility] th Clarity Refractometry automated (U) Hazy Abnormal Clear [facility] Color (U) Yellow Colorless, Yellow [facility] Epithelial cells.squamous Auto (Urine sed) [#/Area] 3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 MD Work Phone[facility] 05-03-2024 17:27-0500 Respiratory rate 20 /min Connie Herrera MD Work Phone[facility] 05-03-2024 17:27-0500 SaO2% (BldA) [Mass fraction] 97 % Connie Herrera MD Work Phone[facility] 05-03-2024 17:27-0500 Systolic blood pressure 105 mm[Hg] Connie Herrera MD Work Phone[facility] 04-17-2024 11:40-0500 Body weight 75.3 kg Blank Haury SUPPORT SPECIALIST.WORK AND FAMILY LIFE CONSULTANT Work Phone: [facility] 04-17-2024 11:40-0500 Diastolic blood pressure 60 mm[Hg] Blank Haury SUPPORT SPECIALIST.WORK AND FAMILY LIFE CONSULTANT Work Phone: [facility] 04-17-2024 11:40-0500 Systolic blood pressure 110 mm[Hg] Blank Haury SUPPORT SPECIALIST.WORK AND FAMILY LIFE CONSULTANT Work Phone: [facility] 02-21-2024 13:50-0400 Body weight 75.75 kg Blank Haury SUPPORT SPECIALIST.WORK AND FAMILY LIFE CONSULTANT Work Phone: [facility] 02-21-2024 13:50-0400 Diastolic blood pressure 70 mm[Hg] Blank Haury SUPPORT SPECIALIST.WORK AND FAMILY LIFE CONSULTANT Work Phone: [facility] 02-21-2024 13:50-0400 Systolic blood pressure 120 mm[Hg] Blank Haury SUPPORT SPECIALIST.WORK AND FAMILY LIFE CONSULTANT Work Phone: [facility] 10-15-2023 11:08-0400 Body weight 81.1 kg Laurie Bonner SUPPORT SPECIALIST.CNM Work Phone: [facility] 10-15-2023 11:08-0400 Diastolic blood pressure 68 mm[Hg] Laurie Bonner SUPPORT SPECIALIST.CNM Work Phone: [facility] 10-15-2023 11:08-0400 Systolic blood pressure 102 mm[Hg] Laurie Bonner SUPPORT SPECIALIST.CNM Work Phone: [facility] 06-28-2023 14:34-0500 Body weight 81.92 kg Laurie Bonner SUPPORT SPECIALIST.CNM Work Phone: [facility] 06-28-2023 14:34-0500 Diastolic blood pressure 70 mm[Hg] Laurie Gueavrats SUPPORT SPECIALIST.CNM Work Phone: [facility] 06-28-2023 14:34-0500 Systolic blood pressure 110 mm[Hg] Laurie Bonner SUPPORT SPECIALIST.CNM Work Phone: [facility] 04-11-2023 14:49-0500 Body height 180.34 cm [facility] 04-11-2023 14:49-0500 Body mass index (BMI) [Percentile] Per age and sex 75.4 % [facility] 04-11-2023 14:49-0500 Body mass index (BMI) [Ratio] 24.4 kg/m2 [facility] 04-11-2023 14:49-0500 Body temperature 96.8 [degF] [facility] 04-11-2023 14:49-0500 Body weight 79.37 kg [facility] 04-11-2023 14:49-0500 Diastolic blood pressure 94 mm[Hg] [facility] 04-11-2023 14:49-0500 Heart rate 102 /min [facility] 04-11-2023 14:49-0500 Respiratory rate 16 /min [facility] 04-11-2023 14:49-0500 SaO2% (BldA) [Mass fraction] 97 % [facility] 04-11-2023 14:49-0500 Systolic blood pressure 133 mm[Hg] [facility] 11-11-2022 17:01-0400 Body height 180.34 cm [facility] 11-11-2022 17:01-0400 Body mass index (BMI) [Percentile] Per age and sex 80.2 % [facility] 11-11-2022 17:01-0400 Body mass index (BMI) [Ratio] 25.1 kg/m2 [facility] 11-11-2022 17:01-0400 Body temperature 97.5 [degF] [facility] 11-11-2022 17:01-0400 Body weight 81.64 kg [facility] 11-11-2022 17:01-0400 Diastolic blood pressure 92 mm[Hg] [facility] 11-11-2022 17:01-0400 Heart rate 72 /min [facility] 11-11-2022 17:01-0400 Respiratory rate 15 /min [facility] 11-11-2022 17:01-0400 SaO2% (BldA) [Mass fraction] 98 % [facility] 11-11-2022 17:01-0400 Systolic blood pressure 137 mm[Hg] [facility] 09-18-2022 01:35-0400 Heart rate 71 /min No Primary Care Physician [facility] 09-18-2022 01:35-0400 Respiratory rate 16 /min No Primary Care Physician [facility] 09-18-2022 01:35-0400 SaO2% (BldA) [Mass fraction] 114 % No Primary Care Physician [facility] 09-18-2022 01:13-0400 Body height 180.34 cm No Primary Care Physician [facility] 09-18-2022 01:13-0400 Body mass index (BMI) [Percentile] Per age and sex 83.3 % No Primary Care Physician [facility] 09-18-2022 01:13-0400 Body mass index (BMI) [Ratio] 25.7 kg/m2 No Primary Care Physician [facility] 09-18-2022 01:13-0400 Body temperature 97.8 [degF] No Primary Care Physician [facility] 09-18-2022 01:13-0400 Body weight 83.6 kg No Primary Care Physician [facility] 09-18-2022 01:13-0400 Diastolic blood pressure 82 mm[Hg] No Primary Care Physician [facility] 09-18-2022 01:13-0400 Systolic blood pressure 128 mm[Hg] No Primary Care Physician [facility] 08-10-2022 09:37-0400 Body weight 79.83 kg Abi Drummond MD Work Phone: [facility] 08-10-2022 09:37-0400 Diastolic blood pressure 60 mm[Hg] Abi Drummond MD Work Phone: [facility] 08-10-2022 09:37-0400 Systolic blood pressure 102 mm[Hg] Abi Drummond MD Work Phone: [facility] 07-06-2022 13:20-0500 Body weight 78.02 kg Laurie Bonner APRN.CNM Work Phone: [facility] 07-06-2022 13:20-0500 Diastolic blood pressure 66 mm[Hg] Laurie Bonner APRN.CNM Work Phone: [facility] 07-06-2022 13:20-0500 Systolic blood pressure 110 mm[Hg] Laurie Bonner APRN.CNM Work Phone: [facility] 05-18-2022 09:44-0500 Body temperature 98.01 [degF] Naima Walls APRN.CNM Work Phone: [facility] 05-18-2022 09:44-0500 Body weight 79.83 kg Naima Walls APRN.CNM Work Phone: [facility] 05-18-2022 09:44-0500 Diastolic blood pressure 64 mm[Hg] Naima Walls APRN.CNM Work Phone: [facility] 05-18-2022 09:44-0500 Heart rate 95 /min Naima Walls APRN.CNM Work Phone: [facility] 05-18-2022 09:44-0500 Systolic blood pressure 100 mm[Hg] Naima Walls APRN.CNM Work Phone: [facility] 05-11-2022 14:05-0500 Body temperature 98.2 [degF] [facility] Work Phone: 05-11-2022 14:05-0500 Diastolic blood pressure 76 mm[Hg] [facility] Work Phone: 05-11-2022 14:05-0500 Heart rate 101 /min [facility] Work Phone: 05-11-2022 14:05-0500 Respiratory rate 16 /min [facility] Work Phone: 05-11-2022 14:05-0500 SaO2% (BldA) [Mass fraction] 96 % [facility] Work Phone: 05-11-2022 14:05-0500 Systolic blood pressure 126 mm[Hg] [facility] Work Phone: 05-08-2022 14:44-0500 Body height 180.34 cm [facility] Work Phone: 05-08-2022 14:44-0500 Body mass index (BMI) [Percentile] Per age and sex 92.4 % [facility] Work Phone: 05-08-2022 14:44-0500 Body mass index (BMI) [Ratio] 28.8 kg/m2 [facility] Work Phone: 05-08-2022 14:44-0500 Body weight 93.8 kg [facility] Work Phone: 05-06-2022 17:27-0500 Diastolic blood pressure 73 mm[Hg] Naima Walls APRN.CNM Work Phone: [facility] 05-06-2022 17:27-0500 Systolic blood pressure 121 mm[Hg] Naima Walls APRN.CNGrant Work Phone: [facility] 05-06-2022 16:11-0500 Diastolic blood pressure 76 mm[Hg] [facility] Work Phone: 05-06-2022 16:11-0500 Heart rate 91 /min [facility] Work Phone: 05-06-2022 16:11-0500 Systolic blood pressure 127 mm[Hg] [facility] Work Phone: 05-06-2022 15:16-0500 Body mass index (BMI) [Percentile] Per age and sex 92.4 % [facility] Work Phone: 05-06-2022 15:16-0500 Body mass index (BMI) [Ratio] 28.8 kg/m2 [facility] Work Phone: 05-06-2022 15:16-0500 Body weight 93.6 kg [facility] Work Phone: 05-06-2022 15:10-0500 Body temperature 99.1 [degF] [facility] Work Phone: 05-06-2022 13:06-0500 Body weight 93.53 kg Naima Walls SUPPORT SPECIALIST.CNM Work Phone: [facility] 04-30-2022 09:59-0500 Body weight 91.63 kg Laurie Plotts SUPPORT SPECIALIST.CNM Work Phone: [facility] 04-30-2022 09:59-0500 Diastolic blood pressure 72 mm[Hg] Laurie Plotts SUPPORT SPECIALIST.CNM Work Phone: [facility] 04-30-2022 09:59-0500 Systolic blood pressure 128 mm[Hg] Laurie Plotts SUPPORT SPECIALIST.CNM Work Phone: [facility] 04-27-2022 12:59-0500 Body weight 90.45 kg Laurie Plotts SUPPORT SPECIALIST.CNM Work Phone: [facility] 04-27-2022 12:59-0500 Diastolic blood pressure 82 mm[Hg] Laurie Plotts SUPPORT SPECIALIST.CNM Work Phone: [facility] 04-27-2022 12:59-0500 Systolic blood pressure 126 mm[Hg] Laurie Plotts SUPPORT SPECIALIST.CNM Work Phone: [facility] 04-22-2022 13:41-0500 Diastolic blood pressure 74 mm[Hg] [facility] Work Phone: 04-22-2022 13:41-0500 Heart rate 94 /min [facility] Work Phone: 04-22-2022 13:41-0500 Systolic blood pressure 120 mm[Hg] [facility] Work Phone: 04-22-2022 11:41-0500 Body temperature 99 [degF] [facility] Work Phone: 04-22-2022 11:37-0500 Body height 180.34 cm [facility] Work Phone: 04-22-2022 11:37-0500 Body mass index (BMI) [Percentile] Per age and sex 90.1 % [facility] Work Phone: 04-22-2022 11:37-0500 Body mass index (BMI) [Ratio] 27.6 kg/m2 [facility] Work Phone: 04-22-2022 11:37-0500 Body weight 89.9 kg [facility] Work Phone: 04-22-2022 10:10-0500 Body weight 89 kg Laurie Bonner SUPPORT SPECIALIST.CNM Work Phone: [facility] 04-22-2022 10:10-0500 Diastolic blood pressure 70 mm[Hg] Laurie Guevarats SUPPORT SPECIALIST.CNM Work Phone: [facility] 04-22-2022 10:10-0500 Systolic blood pressure 142 mm[Hg] Laurie Plotts SUPPORT SPECIALIST.CNM Work Phone: [facility] 04-20-2022 08:55-0500 Diastolic blood pressure 59 mm[Hg] [facility] Work Phone: 04-20-2022 08:55-0500 Heart rate 92 /min [facility] Work Phone: 04-20-2022 08:55-0500 Systolic blood pressure 107 mm[Hg] [facility] Work Phone: 04-20-2022 08:50-0500 Body height 180.34 cm [facility] Work Phone: 04-20-2022 08:50-0500 Body mass index (BMI) [Percentile] Per age and sex 89.6 % [facility] Work Phone: 04-20-2022 08:50-0500 Body mass index (BMI) [Ratio] 27.4 kg/m2 [facility] Work Phone: 04-20-2022 08:50-0500 Body weight 89.4 kg [facility] Work Phone: 04-20-2022 08:37-0500 Body temperature 99.6 [degF] [facility] Work Phone: 04-16-2022 10:45-0500 Body weight 87 kg Laurie Plotts SUPPORT SPECIALIST.CNM Work Phone: [facility] 04-16-2022 10:45-0500 Diastolic blood pressure 70 mm[Hg] Laurie Plotts SUPPORT SPECIALIST.CNM Work Phone: [facility] 04-16-2022 10:45-0500 Systolic blood pressure 110 mm[Hg] Lauire Plotts SUPPORT SPECIALIST.CNM Work Phone: [facility] 04-06-2022 11:15-0500 Body height 180.3 cm Emily Dolan MD Work Phone: [facility] 04-06-2022 11:15-0500 Body mass index (BMI) [Percentile] Per age and sex 86 % Emily Dolan MD Work Phone: [facility] 04-06-2022 11:15-0500 Body weight 85.19 kg Emily Dolan MD Work Phone: [facility] 04-06-2022 11:15-0500 Diastolic blood pressure 59 mm[Hg] Emily Dolan MD Work Phone: [facility] 04-06-2022 11:15-0500 Heart rate 107 /min Emily Dolan MD Work Phone: [facility] 04-06-2022 11:15-0500 Respiratory rate 17 /min Emily Dolan MD Work Phone: [facility] 04-06-2022 11:15-0500 SaO2% (BldA) [Mass fraction] 98 % Emily Dolan MD Work Phone: [facility] 04-06-2022 11:15-0500 Systolic blood pressure 115 mm[Hg] Emily Dolan MD Work Phone: [facility] [facility] 04-01-2022 13:39-0500 Body weight 83.46 kg Laurie Plotts SUPPORT SPECIALIST.CNM Work Phone: [facility] 04-01-2022 13:39-0500 Diastolic blood pressure 74 mm[Hg] Laurie Plotts SUPPORT SPECIALIST.CNM Work Phone: [facility] 04-01-2022 13:39-0500 Systolic blood pressure 112 mm[Hg] Laurie Plotts SUPPORT SPECIALIST.CNM Work Phone: [facility] 03-23-2022 11:31-0500 Body height 181.6 cm Marisel Quinones MD Work Phone: [facility] 03-23-2022 11:31-0500 Body mass index (BMI) [Percentile] Per age and sex 81.07 % Marisel Quinones MD Work Phone: [facility] 03-23-2022 11:31-0500 Body weight 82.56 kg Marisel Quinones MD Work Phone: [facility] 03-23-2022 11:31-0500 Diastolic blood pressure 68 mm[Hg] Marisel Quinones MD Work Phone: [facility] 03-23-2022 11:31-0500 Systolic blood pressure 104 mm[Hg] Marisel Quinones MD Work Phone: [facility] 03-18-2022 11:32-0500 Body weight 82.56 kg Naima Walls APRN.CNM Work Phone: [facility] 03-18-2022 11:32-0500 Diastolic blood pressure 70 mm[Hg] Naima Walls APRN.CNM Work Phone: [facility] 03-18-2022 11:32-0500 Systolic blood pressure 108 mm[Hg] Naima Walls APRN.CNM Work Phone: [facility] 03-09-2022 13:54-0400 Body temperature 97.7 [degF] Charisma Athy PA-C Work Phone: [facility] 03-09-2022 13:54-0400 Body weight 79.83 kg Charisma Athy PA-C Work Phone: [facility] 03-09-2022 13:54-0400 Diastolic blood pressure 82 mm[Hg] Charisma Athy PA-C Work Phone: [facility] 03-09-2022 13:54-0400 Heart rate 114 /min Charisma Athy PA-C Work Phone: [facility] 03-09-2022 13:54-0400 Respiratory rate 18 /min Charisma Athy PA-C Work Phone: [facility] 03-09-2022 13:54-0400 SaO2% (BldA) [Mass fraction] 98 % Charisma Athy PA-C Work Phone: [facility] 03-09-2022 13:54-0400 Systolic blood pressure 120 mm[Hg] Charisma Athy PA-C Work Phone: [facility] 03-05-2022 13:46-0400 Body weight 79.38 kg Laurie Bonner SUPPORT SPECIALIST.CNM Work Phone: [facility] 03-05-2022 13:46-0400 Diastolic blood pressure 60 mm[Hg] Laurie Bonner SUPPORT SPECIALIST.CNM Work Phone: [facility] 03-05-2022 13:46-0400 Systolic blood pressure 104 mm[Hg] Laurie Bonner SUPPORT SPECIALIST.CNM Work Phone: [facility] 02-18-2022 08:04-0400 Body weight 76.2 kg Naima Walls SUPPORT SPECIALIST.CNM Work Phone: [facility] 02-18-2022 08:04-0400 Diastolic blood pressure 68 mm[Hg] Naima Walls SUPPORT SPECIALIST.CNM Work Phone: [facility] 02-18-2022 08:04-0400 Systolic blood pressure 112 mm[Hg] Naima Walls SUPPORT SPECIALIST.CNM Work Phone: [facility] 01-28-2022 15:44-0400 Body weight 70.76 kg Amira Akins MD Work Phone: [facility] 01-28-2022 15:44-0400 Diastolic blood pressure 60 mm[Hg] Amira Akins MD Work Phone: [facility] 01-28-2022 15:44-0400 Systolic blood pressure 100 mm[Hg] Amira Akins MD Work Phone: [facility] 12-30-2021 08:56-0400 Body height 181.6 cm Laurie Bonner SUPPORT SPECIALIST.CNM Work Phone: [facility] 12-30-2021 08:56-0400 Body mass index (BMI) [Percentile] Per age and sex 26.76 % Laurie Bonner SUPPORT SPECIALIST.CNM Work Phone: [facility] 12-30-2021 08:56-0400 Body weight 64.86 kg Laurie Bonner SUPPORT SPECIALIST.CNM Work Phone: [facility] 12-30-2021 08:56-0400 Diastolic blood pressure 60 mm[Hg] Laurie Bonner SUPPORT SPECIALIST.CNM Work Phone: [facility] 12-30-2021 08:56-0400 Systolic blood pressure 90 mm[Hg] Laurie Bonner APRN.CNM Work Phone: [facility] 05-24-2019 16:24-0500 BP Diastolic 64 mm[Hg] [facility] 05-24-2019 16:24-0500 BP Systolic 99 mm[Hg] [facility] 05-24-2019 16:24-0500 Pulse (Heart Rate) 60 /min [facility] 05-24-2019 16:24-0500 Pulse Oximetry 99 % [facility] 05-24-2019 16:24-0500 Respiratory Rate 16 /min [facility] 05-24-2019 11:15-0500 Body Temperature 97.9 [degF] [facility] 03-29-2019 17:27-0500 BP Diastolic 71 mm[Hg] Russ Quiroz [facility] 03-29-2019 17:27-0500 BP Systolic 114 mm[Hg] Russ Quiroz [facility] 03-29-2019 17:27-0500 Pulse (Heart Rate) 75 /min Russ Quiroz [facility] 03-29-2019 17:27-0500 Pulse Oximetry 98 % Russ Quiroz [facility] 03-29-2019 13:54-0500 BMI (Body Mass Index) 17.9 kg/m2 Russ Quiroz [facility] 03-29-2019 13:54-0500 Body Temperature 97.59 [degF] Russ Quiroz [facility] 03-29-2019 13:54-0500 Body weight 59.88 kg Russ Quiroz [facility] 03-29-2019 13:54-0500 Height 182.9 cm Russ Quiroz [facility] 06-30-2018 12:24-0500 BMI (Body Mass Index) 21.12 kg/m2 [facility] 06-30-2018 12:24-0500 Body Temperature 98.4 [degF] [facility] 06-30-2018 12:24-0500 Body weight 64.86 kg [facility] [employer] 06-30-2018 12:24-0500 Height 175.3 cm [facility] 06-30-2018 12:24-0500 Pulse (Heart Rate) 95 /min [facility] Ricks [facility] 06-30-2018 12:24-0500 Pulse Oximetry 99 % [facility] 12:24-0500 Respiratory Rate 18 /min Tayler Ricks [facility] Encounters Encounter Date Encounter Type Care Provider Facility Start: 12-17-2024 End: 12-17-2024 Emergency department patient visit No Primary Care Physician -Emergency Department Work Phone: Start: 09-15-2024 End: 09-15-2024 Patient encounter procedure [facility] [employer] [facility] OB/Gynecology Start: 09-15-2024 End: 09-15-2024 ambulatory 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[employer] Work Phone: OB/Gynecology Comment on above: Arrived Start: 09-13-2024 End: 11-13-2024 Follow-up encounter Blank Chavira APRN.WORK AND FAMILY LIFE CONSULTANT Work Phone: OB/Gynecology Start: 09-13-2024 End: 09-13-2024 ambulatory BLANK CHAVIRA Facility:[facility] Start: 09-13-2024 End: 09-13-2024 Patient encounter procedure Blank Chavira APRN.WORK AND FAMILY LIFE CONSULTANT Work Phone: OB/Gynecology Comment on above: Abnormal uterine ble eding (Primary Dx); Pelvic pain in female; Screening for cervical cancer; Screen for STD (sexually transmitted disease); Malaise and fatigue; Desire for ; Hx of migraine headaches Start: 08-31-2024 End: 08-31-2024 Emergency department patient visit No Primary Care Physician -Emergency Department Work Phone: Start: 07-27-2024 End: 07-27-2024 ambulatory CAROLE LACEY Facility:[facility] Start: 07-27-2024 End: 07-27-2024 Patient encounter procedure Ina Toth APRN.WORK AND FAMILY LIFE CONSULTANT Work Phone: [facility] Comment on above: Vaginal discomfort ( Primary [...] 30 minutes Carole Lacey MD Work Phone: [facility] Comment on above: History of absence s eizures (Primary Dx); Mother currently breast-feeding Start: 06-26-2024 End: 06-26-2024 ambulatory CAROLE LACEY Facility:[facility] Start: 06-26-2024 End: 06-26-2024 ambulatory KAVON TOTH Facility:[facility] Start: 06-23-2024 End: 06-23-2024 Telephone encounter Jaqueline SNELL [facility] Department Start: 05-26-2024 End: 05-26-2024 ambulatory KAVON TOTH Facility:[facility] Start: 05-26-2024 End: 05-26-2024 Patient encounter procedure Kavon Toth MD Work Phone: OB/Gynecology Comment on above: Unprotected sexual i ntercourse (Primary Dx); Irregular bleeding Start: 05-23-2024 End: 05-23-2024 Telephone encounter Kavon Toth MD Work Phone: OB/Gynecology Comment on above: Appointment Start: 05-03-2024 End: 05-03-2024 Emergency department patient visit Connie Herrera MD Work Phone: [facility] Emergency Department Comment on above: Lower abdominal pain (Primary Dx) Start: 04-17-2024 End: 04-17-2024 ambulatory BLANK CHAVIRA Facility:[facility] Start: 04-17-2024 End: 04-17-2024 Patient encounter procedure Blank Chavira APRN.CNP Work Phone: OB/Gynecology Comment on above: Encounter for IUD in sertion (Primary Dx); Screen for STD (sexually transmitted disease); Need for influenza vaccination Start: 02-21-2024 End: 02-21-2024 ambulatory BLANK CHAVIRA Facility:[facility] Start: 02-21-2024 End: 02-21-2024 ambulatory BLANK CHAVIRA Facility:[facility] Start: 02-21-2024 End: 02-21-2024 Patient encounter procedure Blank Chavira SUPPORT SPECIALIST.WORK AND FAMILY LIFE CONSULTANT Work Phone: OB/Gynecology Comment on above: Screen for STD (sexu ally transmitted disease) (Primary Dx); Unprotected sexual intercourse; Encounter for IUD insertion; Encounter for other general counseling or advice on contraception Start: 10-20-2023 [facility] [place] Comment on above: Smoking Cessation Start: 10-15-2023 End: 10-15-2023 ambulatory LAURIE BONNER Facility:[facility] Start: 10-15-2023 End: 10-15-2023 Patient encounter procedure Laurie Bonner SUPPORT SPECIALIST.CNM Work Phone: OB/Gynecology Comment on above: Encounter for other general counseling or advice on contraception (Primary Dx); Tobacco use disorder; Anxiety neurosis; History of depression; Body dysmorphic disorder Start: 06-28-2023 End: 06-28-2023 Patient encounter procedure Laurie Bonner SUPPORT SPECIALIST.CNM Work Phone: OB/Gynecology Comment on above: Dysuria (Primary Dx) ; Missed menses; Screen for STD (sexually transmitted disease) Start: 04-11-2023 End: 04-11-2023 Emergency department patient visit [facility] Work Phone: Start: 11-11-2022 End: 11-11-2022 Emergency department patient visit [facility] Work Phone: Start: 10-09-2022 ambulatory Eryn RIVAS E [employer] Comment on above: Patient Update Start: 09-21-2022 Refill Oumou Valentin DO Work Phone: Psychiatry Start: 09-18-2022 End: 09-18-2022 Emergency department patient visit No Primary Care Physician [facility]Emergency Department Start: 09-14-2022 End: 09-14-2022 [facility] Oumou Valentin DO Work Phone: Psychiatry Comment [...] End: 07-06-2022 Patient encounter procedure Laurie Bonner APRN.CNM Work Phone: OB/Gynecology Comment on above: PTSD [...] Question Start: 06-11-2022 Telephone encounter Naima isaac APRN.CNM Work Phone: OB/Gynecology Comment on above: Patient Update Start: 06-04-2022 End: 06-04-2022 Patient encounter procedure No Primary Care Physician [facility] Start: 05-20-2022 Telephone encounter Naima isaac [...] Start: 05-17-2022 ambulatory Dax Andrea RN NURSE STAFF [employer] OFFICER Comment on above: Pain Start: 05-13-2022 ambulatory [...] End: 05-11-2022 Evaluation and management of inpatient [facility] Start: 05-08-2022 End: 05-08-2022 Patient encounter procedure [...] Start: 05-06-2022 End: 05-06-2022 [facility] Comment on above: 39 weeks gestation o f (Primary Dx) Start: 04-30-2022 End: 04-30-2022 Patient encounter procedure Laurie Bonner SUPPORT SPECIALIST.CNM Work Phone: OB/Gynecology Comment on above: 38 weeks gestation o f (Primary Dx); Excessive weight gain in , third trimester Start: 04-27-2022 Telephone encounter Laurie moralez APRN.CNM Work Phone: OB/Gynecology Comment on above: Results Start: 04-27-2022 End: 04-27-2022 Patient encounter procedure Laurie Bonner APRN.CNM Work Phone: OB/Gynecology Comment on above: 38 weeks gestation o f (Primary Dx); Encounter for supervision of other normal in third trimester; Elevated blood pressure reading without diagnosis of hypertension Start: 04-23-2022 Telephone encounter Laurie moralez APRN.BON Work Phone: OB/Gynecology Comment on above: blood pressure readi ngs Start: 04-22-2022 End: 04-22-2022 ambulatory [facility] Work Phone: Start: 04-22-2022 End: 04-22-2022 Patient encounter procedure [facility] Out[facility] Comment on above: care, subse quent in third trimester (Primary Dx); Elevated blood pressure reading without diagnosis of hypertension Start: 04-20-2022 End: 04-20-2022 [facility] Work Phone: Start: 04-20-2022 End: 04-20-2022 Patient encounter procedure [facility] Out[facility] Start: 04-16-2022 End: 04-16-2022 Patient encounter procedure Laurie Bonner APRN.CNM Work Phone: OB/Gynecology Comment on above: 36 weeks gestation o f (Primary Dx); Excessive weight gain in , third trimester Start: 04-06-2022 End: 04-06-2022 Patient encounter procedure Emily Dolan MD Work Phone: Neurology Comment on above: Convulsions, unspeci fied convulsion type (HCC) (Primary Dx) Start: 04-01-2022 End: 04-01-2022 Patient encounter procedure Laurie Bonner APRN.BON Work Phone: OB/Gynecology Comment on above: 34 weeks gestation o f (Primary Dx) Start: 03-23-2022 End: 03-23-2022 Patient encounter procedure Marisel Quinones MD Work Phone: Maternal Medicine Comment on above: Uterine size date di screpancy, third trimester (Primary Dx); 33 weeks gestation of Start: 03-18-2022 End: 03-18-2022 Patient encounter procedure Naima Walls APRN.BON Work Phone: OB/Gynecology Comment on above: 32 weeks gestation o f (Primary Dx); Excessive weight gain in , third trimester Start: 03-09-2022 End: 03-09-2022 Patient encounter procedure Charisma River PA-C Work Phone: [facility] Comment on above: Fingernail avulsion, complete, initial encounter (Primary Dx) Start: 03-05-2022 End: 03-05-2022 Patient encounter procedure Laurie Bonner APRN.CARLENEM Work Phone: OB/Gynecology Comment on above: 30 weeks gestation o f (Primary Dx) Start: 02-25-2022 ambulatory Amira Akins MD Work Phone: OB/Gynecology Comment on above: Question regarding S YPHILIS TOTAL W/REFLEX Start: 02-19-2022 ambulatory Arianne Hsu MD Work Phone: Neurology Start: 02-18-2022 End: 02-18-2022 Patient encounter procedure Naima Walls APRN.BON Work Phone: OB/Gynecology Comment on above: 28 [...] dysmorphic disorder Start: 11-20-2021 End: 11-24-2021 ambulatory LAURIE KOENIG [facility] Start: 10-28-2021 End: 10-28-2021 Emergency department patient visit [facility] Start: 06-16-2021 End: 06-16-2021 Emergency department patient visit BLANK BAILEY [facility] Start: 11-21-2020 End: 11-21-2020 ambulatory Krish [phone] Krystal [phone] Facility:[facility] Start: 05-24-2019 End: 05-24-2019 Emergency department patient visit Jani Guthrie Work Phone: [facility] Emergency [facility] Comment on above: Depression, unspecif ied depression type (Primary Dx) Start: 03-29-2019 End: 03-29-2019 Emergency department patient visit Russ Woo Quiroz Work Phone: [facility] Comment on above: Emotional lability ( Primary Dx) Start: 06-30-2018 End: 06-30-2018 Letter encounter Provider Rodrigo [facility] Start: 06-30-2018 End: 06-30-2018 Office outpatient visit 15 minutes Tayler Ricks Work Phone: [facility] Comment on above: Strain of left knee, initial encounter (Primary Dx); Acute pain of left knee Start: 05-31-2018 End: 06-01-2018 Patient encounter procedure VALENTINA OAKES [facility] Start: 04-06-2018 End: 04-07-2018 Patient encounter procedure [facility] Start: 03-25-2018 End: 03-25-2018 Emergency department patient visit [facility] Start: 03-01-2018 End: 03-03-2018 Patient encounter procedure [facility] Start: 09-01-2017 End: 09-01-2017 Emergency department patient visit [facility] Start: 07-26-2017 Patient encounter procedure PIPO LOMELI [facility] Start: 02-24-2017 End: 02-24-2017 [facility] Date Procedure Procedure Detail Performing Clinician Start: 12-17-2024 Estimated creatinine clearance No Primar y Care Physician Start: 12-17-2024 Urnls dip stick/tablet reagent auto microscopy No Primary Care Physician Start: 09-15-2024 Us pelvic nonobstetric real-time image complete Blank Chavira APRN.WORK AND FAMILY LIFE CONSULTANT Work Phone: Start: 09-13-2024 UA DIP,URINE HCG (POC) Blank Chavira APRN. WORK AND FAMILY LIFE CONSULTANT Work Phone: Start: 07-27-2024 Urnls dip stick/tablet rgnt auto w/o microscopy Ina Toth SUPPORT SPECIALIST.WORK AND FAMILY LIFE CONSULTANT Work Phone: Start: 05-26-2024 UA DIP,URINE HCG (POC) Kavon Toth MD Work Phone: Start: 05-03-2024 Comprehensive metabolic panel Connie Jacobs MD Work Phone: Start: 04-17-2024 UA DIP,URINE HCG (POC) Blank Chavira APRN. WORK AND FAMILY LIFE CONSULTANT Work Phone: Start: 06-28-2023 End: 06-28-2023 Urnls dip stick/tablet rgnt auto w/o microscopy Laurie Bonner SUPPORT SPECIALIST.CNM Work Phone: Start: 04-11-2023 Plain X-ray of [...] 05-06-2022 URINE OB DIP B/O Naima Walls SUPPORT SPECIALIST.C NM Work Phone: Start: 04-30-2022 URINE OB DIP B/O Laurie Plotts SUPPORT SPECIALIST.CNM Work Phone: Start: 04-27-2022 URINE OB DIP B/O Laurie Plotts SUPPORT SPECIALIST.CNM Work Phone: Start: 04-22-2022 URINE OB DIP B/O Laurie Plotts SUPPORT SPECIALIST.CNM Work Phone: Start: 04-16-2022 Antibody screen Laurie Plotts SUPPORT SPECIALIST.CNM Work Phone: Start: 04-16-2022 URINE OB DIP B/O Laurie Plotts SUPPORT SPECIALIST.CNM Work Phone: Start: 04-01-2022 URINE OB DIP B/O Laurie Plotts SUPPORT SPECIALIST.CNM Work Phone: Start: 03-23-2022 Us preg uterus after 1st trimest 05/10 gestation Naima Walls SUPPORT SPECIALIST.CNM Work Phone: Start: 03-18-2022 URINE OB DIP B/O Naima Walls SUPPORT SPECIALIST.C NM Work Phone: Start: 03-05-2022 URINE OB DIP B/O Laurie Plotts SUPPORT SPECIALIST.CNM Work Phone: Start: 02-18-2022 URINE OB DIP B/O Naima Walls SUPPORT SPECIALIST.C NM Work Phone: Start: 01-28-2022 INFLUENZA VACCINE [...] Russ Quiroz Work Phone: Start: 03-29-2019 Urinalysis uRss Quiroz Work Phone: Start: 03-29-2019 12 lead ECG Russ Quiroz Work Phone: Start: 07-19-2018 Adult depression screening assessment Jani [place] Start: 06-30-2018 X-ray of left knee Tayler Rikcs Work Phone: Plan of Treatment Date Care Activity Detail Author Start: 02-19-2032 DTaP/Tdap/Td vaccine (2 - Td or Tdap) DTaP/Tdap/Td vaccine (2 - Td or Tdap) [facility] Start: 02-19-2032 Urine microalbumin profile [facility] Start: 01-06-2027 Tetanus vaccination TETANUS EVERY 10 YR [facility] Start: 01-06-2027 Tetanus, diphtheria and acellular pertussis vaccination DTAP VACCINES (6 - Td) [facility] Start: 09-13-2025 GC (Gonorrhea) Scree letty (18-24) GC (Gonorrhea) Screening (18-) [facility] Start: 09-13-2025 Screening for Chlamy carlton trachomatis Chlamydia Screening (18) [facility] Start: 09-13-2025 Screening for malign ant neoplasm of cervix Cervical Cancer Screening [facility] Start: 07-27-2025 GC (Gonorrhea) Scree letty (18-24) GC (Gonorrhea) Screening () [facility] Start: 07-27-2025 Screening for Chlamy carlton trachomatis Chlamydia Screening (18) [facility] Start: 04-17-2025 GC (Gonorrhea) Scree letty (18-24) GC (Gonorrhea) Screening () [facility] Start: 04-17-2025 Screening for Chlamy carlton trachomatis Chlamydia Screening (18-24) [facility] Start: 02-20-2025 GC (Gonorrhea) Scree letty (18-24) GC (Gonorrhea) Screening (18-24) [facility] Start: 02-20-2025 Screening for Chlamy carlton trachomatis Chlamydia Screening (18-24) [facility] Start: 01-08-2025 Influenza vaccination Influenza Vacc ine (#1) [facility] Start: 12-17-2024 [facility] Start: 09-15-2024 End: 09-15-2024 ambulatory 09/15/2024 3:00 PM EDT Procedure OB/Gynecology [address] [place] [address] 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, 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[employer] [address] [place] [address] Abnormal uterine bleeding [N93.9] OB/Gynecology Comment on above: Abnormal uterine ble eding [N93.9] Start: 09-13-2024 End: 12-13-2024 Choriogonadotropin.beta subunit [Units/volume] in Serum or Plasma [facility] Comment on above: Expected: 09/13/2024 , Expires: 12/13/2024 Start: 09-13-2024 End: 12-13-2024 Hemoglobin A1c in Blood [facility] Comment on above: Expected: 09/13/2024 , Expires: 12/13/2024 Start: 09-13-2024 End: 12-13-2024 Thyroxine (T4) free [Mass/volume] in Serum or Plasma [facility] Work Phone: Comment on above: Expected: 09/13/2024 , Expires: 12/13/2024 Start: 09-13-2024 End: 09-13-2025 US Pelvis PELVIC US WHI Anc Imaging Routine Abnormal uterine bleeding Expected: 09/13/2024, Expires: 09/13/2025 [facility] Comment on above: Expected: 09/13/2024 , Expires: 09/13/2025 Start: 09-08-2024 End: 09-08-2024 Patient encounter procedure 09/08/2024 11:20 AM EDT Office Visit [facility] [address] [facility] [address] [place] [address] Carole Lacey MD [address] [place] [address] specialist review, order labs. [facility] Comment on above: specialist review, o rder labs. Start: 08-31-2024 [facility] Start: 08-24-2024 Screening for malign ant neoplasm of cervix Cervical Cancer Screening [facility] Start: 08-16-2024 End: 08-16-2024 Patient encounter procedure 08/16/2024 3:20 PM EDT Office Visit Neurology [address] [place] [address] Juany Carmichael DO [address] [place], [place] [id number] New Consult Neurology Comment on above: New Consult Start: 07-12-2024 End: 07-12-2024 Patient encounter procedure 07/12/2024 3:20 PM EST Office Visit Neurology [address] [place] [address] Juany Carmichael, DO [address] [place] [address] New Consult Neurology Comment on above: New Consult Start: 07-03-2024 End: 07-03-2024 ambulatory 07/03/2024 11:15 AM EST Results Only [facility] [address] [place] [address] [facility] Start: 06-28-2024 GC (Gonorrhea) Scree letty (18-) GC (Gonorrhea) Screening () [facility] Start: 06-28-2024 Screening for Chlamy carlton trachomatis Chlamydia Screening () [facility] Start: 05-26-2024 End: 2024 Thyrotropin [Units/volume] in Serum or Plasma THYROID STIMULATING HORMONE Lab Routine Irregular bleeding Expected: 05/26/2024, Expires: 2024 [facility] Work Phone: Comment on above: Expected: 05/26/2024 , Expires: 2024 Start: 05-26-2024 End: 05-26-2024 Patient encounter procedure 05/26/2024 11:20 AM EST Office Visit OB/Gynecology [address] [place] [id number] Kavon Toth MD [address] [place] [address] IUD fell out / wants test OB/Gynecology Comment on above: IUD fell out / wants test Start: 05-12-2024 GC (Gonorrhea) Scree letty (1824) GC (Gonorrhea) Screening () [facility] Start: 05-12-2024 Screening for Chlamy carlton trachomatis Chlamydia Screening () [facility] Start: 04-17-2024 End: 07-17-2024 Hepatitis B virus surface Ag [Presence] in Serum [facility] Comment on above: Expected: 04/17/2024 , Expires: 07/17/2024 Start: 04-17-2024 End: 07-17-2024 Hepatitis C virus Ab [Presence] in Serum [facility] Comment on above: Expected: 04/17/2024 , Expires: 07/17/2024 Start: 04-17-2024 End: 07-17-2024 HIV 1+2 Ab [Presence] in Serum or Plasma by Immunoassay [facility] Comment on above: Expected: 04/17/2024 , Expires: 07/17/2024 Start: 04-17-2024 End: 07-17-2024 SYPHILIS TREPONEMAL W/REFLEX [facility] Comment on above: Expected: 04/17/2024 , Expires: 07/17/2024 Start: 03-13-2024 End: 03-13-2024 Patient encounter procedure 03/13/2024 1:30 PM EST Office Visit OB/Gynecology [address] [place] [id number] Blank Chavira APRN.WORK AND FAMILY LIFE CONSULTANT [address] [place] [place] [address] IUD insert OB/Gynecology Comment on above: IUD insert Start: 02-21-2024 End: 05-22-2024 Choriogonadotropin.beta subunit [Units/volume] in Serum or Plasma [facility] Comment on above: Expected: 02/21/2024 , Expires: 05/22/2024 Start: 02-21-2024 End: 05-22-2024 Hepatitis B virus surface Ag [Presence] in Serum [facility] Comment on above: Expected: 02/21/2024 , Expires: 05/22/2024 Start: 02-21-2024 End: 05-22-2024 Hepatitis C virus Ab [Presence] in Serum [facility] Comment on above: Expected: 02/21/2024 , Expires: 05/22/2024 Start: 02-21-2024 End: 05-22-2024 HERPES SIMPLEX IGM, WITH REFLEX IGG ABS [facility] Comment on above: Expected: 02/21/2024 , Expires: 05/22/2024 Start: 02-21-2024 End: 05-22-2024 HIV 1+2 Ab [Presence] in Serum or Plasma by Immunoassay [facility] Comment on above: Expected: 02/21/2024 , Expires: 05/22/2024 Start: 02-21-2024 End: 05-22-2024 SYPHILIS TREPONEMAL W/REFLEX [facility] Work Phone: Comment on above: Expected: 02/21/2024 , Expires: 05/22/2024 Start: 01-09-2024 COVID-19 Vaccine ( season) COVID-19 Vaccine ( season) [facility] Start: 01-09-2024 Covid-19 Vaccine ( season) Covid-19 Vaccine ( season) [facility] Start: 01-09-2024 Influenza vaccination [facility] Start: 08-11-2023 CHLAMYDIA SCREENING () CHLAMYDIA SCREENING (18-24) [facility] Start: 08-11-2023 GC (GONORRHEA) MISAE LETTY (18-24) GC (GONORRHEA) SCREENING (18-24) [facility] Start: 05-10-2023 Behavioral Health Screening Behavioral Health Screening [facility] Start: 05-10-2023 Depression Assessment Depression Ass essment [facility] Start: 04-11-2023 [facility] Start: 01-08-2023 Covid-19 Vaccine () Covid-19 Vaccine ( season) [facility] Start: 01-08-2023 Influenza vaccination Influenza Vacc ine (#1) [facility] Start: 09-14-2022 End: 11-14-2022 Fasting glucose [Mass/volume] in Serum or Plasma GLUCOSE FASTING BLD Lab Routine Bipolar disorder, current episode depressed, severe, without psychotic features (HCC) Expected: 09/14/2022, Expires: 11/14/2022 [facility] Work Phone: Comment on above: Expected: 09/14/2022 , Expires: 11/14/2022 Start: 09-14-2022 End: 11-14-2022 LIPID PANEL, NONFASTING LIPID PANEL, NONFASTING Lab Routine Polysubstance dependence (HCC) Bipolar disorder, current episode depressed, severe, without psychotic features (HCC) Expected: 09/14/2022, Expires: 11/14/2022 [facility] Work Phone: Comment on above: Expected: 09/14/2022 , Expires: 11/14/2022 Start: 09-14-2022 End: 11-14-2022 Thyrotropin [Units/volume] in Serum or Plasma TSH BLD Lab Routine Bipolar disorder, current episode depressed, severe, without psychotic features (HCC) Expected: 09/14/2022, Expires: 11/14/2022 [facility] Work Phone: Comment on above: Expected: 09/14/2022 , Expires: 11/14/2022 Start: 09-14-2022 End: 11-14-2022 Thyroxine (T4) free [Mass/volume] in Serum or Plasma T4 FREE/FREE THYROX Lab Routine Polysubstance dependence (HCC) Expected: 09/14/2022, Expires: 11/14/2022 [facility] Work Phone: Comment on above: Expected: 09/14/2022 , Expires: 11/14/2022 Start: 09-14-2022 End: 11-14-2022 TOX SCREEN ROUT UR TOX SCREEN ROUT UR Lab Routine Polysubstance dependence (HCC) Expected: 09/14/2022, Expires: 11/14/2022 [facility] Work Phone: Comment on above: Expected: 09/14/2022 , Expires: 11/14/2022 Start: 09-14-2022 End: 11-14-2022 Triiodothyronine (T3) Free [Mass/volume] in Serum or Plasma T3 FREE BLD Lab Routine Bipolar disorder, current episode depressed, severe, without psychotic features (HCC) Expected: 09/14/2022, Expires: 11/14/2022 [facility] Work Phone: Comment on above: Expected: 09/14/2022 , Expires: 11/14/2022 Start: 08-10-2022 End: 10-10-2022 Iron and Iron binding capacity panel - Serum or Plasma [facility] Work Phone: Comment on above: Expected: 08/10/2022 , Expires: 10/10/2022 Start: 05-11-2022 Administration of bl ood product [facility] Work Phone: Start: 05-11-2022 [facility] Work Phone: Start: 05-11-2022 Leukocyte reduced re d blood cells [facility] Work Phone: Start: 05-11-2022 [facility] Work Phone: Start: 05-11-2022 Patient discharge [facility] Work Phone: Start: 05-11-2022 Transfusion of red b lood cells [facility] Work Phone: Start: 05-10-2022 DEPRESSION ASSESSMENT DEPRESSION ASS [facility] Start: 05-09-2022 Administration of medication [facility] Work Phone: Start: 05-09-2022 Application of ice c ollar, cap or bag [facility] Work Phone: Start: 05-09-2022 Catheterization of vein [facility] Work Phone: Start: 05-09-2022 Introduction of urin khanh catheter [facility] Work Phone: Start: 05-09-2022 Measuring intake and output [facility] Work Phone: Start: 05-09-2022 Notification of physician [facility] Work Phone: Start: 05-09-2022 Procedure discontinued [facility] Work Phone: Start: 05-09-2022 Provision of activit y privileges [facility] Work Phone: Start: 05-09-2022 Vital signs measurements [facility] Work Phone: Start: 05-09-2022 [facility] Work Phone: Start: 05-09-2022 Consultation [facility] Work Phone: Start: 05-08-2022 Admission procedure [facility] Work Phone: Start: 05-08-2022 Verification routine [facility] Work Phone: Start: 05-06-2022 Nonstress test [facility] Work Phone: Start: 05-06-2022 Obstetric monitoring [facility] Work Phone: Start: 05-06-2022 Vital signs measurements [facility] Work Phone: Start: 05-06-2022 [facility] Work Phone: Start: 05-06-2022 Patient discharge [facility] Work Phone: Start: 04-27-2022 End: 06-27-2022 Protein/Creatinine [Mass Ratio] in Urine [facility] Work Phone: Comment on above: Expected: 04/27/2022 , Expires: 06/27/2022 Start: 04-22-2022 Nonstress test [facility] Work Phone: Start: 04-22-2022 Obstetric monitoring [facility] Work Phone: Start: 04-22-2022 Vital signs measurements [facility] Work Phone: Start: 04-22-2022 [facility] Work Phone: Start: 04-22-2022 Patient discharge [facility] Work Phone: Start: 04-20-2022 Nonstress test [facility] Work Phone: Start: 04-20-2022 Obstetric monitoring [facility] Work Phone: Start: 04-20-2022 Vital signs measurements [facility] Work Phone: Start: 04-20-2022 [facility] Work Phone: Start: 04-20-2022 Patient discharge [facility] Work Phone: Start: 03-18-2022 End: 05-18-2022 CBC W Auto Differential panel - Blood CBC + DIFF Lab Routine 32 weeks gestation of Excessive weight gain in , third trimester Expected: 03/18/2022, Expires: 05/18/2022 [facility] Work Phone: Comment on above: Expected: 03/18/2022 , Expires: 05/18/2022 Start: 03-18-2022 End: 05-18-2022 Comprehensive metabolic 2000 panel - Serum or Plasma COMP METABOLIC PANEL Lab Routine 32 weeks gestation of Excessive weight gain in , third trimester Expected: 03/18/2022, Expires: 05/18/2022 [facility] Work Phone: Comment on above: Expected: 03/18/2022 , Expires: 05/18/2022 Start: 03-18-2022 End: 05-18-2022 Protein/Creatinine [Mass Ratio] in Urine PROTEIN CREATININE RATIO Lab Routine 32 weeks gestation of Excessive weight gain in , third trimester Expected: 03/18/2022, Expires: 05/18/2022 [facility] Work Phone: Comment on above: Expected: 03/18/2022 , Expires: 05/18/2022 Start: 03-18-2022 End: 05-18-2022 Urate [Mass/volume] in Serum or Plasma URIC ACID BLOOD Lab Routine 32 weeks gestation of Excessive weight gain in , third trimester Expected: 03/18/2022, Expires: 05/18/2022 [facility] Work Phone: Comment on above: Expected: 03/18/2022 , Expires: 05/18/2022 Start: 03-18-2022 Urine microalbumin profile DTA P,TDAP,TD (2 - Td or Tdap) [facility] Start: 02-18-2022 End: 02-18-2023 OBSTETRIC ULTRASOUND [facility] OBSTETRIC ULTRASOUND [facility] Anc Imaging Routine 28 weeks gestation of Expected: 02/18/2022, Expires: 02/18/2023 [facility] Work Phone: Comment on above: Expected: 02/18/2022 , Expires: 02/18/2023 Start: 01-28-2022 End: 03-30-2022 CBC W Auto Differential panel - Blood CBC + DIFF Lab Routine 25 weeks gestation of Expected: 01/28/2022, Expires: 03/30/2022 [facility] Work Phone: Comment on above: Expected: 01/28/2022 , Expires: 03/30/2022 Start: 01-28-2022 End: 03-30-2022 GEST GLUC SCREEN, 1-HR, 50 GM, NON-FASTING GEST GLUC SCREEN, 1-HR, 50 GM, NON-FASTING Lab Routine 25 weeks gestation of Expected: 01/28/2022, Expires: 03/30/2022 [facility] Work Phone: Comment on above: Expected: 01/28/2022 , Expires: 03/30/2022 Start: 01-28-2022 End: 03-30-2022 SYPHILIS TOTAL W/REFLEX SYPHILIS TOTAL W/REFLEX Lab Routine 25 weeks gestation of Expected: 01/28/2022, Expires: 03/30/2022 [facility] Work Phone: Comment on above: Expected: 01/28/2022 , Expires: 03/30/2022 Start: 01-08-2022 Influenza vaccination INFLUENZA (#1) [facility] Start: 08-24-2021 CHLAMYDIA SCREENING (18-24) CHLAMYDIA SCREENING (18-24) [facility] Start: 08-24-2021 Depression Screening Depression Scre ening [facility] Start: 08-24-2021 GC (GONORRHEA) SCREE LETTY (18-24) GC (GONORRHEA) SCREENING (18-24) [facility] Start: 08-24-2021 HEPATITIS C SCREENING HEPATITIS C SC REENING [facility] Start: 08-24-2021 HIV SCREENING HIV SCREENING [facility] Start: 08-24-2021 HIV screening HIV Screening [facility] Start: 05-10-2021 DEPRESSION ASSESSMENT DEPRESSION ASS ESSMENT [facility] Start: 2019 Meningococcal B Vacc ine (1 of 2 - Standard) Meningococcal B Vaccine (1 of 2 - Standard) [facility] Start: 2019 Meningococcal B Vacc ine: Consider Based On Risk (1 of 2 - Patient Seeks Protection) Meningococcal B Vaccine: Consider Based On Risk (1 of 2 - Patient Seeks Protection) [facility] Start: 2019 MENINGOCOCCAL CONJUG ATE (1 - 2-dose series) MENINGOCOCCAL CONJUGATE (1 - 2-dose series) [facility] Start: 2019 Meningococcal conjug ate vaccination [facility] Start: 07-20-2019 Depression screening using PHQ-9 (Patient Health Questionnaire 9) score DEPRESSION SCREENING (PHQ9) [facility] Start: 01-08-2019 Influenza vaccinatio n given SEQUENTIAL INFLUENZA VACCINE (#1) [facility] Start: 01-08-2018 Influenza vaccination INFLUENZA VACC INE (#1) [facility] Start: 08-24-2017 PEDS TO ADULT TRANSI TION ANNUAL ASSESSMENT PEDS TO ADULT TRANSITION ANNUAL ASSESSMENT [facility] Start: 07-07-2017 HPV Vaccine (2 - 2-d ose series) HPV Vaccine (2 - 2-dose series) [facility] Start: 07-07-2017 Vaccination for tee n papillomavirus HPV VACCINES (2 - Female 2-dose series) [facility] Start: 08-24-2016 HIV screening HIV SCREENING DISCUSSION [facility] Start: 08-24-2016 Varicella vaccination VARICELL A VACCINE (1 of 2 - 13+ 2-dose series) [facility] Start: 2015 Adult depression scr eening assessment DEPRESSION SCREENING [facility] Start: 2015 PEDS TO ADULT TRANSI TION INITIAL DISCUSSION PEDS TO ADULT TRANSITION INITIAL DISCUSSION [facility] Start: 08-24-2014 HPV VACCINE (1 - 2-d ose series) HPV VACCINE (1 - 2-dose series) [facility] Start: 08-24-2014 Meningococcal conjug ate vaccination MCV4 VACCINE (1 - 2-dose series) [facility] Start: 08-24-2014 Vaccination for tee n papillomavirus HPV VACCINE ADOL (1 - Female 2-dose series) [facility] Start: 08-24-2013 MENINGOCOCCAL B: Con shaft mechanic based on risk (1 of 2 - Risk Bexsero 2-dose series) MENINGOCOCCAL B: Consider based on risk (1 of 2 - Risk Bexsero 2-dose series) [facility] Start: 08-24-2012 HPV VACCINE (1 - 2-d ose series) HPV VACCINE (1 - 2-dose series) [facility] Start: 08-24-2010 DTAP/TDAP/TD VACCINE (1 - Tdap) DTAP/TDAP/TD VACCINE (1 - Tdap) [facility] Start: 08-24-2010 Urine microalbumin profile DTAP,TDAP ,TD (1 - Tdap) [facility] Start: 08-24-2006 History and physical examination, annual for health maintenance Wellness Visit [facility] Start: 08-24-2004 Hepatitis A immunization HEP A VACCINE (1 of 2 - 2-dose series) [facility] Start: 08-24-2004 [id number] a vaccination MMR VACCINE (1 of 2 - Standard series) [facility] Start: 02-24-2004 COVID-19 VACCINE (#1) COVID-19 VACCI NE (#1) [facility] Start: 2003 Inactivated poliovir us vaccine (product) IPV VACCINE (1 of 3 - All-IPV series) [facility] Start: 2003 Depression screening using PHQ-9 (Patient Health Questionnaire 9) score DEPRESSION SCREENING (PHQ9) [facility] Start: 2003 HEPATITIS B (1 of 3 - 3-dose series) HEPATITIS B (1 of 3 - 3-dose series) [facility] Start: 2003 Hepatitis B vaccination HEP B VACCINE (1 of 3 - 3-dose primary series) [facility] Bacteria identified in Urine by Culture URINE CULTURE Microbiology Routine Encounter for care in second trimester of first 12/30/2021 10:54 AM EDT [facility] Work Phone: Bacteria identified in Urine by Culture URINE CULTURE Microbiology Routine perineal pain 05/18/2022 10:55 AM [facility] Work Phone: BACTERIAL VAGINOSIS AMPLIFICATION BACTERIAL VAGINOSIS AMPLIFICATION Lab Routine perineal pain 05/18/2022 10:55 AM [email or web address] [facility] Work Phone: BACTERIAL VAGINOSIS NAAT BACTERI AL VAGINOSIS NAAT Lab Routine Screen for STD (sexually transmitted disease) 06/28/2023 3:08 PM [email or web address] [facility] Work Phone: BACTERIAL VAGINOSIS NAAT BACTERI AL VAGINOSIS NAAT Lab Routine Screen for STD (sexually transmitted disease) 02/21/2024 2:22 PM EDT [facility] BACTERIAL VAGINOSIS NAAT BACTERI AL VAGINOSIS NAAT Lab Routine Vaginal discharge Ordered: 07/27/2024 [facility] Work Phone: Comment on above: Ordered: 07/27/2024 BACTERIAL VAGINOSIS NAAT BACTERI AL VAGINOSIS NAAT Lab Routine Abnormal uterine bleeding 09/13/2024 2:18 PM EDT [facility] MARIA T / TRICHOMONA S AMPLIFICATION MARIA T / TRICHOMONAS AMPLIFICATION Microbiology Routine perineal pain 05/18/2022 10:55 AM [email or web address] [facility] Work Phone: MARIA T/TRICHOMONAS NAAT MARIA T /TRICHOMONAS NAAT Lab Routine Screen for STD (sexually transmitted disease) 06/28/2023 3:08 PM [facility] Work Phone: MARIA T/TRICHOMONAS NAAT MARIA T /TRICHOMONAS NAAT Lab Routine Screen for STD (sexually transmitted disease) 02/21/2024 2:22 PM EDT [facility] MARIA T/TRICHOMONAS NAAT MARIA T /TRICHOMONAS NAAT Lab Routine Vaginal discharge Ordered: 07/27/2024 [facility] Comment on above: Ordered: 07/27/2024 MARIA T/TRICHOMONAS NAAT MARIA T /TRICHOMONAS NAAT Lab Routine Screen for STD (sexually transmitted disease) Abnormal uterine bleeding 09/13/2024 2:18 PM [facility] Chlamydia trachomatis+Neisseria gonorrhoeae DNA [Presence] in Unspecified specimen by [place] with probe detection GC/CHLAMYDIA DNA DET Lab Routine Encounter for insertion of mirena IUD Encounter for IUD insertion 08/10/2022 10:53 AM [facility] Work Phone: Chlamydia trachomatis+Neisseria gonorrhoeae DNA [Presence] in Unspecified specimen by [place] with probe detection GONORRHEA/CHLAMYDIA NAAT Lab Routine Screen for STD (sexually transmitted disease) 06/28/2023 3:08 PM [facility] Work Phone: Chlamydia trachomatis+Neisseria gonorrhoeae DNA [Presence] in Unspecified specimen by LA with probe detection GONORRHEA/CHLAMYDIA NAAT Lab Routine Screen for STD (sexually transmitted disease) 02/21/2024 2:22 PM [facility] Chlamydia trachomatis+Neisseria gonorrhoeae DNA [Presence] in Unspecified specimen by LA with probe detection GONORRHEA/CHLAMYDIA NAAT Lab Routine Encounter for IUD insertion 04/17/2024 11:55 AM [facility] Chlamydia trachomatis+Neisseria gonorrhoeae DNA [Presence] in Unspecified specimen by LA with probe detection GONORRHEA/CHLAMYDIA NAAT Lab Routine Vaginal discharge Ordered: 07/27/2024 [facility] Comment on above: Ordered: 07/27/2024 Chlamydia trachomatis+Neisseria gonorrhoeae DNA [Presence] in Unspecified specimen by [place] with probe detection GONORRHEA/CHLAMYDIA NAAT Lab Routine Screen for STD (sexually transmitted disease) Abnormal uterine bleeding 09/13/2024 2:18 PM EDT [facility] End: 02-19-2023 EPIL EEG LONG EPIL EEG LONG NEUROLOGY Routine Episodes of staring 1 Occurrences starting 02/19/2022 until 02/19/2023 [facility] Work Phone: Comment on above: 1 Occurrences starti ng 02/19/2022 until 02/19/2023 Insertion intrauteri ne device iud INSERT INTRAUTERINE DEVICE Procedures Routine Encounter for insertion of mirena IUD Ordered: 07/06/2022 [facility] Work Phone: Comment on above: Ordered: 07/06/2022 Insertion intrauteri ne device iud INSERT INTRAUTERINE DEVICE Procedures Routine Encounter for IUD insertion Ordered: 02/21/2024 [facility] Comment on above: Ordered: 02/21/2024 Insertion intrauteri ne device iud INSERT INTRAUTERINE DEVICE Procedures Routine Encounter for IUD insertion Ordered: 04/17/2024 [facility] Work Phone: Comment on above: Ordered: 04/17/2024 OBSTETRIC ULTRASOUND [facility] OBSTETR IC ULTRASOUND [facility] Anc Imaging Routine Encounter for care in second trimester of first Ordered: 12/30/2021 [facility] Work Phone: Comment on above: Ordered: 12/30/2021 PAP TEST PAP TEST Lab Tamiko barajas Screening for cervical cancer Abnormal uterine bleeding 09/13/2024 2:18 PM EDT [facility] Patient Education [facility] Work Phone: Patient referral [facility] Work Phone: End: 05-03-2024 , Urine , Urine Lab STAT One Time for 1 Occurrences starting 05/03/2024 until 05/03/2024 [facility] Comment on above: One Time for 1 Occur rences starting 05/03/2024 until 05/03/2024 ROUTINE, GR OUP B STREP PCR ROUTINE, GROUP B STREP PCR Microbiology Routine 36 weeks gestation of 04/16/2022 12:45 PM [facility] Work Phone: TRICHOMONAS VAGINALIS NAAT TRICH OMONAS VAGINALIS NAAT Lab Routine Screen for STD (sexually transmitted disease) 04/17/2024 11:55 AM [facility] End: 05-03-2024 Urinalysis Urinalysis Lab Routine One Time for 1 Occurrences starting 05/03/2024 until 05/03/2024 [facility] Comment on above: One Time for 1 Occur rences starting 05/03/2024 until 05/03/2024 X-ray of left knee XR KNEE LEFT 2 VIEWS Imaging STAT Acute pain of left knee 06/30/2018 1:[address] [facility] Immunizations Immunization Date Immunization Notes Care Provider Chilango fleming 04-17-2024 influenza, seasonal, injectable Blank Chavira SUPPORT SPECIALIST.WORK AND FAMILY LIFE CONSULTANT Work Phone: [facility] 04-17-2024 influenza virus vaccine, unspecified formulation Blank Chavira SUPPORT SPECIALIST.WORK AND FAMILY LIFE CONSULTANT Work Phone: [facility] 02-18-2022 Diphtheria, tetanus toxoids and acellular pertussis vaccine, and poliovirus vaccine, inactivated [facility] 02-18-2022 tetanus toxoid, redu mitchel diphtheria toxoid, and acellular pertussis vaccine, adsorbed Imad Shadi GANN Work Phone: [facility] 01-28-2022 influenza, injectabl e, quadrivalent, contains preservative Amira Isaac Akins MD Work Phone: [facility] 01-28-2022 influenza, injectabl e, quadrivalent, preservative free [facility] 01-28-2022 influenza, seasonal, injectable [facility] 01-28-2022 influenza virus vaccine, unspecified formulation Laurie Bonner APRN.CNM Work Phone: [facility] 01-06-2017 HPV, unspecified formulation Russ Quiroz [facility] 01-06-2017 meningococcal vaccin e of unknown formulation and unknown serogroups Russ Quiroz [facility] Payers Date Payer Category Payer Self-pay 2022 Unknown [id number] 2019 Medicaid [id number] 2012 Unknown xxxxxxxxxxx [id number] 2003 Unknown [id number] 2.16. [id number] 2003 Unknown [id number] 2.16. [id number] 2003 Unknown [id number] 2.16.8 [id number] 1974 Unknown [id number] 2.16. [id number] 1972 Unknown [id number] 2.16.8 [id number] 1964 Unknown [id number] 2.16. [id number] 1964 Unknown [id number] 2.16. [id number] 1964 Unknown [id number] 2.16. [id number] 1964 Unknown [id number] 2.16. [id number] 1964 Unknown [id number] 2.16. [id number] 1964 Unknown [id number] 2.16. [id number] 1959 Medicaid [id number] Unknown [facility] [id number] Unknown [id number] 2.16.8 [id number] Unknown [id number] 2.16.8 [id number] Social History Date Type Detail Facility Tobacco smoking stat us NHIS Unknown if ever smoked [facility] Start: 2003 Sex Assigned At Not on file [facility] Start: 07-19-2018 End: 06-26-2024 Tobacco smoking status NHIS Former smoker [facility] Work Phone: End: 05-10-2018 History of tobacco use Cigarette Smoker [facility] Start: 06-30-2018 History SDOH Alcohol Frequency 1 [facility] End: 05-10-2018 History of tobacco use Current smoker [facility] Work Phone: Start: 12-30-2021 End: 06-26-2024 Tobacco use and exposure Smokeless tobacco non-user [facility] Work Phone: Start: 12-30-2021 End: 05-26-2024 Alcohol intake Lifetime non-drinker (finding) [facility] Start: 08-17-2021 [facility] Start: 12-20-2021 End: 04-06-2022 Exposure to SARS-CoV-2 (event) Not sure [facility] Start: 2005 Sex Assigned At Female C [facility] Start: 04-06-2022 Tobacco use and exposure User of smokeless tobacco [facility] Start: 04-06-2022 Tobacco Comment Vaping [facility] Start: 05-08-2022 End: 04-11-2023 Tobacco smoking status NHIS Unknown if ever smoked [facility] Start: 06-28-2023 End: 06-23-2024 History of Social function [facility] Start: 06-28-2023 End: 06-23-2024 Tobacco use panel [facility] Adult Depression Screening Assessment 3 [facility] The thought of deyanira min myself has occurred to me Never [facility] Start: 02-17-2022 Gender identity Identifies as female gender (finding) [facility] Start: 02-17-2022 Sexual orientation Bisexual (finding ) [facility] How often to you hav e a drink containing alcohol? Monthly or less [facility] How many standard dr inks containing alcohol do you have on a typical day? 1 or 2 [facility] Has the [employer], or [employer] threatened to shut off services in your home in past 12Mo No [facility] Do you belong to any clubs or organizations such as restoration groups, unions, fraternal or athletic groups, or school groups? Yes [facility] How hard is it for y ou to pay for the very basics like food, housing, medical care, and heating Somewhat hard [facility] Do you feel stress - tense, restless, nervous, or anxious, or unable to sleep at night because your mind is troubled all the time - these days [OSQ] To some extent [facility] (I/We) worried rachael er (my/our) food would run out before (I/we) got money to buy more. Sometimes true [facility] The food that (I/we) bought just didn't last, and (I/we) didn't have money to get more. Never true [facility] History of tobacco use Passive smoker [facility] Start: 06-26-2024 End: 09-13-2024 Alcoholic beverage intake Ex-drinker (finding) [facility] Start: 08-31-2024 End: 12-17-2024 Tobacco smoking status NHIS Smokes tobacco daily (finding) [facility] Start: 08-31-2024 Sex Female (finding) [facility] NEGATED: Highlighted row [facility] Goals Date Patient Goal Desired Activity /State Mental Status Date Assessment Result Facility 12-17-2024 Cognitive function Level Of Cons ciousness Awake;Alert;Appropriate;Follow s Commands [facility] Work Phone: 09-18-2022 Cognitive function Voice/Name [facility] Work Phone: Clinical Notes 12-30-2021 to 12-17-2024 Note Date & Type Note Facility 12-17-2024 Discharge summary Note Date/Time December 17, 2024 1:59pm [facility] Medical Records Department [address] [place] [address] Emergency Department Summary 12/17/24 MR#: [id number] Acct: [id number] Name: RINA YI Rep #: [id number] : 2005 19 From: Naun Garcia MD PCP: Care Physician,No Primary Status :REG ER Location: ED HPI History of Present Illness Chief Complaint: General Illness Informant: patient Onset/Context/Timing Onset: Weeks Context: Gradual Onset Timing: Intermittent Current Severity: Mild Maximum Severity: Mild Narrative Narrative: 19-year-old female history of PTSD prior substance abuse but states she is not using drugs currently on no IV drugs. Also history of seizures but currently onno seizure medication. Since her last almost 2 weeks she has had intermittent nausea vomiting. No diarrhea. Intermittent low-grade fever around 100. She thought was from stress. She denies any dysuria. No chest pain or shortness ofbreath or cough. No abdominal pain. Denies any dysuria. Says her last normal menstrual period was around November 20. But was concerned she might be now. She denies any abdominal pain currently. She is having mild spotting. Prior similar symptoms: No Recent Illness/Hospitalization: No PFSH [facility] Medical History Second degree perineal laceration during delivery (spontaneous vaginal delivery) PTSD (post-traumatic stress disorder) Bipolar disorder LGA (large for gestational age) fetus Drug use Marijuana smoker ETOH abuse Polyhydramnios Asthma Depression Anxiety Headache Seizures Gestational HTN Home Medications ?Medication ?Instructions ?Recorded ?Last Taken ?Type [id number]-hax-Vf-FA 1 mg 1 tab PO DAILY pregna [...] usea #15 tabs 08/31/24 Unknown Rx tablet ondansetron 4 mg disintegrating 4 mg PO Q6H PRN nausea and 12/17/24 Unknown Rx tablet vomiting #10 tabs Allergy/AdvReac Type Severity Reaction Status Date / Time No Known Allergies Allergy Verified 12/17/24 11:57 Surgical History History of tonsillectomy H/O right knee surgery History of surgery Social History household members: family housing: house Smoking Status: Current every day smoker tobacco type: e-cigarettes ROS ROS ED ROS Narrative Nausea and vomiting. Fever. Constitutional Constitutional ED: Reports fever(s) Eyes Eyes: Denies blurry vision ENT ENT ED: Denies ear pain Cardiovascular Cardiovascular: Denies chest pain Respiratory/Chest Respiratory/Chest: Denies cough or dyspnea Gastrointestinal Gastrointestinal: Reports nausea and vomiting; Denies abdominal pain, constipation, diarrhea or melena Genitourinary Genitourinary ED: Denies dysuria or hematuria Musculoskeletal Musculoskeletal: Denies arthralgias or back pain Integumentary Denies abscess Neurologic Neurologic: Denies headache(s) Psychiatric Psychiatric: Denies anxiety Endocrine Endocrinology: Denies cold intolerance Hematologic/Lymphatic Hematologic/Lymphatic: Reports none Allergic/Immunologic Allergic/Immunologic ED: Denies mouth swelling, tongue swelling or urticaria EXAM Physical Exam Narrative Exam Narrative: Well-appearing 19-year-old female. Vital signs stable afebrile. Does not look septic toxic no acute distress. Sitting upright in bed. Significant other at bedside. Pulse ox 100% on room air no signs of hypoxia. H EENT exam pupils round react light. Mytrex membranes. Posterior pharynx normal. TMs normal. Neck nontender. No lymphadenopathy. No meningismus. Back nontender. Lungs clear to auscultation bilaterally. Heart regular rhythm rate about 100 no murmur. Chest wall ribs nontender. Abdomen soft nontender. No peritoneal signs. No localizing tenderness. Moving all 4 extremities. Nontender no edema. Normal range of motion. No rashes. No hot or swollen joints. Normal range of motion and strength. Neurologically the patient is awake and alert. Answer questions following commands. NIH is 0. Const Vital Signs: 12/17/24 11:34 12/17/24 11:55 12/17/24 13:34 Temperature 98.3 F Temperature Source Oral Pulse Rate 101 H 77 Respiratory Rate 20 H 15 Respiratory Effort Normal Respiratory Pattern Normal Blood Pressure 132/114 H 109/75 Blood Pressure Mean 120 86 Pulse Ox 100 97 Oxygen Delivery Method Room Air Room Air 12/17/24 13:51 Temperature 98.3 F Temperature Source Pulse Rate 77 Respiratory Rate 15 Respiratory Effort Respiratory Pattern Blood Pressure 109/75 Blood Pressure Mean 86 Pulse Ox 97 Oxygen Delivery Method Positive well nourished and well developed; Negative for cachectic, contracturesor unkempt General Appearance ED: well developed and NAD; Negative for unkempt, cachectic, contractures, cyanotic, diaphoretic or pallor Nutritional Appearance: Negative for cachectic HEENT Reports moist mucous membranes Eyes PERRL and EOMs intact bilaterally General Eye ED: Negative for pale conjunctiva or scleral icterus Neck no lymphadenopathy, supple and no JVD General: Negative for tenderness Lymph Lymphatic: Negative for other Chest Wall inspection of chest normal and palpation of chest normal Resp normal respiratory effort and clear to auscultation bilaterally Auscultation: Negative for rales, rhonchi, wheezes or diminished lung sounds Cardio regular rate, regular rhythm, S1 normal heart sound, S2 normal heart sound and no murmurs GI normal to inspection, nondistended, normoactive bowel sounds, non-tender, non-distended and no masses Auscultation: normoactive bowel sounds Palpation: soft; Negative for tender, guarding or rebound tenderness present Back/Spine no CVA tenderness General Back: Negative for CVA tenderness Cervical Spine: Negative for cervical spine tenderness Thoracic Spine / Upper Back: Negative for thoracic spinal tenderness or paraspinal muscle tenderness Lumbar Spine / Lower Back: Negative for lumbar spinal tenderness Extremity normal to inspection General Extremety ED: Negative for edema or tenderness General Extremity: Negative for edema Neuro oriented x3 and CN's II-XII intact bilaterally Sensorium / Orientation: alert Motor Exam: strength 5/5 throughout Psych mental status grossly normal Appearance: Negative for unkempt Attitude: No agitated Mood & Affect: Negative for depressed, anxious or tearful Skin no rashes or lesions noted, no wounds and skin turgor normal General Skin Exam: elasticity normal; Negative for jaundice or pallor Lesions: No lesion noted Rashes: No rashes noted Trauma: Negative for abrasion Wounds: Negative for wounds noted MDM MDM MDM Narrative Medical decision making narrative: 19-year-old female with intermittent nausea vomiting for 2 weeks intermittent fever. Exam benign. Screening labs. UA. Also concerned she may or may not be. Serum test will be done. She will be given IV Zofran for nausea and a liter of fluid. Repeat exam patient is doing well at 1:40 PM. Abdomen is benign. She is feeling improved with Zofran and fluids. We went over her test results. Her labs are basically unremarkable other than being . This will be her second she has 1 child already. She will follow-[facility] with [facility]. She does not need any further testing or imaging. At most if her dates are right she would be more than 2 weeks . History & Record Review Discussion w/independent historian: Patient and Family Additional record(s) reviewed:: Prior inpatient record, Prior outpatient record,Prior ED visit and Prior labs Lab Data Attestation: I reviewed the patient's lab results. Lab results narrative: CBC shows a white count of 5. H&H 13 and 40. Platelets 198. Electrolytes show gap 11. Normal BUN and creatinine. Glucose 80. Serum test positive. UA negative. Labs: Laboratory Results - last 24 hr 12/17/24 12:29 WBC 5.8 RBC 4.69 Hgb 13.6 Hct 40.5 MCV 86.4 MCH 29.0 MCHC 33.6 RDW Std Deviation 39.7 RDW Coeff of Shira 12.7 Plt Count 198 MPV 10.5 Immature Gran % (Auto) 0.300 Neut % (Auto) 61.7 Lymph % (Auto) 27.3 [place] % (Auto) 9.5 Eos % (Auto) 0.7 Baso % (Auto) 0.5 Absolute Neuts (auto) 3.6 Absolute Lymphs (auto) 1.57 Nucleated RBC % 0 Sodium 138 Potassium 3.4 Chloride 104 Carbon Dioxide 23.1 Anion Gap 11 BUN 9 Creatinine 0.65 L Estim Creat Clear Calc 153.02 Est GFR (MDRD) Non-Af 128 BUN/Creatinine Ratio 13.4 Glucose 80 Calcium 9.1 Serum , Qual POSITIVE Urine Color Yellow Urine Clarity Clear Urine pH 6.5 Ur Specific Taft 1.010 Urine Protein 15 H Urine Glucose (UA) Normal Urine Ketones Negative Urine Occult Blood Negative Urine Nitrite Negative Urine Bilirubin Negative Urine Urobilinogen Normal Ur Leukocyte Esterase 25 H Urine RBC 0 SEEN Urine WBC 0-5 SEEN Ur Squamous Epith Cells 0-5 SEEN Urine Bacteria 1+ Urine Mucus 0 SEEN Discharge Plan Triage Chief Complaint: General Illness ED Provider: Naun Garcia Dx/Rx/DC Orders Clinical Impression: Vomiting, First trimester Instructions: 1st Trimester, ED Vomiting (Adult) Prescriptions: New ondansetron 4 mg tablet,disintegrating 4 mg PO Q6H PRN (Reason: nausea and vomiting) Qty: 10 0RF No Action [id number] 1 mg Tablet 1 tab PO DAILY [...] PRN PRN (Reason: pain) Qty: 20 0RF ibuprofen 600 mg tablet 600 mg PO Q8H PRN PRN (Reason: fever or pain) Qty: 20 0RF ondansetron 4 mg tablet,disintegrating 4 mg PO Q8H PRN PRN (Reason: Nausea) Qty: 15 0RF Primary Care Provider: Care Physician,No Primary Referrals: Katey Glover DO [Med Staff - Active Staff] - As soon as possible Care Physician,No Primary [Primary Care Provider] - Activity Restrictions/Additional Instructions: Plenty of fluids and rest. Follow-up with your MEDICAL BILLING AND CODING SPECIALIST to be scheduled for first trimester appointment. Your test was positive today. Your other labs look good. Your urine was not infected. Zofran as needed for nausea. Print Language: Chadian Disposition Disposition: Home, Self Care What to do if you have Problems For any increased pain, shortness of breath, bleeding, nausea or vomiting, chestpain, or any unexpected problems, contact your Primary Care Provider. Call [facility] ([phone]) or report to the closest Emergency Room. Call 911 if necessary. 12/17/24 7440 <Electronically signed by Naun Garcia MD> Cosigner Signature (if applicable): CC: No Primary Care Physician ~ Signed [facility] Work Phone: [phone] 255-435908-10-2025 Discharge summary [facility] Medical Records Department [address] [place] [address] Emergency Department Summary 12/17/24 MR#: [id number] Acct: [id number] Name: RINA YI Rep #: [id number] : 2005 19 From: Naun Garcia MD PCP: Care Physician,No Primary Status :REG ER Location: ED HPI History of Present Illness Chief Complaint: General Illness Informant: patient Onset/Context/Timing Onset: Weeks Context: Gradual Onset Timing: Intermittent Current Severity: Mild Maximum Severity: Mild Narrative Narrative: 19-year-old female history of PTSD prior substance abuse but states she is not using drugs currently on no IV drugs. Also history of seizures but currently onno seizure medication. Since her last almost 2 weeks she has had intermittent nausea vomiting. No diarrhea. Intermittent low-grade fever around 100. She thought was from stress. She denies any dysuria. No chest pain or shortness ofbreath or cough. No abdominal pain. Denies any dysuria. Says her last normal menstrual period was around November 20. But was concerned she might be now. She denies any abdominal pain currently. She is having mild spotting. Prior similar symptoms: No Recent Illness/Hospitalization: No PFSH PFSH Medical History Second degree perineal laceration during delivery (spontaneous vaginal delivery) PTSD (post-traumatic stress disorder) Bipolar disorder LGA (large for gestational age) fetus Drug use Marijuana smoker ETOH abuse Polyhydramnios Asthma Depression Anxiety Headache Seizures Gestational HTN Home Medications ?Medication ?Instructions ?Recorded ?Last Taken ?Type bvcqprvo-pkv-Fc-FA 1 mg 1 tab PO DAILY pregna [...] usea #15 tabs 08/31/24 Unknown Rx tablet ondansetron 4 mg disintegrating 4 mg PO Q6H PRN nausea and 12/17/24 Unknown Rx tablet vomiting #10 tabs Allergy/AdvReac Type Severity Reaction Status Date / Time No Known Allergies Allergy Verified 12/17/24 11:57 Surgical History History of tonsillectomy H/O right knee surgery History of surgery Social History household members: family housing: house Smoking Status: Current every day smoker tobacco type: e-cigarettes ROS ROS ED ROS Narrative Nausea and vomiting. Fever. Constitutional Constitutional ED: Reports fever(s) Eyes Eyes: Denies blurry vision ENT ENT ED: Denies ear pain Cardiovascular Cardiovascular: Denies chest pain Respiratory/Chest Respiratory/Chest: Denies cough or dyspnea Gastrointestinal Gastrointestinal: Reports nausea and vomiting; Denies abdominal pain, constipation, diarrhea or melena Genitourinary Genitourinary ED: Denies dysuria or hematuria Musculoskeletal Musculoskeletal: Denies arthralgias or back pain Integumentary Denies abscess Neurologic Neurologic: Denies headache(s) Psychiatric Psychiatric: Denies anxiety Endocrine Endocrinology: Denies cold intolerance Hematologic/Lymphatic Hematologic/Lymphatic: Reports none Allergic/Immunologic Allergic/Immunologic ED: Denies mouth swelling, tongue swelling or urticaria EXAM Physical Exam Narrative Exam Narrative: Well-appearing 19-year-old female. Vital signs stable afebrile. Does not look septic toxic no acutedistress. Sitting upright in bed. Significant other at bedside. Pulse ox 100% on room air no signs of hypoxia. H EENT exam pupils round react light. Mytrex membranes. Posterior pharynx normal. TMs normal. Neck nontender. No lymphadenopathy. No meningismus. Back nontender. Lungs clear to auscultation bilaterally. Heart regular rhythm rate about 100 no murmur. Chest wall ribs nontender. Abdomen soft nontender. No peritoneal signs. No localizing tenderness. Moving all 4 extremities. Nontender no edema. Normal range of motion. No rashes. No hot or swollen joints. Normal range of motion and strengt h. Neurologically the patient is awake and alert. Answer questions following commands. NIH is 0. Const Vital Signs: 12/17/24 11:34 12/17/24 11:55 12/17/24 13:34 Temperature 98.3 F Temperature Source Oral Pulse Rate 101 H 77 Respiratory Rate 20 H 15 Respiratory Effort Normal Respiratory Pattern Normal Blood Pressure 132/114 H 109/75 Blood Pressure Mean 120 86 Pulse Ox 100 97 Oxygen Delivery Method Room Air Room Air 12/17/24 13:51 Temperature 98.3 F Temperature Source Pulse Rate 77 Respiratory Rate 15 Respiratory Effort Respiratory Pattern Blood Pressure 109/75 Blood Pressure Mean 86 Pulse Ox 97 Oxygen Delivery Method Positive well nourished and well developed; Negative for cachectic, contracturesor unkempt General Appearance ED: well developed and NAD; Negative for unkempt, cachectic, contractures, cyanotic, diaphoretic or pallor Nutritional Appearance: Negative for cachectic HEENT Reports moist mucous membranes Eyes PERRL and EOMs intact bilaterally General Eye ED: Negative for pale conjunctiva or scleral icterus Neck no lymphadenopathy, supple and no JVD General: Negative for tenderness Lymph Lymphatic: Negative for other Chest Wall inspection of chest normal and palpation of chest normal Resp normal respiratory effort and clear to auscultation bilaterally Auscultation: Negative for rales, rhonchi, wheezes or diminished lung sounds Cardio regular rate, regular rhythm, S1 normal heart sound, S2 normal heart sound and no murmurs GI normal to inspection, nondistended, normoactive bowel sounds, non-tender, non- distended and no masses Auscultation: normoactive bowel sounds Palpation: soft; Negative for tender, guarding or rebound tenderness present Back/Spine no CVA tenderness General Back: Negative for CVA tenderness Cervical Spine: Negative for cervical spine tenderness Thoracic Spine / Upper Back: Negative for thoracic spinal tenderness or paraspinal muscle tenderness Lumbar Spine / Lower Back: Negative for lumbar spinal tenderness Extremity normal to inspection General Extremety ED: Negative for edema or tenderness General Extremity: Negative for edema Neuro oriented x3 and CN's II-XII intact bilaterally Sensorium / Orientation: alert Motor Exam: strength 5/5 throughout Psych mental status grossly normal Appearance: Negative for unkempt Attitude: No agitated Mood & Affect: Negative for depressed, anxious or tearful Skin no rashes or lesions noted, no wounds and skin turgor normal General Skin Exam: elasticity normal; Negative for jaundice or pallor Lesions: No lesion noted Rashes: No rashes noted Trauma: Negative for abrasion Wounds: Negative for wounds noted MDM MDM MDM Narrative Medical decision making narrative: 19-year-old female with intermittent nausea vomiting for 2 weeks intermittent fever. Exam benign. Screening labs. UA. Also concerned she may or may not be. Serum test will be done. She will be given IV Zofran for nausea and a liter of fluid. Repeat exam patient is doing well at 1:40 PM. Abdomen is benign. She is feeling improved with Zofran and fluids. We went over her test results. Her labs are basically unremarkable other than being . This will be her second she has 1 child already. She will follow-up with her [facility]. She does not need any further testing or imaging. At most if her dates areright she would be more than 2 weeks . History & Record Review Discussion w/independent historian: Patient and Family Additional record(s) reviewed:: Prior inpatient record, Prior outpatient record,Prior ED visit and Prior labs Lab Data Attestation: I reviewed the patient's lab results. Lab results narrative: CBC shows a white count of 5. H&H 13 and 40. Platelets 198. Electrolytes show gap 11. Normal BUN and creatinine. Glucose 80. Serum test positive. UA negative. Labs: Laboratory Results - last 24 hr 12/17/24 12:29 WBC 5.8 RBC 4.69 Hgb 13.6 Hct 40.5 MCV 86.4 MCH 29.0 MCHC 33.6 RDW Std Deviation 39.7 RDW Coeff of Shira 12.7 Plt Count 198 MPV 10.5 Immature Gran % (Auto) 0.300 Neut % (Auto) 61.7 Lymph % (Auto) 27.3 [place] % (Auto) 9.5 Eos % (Auto) 0.7 Baso % (Auto) 0.5 Absolute Neuts (auto) 3.6 Absolute Lymphs (auto) 1.57 Nucleated RBC % 0 Sodium 138 Potassium 3.4 Chloride 104 Carbon Dioxide 23.1 Anion Gap 11 BUN 9 Creatinine 0.65 L Estim Creat Clear Calc 153.02 Est GFR (MDRD) Non-Af 128 BUN/Creatinine Ratio 13.4 Glucose 80 Calcium 9.1 Serum , Qual POSITIVE Urine Color Yellow Urine Clarity Clear Urine pH 6.5 Ur Specific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 communicating results to the patient. Emily Dolan MD documented in this encounterMetro[facility]11-23-2022 Miscellaneous Notes* Quick Notes - Laurie Bonner APRN.BON - 04/01/2022 2:05 PM EST Rina Yi [...] counts reviewed. RTC in 2 weeks for ALLEGRA, follow up growth US and GBS screening. Laurie Bonner APRN.CNM documented in this encounterMetrohealth [facility] Center11-23-2022 Instructions* Patient Instructions* Georgina Rivero LPN - 04/01/2022 1:47 PM EST SEQUENTIAL SCREENINGS The [facility] offers sequential screenings for women who are [...] testing. It will require an appointment withour marine diesel technician. This is not an ultrasound performed [...] the above symptoms, contact our office at [phone] and ask to speak with anurse. After hours, you can call doctors registry at [phone] OR call [facility] at [phone] ask to have the doctor concert promoter paged. If you consider this an emergency, dial 9-1-1 or go to your nearest emergency department. NEED HELP? Are you dealing with a violent or abusive relationship? Are you a victim of rape or sexual assult? Call [facility] ([place]) 24 hour Crisis Hotline: 745.421.2939 or 295-735-6460. MANUAL Your Guide to a Healthy manual is now on-line. Visit [facility]org/HealthyPregnancyGuide to download your free copy documented in this encounterMetro[facility]11-09-2022 Miscellaneous Notes* Quick Notes - Naima Walls [...] . Naima Walls APRN.CNM documented in this encounterMetrohealth [facility]11-09-2022 Instructions* Patient Instructions* Yanick Schwartz Cma - 03/18/2022 11:31 AM EST SEQUENTIAL SCREENINGS The [facility] offers sequential screenings for women who are [...] testing. It will require an appointment withour marine diesel technician. This is not an ultrasound performed [...] the above symptoms, contact our office at [phone] and ask to speak with anurse. After hours, you can call doctors registry at [phone] OR call [facility] at [phone] ask to have the doctor concert promoter paged. If you consider this an emergency, dial 91-4 or go to your nearest emergency department. NEED HELP? Are you dealing with a violent or abusive relationship? Are you a victim of rape or sexual assult? Call [facility] ([place]) 24 hour Crisis Hotline: 413.517.5036 or 324-007-6680. MANUAL Your Guide to a Healthy manual is now on-line. Visit [facility].org/HealthyPregnancyGuide to download your free copy documented in this encounterMetrohealth [facility] Center10-31-2022 History of Present illness Narrative* Charisma River PA-C - 03/09/2022 2:59 PM EDT Images from the original note were not included. This note was created using Websupportriter. Ciara Yi is a 16 year old [...] PCP. Charisma River PA-C documented in this encounterMetrohealth [facility] Center10-27-2022 Miscellaneous Notes* Quick Notes - Laurie Bonner APRN.CNM - 03/05/2022 2:00 PM EDT S: Rina Yi is a 16 year old female who presents at 30.4 weeks gestation for a routine visit. Her and jacquelineance are moving out of his dad's house and into their own apartment. In the process of getting signed up with [facility]. Positive movement. Denies headache, visual changes, chest [...] weeks Laurie Bonner APRN.CNM documented in this encounterMetrohealth [facility] Center10-27-2022 Instructions* Patient Instructions* Marleen Hopkins Ma - 03/05/2022 1:41 PM EDT SEQUENTIAL SCREENINGS The [facility] offers sequential screenings for women who are [...] testing. It will require an appointment withour marine diesel technician. This is not an ultrasound performed [...] the above symptoms, contact our office at [phone] and ask to speak with anurse. After hours, you can call doctors registry at [phone] OR call [facility] at [phone] ask to have the doctor concert promoter paged. If you consider this an emergency, dial 0-5-4 or go to your nearest emergency department. NEED HELP? Are you dealing with a violent or abusive relationship? Are you a victim of rape or sexual assult? Call [facility] ([place]) 24 hour Crisis Hotline: 295.622.1166 or 917-216-8969. MANUAL Your Guide to a Healthy manual is now on-line. Visit [facility]org/HealthyPregnancyGuide to download your free copy documented in this encounterMetrohealth [facility] Center10-13-2022 History of Present illness Narrative* Samuel Hoskins APRN.WORK AND FAMILY LIFE CONSULTANT - 02/19/2022 3:49 PM EDT [facility] Review of Records Patient: Rina Yi Address: [address] [place] [address] [place] [address] Impression: Review of records for Rina Yi, a 16 year old female, being referred by Laurie Bonner APN, CNM [technology services manager] to [facility] Epilept[facility] for diagnosis. Patient has [...] EEG followed by visit with epileptologist Location: Main [place] or [place] - Additional testing to be considered by epilepsy clinicians Signed: Samuel Hoskins APRN.WORK AND FAMILY LIFE CONSULTANT February 19, [address] Hsu for review and recommendations. MD Recommendations (as discussed with Dr. Hsu): - Please proceed with the above plan. documented in this encounterMetrohealth [facility] Heights [facility] Center10-12-2022 Miscellaneous Notes* Quick Notes - Naima Walls [...] which included preparing to see the patient, bpiz-xl-cyqs patient care, completing clinical documentation, obtaining and/or reviewing separately obtained history, performing a medically appropriate examination, counseling and educating the pat ient/family/caregiver, and ordering medications, tests, or procedures. documented in this encounterMetrohealth [facility] Heights [facility] Center10-12-2022 History of Present illness Narrative* Yanick Schwartz Cma - 02/18/2022 8:16 AM EDT Patient identified [...] severely ill: Yes Patient denies history of Guillain-Vanleer Syndrome (a severe paralytic illness): Yes Tdap Adacel injection was given without incident. See immunizations for details of immunizations administered today. VIS sheet provided: Yes Provider Naima Walls CNM was present in office at time of injection. Yanick Schwartz Cma documented in this encounterMetrohealth [facility] Heights [facility] Center10-12-2022 Instructions* Patient Instructions* Naima Walls APRN.CNM - [...] web site and request [facility] [address] [place] [address] [facility] [address] [place], [place] [address] [facility] [address] [place] [address] [facility] [address] [place] [address] http://www.Options Media Group Holdings [facility] [address] [place] [address] [facility] [address] [address] [email or web address]://[email or web address] [facility] & Wellness [address] [place] [address] http://www.JobFlashthe medical centerBlue Dot World.Webalo/services.html [facility]ic [phone] Bandwagonsonora regional medical centerBlue Dot World.[facility] [address] [place] [address] [facility] [address] [address] Have Mcdaniel office also [phone] https://[email or web address] ridge-office/ [facility] [phone] [address] [facility] Kevin. [address] [place] [address] [facility]URISTS [facility] Acupuncture [facility], [facility] [place] [address] [place] [address] http://www.Impact Engineacupuncture.Webalo [facility] [address] [place], [place] [id number] http://[email or web address] Here are some links for wonderful Providers here in the community and surrounding areas. Do not hesitate to contact their offices, many are offering virtual visits during this time. 1-283-7-NEWG1EVKQ - [place] Maternal Mental Health Hotline If you are in suicidal crisis, please call or text 1-054-869-TALK ( ) or visit the National Suicide Prevention Lifeline website. mchb.[facility].gov [facility] Behavioral Health Psychology, Psychiatry, Counseling Connect with therapist/ can do virtual visits [phone] Referral to the [facility] for Women's Behavioral Health To schedule an appointment, please call the [place] for [facility]al Health Appointment Line: [phone] option 1 Counseling Center - [address] [place], [place] [id number] [facility] [address] [place] [address] [facility] [address] [place] [address] [facility] [address] [place], [place] [id number] Tiki Chicas MD [address] [place] [address] [facility] [address], [address] [place] [address] [facility] [address] [place] [address] [facility] Counseling Services [place] / [place] [phone]/ [phone] David [facility] Hospitald[facility] [address] [facility] [phone] Aves of Counseling and Mediation [place] / [place] [phone] Behavioral health services of [facility] [address] [place] [address]/ [place] and [place] [phone] LENNIE Lassiter, TORREY Abad and Beyond Family Therapy Workshops, telehealth and at home visits. [phone] Humanistic counseling center 20 locations [place], [place], [place], [place], [place], [place], [place], [facility], [place], [place], [place], [place], [place], [place], [facility], [place], [place] ,[place], [place], [place],[facility], [place], [place], [facility], [place], [place] www.CoPatient [phone] Psychotherapy resources outside of [facility] are listed below [facility] Space Psychotherapy Web: https://www.SpireoncleTwitter/ Support International Online Provider Directory https://iHealth Labs/ Insight Counseling https://Atlantic Healthcare/ Next[facility] for Behavioral Health and Wellness Web: https://Dynova Laboratories,Inc./ Outfittery Effective Living Web: https://GroundCntrl.Webalo/ LifeStance Web: https://Riptide IO/location/state/[place]/ [facility] Web: https://www.[facility].org/ [facility] Web: https://nPario.org/ Recovery Resources Mental health and substance abuse help Web: https://www.FamilyLeafs.org & RESOURCES Support International Direct peer support and connection to professional resources Non-Emergency Helpline Phone: / Text: [phone] Web: https://www..net/ Online Provider Directory: https://iHealth Labs/ Online Support Meetings: https://www..net/get-help/pzq-cddqyk-mfyyjri-meetings/ NAMITA Baby and Receiving Operator Services Web: https://wwwBreitbart News Network/ Double the Donation Expert information on medication use during and Text: 660.702.7309 Web: https://3sun/ NATIONAL REGISTRY FOR PSYCHIATRIC MEDICATIONS Currently studying the safety of antidepressants, ADHD medications and atypical antipsychotics taken during TO PARTICIPATE CALL TOLL-FREE: Web: https://womensmentalhealth.org/research/pregnancyregistry/ Support Groups: [facility]- Follow on facebook Baby Bistro support group led by [facility] department Resilient Mamas - Support Group [facility].org The POEM support group [phone] Www.poTLM Com.org Follow on facebook - TIAGO denise chapter Online support meetings PSI https://www..net/get-help/dkp-eefsgy-wuoztqe-meetings/ [facility] mommy and me virtual support group 11:30-1pm Support for mothers and new babies and toddlers Glasco childbirth education: Childbirth @cc.org or call [phone] CRISIS: CRISIS HOTLINE [phone], 911 or go to the nearest ER. [facility] [phone] / [facility] [phone] https://www.[facility].org Crisis text line text the word HOME to [id number] SIGNS AND SYMPTOMS OF LABOR 1. Contractions every 10 minutes or more often 2. Clear, pink, or brownish fluid (water) leaking from vagina 3. Feeling that baby is pushing down, pressure 4. Low, dull backache 5. Cramps that feel like a period 6. Cramps with or without diarrhea If you notice any of the above symptoms, contact our office at [phone] and ask to speak with anurse. After hours, you can call doctors registry at [phone] OR call [facility] at [phone] ask to have the doctor concert promoter paged. If you consider this an emergency, dial 9-1-1 or go to your nearest emergency department. NEED HELP? Are you dealing with a violent or abusive relationship? Are you a victim of rape or sexual assult? Call [facility] 24 hour Crisis Hotline: 557.794.5444 or 340-959-8570. MANUAL Your Guide to a Healthy manual is now on-line. Visit [facility].org/HealthyPregnancyGuide to download your free copy documented in this encounterMetrohealth [facility] Center09-21-2022 Miscellaneous Notes* Quick Notes - Amira Akins [...] Level: 3 - Low documented in this encounterMetrohealth [facility] Heights [facility] Center09-21-2022 Instructions* Patient Instructions* Marleen Hopkins Ma - 01/28/2022 3:41 PM EDT SEQUENTIAL SCREENINGS The [facility] offers sequential screenings for women who are [...] testing. It will require an appointment withour marine diesel technician. This is not an ultrasound performed [...] the above symptoms, contact our office at [phone] and ask to speak with anurse. After hours, you can call doctors registry at [phone] OR call [facility] at [phone] ask to have the doctor concert promoter paged. If you consider this an emergency, dial 9-1-0 or go to your nearest emergency department. NEED HELP? Are you dealing with a violent or abusive relationship? Are you a victim of rape or sexual assult? Call [facility] ([place]) 24 hour Crisis Hotline: 342.775.3442 or 111-403-8241. MANUAL Your Guide to a Healthy manual is now on-line. Visit [facility].org/HealthyPregnancyGuide to download your free copy documented in this encounterMetrohealth [facility] Center08-26-2022 Miscellaneous Notes* Telephone Encounter - Joan Griffiths RN - 01/02/2022 9:25 AM EDT PRAF completed Joan Griffiths RN documented in this encounterMetrohealth [facility] Heights [facility] Center08-23-2022 Miscellaneous Notes* Quick Notes - Laurie Bonner APRN.CNM - 12/30/2021 12:24 PM EDT Patient transfer of care at 21.2 weeks gestation. NOB completed today. Laurie Bonner APRN.CNM documented in this encounterMetrohealth [facility] Heights [facility] Center08-23-2022 History of Present illness Narrative* Laurie Bonner APRN.CNM - 12/30/2021 8:49 AM EDT INITIAL OB ASSESSMENT OB Provider: Georgina Rivero LPN HPI: Rina Yi is a 16 year old female here to establish Obstetrical Care. Patient's last menstrual period was 08/04/2021. from OB Dating Form. Patient is a transfer of care from [place]. Currently 21.2 weeks gestation History of seizures- [...] with Folic acid: Yes Occupation: not working Faith or heritage: No Would refuse blood transfusion if medically necessary: No BMI 19.67 kg/(m^2) Patient BMI over 30? No Marital Status:Co-habitating Partner: Name: Orly Solo Age: 17 Occupation: [employer] [place] Gender: male History of STDs: None PAST [...] depression History of suicide attempts- 3 last one 2018 Denies SI/HI Starting therapy at [facility] [...] prn. Laurie Bonner APRN.CNM documented in this encounterMetrohealth [facility] Heights [facility] Center08-23-2022 Instructions* Patient Instructions* Laurie Bonner APRN.CNM - 12/30/2021 8:49 AM EDT Here are some links for wonderful Providers here in the community and surrounding areas. Do not hesitate to contact their offices, many are offering virtual visits during this time. 7-883-1-ZWBP1TNNQ - [place] Maternal Mental Health Hotline If you are in suicidal crisis, please call or text 5-978-836-TALK ( ) or visit the National Suicide Prevention Lifeline website. mchb.[facility].gov [facility] Behavioral Health Psychology, Psychiatry, Counseling Connect with therapist/ can do virtual visits [phone] Referral to the [facility] Center for Women's Behavioral Health To schedule an appointment, please call the [place] [facility] Appointment Line: [phone] option 1 Counseling Center - [place], [place] [address] [place] [address] [facility] [address] [place] [address] [facility] [address] [place] [address] [facility] [address] [place], [place] [address] Tiki Chicas MD [address] [place] [address] [facility] [address] [facility], [address] [place] [address] [facility] Psychiatric Services [address] [place] [address] [facility] Counseling Services [place] / [place] [phone]/ [phone] David [facility] [address] [facility] [address] [facility] [phone] Aves of Counseling and Mediation [place] / [place] [phone] Behavioral health services of [facility] [address] [place] [address]/ [place] and [place] [phone] Nathan Lopez, LENNIE, CLC Bump and Beyond Family Therapy Workshops, telehealth and at home visits. [phone] Humanistic counseling center 20 locations [facility], [place], [place], [place], [place], [place], [facility], [place], [place], [place], [place], [place], [place], [facility], [place], [place] ,[facility], [place], [place],[facility], [facility], [place], [facility], [facility], [place] www.APEPTICO Forschung und Entwicklungcomulticare auburn medical centerVitalMedix [phone] Psychotherapy resources outside of [facility] are listed below Holding Space Psychotherapy Web: https://wwwQuewey.Webalo/ Support International Online Provider Directory https://iHealth Labs/ Insight Counseling https://insightcoLiftMetrix/ Partners for Behavioral Health and Wellness Web: https://Dynova Laboratories,Inc./ [place] for Effective Living Web: https://Exajouleliving.Webalo/ LifeStance Web: https://Riptide IO/location/state/[place]/ [facility] Web: https://www.signatureunm cancer center.org/ The Centers Web: https://nPario.trend.ly/ Recovery Resources Mental health and substance abuse help Web: https://www.Delivery Club & RESOURCES Support International Direct peer support and connection to professional resources Non-Emergency Helpline Phone: / Text: [phone] Web: https://www..net/ Online Provider Directory: https://iHealth Labs/ Online Support Meetings: https://www..net/get-help/ywi-fgzcti-babspxg-meetings/ NAMITA Baby and Receiving Operator Services Web: https://wwwBreitbart News Network/ MotherToBaby Expert information on medication use during and Text: 287.950.3640 Web: https://3sun/ NATIONAL REGISTRY FOR PSYCHIATRIC MEDICATIONS Currently studying the safety of antidepressants, ADHD medications and atypical antipsychotics taken during TO PARTICIPATE CALL TOLL-FREE: Web: https://womensmentalhealth.org/research/pregnancyregistry/ Support Groups: [facility]- Follow on facebook Baby Bistro support group led by [facility] department Resilient Mamas - Support Group [facility].org The POEM support group [phone] Www.poemonline.org Follow on facebook - TIAGO millerdenise max Online support meetings PSI https://www..net/get-help/qng-qbljnt-threztz-meetings/ [facility] mommy and me virtual support group 11:30-1pm Support for mothers and new babies and toddlers Glasco childbirth education: Childbirth @cc.org or call [phone] CRISIS: CRISIS HOTLINE [phone], 911 or go to the nearest ER. [facility] [phone] / [facility] [phone] https://www.[facility].org Crisis text line text the word HOME to 867293 Please select the following link to access the [facility] Your Guide to a Healthy . www.[facility].org/healthypregnancyguide documented in this encounterMetrohealth [facility] Heights Medical CenterEvaluation note* Diagnosis Encounter for care in second [...] dysmorphic disorder Hypochondriasis documented in this encounter [facility]* Diagnosis with care elsewhere in second trimester- Primary Need for influenza vaccination Need for prophylactic vaccination and inoculation against influenza High risk teen in second trimester 25 weeks gestation of state, incidental documented in this encounter [facility]* Diagnosis Episodes of staring- Primary documented in this encounter [facility]* Diagnosis 28 weeks gestation of - Primary state, incidental Need for vaccination Need for prophylactic vaccination and inoculation against unspecified single disease Underweight [facility] Diagnosis 30 weeks gestation of - Primary state, incidental documented in this encounter [facility]* Diagnosis Fingernail avulsion, complete, initial encounter- Primary documented in this encounter [facility]* Diagnosis 32 weeks gestation of - Primary state, incidental Excessive weight gain in , third trimester documented in this encounter [facility]* Diagnosis Uterine size date discrepancy, third trimester- Primary 33 weeks gestation of state, incidental documented in this encounter [facility] CenterSpectrop[facility]alumidd[facility] emergency department note* Diagnosis 34 weeks gestation of - Primary state, incidental documented in this encounter [facility] CenterSpectropathalumiddletown emergency department note* Diagnosis Convulsions, unspecified convulsion type (HCC)- Primary documented in this encounter [facility] CenterSpectropathalumiddletown [facility] department note* Diagnosis 36 weeks gestation of - Primary state, incidental Excessive weight gain in , third trimester [facility] noteNo assessment information availableWAshtab[facility] Work Phone: [employer] note* Diagnosis Onset Date Resolution Status Vaginal discharge acute [facility] Work Phone: evTipTapation note* Diagnosis care, subsequent in third trimester- Primary Elevated blood pressure reading without diagnosis of hypertension documented in this encounter [facility]* Diagnosis 38 weeks gestation of - Primary state, incidental Encounter for supervision of other normal in third trimester Elevated blood pressure reading without diagnosis of hypertension [facility]* Diagnosis 38 weeks gestation of - Primary state, incidental Excessive weight gain in , third trimester documented in this encounter [facility]* Diagnosis Onset Date Resolution Status Vaginal discharge resolved 37 weeks gestation of resolved Elevated blood pressure affe cting , antepartum resolved 39 weeks gestation of acute Second degree perineal laceration during delivery acute Single live acute (spontaneous vaginal delivery) acute High risk multigravida in third trimester resolved Polyhydramnios affecting in third trimester resolved Variable heart rate decelerations, antepartum resolved [facility] Work Phone: Evaluation note* Diagnosis 39 weeks gestation of - Primary state, incidental documented in this encounter [facility]* Diagnosis 39 weeks gestation of - Primary state, incidental Excessive weight gain in , third trimester documented in this encounter [facility]* Diagnosis macrosomia in third trimester, single or unspecified fetus- Primary 39 weeks gestation of state, incidental Excessive weight gain in , third trimester Polyhydramnios, third trimester, other fetus [facility]* Diagnosis 39 weeks gestation of - Primary state, incidental Encounter for supervision of other normal in third trimester Excessive weight gain in , third trimester [facility]* Diagnosis endometritis- Primary Puerperal endometritis, condition or complication perineal pain Other specified complications, condition or complication Pelvic pain in female Unspecified symptom associated with female genital organs At risk for depression documented in this [facility]* Diagnosis Vaginal bleeding- Primary Other specified noninflammatory disorder of vagina Vaginal discharge Leukorrhea, not specified as infective state Routine follow-up documented in this encounter [facility]* Diagnosis perineal pain Other specified complications, condition or complication documented [facility]* Diagnosis PTSD (post-traumatic stress disorder)- Primary [...] of lactating mother [facility]* Diagnosis Encounter for insertion of mirena IUD- Primary Encounter for insertion of intrauterine contraceptive device Encounter for IUD insertion Encounter for insertion of intrauterine contraceptive device Other iron deficiency anemia documented in this [facility]* Diagnosis Polysubstance dependence (HCC)- Primary Combinations of drug dependence excluding opioid type drug, unspecified Bipolar disorder, current episode depressed, severe, without psychotic features (HCC) Bipolar I disorder, most recent episode (or current) depressed, severe, without mention of psychotic behavior documented [facility] this [facility]* Diagnosis Onset Date Resolution Status depression noneac tive Care and examination of lactating mother noneactive Other disorders of noneactive [facility] Work Phone: Evaluation note* Diagnosis Dysuria- Primary Missed menses Absence of menstruation Screen for STD (sexually transmitted disease) Screening examination for venereal disease documented in this encounter [facility]* Diagnosis Encounter for other general counseling or advice on contraception- Primary Tobacco use disorder Anxiety neurosis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 Federal rules restrict any use of the information to criminally investigate or prosecute any alcohol or drug abuse patient.[facility] CenterIn the event this information is protected by the Federal Confidentiality of Alcohol and Drug Abuse Patient Records regulations: The Federal rules restrict any use of the information to criminally investigate or prosecute any alcohol or drug abuse patient.[facility] CenterIn the event this information is protected by the Federal Confidentiality of Alcohol and Drug Abuse Patient Records regulations: The Federal rules restrict any use of the information to criminally investigate or prosecute any alcohol or drug abuse patient.[facility] CenterIn the event this information is protected by the Federal Confidentiality of Alcohol and Drug Abuse Patient Records regulations: The Federal rules restrict any use of the information to criminally investigate or prosecute any alcohol or drug abuse patient.[facility] CenterIn the event this information is protected by the Federal Confidentiality of Alcohol and Drug Abuse Patient Records regulations: The Federal rules restrict any use of the information to criminally investigate or prosecute any alcohol or drug abuse patient.[facility] CenterIn the event this information is protected by the Federal Confidentiality of Alcohol and Drug Abuse Patient Records regulations: The Federal rules restrict any use of the information to criminally investigate or prosecute any alcohol or drug abuse patient.[facility] CenterIn the event this information is protected by the Federal Confidentiality of Alcohol and Drug Abuse Patient Records regulations: The Federal rules restrict any use of the information to criminally investigate or prosecute any alcohol or drug abuse patient.[facility] CenterIn the event this information is protected by the Federal Confidentiality of Alcohol and Drug Abuse Patient Records regulations: The Federal rules restrict any use of the information to criminally investigate or prosecute any alcohol or drug abuse patient.[facility] CenterIn the event this information is protected by the Federal Confidentiality of Alcohol and Drug Abuse Patient Records regulations: The Federal rules restrict any use of the information to criminally investigate or prosecute any alcohol or drug abuse patient.[facility] CenterIn the event this information is protected by the Federal Confidentiality of Alcohol and Drug Abuse Patient Records regulations: The Federal rules restrict any use of the information to criminally investigate or prosecute any alcohol or drug abuse patient.[facility] CenterIn the event this information is protected by the Federal Confidentiality of Alcohol and Drug Abuse Patient Records regulations: The Federal rules restrict any use of the information to criminally investigate or prosecute any alcohol or drug abuse patient.[facility] CenterIn the event this information is protected by the Federal Confidentiality of Alcohol and Drug Abuse Patient Records regulations: The Federal rules restrict any use of the information to criminally investigate or prosecute any alcohol or drug abuse patient.[facility] CenterIn the event this information is protected by the Federal Confidentiality of Alcohol and Drug Abuse Patient Records regulations: The Federal rules restrict any use of the information to criminally investigate or prosecute any alcohol or drug abuse patient.[facility] CenterIn the event this information is protected by the Federal Confidentiality of Alcohol and Drug Abuse Patient Records regulations: The Federal rules restrict any use of the information to criminally investigate or prosecute any alcohol or drug abuse patient.[facility] CenterIn the event this information is protected by the Federal Confidentiality of Alcohol and Drug Abuse Patient Records regulations: The Federal rules restrict any use of the information to criminally investigate or prosecute any alcohol or drug abuse patient.[facility] CenterIn the event this information is protected by the Federal Confidentiality of Alcohol and Drug Abuse Patient Records regulations: The Federal rules restrict any use of the information to criminally investigate or prosecute any alcohol or drug abuse patient.[facility] CenterIn the event this information is protected by the Federal Confidentiality of Alcohol and Drug Abuse Patient Records regulations: The Federal rules restrict any use of the information to criminally investigate or prosecute any alcohol or drug abuse patient.[facility] CenterIn the event this information is protected by the Federal Confidentiality of Alcohol and Drug Abuse Patient Records regulations: The Federal rules restrict any use of the information to criminally investigate or prosecute any alcohol or drug abuse patient.[facility] CenterIn the event this information is protected by the Federal Confidentiality of Alcohol and Drug Abuse Patient Records regulations: The Federal rules restrict any use of the information to criminally investigate or prosecute any alcohol or drug abuse patient.[facility] CenterIn the event this information is protected by the Federal Confidentiality of Alcohol and Drug Abuse Patient Records regulations: The Federal rules restrict any use of the information to criminally investigate or prosecute any alcohol or drug abuse patient.[facility] CenterIn the event this information is protected by the Federal Confidentiality of Alcohol and Drug Abuse Patient Records regulations: The Federal rules restrict any use of the information to criminally investigate or prosecute any alcohol or drug abuse patient.[facility] CenterIn the event this information is protected by the Federal Confidentiality of Alcohol and Drug Abuse Patient Records regulations: The Federal rules restrict any use of the information to criminally investigate or prosecute any alcohol or drug abuse patient.[facility] CenterIn the event this information is protected by the Federal Confidentiality of Alcohol and Drug Abuse Patient Records regulations: The Federal rules restrict any use of the information to criminally investigate or prosecute any alcohol or drug abuse patient.[facility] CenterIn the event this information is protected by the Federal Confidentiality of Alcohol and Drug Abuse Patient Records regulations: The Federal rules restrict any use of the information to criminally investigate or prosecute any alcohol or drug abuse patient.[facility] CenterIn the event this information is protected by the Federal Confidentiality of Alcohol and Drug Abuse Patient Records regulations: The Federal rules restrict any use of the information to criminally investigate or prosecute any alcohol or drug abuse patient.[facility] CenterIn the event this information is protected by the Federal Confidentiality of Alcohol and Drug Abuse Patient Records regulations: The Federal rules restrict any use of the information to criminally investigate or prosecute any alcohol or drug abuse patient.[facility] CenterIn the event this information is protected by the Federal Confidentiality of Alcohol and Drug Abuse Patient Records regulations: The Federal rules restrict any use of the information to criminally investigate or prosecute any alcohol or drug abuse patient.[facility] CenterIn the event this information is protected by the Federal Confidentiality of Alcohol and Drug Abuse Patient Records regulations: The Federal rules restrict any use of the information to criminally investigate or prosecute any alcohol or drug abuse patient.[facility] CenterIn the event this information is protected by the Federal Confidentiality of Alcohol and Drug Abuse Patient Records regulations: The Federal rules restrict any use of the information to criminally investigate or prosecute any alcohol or drug abuse patient.[facility] CenterIn the event this information is protected by the Federal Confidentiality of Alcohol and Drug Abuse Patient Records regulations: The Federal rules restrict any use of the information to criminally investigate or prosecute any alcohol or drug abuse patient.[facility] CenterIn the event this information is protected by the Federal Confidentiality of Alcohol and Drug Abuse Patient Records regulations: The Federal rules restrict any use of the information to criminally investigate or prosecute any alcohol or drug abuse patient.[facility] CenterIn the event this information is protected by the Federal Confidentiality of Alcohol and Drug Abuse Patient Records regulations: The Federal rules restrict any use of the information to criminally investigate or prosecute any alcohol or drug abuse patient.[facility] CenterIn the event this information is protected by the Federal Confidentiality of Alcohol and Drug Abuse Patient Records regulations: The Federal rules restrict any use of the information to criminally investigate or prosecute any alcohol or drug abuse patient.[facility] CenterIn the event this information is protected by the Federal Confidentiality of Alcohol and Drug Abuse Patient Records regulations: The Federal rules restrict any use of the information to criminally investigate or prosecute any alcohol or drug abuse patient.[facility] CenterIn the event this information is protected by the Federal Confidentiality of Alcohol and Drug Abuse Patient Records regulations: The Federal rules restrict any use of the information to criminally investigate or prosecute any alcohol or drug abuse patient.[facility] CenterIn the event this information is protected by the Federal Confidentiality of Alcohol and Drug Abuse Patient Records regulations: The Federal rules restrict any use of the information to criminally investigate or prosecute any alcohol or drug abuse patient.[facility] CenterIn the event this information is protected by the Federal Confidentiality of Alcohol and Drug Abuse Patient Records regulations: The Federal rules restrict any use of the information to criminally investigate or prosecute any alcohol or drug abuse patient.[facility] CenterIn the event this information is protected by the Federal Confidentiality of Alcohol and Drug Abuse Patient Records regulations: The Federal rules restrict any use of the information to criminally investigate or prosecute any alcohol or drug abuse patient.[facility] CenterIn the event this information is protected by the Federal Confidentiality of Alcohol and Drug Abuse Patient Records regulations: The Federal rules restrict any use of the information to criminally investigate or prosecute any alcohol or drug abuse patient.[facility] CenterIn the event this information is protected by the Federal Confidentiality of Alcohol and Drug Abuse Patient Records regulations: The Federal rules restrict any use of the information to criminally investigate or prosecute any alcohol or drug abuse patient.[facility] CenterIn the event this information is protected by the Federal Confidentiality of Alcohol and Drug Abuse Patient Records regulations: The Federal rules restrict any use of the information to criminally investigate or prosecute any alcohol or drug abuse patient.[facility] CenterIn the event this information is protected by the Federal Confidentiality of Alcohol and Drug Abuse Patient Records regulations: The Federal rules restrict any use of the information to criminally investigate or prosecute any alcohol or drug abuse patient.[facility] CenterIn the event this information is protected by the Federal Confidentiality of Alcohol and Drug Abuse Patient Records regulations: The Federal rules restrict any use of the information to criminally investigate or prosecute any alcohol or drug abuse patient.[facility] CenterIn the event this information is protected by the Federal Confidentiality of Alcohol and Drug Abuse Patient Records regulations: The Federal rules restrict any use of the information to criminally investigate or prosecute any alcohol or drug abuse patient.[facility] CenterIn the event this information is protected by the Federal Confidentiality of Alcohol and Drug Abuse Patient Records regulations: The Federal rules restrict any use of the information to criminally investigate or prosecute any alcohol or drug abuse patient.[facility] CenterIn the event this information is protected by the Federal Confidentiality of Alcohol and Drug Abuse Patient Records regulations: The Federal rules restrict any use of the information to criminally investigate or prosecute any alcohol or drug abuse patient.[facility] CenterIn the event this information is protected by the Federal Confidentiality of Alcohol and Drug Abuse Patient Records regulations: The Federal rules restrict any use of the information to criminally investigate or prosecute any alcohol or drug abuse patient.[facility] Goals (unrecognized section and content) Goals may [...] Provider, Refer ring Provider Active Zoie Aly PHYS THER, PHYS THER-C Attending Provider Active Team Status: Inactive Member [...] Active Ed Physician Provider Emergency Provider Active Nail Feeder Relationship Specialty Start Date End Date Carole Lacey MD [address] [facility] [place] [address] PCP - General Family Medicine 06/26/24 Michelle Workman APRN.WORK AND FAMILY LIFE CONSULTANT [address] [place] [address] Turbine Inspector Family Medicine 06/26/24 Nail Feeder Relationship Specialty Start Date End Date Carole Lacey MD [address] [facility] [place] [address] PCP - General Family Medicine 06/26/24 Michelle Workman APRN.WORK AND FAMILY LIFE CONSULTANT [address] [place] [address] Turbine Inspector Family Medicine 06/26/24 Nail Feeder Relationship Specialty Start Date End Date Carole Lacey MD [address] [facility] [place], [place] [id number] PCP - General Family Medicine 06/26/24 Michelle Workman, SUPPORT SPECIALIST.WORK AND FAMILY LIFE CONSULTANT [address] [place], [place] [id number] Turbine Inspector Family Medicine 06/26/24 Nail Feeder Relationship Specialty Start Date End Date Carole Lacey MD [address] [facility] [place], [place] [id number] PCP - General Family Medicine 06/26/24 Michelle Workman, SUPPORT SPECIALIST.WORK AND FAMILY LIFE CONSULTANT [address], [place] [id number] Turbine Inspector Family Medicine 06/26/24 Team Status: Inactive Member Role Status Dates No Primary Care Physician Primary Care Provider Active Start: August 31, 2024 End: August 31, 2024 Tim Leonardo MD Referring Provider Active Star t: August 31, 2024 End: August 31, 2024 Tim Leonardo MD Emergency Provider Active Star t: August 31, 2024 End: August 31, 2024 Nail Feeder Relationship Specialty Start Date End Date Carole Lacey MD [address] [facility] [place], [place] [id number] PCP - General Family Medicine 06/26/24 Michelle Workman, SUPPORT SPECIALIST.WORK AND FAMILY LIFE CONSULTANT [address] [place], [place] [id number] Turbine Inspector Family Medicine 06/26/24 Nail Feeder Relationship Specialty Start Date End Date Carole Lacey MD [address] [facility] [place] [address] PCP - General Family Medicine 06/26/24 Michelle Workman APRN.WORK AND FAMILY LIFE CONSULTANT [address] [place] [address] Turbine Inspector Family Medicine 06/26/24 Team Status: Active Member Role/Relationship Status Dates No Primary Care Physician Primary Care Provider Active Team Status: Inactive Member Role/Relationship Status Dates No Primary Care Physician Primary Care Provider Active Start: August 31, 2024 End: August 31, 2024 Tim Leonardo MD Attending Provider Active Star t: August 31, 2024 End: August 31, 2024 Tim Leonardo MD Referring Provider Active Star t: August 31, 2024 End: August 31, 2024 Tim Leonardo MD Emergency Provider Active Star t: August 31, 2024 End: August 31, 2024 Team Status: Inactive Member Role/Relationship Status Dates No Primary Care Physician Primary Care Provider Active Start: December 17, 2024 End: December 17, 2024 Dr. Naun Garcia MD Emergency Provider Active S tart: December 17, 2024 End: December 17, 2024 FOR RECORDS PERTAINING TO PATIENTS WHO ARE [...] BE BASED ON THE PRIMARY CLINICAL RECORDS. [facility] [employer] provides no warranty or guarantee of the accuracy or completeness of information in this document.
--- NOTE | 2024-12-31 12:30 | ED.RN ---
Pt called out with concerns regarding IV. She stated IV fluids were hurting my head and she wanted IV removed. I've had lots of IV's and I know what it should feel like. Pt stated she'd rather be poked again for another IV lots of times than keep current IV intact. This RN visualized fluids infusing with no signs of infiltration. Pt holding head saying I can't take it, I can't take it. Pt agreeable to stopping fluids and keeping IV intact after this RN educated on purpose for keeping current IV.
[2024-12-31 13:03] LABS: AST(SGOT) 17 U/L (<=31); Alanine Aminotransfer ALT/SGPT 16 U/L (<=34); Albumin, Serum 4.5 g/dL (3.5-5.0); Alkaline Phosphatase 64 U/L (35-104); Anion Gap 11 (5-15); BUN 5 mg/dL (4-19); BUN/Creat Ratio 9.4 RATIO (10-20); Calcium,Total 9.7 mg/dL (7.6-11.0); Carbon Dioxide 23.3 mmol/L (21.0-32.0); Chloride 103 mmol/L (98-108); Estimated Creatinine Clearance 171.49 ml/min (50-250); Globulin 3.3 g/dL (2.2-4.2); Glucose 98 mg/dL (70-99); Potassium 3.8 mmol/L (3.3-5.1)
[2024-12-31 13:30] LABS: hCG Titer Quant., Serum 36446 mIU/mL (<9 non-preg)
[2024-12-31 13:32] VITALS: BP 100/61; PULSE 63; RESP 15; O2SAT 100
--- NOTE | 2024-12-31 14:12 | ED.RN ---
Patient questing this nurse why the ultrasound was taking so long. I advised the patient that staff had to be called in to do the US. Patient did not want to say stating, I'm hungry, my kid is hungry and I have a kid at home. I spoke with the provider, per Dr. Mi AMA paperwork was printed. Patient did sign AMA paperwork however she states that she was told by Dr. Mi that the US was not medically necessary. As she was walking out she stated I still don't feel good, we should have gone to [place].
== END 2024-12-31 14:23 | disposition left against medical advice (07) ==
PROVIDERS: Emergency Provider Emergency Medicine; Visit Provider Emergency Medicine
DX: O21.9 Vomiting of pregnancy, unspecified (principal); R19.7 Diarrhea, unspecified; R10.84 Generalized abdominal pain; Z53.29 Procedure and treatment not carried out because of patient's decision for other reasons; O26.891 Other specified pregnancy related conditions, first trimester; O99.331 Smoking (tobacco) complicating pregnancy, first trimester; R10.2 Pelvic and perineal pain; F17.290 Nicotine dependence, other tobacco product, uncomplicated; Z3A.00 Weeks of gestation of pregnancy not specified
CPT/HCPCS: 80053; 81001; 84702; 85025; 96374; 99284; A4216